=== PATIENT | male | born 1960 | race Caucasian/White ===

== ENCOUNTER 2021-02-12 22:03 | Inpatient (IN) | payer MEDICAID, SELFPAY ==
[2021-02-12 22:09] VITALS: BP 143/114; PULSE 75; RESP 24; TEMP 36.7; O2SAT 99; BMI 45.8
[2021-02-12 22:14] VITALS: BP 139/93; PULSE 76; RESP 24; O2SAT 99
--- NOTE | 2021-02-12 22:19 | XR_ITS ---
WS: [id number] Portable AP upright chest, 02/12/2021 Clinical Data: sob Comparison: None. Findings: No nodules, masses or effusions are seen. The heart is large. The pulmonary vascularity is not increased. No pneumonia or pneumothorax is seen. Midline sternotomy sutures are present. There is a multilead pacemaker in good position with the generator overlying the left lateral chest. The aort ic arch and descending aorta show calcification and tortuosity. XR/XR chest 1V portable [id number] Impression: 1. Cardiomegaly and atherosclerosis. 2. Permanent pacemaker.
--- NOTE | 2021-02-12 22:20 | ECG_ITS ---
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 Measurements Intervals [place] Rate: 77 P: 76 AR: 138 QRS: -83 QRSD: 173 T: 100 QT: 479 QTc: 543 Interpretive Statements ELECTRONIC VENTRICULAR PACEMAKER ABNORMAL RHYTHM ECG No previous ECG available for comparison Electronically Signed On 02-13-2021 19:46:42 CDT by Feliberto Senior M.D. [id number] f
[2021-02-12 22:29] VITALS: BP 139/93; PULSE 75; RESP 26; O2SAT 99
--- NOTE | 2021-02-12 22:30 | ED_ITS ---
HPI - SOB/Dyspnea General: Chief Complaint: Shortness of Breath/Dyspnea Stated Complaint: DIFF BREATHING, DIFF WALKING Time Seen by Provider: 02/12/21 22:09 Source: patient Mode of arrival: ambulatory Limitations: no limitations History of Present Illness: HPI Narrative: 60-year-old male has a history of COPD states he been outside working over the last 2 days has had increased shortness of breath. He states he had increased wheezing as well with no improvement from inhaler. He is in distress and able speak in 3-5 word sentences and has obvious wheezing. Patient denies any chest pain. Denies any vomiting or diarrhea. He denies any worsening improving factors currently. He has had a nonproductive cough. MD elicited complaint: shortness of breath Associated symptoms: Deny abdominal pain, chest pain, fever(s), nausea or vomiting Review of Systems Const: Denies: fever(s), chills, body aches or change in appetite Eyes: Denies: blurry vision or eye discomfort ENMT: Denies: throat pain or dental pain Card: Denies: chest pain Resp: Reports: dyspnea and wheezing GI: Denies: abdominal pain, nausea, vomiting or diarrhea : Denies: dysuria Musc: Denies: neck pain or back pain Skin/Breast: Denies: rash Neuro: Denies: headache(s) Psych: Denies: depression Alan/Lymph: Denies: easy bruising All/Imm: Denies: urticaria Physical Exam Const: COMMON NORMALS: patient oriented x3 GENERAL APPEARANCE: in distress NUTRITIONAL APPEARANCE: obese HENMT: COMMON NORMALS: normocephalic and atraumatic HEAD & SCALP: normocephalic and atraumatic Eye: COMMON NORMALS: Equal, round and reactive pupils present and EOMs intact bilaterally PUPIL: Yes Equal, round and reactive pupils present Neck/C-Spine: COMMON NORMALS: full ROM and supple Chest: COMMONS NORMALS: normal inspection of the chest and normal palpation of entire chest wall Resp: COMMON NORMALS: No retractions EFFORT & INSPECTION: Yes tachypneic and Yes respiratory distress AUSCULTATION: wheezes Cardio: COMMON NORMALS: regular rate, regular rhythm and No murmurs present (Cardio) RATE: regular rate RHYTHM: regular rhythm GI: COMMON NORMALS: Normal to inspection, nondistended, normoactive bowel sounds present, Soft to palpation, non-tender and no masses PALPATION: Yes Soft to palpation Extremity: COMMON NORMALS: normal to inspection and full ROM Neuro: COMMON NORMALS: patient oriented x3, moves all extremities and no focal motor deficits Psych: COMMON NORMALS: mental status grossly normal, Normal thought process present and cooperative THOUGHT PROCESS: Normal thought process present Skin: COMMON NORMALS: no rashes or lesions noted and no wounds GENERAL SKIN EXAM: no rashes or lesions noted Course Vital Signs: Vital signs: Vital Signs Temperature 98.1 F 02/12/21 22:09 Pulse Rate 78 02/12/21 23:14 Respiratory Rate 20 H 02/12/21 23:14 Blood Pressure 131/90 02/12/21 23:14 Pulse Oximetry 100 02/12/21 23:14 MDM - SOB/Dyspnea MDM Narrative: Medical decision making narrative: Haroon presents with shortness of breath does have a history of CHF and COPD. He does have quite a bit of wheezing and edema in his extremities. Patient given IV Lasix. Has had some slight improvement after breathing treatment but still has tachypnea and wheezing. X-ray shows no pneumonia. I spoke to the hospitalist and will admit at this time. Patient has been stable while here. Lab Data: Labs: Lab Results 02/12/21 02/12/21 02/12/21 Range/Units 22:23 22:23 22:23 WBC 12.5 H (4.0-10.0) 10^3/ uL RBC 4.37 (4.1-5.3) 10^6/u L Hgb 10.9 L (11.7-16.6) g/dL Hct 37.3 L (42.0-52.0) % MCV 85.4 (80-94) fL MCH 24.9 L (28.0-34.0) pg MCHC 29.2 L (30.0-36.0) g/dL RDW 15.8 H (12.1-15.1) % Plt Count 159 (130-400) 10^3/c mm MPV 12.7 H (7.4-10.4) fL Neut % (Auto) 78.4 % Lymph % (Auto) 10.0 % [place] % (Auto) 10.1 % Eos % (Auto) 0.4 % Baso % (Auto) 0.5 % Neut # (Auto) 9.82 H (1.8-7.7) 10^3/u L Lymph # (Auto) 1.3 (0.8-4.8) 10^3/u L [place] # (Auto) 1.3 H (0.2-0.9) 10^3/u L Eos # (Auto) 0.1 (0.0-0.8) 10^3/u L Baso # (Auto) 0.1 (0.0-0.1) 10^3/u L Nucleated RBC % (a uto) 0 % Nucleated RBCs # 0.0 /100WBC Sodium 138 (136-145) mmol/L Potassium 4.2 (3.5-5.1) mmol/L Chloride 104 (98-107) mmol/L Carbon Dioxide 23 (22-29) mmol/L Anion Gap 15.2 (5-19) BUN 32 H (8-23) mg/dL Creatinine 1.5 H (0.7-1.2) mg/dL GFR Calculation 47.4 L (90-130) mL/min Glucose 237 H (65-115) mg/dL Calculated Osmolal ity 301 H (285-295) mOsm/k g Calcium 8.3 L (8.5-10.5) mg/dL Total Bilirubin 1.2 (0.15-1.2) mg/dL AST 392 H (0-40) U/L ALT 570 H (0-41) U/L Alkaline Phosphata se 105 (40-130) IU/L Troponin T Baselin e 52 H (0-15) ng/L NT-Pro-B Natriuret Pep 90405 H (0-125) pg/mL Total Protein 6.7 (6.6-8.7) g/dL Albumin 3.5 (3.5-5.2) g/dL Globulin 3.2 (1.3-4.6) g/dL Imaging Data^: CXR: Attestation: I personally reviewed and interpreted this imaging study as follows: My impression: no acute abnormality EKG Data^: EKG 1: Attestation: I personally reviewed and interpreted this EKG as follows: EKG Interpretation Date: 02/12/21 EKG interpretation time: 22:23 Interpretation: paced hr [address] or t wave abnormalities qrs 173 qtc 510 Discharge Plan Discharge Patient Disposition: Admitted As Inpatient Clinical Impression: Acute exacerbation of chronic obstructive airways disease, Congestive heart failure, Weakness Condition: Stable Coding Level of Care Code ED Form Tamper Operator for Chg Fwd Exam Comprehensive
[2021-02-12] MEDS: ipratropium-albuterol 3 mL Neb INHALATION (22:32)
[2021-02-12 22:33] VITALS: PULSE 75; RESP 26; O2SAT 99
[2021-02-12 22:33] LABS: Basophils # 0.1 10^3/uL (0.0-0.1); Basophils % 0.5 %; Eosinophils # 0.1 10^3/uL (0.0-0.8); Eosinophils % 0.4 %; Hematocrit 37.3 % (42.0-52.0); Hemoglobin 10.9 g/dL (11.7-16.6); Lymphocytes # 1.3 10^3/uL (0.8-4.8); Mean Corpuscular HGB Conc 29.2 g/dL (30.0-36.0); Mean Corpuscular Hemoglobin 24.9 pg (28.0-34.0); Mean Corpuscular Volume 85.4 fL (80-94); Mean Platelet Volume 12.7 fL (7.4-10.4); Monocytes # 1.3 10^3/uL (0.2-0.9); Monocytes % 10.1 %; Neutrophils # 9.82 10^3/uL (1.8-7.7); Neutrophils % 78.4 %; Nucleated Red Blood Cells % 0 %; Platelet Count 159 10^3/cmm (130-400); Red Blood Count 4.37 10^6/uL (4.1-5.3); Red Cell Distribution Width 15.8 % (12.1-15.1); White Blood Count 12.5 10^3/uL (4.0-10.0)
[2021-02-12 22:36] VITALS: PULSE 76
[2021-02-12 22:48] LABS: Slide Review Slide Review Perform
[2021-02-12 22:51] LABS: Troponin(5th) Baseline 52 ng/L (0-15)
[2021-02-12 23:00] LABS: Alanine Aminotransferase 570 U/L (0-41); Albumin Level 3.5 g/dL (3.5-5.2); Alkaline Phosphatase 105 IU/L (40-130); Anion Gap 15.2 (5-19); Aspartate Amino Transferase 392 U/L (0-40); Blood Urea Nitrogen 32 mg/dL (8-23); Calcium 8.3 mg/dL (8.5-10.5); Carbon Dioxide 23 mmol/L (22-29); Chloride 104 mmol/L (98-107); Globulin 3.2 g/dL (1.3-4.6); Glomerular Filtration Rate 47.4 mL/min (90-130); Glucose 237 mg/dL (65-115); NT Pro B Type Natriuretic Pept 22316 pg/mL (0-125); Osmolality Calculated 301 mOsm/kg (285-295); Potassium 4.2 mmol/L (3.5-5.1); Sodium 138 mmol/L (136-145); Total Bilirubin 1.2 mg/dL (0.15-1.2); Total Protein 6.7 g/dL (6.6-8.7)
[2021-02-12 23:14] VITALS: BP 131/90; PULSE 78; RESP 20; O2SAT 100
[2021-02-12] MEDS: FUROsemide 10 mg/mL SDV 4mL 40 MG IVP (23:44)
--- NOTE | 2021-02-12 23:55 | CTR_ITS ---
PROCEDURE INFORMATION: Exam: CT Head Without Contrast Exam date and time: 02/12/2021 12:05 AM Age: 60 years old Clinical indication: Walking, difficulty; Patient HX: General weakness with sudden onset of walking difficulty. TECHNIQUE: Imaging protocol: Computed tomography of the head without contrast. Radiation optimization: All CT scans at this facility use at least one of these dose optimization techniques: automated exposure control; mA and/or kV adjustment per patient size (includes targeted exams where dose is matched to clinical indication); or iterative reconstruction. COMPARISON: No relevant prior studies available. RADIATION DOSE METRICS: Total DLP (mGy-cm): 965.1 FINDINGS: Brain: No acute intracranial hemorrhage or mass effect. There is mild decreased attenuation in the periventricular white matter, likely from microvascular disease. Small suspected old white matter infarct in the right supraventricular region. No definite acute infarct by CT. MRI could be more sensitive/specific for detection, and also for distinguishing between old and subacute infarcts, as clinically directed. Cerebral ventricles: Ventricle size is normal for age. Bones/joints: No definite acute skull fracture. Paranasal sinuses: Very mild mucosal thickening in the inferior right maxillary sinus. Included paranasal sinuses otherwise appear essentially clear. Mastoid air cells: No significant acute finding. Vasculature: Vascular calcifications in the internal carotid and vertebral basilar systems. CT/CT head wo con* [id number] IMPRESSION: 1. No acute intracranial hemorrhage or mass effect. 2. Changes of microvascular disease. 3. Small suspected old white matter infarct in the right supraventricular region. 4. No definite acute infarct by CT, see above discussion. 5. Other findings discussed above. Radiation Dose CTDIVOL = (mGy): DLP = 965.1 (mGy-cm)
[2021-02-13] VITALS (14 sets, daily range): BP systolic 138–163; BP diastolic 94–116; PULSE 62–85; RESP 10–22; TEMP 36.6–36.8; O2SAT 90–98
--- NOTE | 2021-02-13 00:20 | ECG_ITS ---
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 Measurements Intervals [place] Rate: 77 P: 58 NE: 138 QRS: -82 QRSD: 164 T: 88 QT: 465 QTc: 527 Interpretive Statements ELECTRONIC VENTRICULAR PACEMAKER ABNORMAL RHYTHM ECG Compared to ECG 02/12/2021 22:23:10 No significant changes Electronically Signed On 02-13-2021 19:52:27 CDT by Feliberto Senior M.D. [id number]
--- NOTE | 2021-02-13 00:21 | PM.HP ---
Providers/Chief Complaint Chief Complaint: DIFF BREATHING, DIFF WALKING History of Present Illness KESHIA HICKMAN is a 60 year old male who carries history of ischemic cardiomyopathy status post AICD/pacemaker placement, COPD nonoxygen dependent, presented today with chief complaint of worsening ataxia and shortness of breath. Patient is stating that he has balance issues for last 4 to 5 years, he never had any strokelike symptoms, he states that he was evaluated for ataxia however because was not determined. 4 days ago he started experiencing shortness of breath and productive cough he is bringing up brown-colored sputum, he did not notice any fever, he did not experience any chest pain, nausea, vomiting or diarrhea, his symptoms worsened in last 4 to 5 days and today he just felt too weak that he could not stand up on his feet, he is endorsing orthopnea and PND. He takes Lasix 20 mg a day, he tried to use his inhalers without significant improvement in his symptoms hence decided to come to the hospital. Diagnosis in the ER revealed acute CHF exacerbation acute hypoxic respiratory failure COPD exacerbation, left lower lobe pneumonia with mild vascular congestion on x-ray, MARIA A and leukocytosis He does meet sepsis criteria with tachypnea, leukocytosis In the ER he was given 40 mg of IV Lasix along DuoNeb treatment and methylprednisone 125 mg, no chest pain EKG shows paced rhythm, troponin baseline 52 Review of Systems Const: Reports: chills, body aches, change in appetite, change in weight, fatigue and malaise; Denies: fever(s) Eyes: Denies: change in vision ENMT: Denies: throat pain Card: Reports: edema, swelling of feet/ankles, dyspnea on exertion and orthopnea; Denies: chest pain Resp: Reports: dyspnea and productive cough GI: Reports: early satiety and bloating; Denies: abdominal pain : Denies: flank pain Musc: Reports: extremity swelling; Denies: neck pain Skin/Breast: Reports: lesions and changes in skin color Neuro: Reports: difficulty walking and frequent falls; Denies: headache(s) or weakness in extremities Psych: Denies: anxiety Endo: Denies: polyuria Alan/Lymph: Denies: easy bruising All/Imm: Denies: urticaria Medications/Allergies Allergies Allergy/AdvReac Type Severity Reaction Status Date / Time Penicillins Allergy ALGY-Hives Verified 02/12/21 22:15 PFSH Acute PFSH: Medical History (Updated 02/13/21 @ 01:08 by Clair Crawford MD) BPH (benign prostatic hyperplasia) COPD (chronic obstructive pulmonary disease) Diabetes HTN (hypertension) Pacemaker Surgical History (Updated 02/13/21 @ 00:58 by Clair Crawford MD) AICD (automatic cardioverter/defibrillator) present S/P CABG (coronary artery bypass graft) Family History (Updated 02/13/21 @ 00:58 by Clair Crawford MD) Father Diabetes Mother Diabetes Social History (Updated 02/13/21 @ 01:08 by Clair Crawford MD) Smoking and tobacco status: former smoker Alcohol intake: current Alcohol intake frequency: holidays/special occasions only Alcohol type: beer Substance/Drug Use: never Household members: family Housing: House 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 Vitals/I&O/Wt Last Vital Signs Temp 98.1 F 02/12/21 22:09 Pulse 78 02/12/21 23:14 Resp 20 H 02/12/21 23:14 BP 131/90 02/12/21 23:14 Pulse Ox 100 02/12/21 23:14 Weight last 48 hrs Weight 140.614 kg Physical Exam Narrative: EXAM NARRATIVE: This is a pleasant elderly male who appears more than stated age Morbid obesity 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, 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 Saturating well on 2 L nasal cannula Has mild tachypnea as well without use of accessory muscles Variable S1-S2, active signs of heart failure Abdomen distended bowel sounds present nontender abdomen, central obesity Lower extremity edema 1+ bilaterally He was able to walk using support of the wheelchair, proprioception intact Strength 3/5 of lower extremities no strokelike symptoms Awake alert oriented x3 GCS 15 Appropriate mood and affect Bilateral breath sounds with crackles bibasilar Data : 02/12/21 22:23 02/12/21 22:23 A&P Assessment and plan (1) Acute exacerbation of chronic obstructive airways disease: Status: Acute (2) Congestive heart failure: Status: Acute (3) Weakness: Status: Acute (4) Ataxia: Status: Acute (5) Morbid obesity: Status: Acute (6) MARIA A (acute kidney injury): Status: Acute (7) CAP (community acquired pneumonia): Status: Acute (8) Restless leg syndrome: Status: Acute Additional A&P Information Acute CHF exacerbation Patient has history of ischemic cardiomyopathy however EF is unknown He goes to [facility], will request records, I will hold off on requesting echo until we receive medical records from [facility] I will increase his diuretics to Bumex 1 mg IV daily No active chest pain troponin 52 EKG shows paced rhythm Etiology most likely is gradual worsening of underlying ischemic cardiomyopathy, dietary indiscretion, poor lifestyle, and active pneumonia Acute COPD exacerbation with acute hypoxia due to community-acquired pneumonia He is not a chronic retainer bicarb is normal currently requiring 2 L nasal cannula, will request ABG Etiology is left lower lobe pneumonia I will start him on ceftriaxone and azithromycin Request urine antigen Sputum culture Sepsis criteria met with tachypnea and leukocytosis will request blood cultures as well, judicious use of fluids Ataxia Romberg sign positive, proprioception intact We will check B12 level and TSH No signs of stroke Has history of diabetes, peripheral neuropathy has not been ruled out We will get physical therapy evaluation Morbid obesity Not a chronic CO2 retainer Former smoker MARIA A secondary to cardiorenal Do not have previous creatinine level to compare most likely prerenal in nature anticipating improvement with diuresis Full code Cardiac diet/consistent carb DVT prophylaxis Heparin Restless leg syndrome no acute exacerbation Family is requesting placement to assisted living, currently his whole family is building a house and living conditions are poor and considering his ataxia they will not be able to take care of him Attestations Medical Necessity Statement*: Anticipating stay in the hospital cross more than 2 midnight, will need management for CHF exacerbation community-acquired pneumonia and sepsis Time Spent in Patient Care: 40mins Coding Level of Care Code Acute Educational Speech Language Clinician for g Fwd Diagnoses Acute exacerbation of chronic obstructive airways disease J44.1 Congestive heart failure I50.9 Weakness R53.1 Ataxia R27.0 Morbid obesity E66.01 MARIA A (acute kidney injury) N17.9 CAP (community acquired pneumonia) J18.9 Restless leg syndrome G25.81
[2021-02-13 01:08] LABS: Troponin 5 2HR 52.02 ng/L (0-15); Troponin 5 2HR Delta 0.02 ABS# (0-10)
[2021-02-13 02:03] LABS: ABG PCO2 32.5 mmHg (35-45); ABG PH Result 7.44 (7.35-7.45); Arterial Blood Gas Hematocrit 35.3 % (42-52); Base Excess ABG -1.5 mmol/L (-2.0-2.0); Blood Gas Sample Site Brachial, right; Oxygen Device NC
[2021-02-13 02:16] LABS: Estmated Average Glucose 266; Hemoglobin A1C 10.9 % (4.0-6.0)
[2021-02-13] MEDS: heparin 5,000 unit/mL INJ 1 mL 5000 UNIT SUBCUT ×3 (02:26→17:45)
[2021-02-13 02:53] LABS: Thyroid Stimulating Hormone 3.96 uIU/mL (0.27-4.20); Vitamin B12 1417 pg/mL (232-1245)
[2021-02-13] MEDS: hyDRALAzine 20 mg/mL INJ 1 mL 10 MG IVP (04:07)
--- NOTE | 2021-02-13 04:20 | ECG_ITS ---
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 Measurements Intervals [place] Rate: 73 P: 50 [place]: 142 QRS: -85 QRSD: 164 T: 90 QT: 501 QTc: 553 Interpretive Statements ELECTRONIC VENTRICULAR PACEMAKER ABNORMAL RHYTHM ECG Compared to ECG 02/13/2021 01:03:36 No significant changes Electronically Signed On 02-13-2021 19:52:43 CDT by Feliberto Senior M.D. [email or web address]/[id number]
[2021-02-13 05:50] LABS: Basophils % 0.2 %; Hematocrit 35.7 % (42.0-52.0); Hemoglobin 10.8 g/dL (11.7-16.6); Lymphocytes # 0.5 10^3/uL (0.8-4.8); Lymphocytes % 5.1 %; Mean Corpuscular HGB Conc 30.3 g/dL (30.0-36.0); Mean Corpuscular Hemoglobin 25.4 pg (28.0-34.0); Mean Corpuscular Volume 83.8 fL (80-94); Mean Platelet Volume 12.6 fL (7.4-10.4); Monocytes # 0.3 10^3/uL (0.2-0.9); Monocytes % 2.7 %; Neutrophils # 9.55 10^3/uL (1.8-7.7); Neutrophils % 91.1 %; Nucleated Red Blood Cells % 0 %; Platelet Count 150 10^3/cmm (130-400); Red Blood Count 4.26 10^6/uL (4.1-5.3); Red Cell Distribution Width 15.9 % (12.1-15.1); White Blood Count 10.5 10^3/uL (4.0-10.0)
[2021-02-13 06:07] LABS: Blood Urea Nitrogen 33 mg/dL (8-23); Calcium 8.5 mg/dL (8.5-10.5); Carbon Dioxide 23 mmol/L (22-29); Chloride 104 mmol/L (98-107); Glomerular Filtration Rate 47.4 mL/min (90-130); Glucose 280 mg/dL (65-115); Osmolality Calculated 309 mOsm/kg (285-295); Sodium 141 mmol/L (136-145)
[2021-02-13 06:13] LABS: Troponin 5 6HR 44.49 ng/L (0-15)
[2021-02-13 06:14] LABS: Troponin 5 6HR Delta -7.51 ng/L (0-12)
[2021-02-13 06:53] LABS: Glucose Point of Care 282 mg/dL (70-110)
--- NOTE | 2021-02-13 07:26 | PC.NURSE ---
Received beside report from LALA Cárdenas. Patient is resting in bed, even and unlabored breathing, no complaints at this time. Patient had hypertension last night and was given IV hydralazine. Blood pressure has improved this morning to 146/99 from 160's/120's. Will continue to monitor.
[2021-02-13 08:03] LABS: Blood Gas Operator Identificat Anonymous; Blood Gas Sample Type CalVer
[2021-02-13] MEDS: hyDRALAzine 25 mg Tablet PO ×3 (08:49→21:30)
[2021-02-13] MEDS: aspirin 81 mg EC Tablet PO (08:49)
[2021-02-13] MEDS: atorvastatin 40 mg Tablet PO (08:49)
[2021-02-13] MEDS: cefTRIAXone 1,000 MG in sodium chloride 0.9% (plus) 50 ML 100 MG IV (08:50)
[2021-02-13] MEDS: azithromycin 250 mg Tablet 500 MG PO (08:50)
[2021-02-13] MEDS: lisinopril 10 mg Tablet PO (08:50)
[2021-02-13] MEDS: bumetanide 0.25 mg/mL SDV 4 mL 1 MG IV (08:50)
--- NOTE | 2021-02-13 09:34 | P.PN_ITS ---
Subjective Subjective: Interval history: Patient was seen and examined this morning, he was saying that his chest congestion has improved, his shortness of breath is improving, coughing is also improving. Continues to remain afebrile, 2.1 L urine output. Medications: Reviewed: Yes Vitals/I&O/Wt Last Vital Signs Temp 97.8 F 02/13/21 07:10 Pulse 80 02/13/21 09:20 Resp 16 02/13/21 09:20 BP 146/99 02/13/21 07:10 Pulse Ox 95 02/13/21 09:20 02/12/21 02/13/21 02/13/21 22:59 06:59 14:59 Output Total 1700 / 1700 Balance -1700 / -1700 Weight last 48 hrs Weight 140.614 kg Physical Exam Const: COMMON NORMALS: patient oriented x3 HENMT: COMMON NORMALS: normocephalic and atraumatic HEAD & SCALP: normocephalic and atraumatic Chest: CHEST: Yes Symmetrical chest wall rise Resp: COMMON NORMALS: clear to auscultation bilaterally EFFORT & INSPECTION: Yes symmetric chest movement AUSCULTATION: clear to auscultation bilaterally Cardio: COMMON NORMALS: regular rate, regular rhythm, S1 normal heart sound present, S2 normal heart sound present, No gallops present (Cardio), No murmurs present (Cardio), No rub (Cardio) and Peripheral pulses 2+ throughout RATE: regular rate RHYTHM: regular rhythm HEART SOUNDS: S1 normal heart sound present and S2 normal heart sound present PERIPHERAL PULSES: Peripheral pulses 2+ throughout GI: COMMON NORMALS: Normal to inspection, nondistended, normoactive bowel sounds present, Soft to palpation, non-tender, No hepatosplenomegaly present and no masses AUSCULTATION: Yes normoactive bowel sounds PALPATION: Yes Soft to palpation and Yes No hepatosplenomegaly present RECTAL EXAM: Yes deferred Extremity: NARRATIVE EXTREMITY EXAM: 1+ bilateral pitting edema present Neuro: COMMON NORMALS: patient oriented x3 Data : 02/13/21 04:38 02/13/21 04:38 Micro: Microbiology 02/13/21 04:38 Blood Culture - Preliminary Blood SPECIMEN COLLECTED 02/13/21 00:01 Legionella Urinary Antigen - Final Urine,Voided 02/13/21 00:01 Blood Culture - Preliminary Blood SPECIMEN COLLECTED A&P Assessment and plan (1) Congestive heart failure: HFrEF Exacerbation: Presented with worsening shortness of breath, orthopne a, PND, worsening bilateral lower extremity swelling. Elevated pro BNP:[id number] X-ray chest: 2D echo: Intake output chart Daily weight Low-salt diet k>4 , Mg > 2 Bumex 1 mg IV daily Lisinopril 10 mg p.o. daily Atorvastatin 40 mg daily Status: Acute (2) Acute exacerbation of chronic obstructive airways disease: Acute exacerbation of COPD: Complaining of productive yellow sputum, shortness of breath. ABG: pH 7.44, PCO2: 32, PO2:571, FiO2: Duo nebs Ceftriaxone 1 g IV every 24 daily Azithromycin 500 mg p.o. daily Status: Acute (3) CAP (community acquired pneumonia): X-ray chest: Ceftriaxone 1 g every 24 hours Azithromycin 500 mg p.o. daily Status: Acute (4) MARIA A (acute kidney injury): Likely secondary to cardiorenal syndrome: Baseline serum creatinine : Currently unknown: Admission serum creatinine:1.5 Monitor BMP Status: Acute (5) Morbid obesity: Status: Acute (6) HTN (hypertension): Hydralazine 25 mg p.o. 3 times daily Status: Acute (7) Diabetes: Low-dose sliding scale insulin Fingerstick glucose Status: Acute (8) AICD (automatic cardioverter/defibrillator) present: Status: Acute Additional A&P Information CODE STATUS: Full code DVT prophylaxis: Heparin 5000 subcu every 8 hours Attestations Medical Necessity Statement*: Patient needs to be in hospital for management of heart failure, COPD exacerbation, pneumonia Coding Level of Care Code Acute Geospatial Scientist for [facility] Fwd Diagnoses Congestive heart failure I50.9 Acute exacerbation of chronic obstructive airways disease J44.1 CAP (community acquired pneumonia) J18.9 MARIA A (acute kidney injury) N17.9 Morbid obesity E66.01 HTN (hypertension) I10 Diabetes E11.9 AICD (automatic cardioverter/defibrillator) present Z95.810
--- NOTE | 2021-02-13 09:46 | PC.PHAR ---
pt states he takes care of his own medications-pt states he takes metformin-pt states he takes 1/2 tab bid-pt states he only takes to help him poop-ext med history shows last filled for 1000 mg po bid on 08/16/2020 30d/s
--- NOTE | 2021-02-13 10:24 | USCV_ITS ---
KESHIA HICKMAN Age: 60 Gender: M : 1960 Exam Date: 02/13/2021 14:58 Ordering Phys: Carson Lopez MD Technologist: Bindu Schilling Exam Location: [facility] – [place] Indication: SOB BP: 146 / 105 HR: 82 Rhythm: Sinus Technical Quality: Technically difficult study MEASUREMENTS (Male / Female) Normal Values 2D ECHO LV Diastolic Diameter PLAX 5.7 cm 4.2 - 5.9 / 3.9 - 5.3 cm LV Systolic Diameter PLAX 5.4 cm LV Chamber Size 3.7 cm IVS Diastolic Thickness 1.4 cm 0.6 - 1.0 / 0.6 - 0.9 cm IVS Systolic Thickness 2.0 cm LVPW Diastolic Thickness 1.7 cm 0.6 - 1.0 / 0.6 - 0.9 cm LVPW Systolic Thickness 2.3 cm RV Chamber Size 3.5 cm LVOT Diameter 2.3 cm LV Ejection Fraction 2D Teich 9.1 % LV Ejection Fraction MOD 2C 58.0 % LV Ejection Fraction 2C AL 60.5 % LA Diameter 4.7 cm LA Width 4.7 cm LA Height 5.0 cm RA Width 4.0 cm RA Height 5.0 cm Aorta at Sinotubular Diameter 3.5 cm M-MODE LV Diastolic Diameter MM 6.9 cm 4.2 - 5.9 / 3.9 - 5.3 cm LV Systolic Diameter MM 5.5 cm LV Ejection Fraction MM Teich 42.0 % IVS Diastolic Thickness MM 1.3 cm 0.6 - 1.0 / 0.6 - 0.9 cm IVS Systolic Thickness MM 1.9 cm LVPW Diastolic Thickness MM 1.9 cm 0.6 - 1.0 / 0.6 - 0.9 cm LVPW Systolic Thickness MM 1.7 cm RV Diastolic Diameter MM 2.8 cm Aortic Annulus Diameter 4.2 cm LA Ao Ratio MM 1.3 MV E Point Septal Separation 2.1 cm DOPPLER AV Peak Velocity 134.0 cm/s LVOT Peak Velocity 60.0 cm/s AV Area Cont Eq vti 2.4 cm squared AV Area Cont Eq pk 1.9 cm squared MV Area PHT 3.6 cm squared Mitral E to A Ratio 1.8 MV E' Velocity 55.0 cm/s Mitral E to MV E' Ratio 18.2 Mitral E to LV E' Lateral Ratio 18.5 Mitral E to LV E' Septal Ratio 18.2 TR Peak Velocity 276.0 cm/s TR Peak Gradient 30.5 mmHg TR Mean Velocity 199.7 cm/s TR Mean Gradient 17.8 mmHg TR Velocity Time Integral 83.2 cm Right Atrial Pressure 15.0 mmHg Pulmonary Artery Systolic Pressu 45.5 mmHg PV Peak Velocity 70.0 cm/s RV Acceleration Time 0.1 s RV Ejection Time 0.3 s RV AcT/ET 0.5 FINDINGS Left Ventricle Normal left ventricular cavity size. Mildly decreased left ventricular systolic function. Left ventricular ejection fraction is estimated at 45-50 %. Mild global left ventricular hypokinesis. Grade II diastolic dysfunction, moderately elevated filling pressures. Right Ventricle Normal right ventricular size and systolic function. Right ventricular systolic pressure 41 mmHg. Pacemaker wire visualized in the right ventricle. Right Atrium Normal right atrial size. Left Atrium Mildly increased left atrial size. Mitral Valve Moderately thickened mitral valve. Trace mitral valve regurgitation. Aortic Valve Aortic valve not well visualized. No aortic valve stenosis. No aortic valve regurgitation. Tricuspid Valve Tricuspid valve not well visualized. Mild tricuspid valve regurgitation. Pulmonic Valve Structurally normal pulmonic valve. No pulmonary valve stenosis. Trace pulmonary valve regurgitation. Pericardium No pericardial effusion. Aorta Normal sized aortic root. CONCLUSIONS 1. This is a technically difficult study. 2. Normal left ventricular cavity size. Mildly decreased left ventricular systolic function. Left ventricular ejection fraction is estimated at 45-50 %. Mild global left ventricular hypokinesis. Grade II diastolic dysfunction, moderately elevated filling pressures. 3. Pulmonary artery pressure esimated at 41 mm Hg. 4. No prior similar studies to compare. Emily Mayen MD (Electronically Signed) Final Date: 14 February 2021 06:29 S
[2021-02-13 11:23] LABS: Glucose Point of Care 392 mg/dL (70-110)
--- NOTE | 2021-02-13 15:39 | PC.NURSE ---
pt wants shower befor bed
[2021-02-13 16:57] LABS: Glucose Point of Care 370 mg/dL (70-110)
--- NOTE | 2021-02-13 17:45 | PC.RESP ---
Pulmonary Rehab information sent to patient.
[2021-02-13] MEDS: ipratropium-albuterol 3 mL Neb INHALATION (19:30)
[2021-02-13 21:22] LABS: Glucose Point of Care 335 mg/dL (70-110)
[2021-02-14] VITALS (12 sets, daily range): BP systolic 120–139; BP diastolic 75–116; PULSE 64–79; RESP 14–20; TEMP 36.6–36.8; O2SAT 94–98
[2021-02-14] MEDS: heparin 5,000 unit/mL INJ 1 mL 5000 UNIT SUBCUT ×3 (02:09→17:51)
[2021-02-14 04:58] LABS: Basophils % 0.1 %; Hematocrit 33.3 % (42.0-52.0); Lymphocytes # 1.3 10^3/uL (0.8-4.8); Lymphocytes % 9.3 %; Mean Corpuscular Hemoglobin 25.1 pg (28.0-34.0); Mean Corpuscular Volume 83.5 fL (80-94); Mean Platelet Volume 12.8 fL (7.4-10.4); Monocytes # 1.6 10^3/uL (0.2-0.9); Monocytes % 11.5 %; Neutrophils # 10.69 10^3/uL (1.8-7.7); Neutrophils % 78.6 %; Nucleated Red Blood Cells % 0 %; Platelet Count 160 10^3/cmm (130-400); Red Blood Count 3.99 10^6/uL (4.1-5.3); Red Cell Distribution Width 15.8 % (12.1-15.1); White Blood Count 13.6 10^3/uL (4.0-10.0)
[2021-02-14 05:18] LABS: Anion Gap 11.5 (5-19); Blood Urea Nitrogen 39 mg/dL (8-23); Calcium 8.3 mg/dL (8.5-10.5); Carbon Dioxide 28 mmol/L (22-29); Chloride 102 mmol/L (98-107); Glomerular Filtration Rate 47.4 mL/min (90-130); Glucose 143 mg/dL (65-115); Magnesium 2.1 mg/dL (1.7-2.3); Osmolality Calculated 298 mOsm/kg (285-295); Potassium 3.5 mmol/L (3.5-5.1); Sodium 138 mmol/L (136-145)
[2021-02-14 06:51] LABS: Glucose Point of Care 150 mg/dL (70-110)
[2021-02-14] MEDS: ipratropium-albuterol 3 mL Neb INHALATION (07:31)
--- NOTE | 2021-02-14 08:00 | PC.NURSE ---
Pt lying in bed resting in bed with eyes open talking to staff. Resp even and non-labored no distress noted. Pt had no c/o pain or discomfort at the present time. Call light in reach.
[2021-02-14] MEDS: lisinopril 10 mg Tablet PO (08:32)
[2021-02-14] MEDS: azithromycin 250 mg Tablet 500 MG PO (08:32)
[2021-02-14] MEDS: hyDRALAzine 25 mg Tablet PO ×3 (08:32→21:19)
[2021-02-14] MEDS: aspirin 81 mg EC Tablet PO (08:32)
[2021-02-14] MEDS: atorvastatin 40 mg Tablet PO (08:32)
[2021-02-14] MEDS: cefTRIAXone 1,000 MG in sodium chloride 0.9% (plus) 50 ML 100 MG IV (08:33)
[2021-02-14] MEDS: bumetanide 0.25 mg/mL SDV 4 mL 1 MG IV (08:34)
--- NOTE | 2021-02-14 08:51 | PC.NURSE ---
pt wants bath tonight
--- NOTE | 2021-02-14 08:57 | P.PN_ITS ---
Subjective Subjective: Interval history: Patient was seen and examined this morning, shortness of breath has improved. Patient participating with physical therapy. Coughing has improved. Good urine output with Bumex. Medications: Reviewed: Yes Vitals/I&O/Wt Last Vital Signs Temp 98.0 F 02/14/21 07:11 Pulse 70 02/14/21 07:36 Resp 18 02/14/21 07:31 BP 131/92 02/14/21 07:11 Pulse Ox 95 02/14/21 07:31 02/13/21 02/14/21 02/14/21 22:59 06:59 14:59 Intake Total 280 / 810 300 / 1110 480 / 480 Output Total 1050 / 1850 450 / 2300 Balance -770 / -1040 -150 / -1190 480 / 480 Weight last 48 hrs Weight 140.614 kg Physical Exam Const: COMMON NORMALS: patient oriented x3 HENMT: COMMON NORMALS: normocephalic and atraumatic HEAD & SCALP: normocephalic and atraumatic Chest: CHEST: Yes Symmetrical chest wall rise Resp: COMMON NORMALS: clear to auscultation bilaterally EFFORT & INSPECTION: Yes symmetric chest movement AUSCULTATION: clear to auscultation bilaterally Cardio: COMMON NORMALS: regular rate, regular rhythm, S1 normal heart sound present, S2 normal heart sound present, No gallops present (Cardio), No murmurs present (Cardio), No rub (Cardio) and Peripheral pulses 2+ throughout RATE: regular rate RHYTHM: regular rhythm HEART SOUNDS: S1 normal heart sound present and S2 normal heart sound present PERIPHERAL PULSES: Peripheral pulses 2+ throughout GI: COMMON NORMALS: Normal to inspection, nondistended, normoactive bowel sounds present, Soft to palpation, non-tender, No hepatosplenomegaly present and no masses AUSCULTATION: Yes normoactive bowel sounds PALPATION: Yes Soft to palpation and Yes No hepatosplenomegaly present RECTAL EXAM: Yes deferred Extremity: NARRATIVE EXTREMITY EXAM: 1+ bilateral pitting edema present Neuro: COMMON NORMALS: patient oriented x3 Data : 02/14/21 04:11 02/14/21 04:11 Micro: Microbiology 02/13/21 04:38 Blood Culture - Preliminary Blood NEGATIVE TO DATE 02/13/21 00:01 Blood Culture - Preliminary Blood NEGATIVE TO DATE 02/13/21 00:01 Legionella Urinary Antigen - Final Urine,Voided Bacterial Antigens - Final A&P Assessment and plan (1) Congestive heart failure: HFrEF Exacerbation: Presented with worsening shortness of breath, orthopnea, PND, worsening bilateral lower extremity swelling. Elevated pro BNP:[id number] X-ray chest: 2D echo: Normal LV cavity size, LVEF: 45-50 %, mild global left ventricular hypokinesis, grade 2 diastolic?dysfunction. PASP:41 Intake output chart Daily weight Low-salt diet k>4 , Mg > 2 Bumex 1 mg IV daily Lisinopril 10 mg p.o. daily Atorvastatin 40 mg daily Status: Acute (2) Acute exacerbation of chronic obstructive airways disease: Acute exacerbation of COPD: Complaining of productive yellow sputum, shortness of breath. ABG: pH 7.44, PCO2: 32, PO2:571, FiO2: Duo nebs Ceftriaxone 1 g IV every 24 daily Azithromycin 500 mg p.o. daily Status: Acute (3) CAP (community acquired pneumonia): X-ray chest: Ceftriaxone 1 g every 24 hours Azithromycin 500 mg p.o. daily Status: Acute (4) MARIA A (acute kidney injury): MARIA A versus MARIA A on CKD Likely secondary to cardiorenal syndrome: Baseline serum creatinine : Currently unknown: Admission serum creatinine:1.5 Monitor BMP Status: Acute (5) Morbid obesity: Status: Acute (6) HTN (hypertension): Hydralazine 25 mg p.o. 3 times daily Status: Acute (7) Diabetes: Low-dose sliding scale insulin Fingerstick glucose Status: Acute (8) AICD (automatic cardioverter/defibrillator) present: Status: Acute Additional A&P Information CODE STATUS: Full code DVT prophylaxis: Heparin 5000 subcu every 8 hours Attestations Medical Necessity Statement*: Patient needs to be in hospital for management of decompensated heart failure. Coding Level of Care Code Acute Financial Aid Coordinator for g Fwd Diagnoses Congestive heart failure I50.9 Acute exacerbation of chronic obstructive airways disease J44.1 CAP (community acquired pneumonia) J18.9 MARIA A (acute kidney injury) N17.9 Morbid obesity E66.01 HTN (hypertension) I10 Diabetes E11.9 AICD (automatic cardioverter/defibrillator) present Z95.810
[2021-02-14 11:23] LABS: Glucose Point of Care 296 mg/dL (70-110)
[2021-02-14 16:12] LABS: Glucose Point of Care 133 mg/dL (70-110)
--- NOTE | 2021-02-14 19:49 | PC.NURSE ---
Bedside report received from Ke Farmer RN. Pt sitting in up in chair, A & O x4, denies pain or any needs at this time.
[2021-02-14 20:37] LABS: Glucose Point of Care 218 mg/dL (70-110)
[2021-02-15] VITALS (110 sets, daily range): BP systolic 101–138; BP diastolic 66–98; PULSE 66–84; RESP 13–47; TEMP 36.4–36.8; O2SAT 73–99
--- NOTE | 2021-02-15 00:08 | PC.NURSE ---
Patient resting in bed with eyes open, states he just can't fall asleep. Denies pain or any other needs at this time.
[2021-02-15] MEDS: heparin 5,000 unit/mL INJ 1 mL 5000 UNIT SUBCUT ×3 (01:04→17:35)
[2021-02-15 05:02] LABS: Basophils # 0.1 10^3/uL (0.0-0.1); Basophils % 0.5 %; Eosinophils # 0.1 10^3/uL (0.0-0.8); Eosinophils % 0.7 %; Hematocrit 37.2 % (42.0-52.0); Lymphocytes # 2.3 10^3/uL (0.8-4.8); Lymphocytes % 23.4 %; Mean Corpuscular HGB Conc 29.6 g/dL (30.0-36.0); Mean Corpuscular Hemoglobin 24.8 pg (28.0-34.0); Mean Platelet Volume 11.3 fL (7.4-10.4); Neutrophils # 6.31 10^3/uL (1.8-7.7); Neutrophils % 64.9 %; Nucleated Red Blood Cells % 0 %; Platelet Count 185 10^3/cmm (130-400); Red Blood Count 4.43 10^6/uL (4.1-5.3); Red Cell Distribution Width 15.9 % (12.1-15.1); White Blood Count 9.7 10^3/uL (4.0-10.0)
[2021-02-15 05:23] LABS: Anion Gap 13.7 (5-19); Blood Urea Nitrogen 38 mg/dL (8-23); Calcium 8.3 mg/dL (8.5-10.5); Carbon Dioxide 27 mmol/L (22-29); Chloride 102 mmol/L (98-107); Glucose 136 mg/dL (65-115); Osmolality Calculated 299 mOsm/kg (285-295); Potassium 3.7 mmol/L (3.5-5.1); Sodium 139 mmol/L (136-145)
--- NOTE | 2021-02-15 06:43 | PC.NURSE ---
End of shift assessment Patient had no changes during the night. Did not sleep well, but patient states this is normal for him. Patient has no complaints at this time.
[2021-02-15 07:19] LABS: Glucose Point of Care 144 mg/dL (70-110)
--- NOTE | 2021-02-15 07:19 | PC.NURSE ---
Pt presents sitting in wheel chair in room watching tv. Pt A&O x4 talking to staff. Pts resp even and non-labored no distress noted. Pt had no c/o pain or discomfort at the present time. No needs voiced. Call light in reach. Will cont to monitor.
[2021-02-15] MEDS: ipratropium-albuterol 3 mL Neb INHALATION (07:28)
[2021-02-15] MEDS: lisinopril 10 mg Tablet PO (09:13)
[2021-02-15] MEDS: azithromycin 250 mg Tablet 500 MG PO (09:13)
[2021-02-15] MEDS: atorvastatin 40 mg Tablet PO (09:13)
[2021-02-15] MEDS: cefTRIAXone 1,000 MG in sodium chloride 0.9% (plus) 50 ML 100 MG IV (09:13)
[2021-02-15] MEDS: aspirin 81 mg EC Tablet PO (09:13)
[2021-02-15] MEDS: bumetanide 1 mg Tablet PO (09:13)
[2021-02-15] MEDS: hyDRALAzine 25 mg Tablet PO ×3 (09:13→21:25)
--- NOTE | 2021-02-15 09:55 | PM.PN ---
Subjective Subjective: Interval history: Patient was seen and examined this morning,Currently comfortably laying flat in bed. B/L L/E swelling has improved.Continue to have good urine output ;LOS : - 3.8 Ls. Medications: Reviewed: Yes Vitals/I&O/Wt Last Vital Signs Temp 98.2 F 02/15/21 08:00 Pulse 73 02/15/21 08:00 Resp 14 02/15/21 08:00 BP 138/83 02/15/21 08:00 Pulse Ox 96 02/15/21 08:00 02/14/21 02/15/21 02/15/21 22:59 06:59 14:59 Intake Total 240 / 240 Output Total 600 / 1400 50 / 50 Balance -600 / -870 190 / 190 Physical Exam Const: COMMON NORMALS: patient oriented x3 HENMT: COMMON NORMALS: normocephalic and atraumatic HEAD & SCALP: normocephalic and atraumatic Chest: CHEST: Yes Symmetrical chest wall rise Resp: COMMON NORMALS: clear to auscultation bilaterally EFFORT & INSPECTION: Yes symmetric chest movement AUSCULTATION: clear to auscultation bilaterally Cardio: COMMON NORMALS: regular rate, regular rhythm, S1 normal heart sound present, S2 normal heart sound present, No gallops present (Cardio), No murmurs present (Cardio), No rub (Cardio) and Peripheral pulses 2+ throughout RATE: regular rate RHYTHM: regular rhythm HEART SOUNDS: S1 normal heart sound present and S2 normal heart sound present PERIPHERAL PULSES: Peripheral pulses 2+ throughout GI: COMMON NORMALS: Normal to inspection, nondistended, normoactive bowel sounds present, Soft to palpation, non-tender, No hepatosplenomegaly present and no masses AUSCULTATION: Yes normoactive bowel sounds PALPATION: Yes Soft to palpation and Yes No hepatosplenomegaly present RECTAL EXAM: Yes deferred Extremity: NARRATIVE EXTREMITY EXAM: 1+ bilateral pitting edema present Neuro: COMMON NORMALS: patient oriented x3 Data : 02/15/21 04:38 02/15/21 04:38 Micro: Microbiology 02/13/21 04:38 Blood Culture - Preliminary Blood NEGATIVE TO DATE A&P Assessment and plan (1) Congestive heart failure: HFrEF Exacerbation: Presented with worsening shortness of breath, orthopnea, PND, worsening bilateral lower extremity swelling. Elevated pro BNP:[id number] X-ray chest: 2D echo: Normal LV cavity size, LVEF: 45-50 %, mild global left ventricular hypokinesis, grade 2 diastolic?dysfunction. PASP:41 Intake output chart Daily weight Low-salt diet k>4 , Mg > 2 Initially on Bumex 1 mg IV daily.Switched to Bumex 1 mg po daily Lisinopril 10 mg p.o. daily Atorvastatin 40 mg daily Status: Acute (2) Acute exacerbation of chronic obstructive airways disease: Acute exacerbation of COPD: Complaining of productive yellow sputum, shortness of breath. ABG: pH 7.44, PCO2: 32, PO2:571, FiO2: Duo nebs Ceftriaxone 1 g IV every 24 daily Azithromycin 500 mg p.o. daily Status: Acute (3) CAP (community acquired pneumonia): X-ray chest: Ceftriaxone 1 g every 24 hours Azithromycin 500 mg p.o. daily Status: Acute (4) MARIA A (acute kidney injury): MARIA A versus MARIA A on CKD Likely secondary to cardiorenal syndrome: Baseline serum creatinine : Currently unknown: Admission serum creatinine:1.5. Current SCR : 1.9 Monitor BMP Status: Acute (5) Morbid obesity: Status: Acute (6) HTN (hypertension): Hydralazine 25 mg p.o. 3 times daily Status: Acute (7) Diabetes: Low-dose sliding scale insulin Fingerstick glucose Status: Acute (8) AICD (automatic cardioverter/defibrillator) present: Status: Acute Additional A&P Information CODE STATUS: Full code DVT prophylaxis: Heparin 5000 subcu every 8 hours Attestations Medical Necessity Statement*: Patient needs to be in hospital for the management of h/f, PNA .Currently he is also awaiting placement to half-way. Coding Level of Care Code Acute Surveying Technician for Chg Fwd Diagnoses Congestive heart failure I50.9 Acute exacerbation of chronic obstructive airways disease J44.1 CAP (community acquired pneumonia) J18.9 MARIA A (acute kidney injury) N17.9 Morbid obesity E66.01 HTN (hypertension) I10 Diabetes E11.9 AICD (automatic cardioverter/defibrillator) present Z95.810
[2021-02-15 11:40] LABS: Glucose Point of Care 209 mg/dL (70-110)
--- NOTE | 2021-02-15 13:22 | PC.NURSE ---
Pt sitting on the side of the bed watching tv and talking to staff. Pts resp even and non-labored no distress noted. Pt had no c/o pain or discomfort at the present time. No needs voiced. Call light in reach. Will cont to monitor.
[2021-02-15 13:48] LABS: SARS Covid-2 Antigen Negative (Negative)
[2021-02-15 16:03] LABS: Glucose Point of Care 142 mg/dL (70-110)
--- NOTE | 2021-02-15 20:03 | PC.NURSE ---
Shift assessment Patient sitting on the side of the bed. Urinal dumped. Patient voices no complaints or needs at this time. Nurse will continue to monitor.
[2021-02-15 20:35] LABS: Glucose Point of Care 197 mg/dL (70-110)
--- NOTE | 2021-02-15 21:56 | PC.NURSE ---
Patient does not have IV access at this time. Patient refusing to have new IV started due to pending discharge tomorrow (02/16/21). Informed Dr Crawford and received order to not replace at this time.
[2021-02-16] VITALS (8 sets, daily range): BP systolic 118–138; BP diastolic 75–92; PULSE 70–80; RESP 15–22; TEMP 36.4–36.5; O2SAT 96–97
[2021-02-16] MEDS: heparin 5,000 unit/mL INJ 1 mL 5000 UNIT SUBCUT ×2 (02:20→08:59)
[2021-02-16 05:18] LABS: Basophils # 0.1 10^3/uL (0.0-0.1); Basophils % 0.6 %; Eosinophils # 0.2 10^3/uL (0.0-0.8); Eosinophils % 2.7 %; Hematocrit 35.8 % (42.0-52.0); Hemoglobin 10.5 g/dL (11.7-16.6); Mean Corpuscular HGB Conc 29.3 g/dL (30.0-36.0); Mean Corpuscular Hemoglobin 24.6 pg (28.0-34.0); Mean Platelet Volume 12.3 fL (7.4-10.4); Monocytes # 1.1 10^3/uL (0.2-0.9); Monocytes % 13.2 %; Neutrophils # 4.74 10^3/uL (1.8-7.7); Neutrophils % 58.1 %; Nucleated Red Blood Cells % 0 %; Platelet Count 178 10^3/cmm (130-400); Red Blood Count 4.26 10^6/uL (4.1-5.3); Red Cell Distribution Width 15.8 % (12.1-15.1); White Blood Count 8.2 10^3/uL (4.0-10.0)
[2021-02-16 05:44] LABS: Anion Gap 12.6 (5-19); Blood Urea Nitrogen 29 mg/dL (8-23); Calcium 8.4 mg/dL (8.5-10.5); Carbon Dioxide 27 mmol/L (22-29); Chloride 104 mmol/L (98-107); Glomerular Filtration Rate 47.4 mL/min (90-130); Glucose 119 mg/dL (65-115); Osmolality Calculated 297 mOsm/kg (285-295); Potassium 3.6 mmol/L (3.5-5.1); Sodium 140 mmol/L (136-145)
[2021-02-16 06:48] LABS: Glucose Point of Care 128 mg/dL (70-110)
--- NOTE | 2021-02-16 08:22 | PM.DCS ---
Discharge Providers Date of Admission: 02/12/21 23:56 Date of Discharge: February 16, 2021 Attending Provider at Admission: Clair Crawford MD Attending Provider at Discharge: Carson Lopez MD Diagnoses at Discharge Discharge Diagnosis (1) Congestive heart failure: Status: Resolved (2) Acute exacerbation of chronic obstructive airways disease: Status: Chronic (3) CAP (community acquired pneumonia): Status: Resolved (4) MARIA A (acute kidney injury): Status: Resolved (5) Morbid obesity: Status: Acute (6) HTN (hypertension): Status: Chronic (7) Diabetes: Status: Chronic (8) AICD (automatic cardioverter/defibrillator) present: Status: Acute Reason for Visit Reason for Visit: DIFF BREATHING, DIFF WALKING Hospital Course Hospital Course 60-year-old male with past medical history of hypertension diabetes heart failure with reduced infection, s/p AICD, coronary artery disease status post CABG, COPD, not on home oxygen, was admitted with chief complaint of worsening shortness of breath and productive cough with yellow sputum, during this hospital stay he was managed for CHF exacerbation as well as COPD exacerbation secondary to community-acquired pneumonia, he was kept on ceftriaxone 1 g IV every 24 hours daily, as well as azithromycin, he was kept on Bumex 1 mg IV daily, which was later switched to Bumex 1 mg p.o. daily, with good diuresis during the hospital. 2D echo done during the hospital stay:Normal LV cavity size, LVEF: 45-50 %, mild global left ventricular hypokinesis, grade 2 diastolic?dysfunction. PASP:41. At the time of discharge his cough has resolved, shortness of breath has improved, patient was participating with physical therapy well, and was recommended to go to( SNF )[facility]. Patient was discharged on oral levofloxacin, to complete antibiotic course.Patient responded well to the above medical management and was discharged in stable condition. Physical Exam Const: COMMON NORMALS: patient oriented x3 HENMT: COMMON NORMALS: normocephalic and atraumatic HEAD & SCALP: normocephalic and atraumatic Chest: CHEST: Yes Symmetrical chest wall rise Resp: COMMON NORMALS: clear to auscultation bilaterally EFFORT & INSPECTION: Yes symmetric chest movement AUSCULTATION: clear to auscultation bilaterally Cardio: COMMON NORMALS: regular rate, regular rhythm, S1 normal heart sound present, S2 normal heart sound present, No gallops present (Cardio), No murmurs present (Cardio), No rub (Cardio) and Peripheral pulses 2+ throughout RATE: regular rate RHYTHM: regular rhythm HEART SOUNDS: S1 normal heart sound present and S2 normal heart sound present PERIPHERAL PULSES: Peripheral pulses 2+ throughout GI: COMMON NORMALS: Normal to inspection, nondistended, normoactive bowel sounds present, Soft to palpation, non-tender, No hepatosplenomegaly present and no masses AUSCULTATION: Yes normoactive bowel sounds PALPATION: Yes Soft to palpation and Yes No hepatosplenomegaly present RECTAL EXAM: Yes deferred Neuro: COMMON NORMALS: patient oriented x3 Discharge Data Data Completed and Pending: Completed Studies During Hospitalization Category Date Time Status CT head wo con* 7 0450 Urgent Cat Scan 02/12/21 23:55 Completed XR chest 1V obey ble [id number] Urgent Exams 02/12/21 22:19 Completed US echo complete [CV echo complete* [id number]] Routine Ultrasound 02/13/21 10:24 Completed Pending at discharge Category Date Time Status Blood Culture Sta t Lab 02/13/21 04:38 Results Sputum Culture an d Gram Stain Stat Lab 02/13/21 01:46 Uncollected Labs from last 24 hours 02/16/21 02/16/21 02/16/21 06:40 04:07 04:07 WBC 8.2 RBC 4.26 Hgb 10.5 L Hct 35.8 L MCV 84.0 MCH 24.6 L MCHC 29.3 L RDW 15.8 H Plt Count 178 MPV 12.3 H Neut % (Auto) 58.1 Lymph % (Auto) 25.0 [place] % (Auto) 13.2 Eos % (Auto) 2.7 Baso % (Auto) 0.6 Neut # (Auto) 4.74 Lymph # (Auto) 2.0 [place] # (Auto) 1.1 H Eos # (Auto) 0.2 Baso # (Auto) 0.1 Nucleated RBC % (a uto) 0 Nucleated RBCs # 0.0 Sodium 140 Potassium 3.6 Chloride 104 Carbon Dioxide 27 Anion Gap 12.6 BUN 29 H Creatinine 1.5 H GFR Calculation 47.4 L Glucose 119 H POC Glucose 128 H Calculated Osmolal ity 297 H Calcium 8.4 L SARS-CoV-2 Ag (Rap id) 02/15/21 02/15/21 02/15/21 20:25 15:55 13:00 WBC RBC Hgb Hct MCV MCH MCHC RDW Plt Count MPV Neut % (Auto) Lymph % (Auto) [place] % (Auto) Eos % (Auto) Baso % (Auto) Neut # (Auto) Lymph # (Auto) [place] # (Auto) Eos # (Auto) Baso # (Auto) Nucleated RBC % (a uto) Nucleated RBCs # Sodium Potassium Chloride Carbon Dioxide Anion Gap BUN Creatinine GFR Calculation Glucose POC Glucose 197 H 142 H Calculated Osmolal ity Calcium SARS-CoV-2 Ag (Rap id) Negative 02/15/21 11:35 WBC RBC Hgb Hct MCV MCH MCHC RDW Plt Count MPV Neut % (Auto) Lymph % (Auto) [place] % (Auto) Eos % (Auto) Baso % (Auto) Neut # (Auto) Lymph # (Auto) [place] # (Auto) Eos # (Auto) Baso # (Auto) Nucleated RBC % (a uto) Nucleated RBCs # Sodium Potassium Chloride Carbon Dioxide Anion Gap BUN Creatinine GFR Calculation Glucose POC Glucose 209 H Calculated Osmolal ity Calcium SARS-CoV-2 Ag (Rap id) Vitals: Last Vital Signs Temp 97.7 F 02/16/21 07:19 Pulse 72 02/16/21 07:19 Resp 17 02/16/21 07:19 BP 138/92 02/16/21 07:19 Pulse Ox 96 02/16/21 07:19 Discharge Plan Discharge Patient Disposition: Home Condition: Stable Prescriptions: New bumetanide 1 mg tablet 1 mg PO DAILY Qty: 30 RF: 0 levofloxacin 500 mg tablet 500 mg PO Q48H 3 Days Qty: 2 RF: 0 metformin 500 mg tablet 500 mg PO BID Qty: 60 RF: 0 Continued atorvastatin 40 mg tablet 40 mg PO QPM RF: 0 carvedilol 12.5 mg tablet 12.5 mg PO BID RF: 0 lisinopril 20 mg tablet 20 mg PO DAILY RF: 0 aspirin 81 mg Tablet,Delayed Release (Dr/Ec) 81 mg PO QAM RF: 0 ibuprofen 200 mg Tablet 200 mg PO PRN RF: 0 Nitrostat 0.4 mg Tablet, Sublingual 0.4 mg SUBLINGUAL Q5M PRN (Reason: Chest Pain) RF: 0 [id number] Tablet 1 tab PO DAILY RF: 0 Changed hydralazine 50 mg tablet 25 mg PO TID Qty: 0 RF: 0 Discontinued torsemide 20 mg tablet 20 mg PO DAILY RF: 0 metformin 1,000 mg tablet See Rx Instructions .ROUTE .COMPLEX RF: 0 Discharge Orders: Discharge Order (Routine); Ordered 02/16/21 Ordered By: Carson Lopez Referrals: Emily Mayen MD [Physician] - 1 week Discharge Diet: Diabetic Discharge Activity: Resume usual activity Discharge Attestations Time Spent in Discharge Care*: less than 30 min Specific Discharge Activities: educating patient, educating and/or supporting family/caregiver, discussing with rn field case manager/social workers/dc planners, documenting/other paperwork and evaluating patient/reviewing data Status at Discharge: Cognitive status at discharge: cognitively intact, Behavioral status at discharge: cooperative, Functional status at discharge: independent ambulation Overall status at discharge: patient is back to baseline Quality Metrics Clinical Quality Measures During this hospital stay, did patient experience: None Coding Level of Care Code Acute Chg FW DC note Exam Detailed Diagnoses Congestive heart failure I50.9 Acute exacerbation of chronic obstructive airways disease J44.1 CAP (community acquired pneumonia) J18.9 MARIA A (acute kidney injury) N17.9 Morbid obesity E66.01 HTN (hypertension) I10 Diabetes E11.9 AICD (automatic cardioverter/defibrillator) present Z95.810
[2021-02-16] MEDS: atorvastatin 40 mg Tablet PO (08:58)
[2021-02-16] MEDS: azithromycin 250 mg Tablet 500 MG PO (08:58)
[2021-02-16] MEDS: hyDRALAzine 25 mg Tablet PO (08:59)
[2021-02-16] MEDS: aspirin 81 mg EC Tablet PO (08:59)
[2021-02-16] MEDS: lisinopril 10 mg Tablet PO (08:59)
[2021-02-16] MEDS: ipratropium-albuterol 3 mL Neb INHALATION (09:12)
--- NOTE | 2021-02-16 10:00 | PC.NURSE ---
patient discharge home self care. Discharge instructions provided and educated on new meds. patient verbalized understanding of all instructions given patient ambulated to private vehicle with all belongings and discharge instructions in hand
== END 2021-02-16 11:00 | disposition skilled nursing facility (03) | DRG 871 ==
LOC: ER 23:57 → CSU 02-13 01:16
PROVIDERS: Admitting Provider Internal Medicine; Emergency Provider Emergency Medicine; Visit Provider Internal Medicine
DX: A41.9 Sepsis, unspecified organism (principal); I50.23 Acute on chronic systolic (congestive) heart failure; J18.9 Pneumonia, unspecified organism; J44.0 Chronic obstructive pulmonary disease with (acute) lower respiratory infection; N17.9 Acute kidney failure, unspecified; Z68.42 Body mass index [BMI] 45.0-49.9, adult; J44.1 Chronic obstructive pulmonary disease with (acute) exacerbation; I11.0 Hypertensive heart disease with heart failure; R53.1 Weakness; R27.0 Ataxia, unspecified; I25.5 Ischemic cardiomyopathy; I25.10 Atherosclerotic heart disease of native coronary artery without angina pectoris; E11.9 Type 2 diabetes mellitus without complications; G25.81 Restless legs syndrome; E66.01 Morbid (severe) obesity due to excess calories; Z79.82 Long term (current) use of aspirin; Z79.1 Long term (current) use of non-steroidal anti-inflammatories (NSAID); Z87.891 Personal history of nicotine dependence; Z95.810 Presence of automatic (implantable) cardiac defibrillator; Z95.1 Presence of aortocoronary bypass graft
CPT/HCPCS: 36415; 36416; 70450; 71045; 80048; 80053; 82607; 82803; 82962; 83036; 83735; 83880; 84443; 84484; 85025; 86403; 87040; 87426; 87449; 93005; 93306; 94640; 96372; 96374; 96375; 97110; 97116; 97162; 99285; J0360; J0696; J1644; J1815; J1940; J2930; J3490; J7611; Q0144

== ENCOUNTER 2022-01-02 10:52 | Emergency (ER) | payer MEDICAID, SELFPAY ==
--- NOTE | 2022-01-02 11:01 | ED_ITS ---
HPI - Chest Pain General: Chief Complaint: Chest Pain Stated Complaint: CHEST PAIN, SOB Time Seen by Provider: 01/02/22 10:54 Source: patient Mode of arrival: EMS History of Present Illness: 61-year-old male presents emergency room via EMS with complaint of shortness of breath hypoxia and some chest discomfort. He lives in a longterm he states this happened while he was sitting at rest had a brief episode of chest pain that is already resolved. The EMS was told by the staff his sats gotten down into the 70s when they were there he was on 2 L in the 90s they have had them in the mid to low 90s on room air. He is not having any chest pain now he denies any recent fever sweats chills or productive cough. MD complaint: chest pain Pertinent past history: coronary artery disease Onset (ago): minute(s) Timing of current episode: episodic Onset: during rest Pain location: left chest Pain radiation: none Severity: mild Relieving factors: nothing Exacerbating factors: nothing Associated symptoms: Deny abdominal pain, diaphoresis, dyspnea, fever(s), leg edema, nausea, palpitations, sense of impending doom, syncope or vomiting Treatment prior to arrival: none Risk Factors: Coronary artery disease risk factors: diabetes Review of Systems Const: Denies: fever(s) or diaphoresis ENMT: Denies: throat pain, ear or mastoid pain, nasal discharge or nasal congestion Card: Denies: palpitations or syncope Resp: Denies: dyspnea GI: Denies: abdominal pain, nausea or vomiting : Denies: flank pain, dysuria, urinary frequency or urinary urgency Skin/Breast: Denies: rash or pruritus PFS ED PFSH: Medical History Acute exacerbation of chronic obstructive airways disease MARIA A (acute kidney injury) Ataxia BPH (benign prostatic hyperplasia) CAP (community acquired pneumonia) Congestive heart failure COPD (chronic obstructive pulmonary disease) Diabetes HTN (hypertension) Morbid obesity Pacemaker Restless leg syndrome Weakness Surgical History AICD (automatic cardioverter/defibrillator) present S/P CABG (coronary artery bypass graft) Family History Father Diabetes Mother Diabetes Social History Smoking and tobacco status: former smoker Alcohol intake: former Household members: family Housing: House Current occupation: living in tent 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 Physical Exam Const: GENERAL APPEARANCE: cooperative and comfortable ORIENTATI ON/CONSCIOUSNESS: Yes awake, Yes oriented to person, Yes oriented to place and Yes oriented to time HENMT: COMMON NORMALS: normocephalic, atraumatic and hearing grossly normal bilaterally HEAD & SCALP: normocephalic and atraumatic Neck/C-Spine: COMMON NORMALS: no JVD Resp: COMMON NORMALS: normal respiratory effort, No retractions, No use of accessory muscles and clear to auscultation bilaterally AUSCULTATION: clear to auscultation bilaterally Cardio: COMMON NORMALS: no JVD, regular rate, regular rhythm and No murmurs present (Cardio) RATE: regular rate RHYTHM: regular rhythm GI: COMMON NORMALS: Soft to palpation and No hepatosplenomegaly present AUSCULTATION: Yes normoactive bowel sounds PALPATION: Yes Soft to palpation, No Tenderness to palpation present (GI), No Guarding due to palpation present (GI) and Yes No hepatosplenomegaly present Extremity: COMMON NORMALS: normal to inspection, capillary refill normal, no clubbing, cyanosis or edema, no calf tenderness and no pedal edema Neuro: SENSORIUM/ORIENTATION: Yes oriented to person, Yes oriented to place and Yes oriented to time Skin: COMMON NORMALS: no rashes or lesions noted GENERAL SKIN EXAM: no rashes or lesions noted Course Vital Signs: Vital signs: Vital Signs Pulse Rate 93 01/02/22 18:37 Respiratory Rate 18 01/02/22 18:37 Blood Pressure 146/95 01/02/22 18:37 Pulse Oximetry 96 01/02/22 18:37 MDM - Chest Pain Medical Decision Making EKG labs imaging reviewed. No acute ST changes noted on the chest EKG cardiac enzymes are without significant change at 2 hours. Will discharge patient home return if he has further problems have him follow-up with his primary care doctor. Continue current medications without change. Medical Records I reviewed the patient's medical records. Lab Data I reviewed the patient's lab results. : 01/02/22 11:15 01/02/22 11:15 Radiology Impressions Chest X-Ray 01/02/22 11:08 IMPRESSION: 1. Marked cardiomegaly is unchanged. 2. Cardiac pacer with sternotomy. 3. Probable small LEFT pleural effusion or atelectasis obscures the LEFT hemidiaphragm. RIGHT lung is well aerated. Laboratory Results WBC 14.6 10^3/uL (4.0-10.0) H 01/02/22 11:15 RBC 5.09 10^6/uL (4.1-5.3) 01/02/22 11:15 Hgb 12.8 g/dL (11.7-16.6) 01/02/22 11:15 Hct 42.3 % (42.0-52.0) 01/02/22 11:15 MCV 83.1 fl (80-94) 01/02/22 11:15 MCH 25.1 pg (28.0-34.0) L 01/02/22 11:15 MCHC 30.3 g/dL (30.0-36.0) 01/02/22 11:15 RDW 14.1 % (12.1-15.1) 01/02/22 11:15 Plt Count 206 10^3/cmm (130-400) 01/02/22 11:15 MPV 11.4 fL (7.4-10.4) H 01/02/22 11:15 Neut % (Auto) 83.4 % 01/02/22 11:15 Lymph % (Auto) 6.9 % 01/02/22 11:15 [place] % (Auto) 8.4 % 01/02/22 11:15 Eos % (Auto) 0.5 % 01/02/22 11:15 Baso % (Auto) 0.3 % 01/02/22 11:15 Neut # (Auto) 12.13 10^3/uL (1.8-7.7) H 01/02/22 11:15 Lymph # (Auto) 1.0 10^3/uL (0.8-4.8) 01/02/22 11:15 [place] # (Auto) 1.2 10^3/uL (0.2-0.9) H 01/02/22 11:15 Eos # (Auto) 0.1 10^3/uL (0.0-0.8) 01/02/22 11:15 Baso # (Auto) 0.0 10^3/uL (0.0-0.1) 01/02/22 11:15 Nucleated RBC % (auto) 0 % 01/02/22 11:15 Nucleated RBCs # 0.0 /100WBC 01/02/22 11:15 Sodium 137 mmol/L (136-145) 01/02/22 11:15 Potassium 4.3 mmol/L (3.5-5.1) 01/02/22 11:15 Chloride 99 mmol/L (98-107) 01/02/22 11:15 Carbon Dioxide 26 mmol/L (22-29) 01/02/22 11:15 Anion Gap 16.3 (5-19) 01/02/22 11:15 BUN 23 mg/dL (8-23) 01/02/22 11:15 Creatinine 1.2 mg/dL (0.7-1.2) 01/02/22 11:15 GFR Calculation 61.1 mL/min (90-130) L 01/02/22 11:15 Glucose 178 mg/dL (65-115) H 01/02/22 11:15 Calculated Osmolality 292 mOsm/kg (285-295) 01/02/22 11:15 Calcium 9.9 mg/dL (8.5-10.5) 01/02/22 11:15 Total Bilirubin 0.9 mg/dL (0.15-1.2) 01/02/22 11:15 AST 9 U/L (0-40) 01/02/22 11:15 ALT 11 U/L (0-41) 01/02/22 11:15 Alkaline Phosphatase 70 IU/L (40-130) 01/02/22 11:15 Troponin T Baseline 27 ng/L (0-15) H 01/02/22 11:15 Troponin T 120 Minute 25.92 ng/L (0-15) H 01/02/22 13:19 Delta Troponin T -1.08 ABS# (0-10) L 01/02/22 13:19 Total Protein 7.9 g/dL (6.6-8.7) 01/02/22 11:15 Albumin 4.3 g/dL (3.5-5.2) 01/02/22 11:15 Globulin 3.6 g/dL (1.3-4.6) 01/02/22 11:15 Discharge Plan Discharge Patient Disposition: Home Clinical Impression: Atypical chest pain, HTN (hypertension), Congestive heart failure, Diabetes, Pacemaker Condition: Stable Prescriptions: No Action senna 8.6 mg capsule 8.6 mg PO BID PRN (Reason: Constipation) 0RF magnesium hydroxide [Milk of Magnesia] 400 mg/5 mL suspension 15 ml PO DAILY PRN (Reason: Constipation) 0RF diphenhydramine HCl [Benadryl] 25 mg capsule 25 mg PO DAILY PRN (Reason: Allergy Symptoms) 0RF Lantus U-100 Insulin 100 unit/mL solution 31 unit SUBCUT BEDTIME 0RF atorvastatin 40 mg tablet 40 mg PO QPM 0RF carvedilol 12.5 mg tablet 12.5 mg PO BID 0RF lisinopril 20 mg tablet 20 mg PO DAILY 0RF aspirin 81 mg Tablet,Delayed Release (Dr/Ec) 81 mg PO QAM 0RF nitroglycerin [Nitrostat] 0.4 mg Tablet, Sublingual 0.4 mg SUBLINGUAL Q5M PRN (Reason: Chest Pain) 0RF mnmdkvcaityp-ntnvjtgq-gehujl Tablet 1 tab PO DAILY 0RF bumetanide 1 mg tablet 1 mg PO DAILY Qty: 30 0RF hydralazine 50 mg tablet 25 mg PO TID Qty: 0 0RF metformin 500 mg tablet 500 mg PO BID Qty: 60 0RF acetaminophen 325 mg Tablet 650 mg PO Q6H PRN (Reason: Pain) 0RF acetaminophen 325 mg Tablet 650 mg PO Q4H PRN (Reason: Pain) 0RF loperamide 2 mg Capsule 2 mg PO Q30MIN PRN (Reason: Diarrhea) 0RF Rx Instructions: administer after each loose stool until symptoms controlled; do not exceed 8 caps per 24 hrs loperamide 2 mg Capsule 2 mg PO Q24H PRN (Reason: Diarrhea) 0RF Rx Instructions: Give 2 capsules after first loose stool then see 2nd order Milk of Magnesia 400 mg/5 mL Suspension 30 ml PO DAILY PRN (Reason: Constipation) 0RF bisacodyl 10 mg Suppository 10 mg [place] DAILY PRN (Reason: Constipation) 0RF Enema 19-7 gram/118 mL Enema 118 ml [place] DAILY PRN (Reason: Constipation) 0RF ibuprofen 200 mg Tablet 200 mg PO Q6H PRN (Reason: Pain) 0RF glipizide 5 mg Tablet 2.5 mg PO BID 0RF Discharge Orders: Discharge ED (Routine); Ordered 01/02/22 Ordered By: Keenan Reid Discharge Diet: Usual diet Discharge Activity: Increase activity as tolerated Patient Instructions: Opioid Safety Activity Restrictions/Additional Instructions: Follow-up with your primary care doctor as needed Coding Level of Care Code ED Agricultural Sales Representative for Day Fwd Exam Comprehensive
[2022-01-02 11:03] VITALS: PULSE 103; RESP 20; O2SAT 95; BMI 53.1
--- NOTE | 2022-01-02 11:08 | XR_ITS ---
WS: [id number] CHEST XRAY TECHNIQUE: Portable chest. CLINICAL INFORMATION: dyspnea COMPARISON: February 12, 2021 FINDINGS: Heart: Cardiomegaly. Cardiac pacer. Sternotomy. Enlarged LEFT ventricle is unchanged. Lungs: RIGHT lung is well aerated. Probable small LEFT pleural effusion or atelectasis obscures the LEFT hemidiaphragm. Bones: Normal visualized bony structures. XR/XR chest 1V portable [id number] IMPRESSION: 1. Marked cardiomegaly is unchanged. 2. Cardiac pacer with sternotomy. 3. Probable small LEFT pleural effusion or atelectasis obscures the LEFT hemid iaphragm. RIGHT lung is well aerated.
--- NOTE | 2022-01-02 11:08 | ECG_ITS ---
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 Measurements Intervals [place] Rate: 100 P: 84 OR: 110 QRS: -89 QRSD: 162 T: 103 QT: 378 QTc: 488 Interpretive Statements ELECTRONIC VENTRICULAR PACEMAKER INTERPRETATION BASED ON A DEFAULT AGE OF 40 YEARS Compared to ECG 02/13/2021 06:03:08 No significant changes Electronically Signed On 01-02-2022 20:48:30 CHIEF QUALITY OFFICER by Adria Junior M.D. [id number]
--- NOTE | 2022-01-02 11:25 | PC.NURSE ---
pt placed on continuous spo2, nibp, and cm.
[2022-01-02 11:26] LABS: Basophils % 0.3 %; Eosinophils # 0.1 10^3/uL (0.0-0.8); Eosinophils % 0.5 %; Hematocrit 42.3 % (42.0-52.0); Hemoglobin 12.8 g/dL (11.7-16.6); Lymphocytes % 6.9 %; Mean Corpuscular HGB Conc 30.3 g/dL (30.0-36.0); Mean Corpuscular Hemoglobin 25.1 pg (28.0-34.0); Mean Corpuscular Volume 83.1 fl (80-94); Mean Platelet Volume 11.4 fL (7.4-10.4); Monocytes # 1.2 10^3/uL (0.2-0.9); Monocytes % 8.4 %; Neutrophils # 12.13 10^3/uL (1.8-7.7); Neutrophils % 83.4 %; Nucleated Red Blood Cells % 0 %; Platelet Count 206 10^3/cmm (130-400); Red Blood Count 5.09 10^6/uL (4.1-5.3); Red Cell Distribution Width 14.1 % (12.1-15.1); White Blood Count 14.6 10^3/uL (4.0-10.0)
[2022-01-02 11:49] LABS: Troponin(5th) Baseline 27 ng/L (0-15)
[2022-01-02 11:51] LABS: Alanine Aminotransferase 11 U/L (0-41); Albumin Level 4.3 g/dL (3.5-5.2); Alkaline Phosphatase 70 IU/L (40-130); Anion Gap 16.3 (5-19); Aspartate Amino Transferase 9 U/L (0-40); Blood Urea Nitrogen 23 mg/dL (8-23); Calcium 9.9 mg/dL (8.5-10.5); Carbon Dioxide 26 mmol/L (22-29); Chloride 99 mmol/L (98-107); Globulin 3.6 g/dL (1.3-4.6); Glomerular Filtration Rate 61.1 mL/min (90-130); Glucose 178 mg/dL (65-115); Osmolality Calculated 292 mOsm/kg (285-295); Potassium 4.3 mmol/L (3.5-5.1); Sodium 137 mmol/L (136-145); Total Bilirubin 0.9 mg/dL (0.15-1.2); Total Protein 7.9 g/dL (6.6-8.7)
[2022-01-02 12:00] VITALS: PULSE 105; RESP 22; O2SAT 96
--- NOTE | 2022-01-02 12:46 | PC.NURSE ---
assisted pt from bedside commode back to bed. pt denies any further needs at this time.
--- NOTE | 2022-01-02 13:08 | ECG_ITS ---
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 Measurements Intervals [place] Rate: 107 P: 96 [place]: 115 QRS: 265 QRSD: 163 T: 100 QT: 384 QTc: 513 Interpretive Statements ELECTRONIC VENTRICULAR PACEMAKER ABNORMAL RHYTHM ECG Compared to ECG 01/02/2022 11:01:07 No significant changes Electronically Signed On 01-02-2022 20:53:04 SECTION 8 PROPERTY MANAGER by Adria Junior M.D. [id number] f
[2022-01-02 13:54] VITALS: BP 158/105; PULSE 107; RESP 25; O2SAT 96
[2022-01-02 13:54] LABS: Troponin 5 2HR 25.92 ng/L (0-15)
[2022-01-02 13:55] LABS: Troponin 5 2HR Delta -1.08 ABS# (0-10)
--- NOTE | 2022-01-02 14:02 | PC.NURSE ---
PROVIDED PT WITH 2 GARY AND PEPE PER PT REQUEST.
--- NOTE | 2022-01-02 14:57 | PC.NURSE ---
report called to Inge valladares at [facility]. She reported that for transport pt needs ems to take them back to senior living.
--- NOTE | 2022-01-02 15:27 | PC.NURSE ---
christen to [facility] trip schedule id # [place] [id number]
--- NOTE | 2022-01-02 16:10 | PC.NURSE ---
WHILE AT BEDSIDE PT UPDATED ON TRANSPORTATION COULD ARRIVE WITHIN THE NEXT 3 HOURS HE STATED, THAT'S BULLSHIT I CAN WALK THERE FASTER THAN THAT . VERBALLY DEESCALATED.
[2022-01-02 18:37] VITALS: BP 146/95; PULSE 93; RESP 18; O2SAT 96
== END 2022-01-02 18:41 | disposition home or self-care (01) ==
PROVIDERS: Emergency Provider Family Medicine
DX: R07.89 Other chest pain (principal); I11.0 Hypertensive heart disease with heart failure; I50.9 Heart failure, unspecified; E11.9 Type 2 diabetes mellitus without complications; Z95.0 Presence of cardiac pacemaker; Z79.4 Long term (current) use of insulin; Z79.82 Long term (current) use of aspirin; J44.9 Chronic obstructive pulmonary disease, unspecified; Z95.1 Presence of aortocoronary bypass graft; Z87.891 Personal history of nicotine dependence
CPT/HCPCS: 71045; 80053; 84484; 85025; 93005; 99284

== ENCOUNTER → 2022-03-07 10:15 | Outpatient (BNVA) | payer MEDICAID, SELFPAY | PROVIDERS: Visit Provider Internal Medicine | DX: I11.0 Hypertensive heart disease with heart failure (principal); I50.9 Heart failure, unspecified; Z95.0 Presence of cardiac pacemaker; E11.9 Type 2 diabetes mellitus without complications; Z79.84 Long term (current) use of oral hypoglycemic drugs | CPT/HCPCS: 99214 ==

== ENCOUNTER → 2022-10-01 12:22 | Outpatient (BNVA) | payer MEDICAID, SELFPAY | PROVIDERS: PCP Internal Medicine; Visit Provider Nurse Practitioner Family | DX: I11.0 Hypertensive heart disease with heart failure (principal); I50.22 Chronic systolic (congestive) heart failure; I25.10 Atherosclerotic heart disease of native coronary artery without angina pectoris; Z95.1 Presence of aortocoronary bypass graft; Z95.0 Presence of cardiac pacemaker; Z87.891 Personal history of nicotine dependence | CPT/HCPCS: 99214 ==

== ENCOUNTER → 2023-03-16 15:10 | Outpatient (BNVA) | payer MEDICAID, SELFPAY | PROVIDERS: PCP Internal Medicine; Visit Provider Internal Medicine | DX: Z95.0 Presence of cardiac pacemaker (principal); E11.9 Type 2 diabetes mellitus without complications; I11.0 Hypertensive heart disease with heart failure; I50.9 Heart failure, unspecified; Z87.891 Personal history of nicotine dependence; Z79.84 Long term (current) use of oral hypoglycemic drugs | CPT/HCPCS: 99214 ==

== ENCOUNTER 2023-05-17 22:23 | Inpatient (IN) | payer MEDICAID, SELFPAY ==
--- NOTE | 2023-05-17 22:24 | ED_ITS ---
HPI - General Adult General: Chief complaint: Fall Stated complaint: fall/SOB Time Seen by Provider: 05/17/23 22:24 Limitations: altered mental status History of Present Illness: Mr. Parish is a 62-year-old gentleman with history of COPD, heart failure, hype rtension, morbid obesity presenting to emergency department for somewhat unclear story. Apparently he resides at a intermediate and they heard a crash finding the patient having likely falling forward landing on his face. He also endorses some shortness of breath and exhibited some increased respiratory effort with coarse breath sounds. Mildly improved with EMS administered RT treatment. History is otherwise somewhat limited by patient's mental state. Review of Systems General: Reports: ROS unobtainable due to mental status PFSH ED PFSH: Medical History (Updated 05/18/23 @ 04:14 by Santino Springer DO) Acute exacerbation of chronic obstructive airways disease MARIA A (acute kidney injury) Ataxia Atherosclerosis of coronary artery BPH (benign prostatic hyperplasia) CAP (community acquired pneumonia) Cardiac resynchronization therapy defibrillator (NURSE RN BSN-D) in place Congestive heart failure 02/13/21: LVEF 45-50% COPD (chronic obstructive pulmonary disease) Diabetes HTN (hypertension) Morbid obesity Pacemaker Restless leg syndrome Weakness Surgical History S/P CABG (coronary artery bypass graft) Family History Father Diabetes Mother Diabetes Social History Smoking and tobacco status: former smoker Alcohol intake: former Substance/Drug Use: former Household members: family Housing: House Current occupation: living in [facility] 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 Physical Exam Const: COMMON NORMALS: alert GENERAL APPEARANCE: cooperative and well developed HENMT: COMMON NORMALS: normocephalic and atraumatic HEAD & SCALP: normocephalic and atraumatic Eye: COMMON NORMALS: conjunctivae normal CONJUNCTIVA: Yes conjunctivae norm al SCLERA: sclerae normal Neck/C-Spine: COMMON NORMALS: supple GENERAL: Yes trachea midline Resp: EFFORT & INSPECTION: Yes able to speak in complete sentences AUSCULTATION: rhonchi Cardio: COMMON NORMALS: regular rhythm RATE: tachycardic RHYTHM: regular rhythm GI: COMMON NORMALS: Soft to palpation PALPATION: Yes Soft to palpation and No Tenderness to palpation present (GI) Extremity: NARRATIVE EXTREMITY EXAM: Right ankle tenderness palpation. GENERAL: Yes normal exam except as noted and Yes edema Neuro: COMMON NORMALS: moves all extremities SENSORIUM/ORIENTATION: Yes alert and No Orientation impaired Psych: COMMON NORMALS: mental status grossly normal and Normal thought process present THOUGHT PROCESS: Normal thought process present Course Vital Signs: Vital signs: Vital Signs Temperature 100.1 F H 05/18/23 04:27 Pulse Rate 92 05/18/23 05:53 Respiratory Rate 39 H 05/18/23 04:27 Blood Pressure 98/68 05/18/23 04:27 Pulse Oximetry 97 05/18/23 04:27 Oxygen Delivery Me thod Nasal Cannula 05/18/23 04:27 Oxygen Flow Rate 2 05/18/23 04:27 [facility] - General Adult Medical Decision Making 62-year-old gentleman presenting from intermediate with altered mental status, shortness of breath, fall. Initial exam patient appears quite somnolent and provides limited history. No focal neurologic deficits appreciated. He is not toxic and I do not appreciate evidence of impending airway failure. ABG compensated with hypoxemia however no hypercapnia somewhat surprisingly. Labs notable for leukocytosis worse than baseline, normal hemoglobin and platele t count. Metabolic panel with mildly elevated creatinine though does have similar to prior. Additionally mildly elevated bilirubin though no tenderness to palpation in the right upper quadrant. 2-hour delta troponin is +4.88 which places him at intermediate range. BNP is improved from prior. Viral panel pending. Chest x-ray with pulmonary vascular congestion and concern for possible pneumoni a. Patient treated with antibiotics for community-acquired pneumonia. Blood pressure on the softer side with mean arterial pressures measured in the 60-65 range. Small fluid boluses given. On reassessment mental status appears to have improved however still somewhat waxing and waning. The results of ED evaluation were discussed with the patient including plan for admission due to requirement for level of care not available if discharged to prevent significant worsening/deterioration. Patient agreeable with plan. Discussed with hospitalist service who was agreeable to admit patient. Medical Records I reviewed the patient's medical records. Lab Data I reviewed the patient's lab results. 05/17/23 22:45 05/17/23 23:37 Radiology Impressions Chest X-Ray 05/17/23 22:37 IMPRESSION: 1. Interval development of mild interstitial pulmonary edema with superimposed atelectasis versus pneumonia in the left lower lobe. Recommend clinical correlation. Recommend followup chest imaging to insure resolution of these findings. 2. Incidental/nonacute findings are listed in the report. Cervical Spine CT 05/17/23 22:52 IMPRESSION: No evidence of acute fracture or traumatic malalignment in the cervical spine. Head CT 05/17/23 22:52 IMPRESSION: 1. No evidence of acute intracranial hemorrhage, mass effect, or midline shift. 2. Generalized cerebral volume loss and nonspecific white matter changes, likely vascular related. 3. Ventricular prominence is disproportionate to sulcal dilation which is a nonspecific finding however can be seen in the setting of normal pressure hydrocephalus. Clinical correlation is recommended. Ankle X-Ray 05/18/23 00:12 IMPRESSION: No evidence of acute fracture or traumatic malalignment in the right ankle joint. Tibia/Fibula X-Ray 05/18/23 00:12 IMPRESSION: No acute fracture is identified. Laboratory Results WBC 21.6 10^3/uL (4.0-10.0) H 05/17/23 22:45 RBC 5.25 10^6/uL (4.1-5.3) 05/17/23 22:45 Hgb 13.1 g/dL (11.7-16.6) 05/17/23 22:45 Hct 43.3 % (42.0-52.0) 05/17/23 22:45 MCV 82.5 fl (80-94) 05/17/23 22:45 MCH 25.0 pg (28.0-34.0) L 05/17/23 22:45 MCHC 30.3 g/dL (30.0-36.0) 05/17/23 22:45 RDW 17.6 % (12.1-15.1) H 05/17/23 22:45 Plt Count 161 10^3/cmm (130-400) 05/17/23 22:45 MPV 12.3 fL (7.4-10.4) H 05/17/23 22:45 Neut % (Auto) 91.4 % 05/17/23 22:45 Lymph % (Auto) 2.9 % 05/17/23 22:45 [place] % (Auto) 4.3 % 05/17/23 22:45 Eos % (Auto) 0.3 % 05/17/23 22:45 Baso % (Auto) 0.3 % 05/17/23 22:45 Neut # (Auto) 19.78 10^3/uL (1.8-7.7) H 05/17/23 22:45 Lymph # (Auto) 0.6 10^3/uL (0.8-4.8) L 05/17/23 22:45 [place] # (Auto) 0.9 10^3/uL (0.2-0.9) 05/17/23 22:45 Eos # (Auto) 0.1 10^3/uL (0.0-0.8) 05/17/23 22:45 Baso # (Auto) 0.1 10^3/uL (0.0-0.1) 05/17/23 22:45 Nucleated RBC % (auto) 0 % 05/17/23 22:45 Nucleated RBCs # 0.0 /100WBC 05/17/23 22:45 Specimen Type Arterial 05/17/23 23:09 Sample Site Brachial, right 05/17/23 23:09 ABG pH 7.46 (7.35-7.45) H 05/17/23 23:09 ABG pCO2 36.3 mmHg (35-45) 05/17/23 23:09 ABG pO2 52.6 mmHg (80.0-100.0) L 05/17/23 23:09 ABG HCO3 25.6 mmol/L (22-26) 05/17/23 23:09 ABG Base Excess 1.8 mmol/L (-2.0-2.0) 05/17/23 23:09 Inderjit Test Pos 05/17/23 23:09 Hematocrit 39.2 % (42-52) L 05/17/23 23:09 O2 Delivery Device Nc 05/17/23 23:09 O2 Liters/Min 2.0 % 05/17/23 23:09 Ship Worker ID [email or web address] 05/17/23 23:09 Sodium 135 mmol/L (136-145) L 05/17/23 23:37 Potassium 4.6 mmol/L (3.5-5.1) 05/17/23 23:37 Chloride 99 mmol/L (98-107) 05/17/23 23:37 Carbon Dioxide 25 mmol/L (22-29) 05/17/23 23:37 Anion Gap 15.6 (5-19) 05/17/23 23:37 BUN 27 mg/dL (8-23) H 05/17/23 23:37 Creatinine 1.6 mg/dL (0.7-1.2) H 05/17/23 23:37 GFR Calculation 43.7 mL/min (90-130) L 05/17/23 23:37 Glucose 271 mg/dL (65-115) H 05/17/23 23:37 POC Glucose 235 mg/dL (70-110) H 05/18/23 01:34 Calculated Osmolality 295 mOsm/kg (285-295) 05/17/23 23:37 Lactic Acid 1.9 mmol/L (0.5-2.2) 05/17/23 23:37 Calcium 8.8 mg/dL (8.5-10.5) 05/17/23 23:37 Total Bilirubin 1.3 mg/dL (0.15-1.2) H 05/17/23 23:37 AST 13 U/L (0-40) 05/17/23 23:37 ALT 13 U/L (0-41) 05/17/23 23:37 Alkaline Phosphatase 69 U/L (40-130) 05/17/23 23:37 Troponin T Baseline 39 ng/L (0-15) H 05/17/23 22:45 Troponin T 120 Minute 43.88 ng/L (0-15) H 05/18/23 01:00 Delta Troponin T 4.88 ABS# (0-10) 05/18/23 01:00 NT-Pro-B Natriuret Pep 3441 pg/mL (0-125) H 05/17/23 23:37 Total Protein 7.5 g/dL (6.6-8.7) 05/17/23 23:37 Albumin 3.7 g/dL (3.5-5.2) 05/17/23 23:37 Globulin 3.8 g/dL (1.3-4.6) 05/17/23 23:37 Nasal Influ A H1 2008 PCR Not detected (NOT DETECT) 05/18/23 00:30 Adenovirus (PCR) Not detected (NOT DETECT) 05/18/23 00:30 C. pneumoniae DNA (PCR) Not detected (NOT DETECT) 05/18/23 00:30 Coronavirus 229E (PCR) Not detected (NOT DETECT) 05/18/23 00:30 Human Metapneumovir PCR Not detected (NOT DETECT) 05/18/23 00:30 Influenza A (H1) PCR Not detected (NOT DETECT) 05/18/23 00:30 Influenza A (H3) PCR Not detected (NOT DETECT) 05/18/23 00:30 Influenza Type A (PCR) Not detected (NOT DETECT) 05/18/23 00:30 Influenza Type B (PCR) Not detected (NOT DETECT) 05/18/23 00:30 M. pneumoniae (PCR) Not detected (NOT DETECT) 05/18/23 00:30 Parainfluenza 1 (PCR) Not detected (NOT DETECT) 05/18/23 00:30 Parainfluenza 2 (PCR) Not detected (NOT DETECT) 05/18/23 00:30 Parainfluenza 3 (PCR) Not detected (NOT DETECT) 05/18/23 00:30 Parainfluenza 4 (PCR) Not detected (NOT DETECT) 05/18/23 00:30 RSV Type A (PCR) Not detected (NOT DETECT) 05/18/23 00:30 RSV Type B (PCR) Not detected (NOT DETECT) 05/18/23 00:30 Entero/Rhino (PCR) Not detected (NOT DETECT) 05/18/23 00:30 SARS-CoV-2 (PCR) Not detected (NOT DETECT) 05/18/23 00:30 Discharge Plan Discharge Patient Disposition: Placed in Observation Admit Provider: Santino Springer Clinical Impression: Pneumonia Coding Level of Care Code ED Java Systems Analyst for Day Villar
[2023-05-17 22:26] VITALS: BP 162/106; PULSE 102; RESP 18; TEMP 36.8; O2SAT 92; BMI 59.1
--- NOTE | 2023-05-17 22:37 | XRR_ITS ---
PROCEDURE INFORMATION: Exam: XR Chest Exam date and time: 05/17/2023 10:51 PM Age: 62 years old Clinical indication: Shortness of breath; Additional info: SOB TECHNIQUE: Imaging protocol: Radiologic exam of the chest. Views: 1 view. COMPARISON: CR XR chest 1V portable [id number] 01/02/2022 11:17 AM FINDINGS: Tubes, catheters and devices: There is a three-lead cardiac AICD via left subclavian approach. Findings are stable. Lungs: Interval development of mild interstitial pulmonary edema with superimposed atelectasis versus pneumonia in the left lower lobe. Pleural spaces: No pleural effusion. No pneumothorax. Heart/Mediastinum: Stable marked enlargement of the cardiac silhouette. Mediastinal contours are unremarkable. Vasculature: Stable vascular calcifications in the aorta. Bones/joints: Stable poststernotomy changes in the chest. XR/XR chest 1V portable [id number] IMPRESSION: 1. Interval development of mild interstitial pulmonary edema with superimposed atelectasis versus pneumonia in the left lower lobe. Recommend clinical correlation. Recommend followup chest imaging to insure resolution of these findings. 2. Incidental/nonacute findings are listed in the report.
--- NOTE | 2023-05-17 22:52 | CTR_ITS ---
PROCEDURE INFORMATION: Exam: CT Cervical Spine Without Contrast Exam date and time: 05/17/2023 11:22 PM Age: 62 years old Clinical indication: Injury or trauma; Fall; Blunt trauma; Prior surgery; Surgery date: 6+ months; Surgery type: Pacer. Cabg; Patient HX: Patient found on floor at residential. Patient very lethargic. ; Additional info: AMS, fall TECHNIQUE: Imaging protocol: Computed tomography of the cervical spine without contrast. Radiation optimization: All CT scans at this facility use at least one of these dose optimization techniques: automated exposure control; mA and/or kV adjustment per patient size (includes targeted exams where dose is matched to clinical indication); or iterative reconstruction. REPORTING DATA: Count of CT and Cardiac NM exams in prior 12 months: This patient has received 0 known CTs and 0 known cardiac nuclear medicine studies in the 12 months prior to the current study. COMPARISON: CT head wo con* [id number] 05/17/2023 11:19 PM RADIATION DOSE METRICS: Total DLP (mGy-cm): 677.37 FINDINGS: Bones/joints: Reversal of the cervical lordosis. Trace retrolisthesis of C5 on C6 and possibly C6 on C7. The alignment is otherwise maintained. The vertebral body heights are maintained. No evidence of acute fractures. There are degenerative changes of the facet joints. There are degenerative changes of the uncovertebral joints , up to severe, with same degree of neural foramina stenosis at multiple levels. Dental: There are scattered dental caries and periapical lucencies. Lungs: Biapical scarring is partially imaged apices are normal. Soft tissues: Unremarkable. CT/CT cervical spin wo con* [id number] IMPRESSION: No evidence of acute fracture or traumatic malalignment in the cervical spine.
--- NOTE | 2023-05-17 22:52 | CTR_ITS ---
PROCEDURE INFORMATION: Exam: CT Head Without Contrast Exam date and time: 05/17/2023 11:19 PM Age: 62 years old Clinical indication: Injury or trauma; Fall; Blunt trauma (contusions or hematomas); Patient HX: Patient found on floor at retirement. Patient very lethargic. ; Additional info: Fall, AMS TECHNIQUE: Imaging protocol: Computed tomography of the head without contrast. Radiation optimization: All CT scans at this facility use at least one of these dose optimization techniques: automated exposure control; mA and/or kV adjustment per patient size (includes targeted exams where dose is matched to clinical indication); or iterative reconstruction. REPORTING DATA: Count of CT and Cardiac NM exams in prior 12 months: This patient has received 0 known CTs and 0 known cardiac nuclear medicine studies in the 12 months prior to the current study. COMPARISON: CT head wo con* [id number] 02/13/2021 12:32 AM RADIATION DOSE METRICS: Total DLP (mGy-cm): 1190.48 FINDINGS: Brain: No acute intra- or extra axial fluid collections are identified. The basal cisterns are patent. No mass effect or midline shift is seen. The hunt-white matter differentiation is normal. Periventricular hypoattenuation are nonspecific but likely the sequela of chronic small vessel ischemic disease. There is atrophy of the brainstem. Cerebral ventricles: Moderate cerebral volume loss and ex vacuo dilation of the ventricles. Ventricular prominence is disproportionate to sulcal dilation which is a nonspecific finding however can be seen in the setting of normal pressure hydrocephalus. Clinical correlation is recommended.. Paranasal sinuses: The paranasal sinuses appear grossly clear. Mastoid air cells: The mastoid air cells appear grossly clear. Orbital cavities: Status post cataract extraction.. Bones/joints: No acute calvarial fracture is identified. Soft tissues: No soft tissue abnormalities identified. Vasculature: There are atherosclerotic calcifications of the carotid siphons and the V4 segments of the vertebral arteries. Mild Dolichoectasia and tortuosity of the vertebrobasilar system. CT/CT head wo con* [id number] IMPRESSION: 1. No evidence of acute intracranial hemorrhage, mass effect, or midline shift. 2. Generalized cerebral volume loss and nonspecific white matter changes, likely vascular related. 3. Ventricular prominence is disproportionate to sulcal dilation which is a nonspecific finding however can be seen in the setting of normal pressure hydrocephalus. Clinical correlation is recommended.
[2023-05-17 23:18] LABS: ABG PCO2 36.3 mmHg (35-45); ABG PH Result 7.46 (7.35-7.45); Arterial Blood Gas Hematocrit 39.2 % (42-52); Base Excess ABG 1.8 mmol/L (-2.0-2.0); Blood Gas Allen Test Pos; Blood Gas Sample Site Brachial, right; Blood Gas Sample Type Arterial; HCO3 ABG 25.6 mmol/L (22-26); Oxygen Device NC; PO2 ABG 52.6 mmHg (80.0-100.0)
[2023-05-17 23:24] LABS: Basophils # 0.1 10^3/uL (0.0-0.1); Basophils % 0.3 %; Eosinophils # 0.1 10^3/uL (0.0-0.8); Eosinophils % 0.3 %; Hematocrit 43.3 % (42.0-52.0); Hemoglobin 13.1 g/dL (11.7-16.6); Lymphocytes # 0.6 10^3/uL (0.8-4.8); Lymphocytes % 2.9 %; Mean Corpuscular HGB Conc 30.3 g/dL (30.0-36.0); Mean Corpuscular Volume 82.5 fl (80-94); Mean Platelet Volume 12.3 fL (7.4-10.4); Monocytes # 0.9 10^3/uL (0.2-0.9); Monocytes % 4.3 %; Neutrophils # 19.78 10^3/uL (1.8-7.7); Neutrophils % 91.4 %; Nucleated Red Blood Cells % 0 %; Platelet Count 161 10^3/cmm (130-400); Red Blood Count 5.25 10^6/uL (4.1-5.3); Red Cell Distribution Width 17.6 % (12.1-15.1); White Blood Count 21.6 10^3/uL (4.0-10.0)
[2023-05-17 23:39] LABS: Troponin(5th) Baseline 39 ng/L (0-15)
[2023-05-18] VITALS (19 sets, daily range): BP systolic 73–137; BP diastolic 43–101; PULSE 81–100; RESP 16–39; TEMP 36.6–38.8; O2SAT 92–97
[2023-05-18 00:04] LABS: Lactic Sepsis W/Reflex 1.9 mmol/L (0.5-2.2)
[2023-05-18 00:10] LABS: Alanine Aminotransferase 13 U/L (0-41); Albumin Level 3.7 g/dL (3.5-5.2); Alkaline Phosphatase 69 U/L (40-130); Anion Gap 15.6 (5-19); Aspartate Amino Transferase 13 U/L (0-40); Blood Urea Nitrogen 27 mg/dL (8-23); Calcium 8.8 mg/dL (8.5-10.5); Carbon Dioxide 25 mmol/L (22-29); Chloride 99 mmol/L (98-107); Globulin 3.8 g/dL (1.3-4.6); Glomerular Filtration Rate 43.7 mL/min (90-130); Glucose 271 mg/dL (65-115); NT Pro B Type Natriuretic Pept 3441 pg/mL (0-125); Osmolality Calculated 295 mOsm/kg (285-295); Potassium 4.6 mmol/L (3.5-5.1); Sodium 135 mmol/L (136-145); Total Bilirubin 1.3 mg/dL (0.15-1.2); Total Protein 7.5 g/dL (6.6-8.7)
[2023-05-18 00:12] LABS: Creatinine Clr Calc Pharmacy 75.8646
[2023-05-18] MEDS: sodium chloride 0.9% 500 ML 999 ML IV (00:12)
[2023-05-18] MEDS: cefTRIAXone 1,000 MG in sodium chloride 0.9% (plus) 50 ML 100 MG IV (00:12)
--- NOTE | 2023-05-18 00:12 | XRR_ITS ---
PROCEDURE INFORMATION: Exam: XR Right Tibia and Fibula Exam date and time: 05/18/2023 12:18 AM Age: 62 years old Clinical indication: Injury or trauma; Fall; Blunt trauma; Lower leg; Right; Patient HX: PT found on floor at senior care. C/O RT lower ext pain. ; Additional info: Fall, AMS TECHNIQUE: Imaging protocol: Radiologic exam of the right tibia and fibula. Views: 2 views. COMPARISON: CR (LOW EXM, ) 05/18/2023 12:15 AM FINDINGS: Bones/joints: No evidence of acute fracture or traumatic malalignment.. Slight depression along the medial tibial plateau , chronic appearing. Soft tissues: Soft tissue swelling is present.. XR/XR tibia fibula RT 2V [id number] IMPRESSION: No acute fracture is identified.
--- NOTE | 2023-05-18 00:12 | XRR_ITS ---
PROCEDURE INFORMATION: Exam: XR Right Ankle Exam date and time: 05/18/2023 12:15 AM Age: 62 years old Clinical indication: Injury or trauma; Fall; Blunt trauma; Lower leg; Right; Patient HX: PT found on floor at long-term. C/O RT lower ext pain. ; Additional info: Fall, AMS TECHNIQUE: Imaging protocol: Radiologic exam of the right ankle. Views: 3 or more views. COMPARISON: No relevant prior studies available. FINDINGS: Bones/joints: The right ankle mortise is maintained. Suspected mild degenerative changes of the right ankle joint. The osseous structures are maintained. No evidence of acute fractures. Dorsal and plantar calcaneal spurs are noted. Vascular atherosclerosis is present. Soft tissue swelling, around the right ankle joint is present. Soft tissues: Vascular atherosclerosis is present. XR/XR ankle RT min 3V* [id number] IMPRESSION: No evidence of acute fracture or traumatic malalignment in the right ankle joint.
--- NOTE | 2023-05-18 00:37 | ECG_ITS ---
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 Measurements Intervals [place] Rate: 92 P: 86 OR: 130 QRS: 269 QRSD: 164 T: 111 QT: 422 QTc: 523 Interpretive Statements ELECTRONIC VENTRICULAR PACEMAKER ABNORMAL RHYTHM ECG Compared to ECG 01/02/2022 13:52:34 No significant changes Electronically Signed On 05-18-2023 18:50:57 CDT by Feliberto Senior M.D. [email or web address] [id number]
[2023-05-18] MEDS: doxycycline 100 MG in sodium chloride 0.9% (plus) 100 ML IV ×2 (01:09→14:09)
[2023-05-18] MEDS: sodium chloride 0.9% 1,000 ML 999 ML IV (01:15)
[2023-05-18 01:23] LABS: Troponin 5 2HR 43.88 ng/L (0-15)
[2023-05-18 01:25] LABS: Troponin 5 2HR Delta 4.88 ABS# (0-10)
[2023-05-18 01:40] LABS: Glucose Point of Care 235 mg/dL (70-110)
[2023-05-18 02:54] LABS: Adenovirus Not Detected (NOT DETECT); Chlamydia Pneumoniae Not Detected (NOT DETECT); Coronavirus 229E,HKU1,NL63,OC4 Not Detected (NOT DETECT); Human Metapneumovirus Not Detected (NOT DETECT); Human Rhinovirus/Enterovirus Not Detected (NOT DETECT); Influenza A Not Detected (NOT DETECT); Influenza A H1 Not Detected (NOT DETECT); Influenza A H1-2009 Not Detected (NOT DETECT); Influenza A H3 Not Detected (NOT DETECT); Influenza B Not Detected (NOT DETECT); Mycoplasma Pneumoniae Not Detected (NOT DETECT); Parainfluenza Virus Type 1 Not Detected (NOT DETECT); Parainfluenza Virus Type 2 Not Detected (NOT DETECT); Parainfluenza Virus Type 3 Not Detected (NOT DETECT); Parainfluenza Virus Type 4 Not Detected (NOT DETECT); Respiratory Syncytial Virus A Not Detected (NOT DETECT); Respiratory Syncytial Virus B Not Detected (NOT DETECT); SARS-COV-2 Not Detected (NOT DETECT)
--- NOTE | 2023-05-18 04:03 | P.HP_ITS ---
Providers/Chief Complaint Admitting Physician: Santino Springer DO Primary Care Provider: Dusty Ly MD Chief Complaint: fall/SOB History of Present Illness Haroon Parish is a 62 year old male resident of a prison who reportedly fell forward and became unresponsive. He has a history of HF R EF, COPD, obesity, CAD, diabetes, pacemaker/defibrillator. At this time patient has unclear history and he is unable to provide. In the ED 1 physician was working with him and hopeful to discharge however patient was requiring oxygen. The chest x-ray showed pulmonary vascular congestion and possible pneumonia. Thus it was recommended the patient be admitted for somnolence pulmonary vascular congestion and possible pneumonia Review of Systems General: Reports: ROS unobtainable due to mental status Medications/Allergies Home Medications Medication Instructions Recorded Confirmed Last Taken Type aspirin 81 mg tablet,delayed 81 mg PO QAM 02/13/21 03/16/23 01/02/22 History release atorvastatin 40 mg tablet 40 mg PO QPM 02/13/21 03/16/23 01/01/22 History carvedilol 12.5 mg tablet 12.5 mg PO BID 02/13/21 03/16/23 01/02/22 History lisinopril 20 mg tablet 20 mg PO DAILY 02/13/21 03/16/23 01/02/22 History nitroglycerin 0.4 mg sublingual 0.4 mg sublingual Q5M PRN Chest 02/13/21 03/16/23 Unknown History tablet (Nitrostat) Pain bumetanide 1 mg tablet 1 mg PO DAILY #30 tabs 02/16/21 03/16/23 01/02/22 Rx hydralazine 50 mg tablet 25 mg PO TID #0 tabs 02/16/21 03/16/23 01/02/22 Rx metformin 500 mg tablet 500 mg PO BID #60 tabs 02/16/21 03/16/23 01/02/22 Rx diphenhydramine HCl 25 mg capsule 25 mg PO DAILY PRN Allergy Symptoms 09/05/21 03/16/23 01/02/22 History (Benadryl) insulin glargine 100 unit/mL 31 unit SUBCUT BEDTIME 09/05/21 03/16/23 01/01/22 History subcutaneous solution (Lantus U-100 Insulin) acetaminophen 325 mg tablet 650 mg PO Q6H PRN Pain 01/02/22 03/16/23 12/31/21 History bisacodyl 10 mg rectal suppository 10 mg KS DAILY PRN Constipation 01/02/22 03/16/23 Unknown History glipizide 5 mg tablet 2.5 mg PO BID 01/02/22 03/16/23 01/02/22 History magnesium hydroxide 400 mg/5 mL 30 ml PO DAILY PRN Constipation 01/02/22 03/16/23 12/29/21 History oral suspension (Milk of Magnesia) albuterol sulfate 2.5 mg/3 mL 2.5 mg inhalation Q6H 10/01/22 03/16/23 Unknown History (0.083 %) solution for nebulization gabapentin 300 mg capsule 300 mg PO TID 10/01/22 03/16/23 Unknown History insulin regular human 100 unit/mL 15 unit SUBCUT TID 10/01/22 03/16/23 Unknown History (3 mL) subcutaneous pen (Novolin R FlexPen) alprazolam 0.5 mg tablet (Xanax) 0.5 mg PO Q8H PRN 03/16/23 03/16/23 Unknown History dextromethorphan-guaifenesin 20 ml PO 03/16/23 03/16/23 Unknown History mg-200 mg/10 mL prefilled spoon dulaglutide 4.5 mg/0.5 mL mg SUBCUT 03/16/23 03/16/23 Unknown History subcutaneous pen injector (Trulicity) ibuprofen 800 mg tablet 800 mg PO Q8H PRN 03/16/23 03/16/23 Unknown History loperamide 2 mg tablet 2 mg PO Q1H PRN 03/16/23 03/16/23 Unknown History Allergies Allergy/AdvReac Type Severity Reaction Status Date / Time Penicillins Allergy ALGY-Hives Verified 03/16/23 15:17 PFSH Acute PFSH: Medical History (Updated 05/18/23 @ 04:14 by Santino Springer DO) Acute exacerbation of chronic obstructive airways disease MARIA A (acute kidney injury) Ataxia Atherosclerosis of coronary artery BPH (benign prostatic hyperplasia) CAP (community acquired pneumonia) Cardiac resynchronization therapy defibrillator (SOFTWARE INSTALLER-D) in place Congestive heart failure 02/13/21: LVEF 45-50% COPD (chronic obstructive pulmonary disease) Diabetes HTN (hypertension) Morbid obesity Pacemaker Restless leg syndrome Weakness Surgical History S/P CABG (coronary artery bypass graft) Family History Father Diabetes Mother Diabetes Social History Smoking and tobacco status: former smoker Alcohol intake: former Substance/Drug Use: former Household members: family Housing: House Current occupation: living in [facility] 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 Lethargic awakens with touch nonfocal on exam HEENT: NC/AT, PERR LA, EOMI, mucous membranes moist and pink neck supple no JVD carotid bruits or lymphadenopathy Heart: Normal S1-S2 without murmurs clicks gallops or rubs Lungs upper airway rhonchi heard and extend to the anterior chest. Otherwise clear Abdomen obese soft nontender nondistended positive bowel sounds no hepatosplenom egaly is able to be palpated extremities: nonpitting edema with overall erythema of the anterior aspects of his legs Skin: Except for above-mentioned extremity evaluation no lesions or rashes. Lymph: No lymphedema noted in neck axilla or inguinal area Data 05/17/23 22:45 05/17/23 23:37 Micro: Microbiology 05/17/23 23:14 Blood Culture - Preliminary Blood SPECIMEN COLLECTED 05/17/23 23:05 Blood Culture - Preliminary Blood SPECIMEN COLLECTED CXR: My impression: Unable to view at this computer station Radiologist's impression: IMPRESSION: 1. ? Interval development of mild interstitial pulmonary edema with superimposed atelectasis versus pneumonia in the left lower lobe. Recommend clinical correlation. Recommend followup chest imaging to insure resolution of these findings. 2. ? Incidental/nonacute findings are listed in the report. ? A&P Assessment and plan (1) Pneumonia: Patient was placed on Rocephin and Doxy. He will placed on gentle hydration. Nebs will be started (2) Atherosclerosis of coronary artery: Qualifiers: Coronary Disease-Associated Artery/Lesion type: [place] artery [place] vs. transplanted heart: [place] heart Associated angina: without angina Qualified Code(s): I25.10 - Atherosclerotic heart disease of [place] coronary artery without angina pectoris (3) Pacemaker: Patient is currently being paced (4) HTN (hypertension): Will need to hold lisinopril and Lasix due to worsening kidney injury (5) Diabetes: Resume home dose of Lantus and regular insulin (6) Congestive heart failure: Last echo January 2021 showed an EF of 45 to 50% Attestations Medical Necessity Statement*: Patient with altered mental status will chronic diseases with acute shortness of breath, pneumonia, hypoxia. Will require over 2 midnight stay Coding Level of Care Code Acute Code for [facility] F[facility] Diagnoses Pneumonia J18.9 Atherosclerosis of coronary artery I25.10 Coronary Disease-Associated Artery/Lesion type: [place] artery [place] vs. transplanted heart: [place] heart Associated angina: without angina Pacemaker Z95.0 HTN (hypertension) I10 Diabetes E11.9 Congestive heart failure I50.9
--- NOTE | 2023-05-18 04:37 | ECG_ITS ---
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 Measurements Intervals [place] Rate: 93 P: 85 MS: 124 QRS: 270 QRSD: 166 T: 110 QT: 428 QTc: 533 Interpretive Statements ELECTRONIC VENTRICULAR PACEMAKER ABNORMAL RHYTHM ECG Compared to ECG 05/18/2023 02:59:04 No significant changes Electronically Signed On 05-18-2023 18:51:05 CDT by Feliberto Senior M.D. [id number]
[2023-05-18] MEDS: sodium chloride 0.9% 1,000 ML 75 ML IV (04:59)
[2023-05-18] MEDS: aspirin 81 mg EC Tablet PO (05:00)
[2023-05-18] MEDS: heparin 5,000 unit/mL INJ 1 mL 5000 UNIT SUBCUT ×3 (05:00→20:52)
[2023-05-18 05:45] LABS: Troponin 5 6HR 41.01 ng/L (0-15)
[2023-05-18 05:46] LABS: Troponin 5 6HR Delta 2.01 ng/L (0-12)
[2023-05-18 06:31] LABS: Glucose Point of Care 239 mg/dL (70-110)
[2023-05-18] MEDS: albuterol 2.5 mg/3 mL Neb INHALATION ×3 (07:31→21:01)
[2023-05-18] MEDS: acetaminophen 325 mg Tablet 650 MG PO (08:43)
[2023-05-18 11:13] LABS: Glucose Point of Care 338 mg/dL (70-110)
[2023-05-18] MEDS: insulin lispro 100 unit/1 mL 15 UNIT SUBCUT (11:52)
[2023-05-18] MEDS: cefepime 1,000 MG in sodium chloride 0.9% (plus) 50 ML 100 MG IV (13:25)
[2023-05-18] MEDS: vancomycin 2,000 MG/400 ML PIGGYBACK 200 MG IV (14:22)
[2023-05-18 16:59] LABS: Glucose Point of Care 184 mg/dL (70-110)
--- NOTE | 2023-05-18 17:21 | PM.MISC ---
Miscellaneous Note Note: Patient was seen and examined this morning, denied any significant shortness of breath chest pain abdominal pain nausea vomiting, cough. Unfortunately patient has continued to spike temperature, hence his antibiotic coverage has been broadened to vancomycin and cefepime. Blood pressure was on slightly softer side hence his a.m. dose of carvedilol and hydralazine was held. His other labs and vitals have been reviewed.
[2023-05-18 20:23] LABS: Glucose Point of Care 294 mg/dL (70-110)
[2023-05-18] MEDS: insulin glargine 100 units/1 mL 31 UNIT SUBCUT (20:52)
[2023-05-18 21:33] LABS: Add Urine Microscopic? YES; Bilirubin Urine Neg (Negative); Blood Urine 3+ (Negative); Glucose Urine UA 2+ (Normal); Ketones Urine Negative (Negative); Leukocyte Esterase Urine Negative (Negative); Nitrate Urine Negative (Negative); Protein Urine 1+ (Negative); Specific Gravity, Urine 1.015 (1.005-1.030); Urine Appearance Clear (CLEAR); Urine Color Yellow (Yellow); Urobilinogen Urine Neg (Negative); pH Urine 5 (5-7)
[2023-05-18 21:34] LABS: Add Urine Culture? No; Mucus Urine 2+ /hpf; RBC Urine 0-4 /hpf (0-2); Squamous Epithelial Cell Urine 0-4 /hpf (0-5); WBC Urine 0-4 /hpf (0-5)
[2023-05-19] VITALS (14 sets, daily range): BP systolic 133–151; BP diastolic 89–102; PULSE 88–108; RESP 18–28; TEMP 36.7–37.9; O2SAT 91–97; BMI 53.6
[2023-05-19] MEDS: albuterol 2.5 mg/3 mL Neb INHALATION ×4 (02:34→20:33)
[2023-05-19] MEDS: sodium chloride 0.9% 1,000 ML 75 ML IV (03:05)
[2023-05-19] MEDS: aspirin 81 mg EC Tablet PO (05:09)
[2023-05-19] MEDS: heparin 5,000 unit/mL INJ 1 mL 5000 UNIT SUBCUT ×3 (05:09→20:24)
[2023-05-19 05:21] LABS: Basophils # 0.1 10^3/uL (0.0-0.1); Basophils % 0.3 %; Eosinophils % 0.1 %; Hematocrit 38.5 % (42.0-52.0); Hemoglobin 11.5 g/dL (11.7-16.6); Lymphocytes # 1.1 10^3/uL (0.8-4.8); Lymphocytes % 6.6 %; Mean Corpuscular HGB Conc 29.9 g/dL (30.0-36.0); Mean Corpuscular Hemoglobin 24.8 pg (28.0-34.0); Mean Platelet Volume 11.6 fL (7.4-10.4); Monocytes # 1.6 10^3/uL (0.2-0.9); Monocytes % 9.5 %; Neutrophils # 13.97 10^3/uL (1.8-7.7); Neutrophils % 82.9 %; Nucleated Red Blood Cells % 0 %; Platelet Count 142 10^3/cmm (130-400); Red Blood Count 4.64 10^6/uL (4.1-5.3); Red Cell Distribution Width 17.6 % (12.1-15.1); White Blood Count 16.8 10^3/uL (4.0-10.0)
[2023-05-19 05:39] LABS: Anion Gap 13.1 (5-19); Blood Urea Nitrogen 26 mg/dL (8-23); Calcium 8.2 mg/dL (8.5-10.5); Carbon Dioxide 23 mmol/L (22-29); Chloride 105 mmol/L (98-107); Glomerular Filtration Rate 47.1 mL/min (90-130); Glucose 225 mg/dL (65-115); Osmolality Calculated 294 mOsm/kg (285-295); Potassium 5.1 mmol/L (3.5-5.1); Sodium 136 mmol/L (136-145)
[2023-05-19 05:44] LABS: Procalcitonin 6.54 ng/mL (0-0.5)
[2023-05-19 06:22] LABS: Glucose Point of Care 222 mg/dL (70-110)
[2023-05-19] MEDS: insulin lispro 100 unit/1 mL 15 UNIT SUBCUT ×3 (08:17→17:57)
[2023-05-19] MEDS: carvedilol 12.5 mg Tablet PO ×2 (08:21→17:57)
[2023-05-19] MEDS: vancomycin 2,000 MG/400 ML PIGGYBACK 200 MG IV (09:30)
[2023-05-19 11:40] LABS: Glucose Point of Care 295 mg/dL (70-110)
[2023-05-19] MEDS: cefepime 1,000 MG in sodium chloride 0.9% (plus) 50 ML 100 MG IV (12:34)
[2023-05-19] MEDS: doxycycline 100 MG in sodium chloride 0.9% (plus) 100 ML IV (13:36)
--- NOTE | 2023-05-19 14:11 | P.PN_ITS ---
Subjective Subjective: Patient was seen and examined this morning, last noted Tmax of:100.3 , fever curve is coming down. White blood cell count is coming down, procalcitonin is elevated, Medications: Medication Review Details: Generic Name Dose Route Start Last Admin Trade Name Negrito PRN Reason Stop Dose Admin Acetaminophen 650 mg 05/18/23 03:56 05/18/23 08:43 Acetaminophen 32 5 Mg Tablet PO 650 mg Q6H PRN Administration Mild/Mod Pain Or Temp >/= 101 Albuterol Sulfate 2.5 mg 05/18/23 04:00 05/19/23 08:42 Albuterol 2.5 Mg /3 Ml Neb INHALATION 2.5 mg Q6H.RESP TESFAYE Administration Aspirin 81 mg 05/18/23 06:00 05/19/23 05:09 Aspirin 81 Mg Ec Tablet PO 81 mg QAM TESFAYE Administration Carvedilol 12.5 mg 05/19/23 09:00 05/19/23 08:21 Carvedilol 12.5 Mg Tablet PO 12.5 mg BID TESFAYE Administration Heparin Sodium (Po rcine) 5,000 unit 05/18/23 04:00 05/19/23 12:35 Heparin 5,000 Un it/Ml Inj 1 Ml SUBCUT 5,000 unit Q8H TESFAYE Administration Hydralazine HCl 25 mg 05/18/23 09:00 05/18/23 14:43 Hydralazine 50 M g Tablet PO Not Given TID TESFAYE Doxycycline Hyclat e 100 mg/ 100 mls @ 100 mls /hr 05/18/23 13:00 05/19/23 13:36 Sodium Chloride IV 100 mls/hr Q12H TESFAYE Administration Protocol Cefepime HCl 1,000 mg/ Sodium 50 mls @ 100 mls/ hr 05/18/23 13:00 05/19/23 13:26 Chloride IV Infused Q12H TESFAYE Infusion Protocol Vancomycin/PEG/NAD A/Lysine/Water 2,000 mg in 400 m ls @ 200 mls/hr 05/18/23 14:00 05/19/23 12:33 Vancocin IV Infused Q18H TESFAYE Infusion Insulin Glargine 31 unit 05/18/23 21:00 05/18/23 20:52 Insulin Glargine 100 Units/1 Ml SUBCUT 31 unit BEDTIME TESFAYE Administration Insulin Human Lisp ro 15 unit 05/18/23 09:00 05/19/23 12:34 Insulin Lispro 1 00 Unit/1 Ml SUBCUT 15 unit TIDAC TESFAYE Administration Non-Formulary Medi cation 2.5 mg 05/18/23 09:00 05/19/23 08:26 Glipizide PO Not Given BID TESFAYE Vitals/I&O/Wt Last Vital Signs Temp 98.0 F 05/19/23 11:54 Pulse 92 05/19/23 11:54 Resp 28 H 05/19/23 11:54 BP 151/102 05/19/23 11:54 Pulse Ox 94 05/19/23 11:54 O2 Del Method Nasal Cannula 05/19/23 11:54 O2 Flow Rate 1 05/19/23 08:42 05/18/23 05/19/23 05/19/23 22:59 06:59 14:59 Intake Total 1740 / 3870 1130.000 / 1130.000 Output Total 300 / 300 Balance 1740 / 3870 -300 / 3570 1130.000 / 1130.000 Weight last 48 hrs Weight 164.739 kg Weight 170.551 kg Weight 170.551 kg Weight 181.437 kg Physical Exam HENMT: COMMON NORMALS: normocephalic and atraumatic HEAD & SCALP: normocephalic and atraumatic Resp: COMMON NORMALS: clear to auscultation bilaterally AUSCULTATION: clear to auscultation bilaterally Cardio: COMMON NORMALS: regular rate, regular rhythm, S1 normal heart sound present, S2 normal heart sound present, No gallops present (Cardio), No murmurs present (Cardio), No rub (Cardio) and Peripheral pulses 2+ throughout RATE: regular rate RHYTHM: regular rhythm HEART SOUNDS: S1 normal heart sound present and S2 normal heart sound present PERIPHERAL PULSES: Peripheral pulses 2+ throughout GI: COMMON NORMALS: Normal to inspection, nondistended, normoactive bowel sounds present, Soft to palpation, non-tender, No hepatosplenomegaly present and no masses AUSCULTATION: Yes normoactive bowel sounds PALPATION: Yes Soft to palpation and Yes No hepatosplenomegaly present RECTAL EXAM: Yes deferred Extremity: COMMON NORMALS: no clubbing, cyanosis or edema and no pedal edema Data 05/19/23 04:55 05/19/23 04:55 Micro: Microbiology 05/18/23 21:52 MRSA Culture - Final Nose 05/18/23 21:19 Legionella Urinary Antigen - Final Urine,Voided Bacterial Antigens - Final 05/17/23 23:14 Blood Culture - Preliminary Blood NEGATIVE TO DATE 05/17/23 23:05 Blood Culture - Preliminary Blood NEGATIVE TO DATE A&P Assessment and plan (1) Congestive heart failure: (2) Sepsis: (3) Pneumonia: (4) Atherosclerosis of coronary artery: Qualifiers: Coronary Disease-Associated Artery/Lesion type: [place] artery [place] vs. transplanted heart: [place] heart Associated angina: without angina Qualified Code(s): I25.10 - Atherosclerotic heart disease of [place] coronary artery without angina pectoris (5) Pacemaker: (6) HTN (hypertension): (7) Diabetes: (8) COPD (chronic obstructive pulmonary disease): (9) CKD (chronic kidney disease): Plan 62-year-old male with past medical history of hypertension diabetes, coronary artery disease,HFrEF, s/p pacemaker, defibrillator, COPD, [facility] resident, was brought in from custodial after experiencing fall, and then he fell forward and became unresponsive. Currently he is being managed for. Assessment: Sepsis likely secondary pneumonia: Patient currently meets sepsis criteria, he is febrile, was hypotensive on arrival, has elevated white cell count, elevated procalcitonin, x-ray chest is suggestive of left lower lobe pneumonia. Follow blood culture Urine culture MRSA PCR: Negative Procalcitonin:6.54 Respiratory viral panel negative COVID PCR negative Urine Legionella antigen is negative Bacterial antigen panel negative Sputum Gram stain and culture Currently he is on broad-spectrum antibiotics vancomycin, doxycycline and cefepime Continue DuoNebs Supplemental oxygen as needed S/p fall: Followed by loss of consciousness: CT head without contrast no acute intracranial pathology CT C-spine: No acute fracture XR tibia fibula RT?: No acute fracture XR ankle RT:No evidence of acute fracture? Monitor orthostatic vital sign AICD interrogation History of HFrEF: Patient is on Bumex at custodial, initially it was kept on hold, because the patient was on slightly rotary drier feeder side. Continue to monitor for now will resume Bumex. Monitor intake output charting Telemetry monitoring Daily weight Monitor electrolytes, keep potassium greater than 4 magnesium greater than 2 CKD stage III: Admission serum creatinine 1.6.Appears to be around baseline serum creatinine Initially patient was on gentle IV hydration has been discontinued for now, given his history of heart failure Monitor intake output charting Monitor daily weight Avoid nephrotoxic's Monitor BMP History of hypertension: Initially patient blood pressure was on the softer side, initially carvedilol and hydralazine was kept on hold briefly, both has b een resumed History of diabetes: Continue Lantus, insulin lispro, Monitor fingerstick glucose History of COPD: Continue DuoNebs Supplemental oxygen as needed CODE STATUS full code DVT prophylaxis on subcutaneous Attestations Medical Necessity Statement*: In Hospital for the management of sepsis Coding Level of Care Code Acute Code for [facility] Fwd Diagnoses Congestive heart failure I50.9 Sepsis A41.9 Pneumonia J18.9 Atherosclerosis of coronary artery I25.10 Coronary Disease-Associated Artery/Lesion type: [place] artery [place] vs. transplanted heart: [place] heart Associated angina: without angina Pacemaker Z95.0 HTN (hypertension) I10 Diabetes E11.9 COPD (chronic obstructive pulmonary disease) J44.9 CKD (chronic kidney disease) N18.9
[2023-05-19] MEDS: hyDRALAzine 25 mg Tablet PO ×2 (15:30→20:24)
[2023-05-19 16:35] LABS: Glucose Point of Care 251 mg/dL (70-110)
[2023-05-19] MEDS: atorvastatin 40 mg Tablet 20 MG PO (20:23)
[2023-05-19 20:52] LABS: Glucose Point of Care 209 mg/dL (70-110)
[2023-05-19] MEDS: insulin glargine 100 units/1 mL 31 UNIT SUBCUT (21:02)
[2023-05-20] VITALS (13 sets, daily range): BP systolic 113–155; BP diastolic 52–106; PULSE 48–109; RESP 18–30; TEMP 36.6–36.9; O2SAT 82–97
[2023-05-20] MEDS: cefepime 1,000 MG in sodium chloride 0.9% (plus) 50 ML 100 MG IV ×2 (00:05→12:36)
[2023-05-20] MEDS: doxycycline 100 MG in sodium chloride 0.9% (plus) 100 ML IV ×2 (00:06→12:37)
[2023-05-20] MEDS: vancomycin 2,000 MG/400 ML PIGGYBACK 200 MG IV (01:56)
[2023-05-20] MEDS: albuterol 2.5 mg/3 mL Neb INHALATION ×2 (01:59→07:41)
[2023-05-20] MEDS: heparin 5,000 unit/mL INJ 1 mL 5000 UNIT SUBCUT ×3 (03:56→20:40)
[2023-05-20 04:21] LABS: Basophils % 0.2 %; Eosinophils % 0.1 %; Hemoglobin 11.2 g/dL (11.7-16.6); Lymphocytes # 0.9 10^3/uL (0.8-4.8); Lymphocytes % 5.9 %; Mean Corpuscular HGB Conc 29.5 g/dL (30.0-36.0); Mean Corpuscular Hemoglobin 24.6 pg (28.0-34.0); Mean Corpuscular Volume 83.3 fl (80-94); Mean Platelet Volume 11.8 fL (7.4-10.4); Monocytes # 1.2 10^3/uL (0.2-0.9); Monocytes % 8.2 %; Neutrophils # 12.76 10^3/uL (1.8-7.7); Neutrophils % 84.9 %; Nucleated Red Blood Cells % 0 %; Platelet Count 141 10^3/cmm (130-400); Red Blood Count 4.56 10^6/uL (4.1-5.3); Red Cell Distribution Width 17.4 % (12.1-15.1)
[2023-05-20 04:41] LABS: Magnesium 1.9 mg/dL (1.7-2.3)
[2023-05-20 04:42] LABS: Alanine Aminotransferase 39 U/L (0-41); Albumin Level 3.1 g/dL (3.5-5.2); Alkaline Phosphatase 79 U/L (40-130); Anion Gap 16.8 (5-19); Aspartate Amino Transferase 86 U/L (0-40); Blood Urea Nitrogen 21 mg/dL (8-23); Calcium 8.1 mg/dL (8.5-10.5); Carbon Dioxide 20 mmol/L (22-29); Chloride 102 mmol/L (98-107); Globulin 4.1 g/dL (1.3-4.6); Glomerular Filtration Rate 55.6 mL/min (90-130); Glucose 223 mg/dL (65-115); Osmolality Calculated 288 mOsm/kg (285-295); Potassium 4.8 mmol/L (3.5-5.1); Sodium 134 mmol/L (136-145); Total Bilirubin 0.9 mg/dL (0.15-1.2); Total Protein 7.2 g/dL (6.6-8.7)
[2023-05-20] MEDS: aspirin 81 mg EC Tablet PO (05:29)
--- NOTE | 2023-05-20 05:58 | ECG_ITS ---
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 Measurements Intervals [place] Rate: 94 P: 0 VA: 0 QRS: -89 QRSD: 173 T: 106 QT: 422 QTc: 529 Interpretive Statements ELECTRONIC VENTRICULAR PACEMAKER ABNORMAL RHYTHM ECG Compared to ECG 05/18/2023 02:59:43 No significant changes Electronically Signed On 05-20-2023 9:52:06 CDT by Emily Mayen M.D. [id number]
[2023-05-20 06:18] LABS: Glucose Point of Care 265 mg/dL (70-110)
--- NOTE | 2023-05-20 06:19 | XRR_ITS ---
PROCEDURE INFORMATION: Exam: XR Chest Exam date and time: 05/20/2023 5:51 AM Age: 62 years old Clinical indication: Shortness of breath; Prior surgery; Surgery date: 6+ months; Surgery type: Open heart, pacer; Additional info: SOB TECHNIQUE: Imaging protocol: Radiologic exam of the chest. Views: 1 view. Total images: 490 COMPARISON: CR (CHEST, ) 05/17/2023 10:51 PM FINDINGS: Tubes, catheters and devices: AICD projects in satisfactory location. Lungs: Pulmonary vascular congestion. Nonspecific bilateral opacities, atelectasis, edema and/or pneumonia. Pleural spaces: Unremarkable. No pleural effusion. No pneumothorax. Heart/Mediastinum: Cardiomegaly. Bones/joints: Osseous structures are unchanged from the prior exam. Other findings: Stable postsurgical changes. XR/XR chest 1V portable [id number] IMPRESSION: 1. Cardiomegaly with pulmonary vascular congestion. 2. Nonspecific bilateral opacities, atelectasis, edema and/or pneumonia.
[2023-05-20] MEDS: FUROsemide 10 mg/mL SDV 4mL 40 MG IVP (06:27)
[2023-05-20 06:39] LABS: ABG PCO2 50.2 mmHg (35-45); ABG PH Result 7.24 (7.35-7.45); Alveolar-Arterial Oxygen Gradi 0.7 mmHg (5-10); Arterial Blood Gas Hematocrit 37.8 % (42-52); Base Excess ABG -5.9 mmol/L (-2.0-2.0); Blood Gas Allen Test Pos; Blood Gas Operator Identificat AMH; Blood Gas Sample Site Radial, right; Blood Gas Sample Type Arterial; Carboxyhemoglobin 1.4 %THgb (0.4-20.1); HCO3 ABG 21.6 mmol/L (22-26); HGB O2 Sat 93.8 % (95-100); Ionized Calcium Level - ABG 1.2 mmol/L (1.1-1.4); Methemoglobin 0.4 % (0.4-1.5); Oxygen Device OXY MASK; Oxygen Saturation ABG 95.5; PO2 ABG 82.2 mmHg (80.0-100.0); Potassium Level - ABG 5.1 mmol/L (3.5-5.0); Total Hemoglobin 12.3 g/dL (14-18)
[2023-05-20] MEDS: insulin lispro 100 unit/1 mL 15 UNIT SUBCUT ×3 (08:07→17:14)
[2023-05-20] MEDS: carvedilol 12.5 mg Tablet PO ×2 (08:08→17:14)
[2023-05-20] MEDS: hyDRALAzine 25 mg Tablet PO ×3 (08:08→20:39)
[2023-05-20] MEDS: bumetanide 0.25 mg/mL SDV 4 mL 2 MG IVP (09:03)
[2023-05-20 11:53] LABS: Glucose Point of Care 302 mg/dL (70-110)
[2023-05-20] MEDS: ipratropium-albuterol 3 mL Neb INHALATION ×2 (12:08→16:06)
--- NOTE | 2023-05-20 15:25 | P.PN_ITS ---
Subjective Subjective: Patient was seen and examined this morning, has been afebrile overnight, he was significantly short of breath this morning, x-ray chest done showed: Pulmonary vascular congestion, received Lasix 40 IV, ABG was also done he was placed on BiPAP, currently he has been started on Bumex 2 mg IV daily, will give additional dose of Bumex as needed. Medications: Medication Review Details: Generic Name Dose Route Start Last Admin Trade Name Freq PRN Reason Stop Dose Admin Acetaminophen 650 mg 05/18/23 03:56 05/18/23 08:43 Acetaminophen 32 5 Mg Tablet PO 650 mg Q6H PRN Administration Mild/Mod Pain Or Temp >/= 101 Albuterol/Ipratrop ium 3 ml 05/20/23 12:00 05/20/23 12:08 Ipratropium-Albu terol 3 Ml Neb INHALATION 3 ml QID.RESPIRATORY S CH Administration Aspirin 81 mg 05/18/23 06:00 05/20/23 05:29 Aspirin 81 Mg Ec Tablet PO 81 mg QAM TESFAYE Administration Atorvastatin Calci um 20 mg 05/19/23 21:00 05/19/23 20:23 Atorvastatin 40 Mg Tablet PO 20 mg BEDTIME TESFAYE Administration Bumetanide 2 mg 05/20/23 09:00 05/20/23 09:03 Bumetanide 0.25 Mg/Ml Sdv 4 Ml IVP 2 mg DAILY TESFAYE Administration Carvedilol 12.5 mg 05/19/23 09:00 05/20/23 08:08 Carvedilol 12.5 Mg Tablet PO 12.5 mg BID TESFAYE Administration Heparin Sodium (Po rcine) 5,000 unit 05/18/23 04:00 05/20/23 11:38 Heparin 5,000 Un it/Ml Inj 1 Ml SUBCUT 5,000 unit Q8H TESFAYE Administration Hydralazine HCl 25 mg 05/18/23 09:00 05/18/23 14:43 Hydralazine 50 M g Tablet PO Not Given TID TESFAYE Hydralazine HCl 25 mg 05/19/23 15:00 05/20/23 15:08 Hydralazine 25 M g Tablet PO 25 mg TID TESFAYE Administration Doxycycline Hyclat e 100 mg/ 100 mls @ 100 mls /hr 05/18/23 13:00 05/20/23 12:37 Sodium Chloride IV 100 mls/hr Q12H TESFAYE Administration Protocol Cefepime HCl 1,000 mg/ Sodium 50 mls @ 100 mls/ hr 05/18/23 13:00 05/20/23 12:36 Chloride IV 100 mls/hr Q12H TESFAYE Administration Protocol Vancomycin/PEG/NAD A/Lysine/Water 2,000 mg in 400 m ls @ 200 mls/hr 05/18/23 14:00 05/20/23 04:57 Vancocin IV Infused Q18H TESFAYE Infusion Insulin Glargine 31 unit 05/18/23 21:00 05/19/23 21:02 Insulin Glargine 100 Units/1 Ml SUBCUT 31 unit BEDTIME TESFAYE Administration Insulin Human Lisp ro 15 unit 05/18/23 09:00 05/20/23 11:38 Insulin Lispro 1 00 Unit/1 Ml SUBCUT 15 unit TIDAC TESFAYE Administration Non-Formulary Medi cation 2.5 mg 05/18/23 09:00 05/20/23 07:31 Glipizide PO Not Given BID [facility] Vitals/I&O/Wt Last Vital Signs Temp 97.9 F 05/20/23 11:18 Pulse 83 05/20/23 12:00 Resp 22 H 05/20/23 12:00 BP 135/97 05/20/23 11:18 Pulse Ox 92 05/20/23 12:00 O2 Del Method Room Air 05/20/23 12:00 O2 Flow Rate 3 05/20/23 07:44 FiO2 50 05/20/23 07:06 05/20/23 05/20/23 05/20/23 06:59 14:59 22:59 Intake Total 550 / 2348.750 600 / 600 Balance 550 / 2348.750 600 / 600 Weight last 48 hrs Weight 158.757 kg Weight 164.739 kg Physical Exam HENMT: COMMON NORMALS: normocephalic and atraumatic HEAD & SCALP: normocephalic and atraumatic Resp: OTHER: Coarse and diminished air entry bilaterally Cardio: COMMON NORMALS: regular rate, regular rhythm, S1 normal heart sound present, S2 normal heart sound present, No gallops present (Cardio), No murmurs present (Cardio), No rub (Cardio) and Peripheral pulses 2+ throughout RATE: regular rate RHYTHM: regular rhythm HEART SOUNDS: S1 normal heart sound present and S2 normal heart sound present PERIPHERAL PULSES: Peripheral pulses 2+ throughout GI: COMMON NORMALS: Normal to inspection, nondistended, normoactive bowel sounds present, Soft to palpation, non-tender, No hepatosplenomegaly present and no masses AUSCULTATION: Yes normoactive bowel sounds PALPATION: Yes Soft to palpation and Yes No hepatosplenomegaly present RECTAL EXAM: Yes deferred Extremity: NARRATIVE EXTREMITY EXAM: 2+ bilateral lower extremity pitting edema Data 05/20/23 03:37 05/20/23 03:37 Micro: Microbiology 05/18/23 21:52 MRSA Culture - Final Nose A&P Assessment and plan (1) Congestive heart failure: (2) Sepsis: (3) Pneumonia: (4) Atherosclerosis of coronary artery: Qualifiers: Coronary Disease-Associated Artery/Lesion type: [place] artery [place] vs. transplanted heart: [place] heart Associated angina: without angina Qualified Code(s): I25.10 - Atherosclerotic heart disease of [place] coronary artery without angina pectoris (5) Pacemaker: (6) HTN (hypertension): (7) Diabetes: (8) COPD (chronic obstructive pulmonary disease): (9) CKD (chronic kidney disease): Plan 62-year-old male with past medical history of hypertension diabetes, coronary artery disease,HFrEF, s/p pacemaker, defibrillator, COPD, [facility] resident, was brought in from care home after experiencing fall, and then he fell forward and became unresponsive. Currently he is being managed for. Assessment: Sepsis likely secondary pneumonia: Patient currently meets sepsis criteria, he is febrile, was hypotensive on arrival, has elevated white cell count, elevated procalcitonin, x-ray chest is suggestive of left lower lobe pneumonia. Blood culture:NTD Urine culture: MRSA PCR: Negative Procalcitonin:6.54 Respiratory viral panel negative COVID PCR negative Urine Legionella antigen is negative Bacterial antigen panel negative Sputum Gram stain and culture: On broad-spectrum antibiotics doxycycline and cefepime. Vancomycin was discontinued Continue DuoNebs Supplemental oxygen as needed S/p fall: Followed by loss of consciousness: CT head without contrast no acute intracranial pathology CT C-spine: No acute fracture XR tibia fibula RT?: No acute fracture XR ankle RT:No evidence of acute fracture? Monitor orthostatic vital sign: AICD interrogation: Physical therapy on board HFrEF: Currently on Bumex 2 mg IV daily Monitor intake output charting Telemetry monitoring Daily weight Monitor electrolytes, keep potassium greater than 4 magnesium greater than 2 CKD stage III: Admission serum creatinine 1.6.Appears to be around baseline serum creatinine Initially patient was on gentle IV hydration has been discontinued for now, given his history of heart failure Monitor intake output charting Monitor daily weight Avoid nephrotoxic's Monitor BMP History of hypertension: Initially patient blood pressure was on the softer side, initially carvedilol and hydralazine was kept on hold briefly, both has been resumed History of diabetes: Continue Lantus, insulin lispro, Monitor fingerstick glucose History of COPD: Continue DuoNebs Supplemental oxygen as needed BiPAP CODE STATUS full code DVT prophylaxis on subcutaneous heparin. Disposition: Patient was adamant to go to care home today, he was explained that currently he is not ready to be discharged given his ongoing medical condition, patient has agreed to stay today. Attestations Medical Necessity Statement*: Needs to be in hospital for IV antibiotics and IV diuresis. Coding Level of Care Code Acute Code for [facility] Diagnoses Congestive heart failure I50.9 Sepsis A41.9 Pneumonia J18.9 Atherosclerosis of coronary artery I25.10 Coronary Disease-Associated Artery/Lesion type: [place] artery [place] vs. transplanted heart: [place] heart Associated angina: without angina Pacemaker Z95.0 HTN (hypertension) I10 Diabetes E11.9 COPD (chronic obstructive pulmonary disease) J44.9 CKD (chronic kidney disease) N18.9
[2023-05-20 16:53] LABS: Glucose Point of Care 148 mg/dL (70-110)
[2023-05-20] MEDS: bumetanide 0.25 mg/mL SDV 4 mL 1 MG IVP (17:13)
--- NOTE | 2023-05-20 18:34 | PC.NURSE ---
Attempted during shift to place [facility] cath on patient r/t Dr. Lopez wanting accurate urine output, unsuccessful. Educated patient multiple times to use call light so staff can assist patient, patient refuses to use call light, or notify staff once he has voided, patient states my pee isnt hurting the floor or the bed education on skin breakdown as well with patient. provider made aware.
[2023-05-20] MEDS: atorvastatin 40 mg Tablet 20 MG PO (20:39)
[2023-05-20] MEDS: insulin glargine 100 units/1 mL 31 UNIT SUBCUT (20:40)
[2023-05-21] MEDS: cefepime 1,000 MG in sodium chloride 0.9% (plus) 50 ML 100 MG IV (01:26)
[2023-05-21] MEDS: doxycycline 100 MG in sodium chloride 0.9% (plus) 100 ML IV (01:26)
[2023-05-21 04:17] LABS: Basophils # 0.1 10^3/uL (0.0-0.1); Basophils % 0.5 %; Eosinophils # 0.1 10^3/uL (0.0-0.8); Eosinophils % 0.8 %; Hematocrit 38.7 % (42.0-52.0); Hemoglobin 11.7 g/dL (11.7-16.6); Lymphocytes # 1.1 10^3/uL (0.8-4.8); Lymphocytes % 8.2 %; Mean Corpuscular HGB Conc 30.2 g/dL (30.0-36.0); Mean Corpuscular Hemoglobin 24.7 pg (28.0-34.0); Mean Corpuscular Volume 81.8 fl (80-94); Mean Platelet Volume 11.5 fL (7.4-10.4); Monocytes # 1.3 10^3/uL (0.2-0.9); Monocytes % 10.2 %; Neutrophils # 10.33 10^3/uL (1.8-7.7); Neutrophils % 79.2 %; Nucleated Red Blood Cells % 0 %; Platelet Count 157 10^3/cmm (130-400); Red Blood Count 4.73 10^6/uL (4.1-5.3); Red Cell Distribution Width 17.6 % (12.1-15.1); White Blood Count 13.1 10^3/uL (4.0-10.0)
[2023-05-21 04:41] LABS: Alanine Aminotransferase 58 U/L (0-41); Albumin Level 3.3 g/dL (3.5-5.2); Alkaline Phosphatase 110 U/L (40-130); Anion Gap 17.2 (5-19); Aspartate Amino Transferase 83 U/L (0-40); Blood Urea Nitrogen 33 mg/dL (8-23); Calcium 8.3 mg/dL (8.5-10.5); Carbon Dioxide 24 mmol/L (22-29); Chloride 101 mmol/L (98-107); Globulin 3.4 g/dL (1.3-4.6); Glomerular Filtration Rate 47.1 mL/min (90-130); Glucose 199 mg/dL (65-115); Osmolality Calculated 299 mOsm/kg (285-295); Potassium 4.2 mmol/L (3.5-5.1); Sodium 138 mmol/L (136-145); Total Bilirubin 1.1 mg/dL (0.15-1.2); Total Protein 6.7 g/dL (6.6-8.7)
[2023-05-21] MEDS: heparin 5,000 unit/mL INJ 1 mL 5000 UNIT SUBCUT (05:05)
[2023-05-21] MEDS: aspirin 81 mg EC Tablet PO (05:05)
[2023-05-21 06:07] VITALS: BP 113/75
[2023-05-21] MEDS: ipratropium-albuterol 3 mL Neb INHALATION ×2 (07:52→11:17)
[2023-05-21 07:55] VITALS: PULSE 79; RESP 16; O2SAT 96
[2023-05-21] MEDS: insulin lispro 100 unit/1 mL 15 UNIT SUBCUT (08:48)
[2023-05-21] MEDS: carvedilol 12.5 mg Tablet PO (08:49)
[2023-05-21] MEDS: hyDRALAzine 25 mg Tablet PO (08:49)
[2023-05-21 09:30] VITALS: BP 161/114; PULSE 76; RESP 19; TEMP 37; O2SAT 90
--- NOTE | 2023-05-21 10:12 | P.DS_ITS ---
Discharge Providers Date of Admission: 05/18/23 03:56 Date of Discharge: May 21, 2023 Attending Provider at Admission: Santino Springer DO Attending Provider at Discharge: Carson Lopez MD Primary Care Provider: Dusty Ly MD Diagnoses at Discharge Discharge Diagnosis (1) Congestive heart failure: Status: Acute Permanent problem details: 02/13/21: LVEF 45-50% (2) Sepsis: Status: Acute (3) Pneumonia: Status: Acute (4) Atherosclerosis of coronary artery: Status: Acute Qualifiers: Associated angina: without angina Coronary Disease-Associated Artery/Lesion type: [place] artery [place] vs. transplanted heart: [place] heart Qualified Code(s): I25.10 - Atherosclerotic heart disease of [place] coronary artery without angina pectoris (5) Pacemaker: Status: Acute (6) HTN (hypertension): Status: Acute (7) Diabetes: Status: Acute (8) COPD (chronic obstructive pulmonary disease): Status: Acute (9) CKD (chronic kidney disease): Status: Acute Reason for Visit Reason for Visit: fall/SOB Hospital Course Hospital Course 62-year-old male with past medical history of hypertension diabetes, coronary artery disease,HFrEF, s/p pacemaker, defibrillator, COPD, [facility] resident, was brought in from senior care after experiencing fall, and then he fell forward and became unresponsive, during the hospital stay patient was managed for Sepsis secondary pneumonia: Patient currently meets sepsis criteria, he is febrile, was hypotensive on arrival, has elevated white cell count, elevated procalcitonin, x-ray chest is suggestive of left lower lobe pneumonia. Blood culture:NTD,Urine culture: Unfortunately was not done, MRSA PCR: Negative,Procalcitonin:6.54, repeat procalcitonin was trending down,Respiratory viral panel negative,COVID PCR negative,Urine Legionella antigen is negative, Bacterial antigen panel negative Sputum Gram stain and culture: Unfortunately was not done, he was On broad- spectrum antibiotics, DuoNebs supplemental oxygen as needed, pulmonary toilet, he was also managed for heart failure with reduced ejection fraction, initially Bumex was briefly kept on hold, as the patient blood pressure was on slightly softer side, and he also appeared slightly dry, initially he was kept on, gentle IV hydration, later because of increasing shortness of breath Bumex IV was resumed, with good response, patient was continued on Bumex p.o. on discharge, he was also managed for s/p fall, currently unclear cause,CT head without contrast no acute intracranial pathology,CT C-spine: No acute fracture,XR tibia fibula RT?:?No acute fracture,XR ankle RT:No evidence of acute fracture, physical therapy was on hold, patient was also managed for his other comorbid condition, overall patient was responding well to medical management, and he was asked to stay at least 1 more day, to achieve, optimal medical condition for discharge, but p alexysient was extremely insistent on being discharged, He was discharged on p.o. levofloxacin, for additional 5 days to complete the course for pneumonia.Overall he was discharged in stable condition to senior care. Physical Exam HENMT: COMMON NORMALS: normocephalic and atraumatic HEAD & SCALP: normocephalic and atraumatic Resp: COMMON NORMALS: clear to auscultation bilaterally AUSCULTATION: clear to auscultation bilaterally OTHER: Diminished air entry bilaterally Cardio: COMMON NORMALS: regular rate, regular rhythm, S1 normal heart sound present, S2 normal heart sound present, No gallops present (Cardio), No murmurs present (Cardio), No rub (Cardio) and Peripheral pulses 2+ throughout RATE: regular rate RHYTHM: regular rhythm HEART SOUNDS: S1 normal heart sound present and S2 normal heart sound present PERIPHERAL PULSES: Peripheral pulses 2+ throughout GI: COMMON NORMALS: Normal to inspection, nondistended, normoactive bowel sounds present, Soft to palpation, non-tender, No hepatosplenomegaly present and no masses AUSCULTATION: Yes normoactive bowel sounds PALPATION: Yes Soft to palpation and Yes No hepatosplenomegaly present RECTAL EXAM: Yes deferred Extremity: COMMON NORMALS: no clubbing, cyanosis or edema and no pedal edema NARRATIVE EXTREMITY EXAM: 2+ bilateral lower extremity pitting edema Discharge Data Studies Completed and Pending Completed Studies During Hospitalization Category Date Time Status CT cervical spin wo con* [id number] Stat Cat Scan 05/17/23 22:[address] head wo con* [id number] Stat Cat Scan 05/17/23 22:52 Completed XR ankle RT min 3V* [id number] Stat Exams 05/18/23 00:12 Completed XR chest 1V portable [id number] Stat Exams 05/17/23 22:37 Completed XR chest 1V portable [id number] Stat Exams 05/20/23 06:19 Completed XR tibia fibula RT 2V [id number] Stat Exams 05/18/23 00:12 Completed Pending at discharge Category Date Time Status Blood Culture Stat Lab 05/17/23 23:14 Results CBC Auto Diff [Complete Blood Count w/Auto] AM LABS Lab 05/22/23 04:00 Ordered CMP [Comprehensive Metabolic Panel] AM LABS Lab 05/22/23 04:00 Ordered Sputum Culture and Gram Stain Routine Lab 05/18/23 12:15 Uncollected Radiology Impressions Cervical Spine CT 05/17/23 22:52 IMPRESSION: No evidence of acute fracture or traumatic malalignment in the cervical spine. Head CT 05/17/23 22:52 IMPRESSION: 1. No evidence of acute intracranial hemorrhage, mass effect, or midline shift. 2. Generalized cerebral volume loss and nonspecific white matter changes, likely vascular related. 3. Ventricular prominence is disproportionate to sulcal dilation which is a nonspecific finding however can be seen in the setting of normal pressure hydrocephalus. Clinical correlation is recommended. Ankle X-Ray 05/18/23 00:12 IMPRESSION: No evidence of acute fracture or traumatic malalignment in the right ankle joint. Tibia/Fibula X-Ray 05/18/23 00:12 IMPRESSION: No acute fracture is identified. Chest X-Ray 05/20/23 06:19 IMPRESSION: 1. Cardiomegaly with pulmonary vascular congestion. 2. Nonspecific bilateral opacities, atelectasis, edema and/or pneumonia. Laboratory Results WBC 13.1 10^3/uL (4.0-10.0) H 05/21/23 03:19 RBC 4.73 10^6/uL (4.1-5.3) 05/21/23 03:19 Hgb 11.7 g/dL (11.7-16.6) 05/21/23 03:19 Hct 38.7 % (42.0-52.0) L 05/21/23 03:19 MCV 81.8 fl (80-94) 05/21/23 03:19 MCH 24.7 pg (28.0-34.0) L 05/21/23 03:19 MCHC 30.2 g/dL (30.0-36.0) 05/21/23 03:19 RDW 17.6 % (12.1-15.1) H 05/21/23 03:19 Plt Count 157 10^3/cmm (130-400) 05/21/23 03:19 MPV 11.5 fL (7.4-10.4) H 05/21/23 03:19 Neut % (Auto) 79.2 % 05/21/23 03:19 Lymph % (Auto) 8.2 % 05/21/23 03:19 [place] % (Auto) 10.2 % 05/21/23 03:19 Eos % (Auto) 0.8 % 05/21/23 03:19 Baso % (Auto) 0.5 % 05/21/23 03:19 Neut # (Auto) 10.33 10^3/uL (1.8-7.7) H 05/21/23 03:19 Lymph # (Auto) 1.1 10^3/uL (0.8-4.8) 05/21/23 03:19 [place] # (Auto) 1.3 10^3/uL (0.2-0.9) H 05/21/23 03:19 Eos # (Auto) 0.1 10^3/uL (0.0-0.8) 05/21/23 03:19 Baso # (Auto) 0.1 10^3/uL (0.0-0.1) 05/21/23 03:19 Nucleated RBC % (auto) 0 % 05/21/23 03:19 Nucleated RBCs # 0.0 /100WBC 05/21/23 03:19 Specimen Type Arterial 05/20/23 06:27 Sample Site Radial, right 05/20/23 06:27 ABG pH 7.24 (7.35-7.45) L 05/20/23 06:27 ABG pCO2 50.2 mmHg (35-45) H 05/20/23 06:27 ABG pO2 82.2 mmHg (80.0-100.0) 05/20/23 06:27 ABG HCO3 21.6 mmol/L (22-26) L 05/20/23 06:27 ABG O2 Saturation 95.5 05/20/23 06:27 ABG Base Excess -5.9 mmol/L (-2.0-2.0) L 05/20/23 06:27 Inderjit Test Pos 05/20/23 06:27 A-a O2 Gradient 0.7 mmHg (5-10) L 05/20/23 06:27 Hematocrit 37.8 % (42-52) L 05/20/23 06:27 Hgb O2 Saturation 93.8 % (95-100) L 05/20/23 06:27 Carboxyhemoglobin 1.4 %THgb (0.4-20.1) 05/20/23 06:27 Methemoglobin 0.4 % (0.4-1.5) 05/20/23 06:27 Total Hemoglobin 12.3 g/dL (14-18) L 05/20/23 06:27 Sodium 135.0 mmol/L (131-143) 05/20/23 06:27 Potassium 5.1 mmol/L (3.5-5.0) H 05/20/23 06:27 Glucose 262.0 mg/dL (70-115) H 05/20/23 06:27 Ionized Calcium 1.2 mmol/L (1.1-1.4) 05/20/23 06:27 O2 Delivery Device Oxy mask 05/20/23 06:27 O2 Liters/Min 10.0 % 05/20/23 06:27 Construction Engineering Manager ID Amh 05/20/23 06:27 Sodium 138 mmol/L (136-145) 05/21/23 03:19 Potassium 4.2 mmol/L (3.5-5.1) 05/21/23 03:19 Chloride 101 mmol/L (98-107) 05/21/23 03:19 Carbon Dioxide 24 mmol/L (22-29) 05/21/23 03:19 Anion Gap 17.2 (5-19) 05/21/23 03:19 BUN 33 mg/dL (8-23) H 05/21/23 03:19 Creatinine 1.5 mg/dL (0.7-1.2) H 05/21/23 03:19 GFR Calculation 47.1 mL/min (90-130) L 05/21/23 03:19 Glucose 199 mg/dL (65-115) H 05/21/23 03:19 POC Glucose 148 mg/dL (70-110) H 05/20/23 16:46 Calculated Osmolality 299 mOsm/kg (285-295) H 05/21/23 03:19 Lactic Acid 1.9 mmol/L (0.5-2.2) 05/17/23 23:37 Calcium 8.3 mg/dL (8.5-10.5) L 05/21/23 03:19 Magnesium 1.9 mg/dL (1.7-2.3) 05/20/23 03:37 Total Bilirubin 1.1 mg/dL (0.15-1.2) 05/21/23 03:19 AST 83 U/L (0-40) H 05/21/23 03:19 ALT 58 U/L (0-41) H 05/21/23 03:19 Alkaline Phosphatase 110 U/L (40-130) 05/21/23 03:19 Troponin T Baseline 39 ng/L (0-15) H 05/17/23 22:45 Troponin T 120 Minute 43.88 ng/L (0-15) H 05/18/23 01:00 Delta Troponin T 4.88 ABS# (0-10) 05/18/23 01:00 Troponin T Hi Sens 6Hr 41.01 ng/L (0-15) H 05/18/23 04:58 Troponin T Hi Sens 6Hr Delta 2.01 ng/L (0-12) 05/18/23 04:58 NT-Pro-B Natriuret Pep 3441 pg/mL (0-125) H 05/17/23 23:37 Total Protein 6.7 g/dL (6.6-8.7) 05/21/23 03:19 Albumin 3.3 g/dL (3.5-5.2) L 05/21/23 03:19 Globulin 3.4 g/dL (1.3-4.6) 05/21/23 03:19 Procalcitonin 3.00 ng/mL (0-0.5) H 05/21/23 03:19 Urine Color Yellow (Yellow) 05/18/23 21:19 Urine Appearance Clear (CLEAR) 05/18/23 21:19 Urine pH 5 (5-7) 05/18/23 21:19 Ur Specific [place] 1.015 (1.005-1.030) 05/18/23 21:19 Urine Protein 1+ (Negative) H 05/18/23 21:19 Urine Glucose (UA) 2+ (Normal) H 05/18/23 21:19 Urine Ketones Negative (Negative) 05/18/23 21:19 Urine Blood 3+ (Negative) H 05/18/23 21:19 Urine Nitrate Negative (Negative) 05/18/23 21:19 Urine Bilirubin Neg (Negative) 05/18/23 21:19 Urine Urobilinogen Neg mg/dL (Negative) 05/18/23 21:19 Ur Leukocyte Esterase Negative (Negative) 05/18/23 21:19 Urine RBC 0-4 /hpf (0-2) H 05/18/23 21:19 Urine WBC 0-4 /hpf (0-5) H 05/18/23 21:19 Ur Squamous Epith Cells 0-4 /hpf (0-5) H 05/18/23 21:19 Amorphous Sediment Not Reportable 05/18/23 21:19 Urine Bacteria None /hpf (NONE) 05/18/23 21:19 Urine Mucus 2+ /hpf 05/18/23 21:19 Nasal Influ A H1 2008 PCR Not detected (NOT DETECT) 05/18/23 00:30 Adenovirus (PCR) Not detected (NOT DETECT) 05/18/23 00:30 C. pneumoniae DNA (PCR) Not detected (NOT DETECT) 05/18/23 00:30 Coronavirus 229E (PCR) Not detected (NOT DETECT) 05/18/23 00:30 Human Metapneumovir PCR Not detected (NOT DETECT) 05/18/23 00:30 Influenza A (H1) PCR Not detected (NOT DETECT) 05/18/23 00:30 Influenza A (H3) PCR Not detected (NOT DETECT) 05/18/23 00:30 Influenza Type A (PCR) Not detected (NOT DETECT) 05/18/23 00:30 Influenza Type B (PCR) Not detected (NOT DETECT) 05/18/23 00:30 M. pneumoniae (PCR) Not detected (NOT DETECT) 05/18/23 00:30 Parainfluenza 1 (PCR) Not detected (NOT DETECT) 05/18/23 00:30 Parainfluenza 2 (PCR) Not detected (NOT DETECT) 05/18/23 00:30 Parainfluenza 3 (PCR) Not detected (NOT DETECT) 05/18/23 00:30 Parainfluenza 4 (PCR) Not detected (NOT DETECT) 05/18/23 00:30 RSV Type A (PCR) Not detected (NOT DETECT) 05/18/23 00:30 RSV Type B (PCR) Not detected (NOT DETECT) 05/18/23 00:30 Entero/Rhino (PCR) Not detected (NOT DETECT) 05/18/23 00:30 SARS-CoV-2 (PCR) Not detected (NOT DETECT) 05/18/23 00:30 Vitals Last Vital Signs Temp 98.6 F 05/21/23 09:30 Pulse 76 05/21/23 09:30 Resp 19 H 05/21/23 09:30 BP 161/114 05/21/23 09:30 Pulse Ox 90 05/21/23 09:30 O2 Del Method Room Air 05/21/23 07:55 O2 Flow Rate 1 05/20/23 20:00 FiO2 50 05/20/23 07:06 Discharge Plan Discharge Patient Disposition: Xfer [facility] Condition: Stable Prescriptions: New levofloxacin 500 mg tablet 500 mg PO DAILY 5 Days Qty: 5 0RF Continued Lantus U-100 Insulin 100 unit/mL solution 65 unit SUBCUT BEDTIME albuterol sulfate 2.5 mg /3 mL (0.083 %) solution for nebulization 2.5 mg inhalation Q6H Novolin R FlexPen 100 unit/mL (3 mL) insulin pen 15 unit SUBCUT TID Rx Instructions: per sliding scale alprazolam [Xanax] 0.5 mg tablet 0.5 mg PO Q8H PRN (Reason: Anxiety) carvedilol 12.5 mg tablet 12.5 mg PO BID lisinopril 20 mg tablet 20 mg PO DAILY aspirin 81 mg Tablet,Delayed Release (Dr/Ec) 81 mg PO QAM nitroglycerin [Nitrostat] 0.4 mg Tablet, Sublingual 0.4 mg SUBLINGUAL Q5M PRN (Reason: Chest Pain) bumetanide 1 mg tablet 1 mg PO DAILY Qty: 30 0RF metformin 1,000 mg Tablet Extended Release 24 Hr 1,000 mg PO DAILY nicotine [Nicoderm CQ] 14 mg/24 hr Patch 24 Hour 1 patch TRANSDERMAL DAILY gabapentin 800 mg Tablet 800 mg PO TID acetaminophen 325 mg Tablet 325 mg PO QID PRN (Reason: Pain) loperamide 2 mg Capsule 2 mg PO QID PRN (Reason: Diarrhea) atorvastatin 10 mg Tablet 10 mg PO BEDTIME IBU 800 mg Tablet 800 mg PO Q8H PRN (Reason: Pain) glipizide 10 mg Tablet Extended Release 24hr 15 mg PO DAILY hydralazine 25 mg Tablet 25 mg PO TID Milk of Magnesia 400 mg/5 mL Suspension 30 ml PO DAILY PRN (Reason: Constipation) bisacodyl 10 mg Suppository 10 mg NM DAILY PRN (Reason: Constipation) Banophen 25 mg Capsule 25 mg PO DAILY PRN (Reason: Allergy Symptoms) Enema 19-7 gram/118 mL Enema 118 ml NM DAILY PRN (Reason: Constipation) Discharge Orders: Discharge Order (Routine); Ordered 05/21/23 Ordered By: Carson Lopez Referrals: [facility] [Outside] Dusty Ly MD [Primary Care Provider] - Patient Instructions: Levofloxacin (By mouth) (Levaquin, Levaquin Leva-libby), Sepsis (DC), Pneumonia (DC), Shortness of Breath (DC), CHF Stoplight, Opioid Safety Discharge Attestations Time Spent in Discharge Care*: less than 30 min Status at Discharge: Cognitive status at discharge: cognitively intact , Behavioral status at discharge: cooperative , Quality Metrics Clinical Quality Measures [ No reported AMI, CVA or VTE this stay] Coding Level of Care Code Acute Code for g Fwd Diagnoses Congestive heart failure I50.9 Sepsis A41.9 Pneumonia J18.9 Atherosclerosis of coronary artery I25.10 Associated angina: without angina Coronary Disease-Associated Artery/Lesion type: [place] artery [place] vs. transplanted heart: [place] heart Pacemaker Z95.0 HTN (hypertension) I10 Diabetes E11.9 COPD (chronic obstructive pulmonary disease) J44.9 CKD (chronic kidney disease) N18.9
[2023-05-21] MEDS: bumetanide 1 mg Tablet 2 MG PO (10:23)
[2023-05-21 10:31] VITALS: BP 161/114; PULSE 76; RESP 19; TEMP 37; O2SAT 90
--- NOTE | 2023-05-21 10:33 | PC.NURSE ---
Patient was rolling himself down the hallway when nurse caught him and asked him to please go back to his room. He told the nurse no head was leaving and he was wheeling himself out and that his sister would come pick him up. I told him if he wanted to leave that bad he would have to come back to his room and sign AMA papers. He refused to go back to his room so I called security, with only 2 nurses on the floor I could not stand there and physically stop him. Dr. Lopez arrived and coaxed patient back to room.
[2023-05-21 11:12] LABS: Glucose Point of Care 232 mg/dL (70-110)
[2023-05-21 11:21] VITALS: PULSE 82; RESP 16; O2SAT 95
[2023-05-21 11:41] LABS: SARS Covid-2 Antigen negative (Negative)
--- NOTE | 2023-05-21 12:32 | PC.NURSE ---
Nurse has tried to call report twice to [facility]. Last attempt was made at 1227pm. I have left two voicemails. I told them in the voicemail that ready transport would be here to pick Mr. Parish up at 1300 and if they could please call me back.
== END 2023-05-21 12:44 | disposition skilled nursing facility (03) | DRG 871 ==
LOC: ER 05-18 01:07 → CSU 05-18 01:36
PROVIDERS: Internal Medicine; Admitting Provider Internal Medicine; Emergency Provider Emergency Medicine; PCP Internal Medicine; Visit Provider Internal Medicine
DX: A41.9 Sepsis, unspecified organism (principal); J18.9 Pneumonia, unspecified organism; J44.0 Chronic obstructive pulmonary disease with (acute) lower respiratory infection; I13.0 Hypertensive heart and chronic kidney disease with heart failure and stage 1 through stage 4 chronic kidney disease, or unspecified chronic kidney disease; I50.22 Chronic systolic (congestive) heart failure; Z68.43 Body mass index [BMI] 50.0-59.9, adult; Z87.01 Personal history of pneumonia (recurrent); W19.XXXA Unspecified fall, initial encounter; N18.30 Chronic kidney disease, stage 3 unspecified; E11.22 Type 2 diabetes mellitus with diabetic chronic kidney disease; I25.10 Atherosclerotic heart disease of native coronary artery without angina pectoris; Z95.1 Presence of aortocoronary bypass graft; Z95.810 Presence of automatic (implantable) cardiac defibrillator; Z87.891 Personal history of nicotine dependence; I95.9 Hypotension, unspecified; Z79.4 Long term (current) use of insulin; Z79.82 Long term (current) use of aspirin; Z79.84 Long term (current) use of oral hypoglycemic drugs; E66.01 Morbid (severe) obesity due to excess calories; N40.0 Benign prostatic hyperplasia without lower urinary tract symptoms; G25.81 Restless legs syndrome
CPT/HCPCS: 36415; 36416; 36600; 70450; 71045; 72125; 73590; 73610; 80048; 80051; 80053; 81001; 82330; 82803; 82805; 82962; 83605; 83735; 83880; 84145; 84484; 85025; 86403; 87040; 87426; 87449; 87486; 87581; 87633; 87641; 93005; 94640; 94660; 96365; 96367; 96372; 96376; 97116; 97161; 97530; 99285; G0378; J0692; J0696; J1644; J1815; J1940; J3372; J3490; J7030; J7040; J7613

== ENCOUNTER → 2023-12-17 13:57 | Outpatient (BNVA) | payer MEDICARE, MEDICAID, SELFPAY | PROVIDERS: PCP Internal Medicine; Visit Provider Internal Medicine | DX: Z95.0 Presence of cardiac pacemaker (principal); I13.0 Hypertensive heart and chronic kidney disease with heart failure and stage 1 through stage 4 chronic kidney disease, or unspecified chronic kidney disease; E11.22 Type 2 diabetes mellitus with diabetic chronic kidney disease; N18.9 Chronic kidney disease, unspecified; Z79.4 Long term (current) use of insulin; I50.9 Heart failure, unspecified; Z87.891 Personal history of nicotine dependence | CPT/HCPCS: 99214 ==

== ENCOUNTER 2024-12-07 11:50 | Outpatient (CLI) | payer MEDICARE, MEDICAID, SELFPAY ==
--- NOTE | 2024-12-07 11:57 | CT_ITS ---
WS: [id number] LDCT LUNG CANCER SCREENING HISTORY: NICOTINE DEPENDENCE, CIGARETTES TECHNIQUE: Axial imaging performed from the apices to 1 cm below the costophrenic angles. Coronal and sagittal reformats are submitted with axial MIP series. All CT scans at [facility] use at least one of these dose optimization techniques: automated exposure control; mA and/or kV adjustment per patient size (includes targeted exams where dose is matched to clinical indication); or iterativ e reconstruction. DLP: 317.49 mGy.cm DIvol: Mean CTDIvol: 8.40 (mGy) COMPARISON: None available. Diagnostic quality: Suboptimal due to body habitus and breathing motion artifact. Lungs: No pulmonary nodule or mass is identified. With this amount of motion small nodules may be obs cured. Increased pleural fat at the lung bases. No endobronchial lesions. Heart: Prior CABG. Dual-lead cardiac defibrillator/pacer. Heart is enlarged.. Other findings: Mild atherosclerosis aorta. No adenopathy identified. No adrenal mass. CT/CT lung screening [id number] IMPRESSION: LUNG-RADS: 2-Benign Appearance or Behavior FOLLOW UP: 12 Month: Continue annual screening with LDCT OTHER FINDINGS (S MODIFIER): None.
== END 2024-12-07 11:51 | disposition home or self-care (01) ==
PROVIDERS: PCP Internal Medicine; Visit Provider Nurse Practitioner Family
DX: Z12.2 Encounter for screening for malignant neoplasm of respiratory organs (principal); F17.210 Nicotine dependence, cigarettes, uncomplicated; R91.8 Other nonspecific abnormal finding of lung field; Z98.890 Other specified postprocedural states; Z95.810 Presence of automatic (implantable) cardiac defibrillator; I51.7 Cardiomegaly; I70.0 Atherosclerosis of aorta
CPT/HCPCS: 71271

== ENCOUNTER 2024-12-12 19:06 | Inpatient (IN) | payer MEDICARE, MEDICAID, SELFPAY ==
[2024-12-12] VITALS (19 sets, daily range): BP systolic 72–160; BP diastolic 52–102; PULSE 60–77; RESP 13–23; TEMP 36.8; O2SAT 85–100; BMI 47.2
--- NOTE | 2024-12-12 19:18 | XRR_ITS ---
PROCEDURE INFORMATION: Exam: XR Chest Exam date and time: 12/12/2024 7:36 PM Age: 64 years old Clinical indication: Dyspnea and shortness of breath; Prior surgery; Surgery date: 6+ months; Surgery type: Heart pacer TECHNIQUE: Imaging protocol: Radiologic exam of the chest. Views: 1 view. COMPARISON: CT lung screening [id number] 12/07/2024 12:01 PM FINDINGS: Tubes, catheters and devices: Trilead AICD with left chest generator. Lungs: Pulmonary vascular congestion. Mild bibasilar linear atelectasis versus scarring. No consolidation. Pleural spaces: No substantial pleural effusion or pneumothorax. Heart/Mediastinum: Cardiomegaly. Vasculature: Aortic arch atherosclerotic calcification. Bones/joints: Degenerative changes along the spine. Prior median sternotomy. XR/XR chest 1V portable [id number] IMPRESSION: Pulmonary vascular congestion and cardiomegaly.
--- NOTE | 2024-12-12 19:23 | ED_ITS ---
HPI - SOB/Dyspnea 2 General: Chief Complaint: Shortness of Breath/Dyspnea Stated Complaint: SOB, resp distress Time Seen by Provider: 12/12/24 19:09 History of Present Illness: HPI Narrative: Patient arrived via EMS from [facility] with complaints of weakness and low O2 sats. He was found on room air with O2 sat of 61% after 3 L and a nebulizer treatment he was 81%. Patient become more weak over the last few days. Patient does have a history of COPD and is morbidly obese. Patient is not normally on any home oxygen. Related Data Home Medications Medication Instructions Recorded Confirmed aspirin 81 mg tablet,delayed 81 mg PO QAM 02/13/21 12/17/23 release carvedilol 12.5 mg tablet 12.5 mg PO BID 02/13/21 12/17/23 lisinopril 20 mg tablet 20 mg PO DAILY 02/13/21 12/17/23 nitroglycerin 0.4 mg sublingual 0.4 mg sublingual Q5M PRN Chest 02/13/21 12/17/23 tablet (Nitrostat) Pain insulin glargine 100 unit/mL 65 unit SUBCUT BEDTIME 09/05/21 12/17/23 subcutaneous solution (Lantus U-100 Insulin) albuterol sulfate 2.5 mg/3 mL 2.5 mg inhalation Q6H 10/01/22 12/17/23 (0.083 %) solution for nebulization insulin regular human 100 unit/mL 15 unit SUBCUT TID 10/01/22 12/17/23 (3 mL) subcutaneous pen (Novolin R FlexPen) alprazolam 0.5 mg tablet (Xanax) 0.5 mg PO Q8H PRN Anxiety 03/16/23 05/18/23 acetaminophen 325 mg tablet 325 mg PO QID PRN Pain 05/18/23 12/17/23 atorvastatin 10 mg tablet 10 mg PO BEDTIME 05/18/23 12/17/23 bisacodyl 10 mg rectal suppository 10 mg OR DAILY PRN Constipation 05/18/23 12/17/23 diphenhydramine HCl 25 mg capsule 25 mg PO DAILY PRN Allergy Symptoms 05/18/23 12/17/23 (Banophen) gabapentin 800 mg tablet 800 mg PO TID 07/03/23 02/01/24 glipizide 10 mg tablet, extended 15 mg PO DAILY 05/18/23 12/17/23 release 24 hr hydralazine 25 mg tablet 25 mg PO TID 05/18/23 12/17/23 ibuprofen 800 mg tablet (IBU) 800 mg PO Q8H PRN Pain 05/18/23 12/17/23 loperamide 2 mg capsule 2 mg PO QID PRN Diarrhea 05/18/23 12/17/23 magnesium hydroxide 400 mg/5 mL 30 ml PO DAILY PRN Constipation 05/18/23 05/18/23 oral suspension (Milk of Magnesia) metformin 1,000 mg tablet,extended 1,000 mg PO DAILY 05/18/23 12/17/23 release 24hr (osmotic) nicotine 14 mg/24 hr daily 1 patch transdermal DAILY 05/18/23 05/18/23 transdermal patch (Nicoderm CQ) sodium phosphates 19 gram-7 118 ml OR DAILY PRN Constipation 05/18/23 12/17/23 gram/118 mL enema (Enema) Previous Rx's Medication Instructions Recorded bumetanide 1 mg tablet 1 mg PO DAILY #30 tabs 02/16/21 Allergies Allergy/AdvReac Type Severity Reaction Status Date / Time Penicillins Allergy ALGY-Hives Verified 12/12/24 19:17 Review of Systems 2 General: Reports: 10 or more systems reviewed and unremarkable except in HPI and below PFSH ED 2 PFSH: Medical History CKD (chronic kidney disease) Sepsis Pneumonia Atherosclerosis of coronary artery Cardiac resynchronization therapy defibrillator (OUTBOUND TELEMARKETING REPRESENTATIVE-D) in place Restless leg syndrome CAP (community acquired pneumonia) MARIA A (acute kidney injury) Morbid obesity Ataxia Pacemaker Diabetes COPD (chronic obstructive pulmonary disease) BPH (benign prostatic hyperplasia) HTN (hypertension) Weakness Congestive heart failure 02/13/21: LVEF 45-50% Acute exacerbation of chronic obstructive airways disease Surgical History S/P CABG (coronary artery bypass graft) Family History Father Diabetes Mother Diabetes Social History Smoking and tobacco/nicotine status: former use of tobacco/nicotine Alcohol intake: former Substance/Drug Use: former Household members: family Housing: House Current occupation: living in tent 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 Physical Exam 2 Const: COMMON NORMALS: no acute distress, patient oriented x3, no limitations, healthy appearing, alert and well nourished HENMT: COMMON NORMALS: normocephalic, atraumatic, hearing grossly normal bilaterally, external ears normal, Normal external nose present and moist oral mucous membranes HEAD & SCALP: normocephalic and atraumatic NOSE: Normal external nose present EXTERNAL EAR: Yes external ears normal Neck/C-Spine: COMMON NORMALS: no JVD Chest: COMMONS NORMALS: normal inspection of the chest and normal palpation of entire chest wall Resp: COMMON NORMALS: normal respiratory effort, No retractions and No use of accessory muscles; negative for clear to auscultation bilaterally (Positive rhonchi bilaterally) AUSCULTATION: not clear to auscultation bilaterally (Positive rhonchi bilaterally) Cardio: COMMON NORMALS: no JVD, regular rate, regular rhythm, S1 normal heart sound present, S2 normal heart sound present, No gallops present (Cardio), No clicks present (Cardio) and No murmurs present (Cardio) RATE: regular rate RHYTHM: regular rhythm HEART SOUNDS: S1 normal heart sound present and S2 normal heart sound present GI: COMMON NORMALS: Normal to inspection, nondistended, normoactive bowel sounds present, Soft to palpation, non-tender, No hepatosplenomegaly present and no masses PALPATION: Yes Soft to palpation and Yes No hepatosplenomegaly present Extremity: NARRATIVE EXTREMITY EXAM: 2+ pitting bilateral pretibial edema Neuro: COMMON NORMALS: patient oriented x3 SENSORIUM/ORIENTATION: Yes alert Course 2 Vital Signs: Vital signs: Vital Signs Temperature 98.3 F 12/12/24 19:09 Pulse Rate 64 12/12/24 19:55 Respiratory Rate 21 H 12/12/24 19:18 Blood Pressure 107/70 12/12/24 19:34 Pulse Oximetry 97 12/12/24 19:55 Oxygen Delivery Me thod Nasal Cannula 12/12/24 19:34 Oxygen Flow Rate 6 12/12/24 19:18 Fraction of Inspir ed Oxygen 28 12/12/24 19:55 MDM - SOB/Dyspnea Medical Decision Making Patient arrived hypoxic on 5 L nasal cannula. ABG was obtained which showed he was still hypoxic and hypercapnic. Patient was placed on BiPAP while laboratory work was waiting. Dr. Crawford was in the ER rounding on a different patient this happened around on him as well. Patient will be admitted to the ICU for acute respiratory failure with hypoxia and hypercapnia. Medical Records I reviewed the patient's medical records. Lab Data I reviewed the patient's lab results. 12/12/24 19:17 12/12/24 19:17 Labs/Radiology: Radiology Impressions Chest X-Ray 12/12/24 19:18 IMPRESSION: Pulmonary vascular congestion and cardiomegaly. ADDENDUM: 12/12/242040 Patchy ptqq-nkykmdt-iujl-right lower lung zone opacities may represent edema, atelectasis/scarring, or infiltrate. Laboratory Results WBC 10.99 10^3/uL (3.29-11.43) 12/12/24 19:17 RBC 5.13 10^6/uL (3.85-5.65) 12/12/24 19:17 Hgb 12.70 g/dL (11.27-16.99) 12/12/24 19:17 Hct 45.1 % (37-53) 12/12/24 19:17 MCV 87.9 fl (82-101) 12/12/24 19:17 MCH 24.8 pg (27-33) L 12/12/24 19:17 MCHC 28.2 g/dL (30-55) L 12/12/24 19:17 RDW 17.8 % (12.1-15.1) H 12/12/24 19:17 Plt Count 157 10^3/cmm (157-399) 12/12/24 19:17 MPV 11.1 fL (7.4-10.4) H 12/12/24 19:17 Neut % (Auto) 73.7 % 12/12/24 19:17 Lymph % (Auto) 13.3 % 12/12/24 19:17 Throckmorton % (Auto) 11.1 % 12/12/24 19:17 Eos % (Auto) 1.1 % 12/12/24 19:17 Baso % (Auto) 0.4 % 12/12/24 19:17 Neut # (Auto) 8.11 10^3/uL (1.8-7.7) H 12/12/24 19:17 Lymph # (Auto) 1.5 10^3/uL (0.8-4.8) 12/12/24 19:17 Throckmorton # (Auto) 1.2 10^3/uL (0.2-0.9) H 12/12/24 19:17 Eos # (Auto) 0.1 10^3/uL (0.0-0.8) 12/12/24 19:17 Baso # (Auto) 0.0 10^3/uL (0.0-0.1) 12/12/24 19:17 Nucleated RBC % (auto) 0 % 12/12/24 19:17 Nucleated RBCs # 0.0 /100WBC 12/12/24 19:17 Specimen Type Arterial 12/12/24 19:30 Sample Site Brachial, right 12/12/24 19:30 ABG pH 7.30 (7.35-7.45) L 12/12/24 19:30 ABG pCO2 76.2 mmHg (35-45) H* 12/12/24 19:30 ABG pO2 52.1 mmHg (80.0-100.0) L 12/12/24 19:30 ABG PO2/FiO2 Ratio 118 12/12/24 19:30 ABG HCO3 37.5 mmol/L (22-26) H 12/12/24 19:30 ABG O2 Saturation 84.4 12/12/24 19:30 ABG Base Excess 8.1 mmol/L (-2.0-2.0) H 12/12/24 19:30 Inderjit Test N/a 12/12/24 19:30 A-a O2 Gradient 22.4 mmHg (5-10) H 12/12/24 19:30 Hematocrit 41.2 % (42-52) L 12/12/24 19:30 Hgb O2 Saturation 81.7 % (95-100) L 12/12/24 19:30 Carboxyhemoglobin 2.2 %THgb (0.4-20.1) 12/12/24 19:30 Methemoglobin 0.9 % (0.4-1.5) 12/12/24 19:30 Total Hemoglobin 13.4 g/dL (14-18) L 12/12/24 19:30 Sodium 142.0 mmol/L (131-143) 12/12/24 19:30 Potassium 4.7 mmol/L (3.5-5.0) 12/12/24 19:30 Glucose 156.0 mg/dL (70-115) H 12/12/24 19:30 Ionized Calcium 1.2 mmol/L (1.1-1.4) 12/12/24 19:30 O2 Delivery Device Nc 12/12/24 19:30 O2 Liters/Min 6.0 % 12/12/24 19:30 FiO2 44.0 % 12/12/24 19:30 Chemical Inspector ID Ed 12/12/24 19:30 Sodium 139 mmol/L (136-145) 12/12/24 19:17 Potassium 4.8 mmol/L (3.5-5.1) 12/12/24 19:17 Chloride 98 mmol/L (98-107) 12/12/24 19:17 Carbon Dioxide 34 mmol/L (22-29) H 12/12/24 19:17 Anion Gap 11.8 (5-19) 12/12/24 19:17 BUN 34 mg/dL (8-23) H 12/12/24 19:17 Creatinine 1.6 mg/dL (0.7-1.2) H 12/12/24 19:17 GFR Calculation 43.5 mL/min (90-130) L 12/12/24 19:17 Glucose 149 mg/dL (65-115) H 12/12/24 19:17 Calculated Osmolality 298 mOsm/kg (285-295) H 12/12/24 19:17 Lactic Acid 1.0 mmol/L (0.5-2.2) 12/12/24 19:17 Calcium 8.7 mg/dL (8.5-10.5) 12/12/24 19:17 Magnesium 2.1 mg/dL (1.7-2.3) 12/12/24 19:17 Total Bilirubin 0.8 mg/dL (0.15-1.2) 12/12/24 19:17 AST 9 U/L (0-40) 12/12/24 19:17 ALT 10 U/L (0-41) 12/12/24 19:17 Alkaline Phosphatase 69 U/L (40-130) 12/12/24 19:17 Troponin T Baseline 48 ng/L (0-15) H 12/12/24 19:17 NT-Pro-B Natriuret Pep 3909 pg/mL (0-125) H 12/12/24 19:17 Total Protein 7.3 g/dL (6.6-8.7) 12/12/24 19:17 Albumin 3.3 g/dL (3.5-5.2) L 12/12/24 19:17 Globulin 4.0 g/dL (1.3-4.6) 12/12/24 19:17 Procalcitonin 0.05 ng/mL (0-0.5) 12/12/24 19:17 Coronavirus (PCR) Negative (Negative) 12/12/24 19:33 Influenza A (PCR) Negative (Negative) 12/12/24 19:33 Influenza Type B (PCR) Negative (Negative) 12/12/24 19:33 RSV (PCR) Negative (Negative) 12/12/24 19:33 All radiology interpretation(s) finalized by discharge Discharge Plan Discharge Patient Disposition: Admitted As Inpatient Clinical Impression: Acute respiratory failure with hypoxia and hypercapnia Condition: Stable Coding Level of Care Code ED Shipping Clerk/Admin for Day Villar
[2024-12-12 19:28] LABS: Basophils % 0.4 %; Eosinophils # 0.1 10^3/uL (0.0-0.8); Eosinophils % 1.1 %; Hematocrit 45.1 % (37-53); Lymphocytes # 1.5 10^3/uL (0.8-4.8); Lymphocytes % 13.3 %; Mean Corpuscular HGB Conc 28.2 g/dL (30-55); Mean Corpuscular Hemoglobin 24.8 pg (27-33); Mean Corpuscular Volume 87.9 fl (82-101); Mean Platelet Volume 11.1 fL (7.4-10.4); Monocytes # 1.2 10^3/uL (0.2-0.9); Monocytes % 11.1 %; Neutrophils # 8.11 10^3/uL (1.8-7.7); Neutrophils % 73.7 %; Nucleated Red Blood Cells % 0 %; Platelet Count 157 10^3/cmm (157-399); Red Blood Count 5.13 10^6/uL (3.85-5.65); Red Cell Distribution Width 17.8 % (12.1-15.1); White Blood Count 10.99 10^3/uL (3.29-11.43)
[2024-12-12 19:40] LABS: Arterial Blood Gas Hematocrit 41.2 % (42-52); Base Excess ABG 8.1 mmol/L (-2.0-2.0); Blood Gas Sample Type Arterial; Carboxyhemoglobin 2.2 %THgb (0.4-20.1); HCO3 ABG 37.5 mmol/L (22-26); HGB O2 Sat 81.7 % (95-100); Ionized Calcium Level - ABG 1.2 mmol/L (1.1-1.4); Methemoglobin 0.9 % (0.4-1.5); Oxygen Saturation ABG 84.4; PO2 ABG 52.1 mmHg (80.0-100.0); Potassium Level - ABG 4.7 mmol/L (3.5-5.0); Total Hemoglobin 13.4 g/dL (14-18)
[2024-12-12 19:41] LABS: ABG PCO2 76.2 mmHg (35-45); Alveolar-Arterial Oxygen Gradi 22.4 mmHg (5-10); Blood Gas Operator Identificat ED; Blood Gas Sample Site Brachial, right; Oxygen Device NC; PO2 FiO2 Ratio Arterial Blood 118
[2024-12-12 19:52] LABS: NT Pro B Type Natriuretic Pept 3909 pg/mL (0-125); Procalcitonin 0.05 ng/mL (0-0.5)
[2024-12-12 20:03] LABS: Alanine Aminotransferase 10 U/L (0-41); Albumin Level 3.3 g/dL (3.5-5.2); Alkaline Phosphatase 69 U/L (40-130); Anion Gap 11.8 (5-19); Aspartate Amino Transferase 9 U/L (0-40); Blood Urea Nitrogen 34 mg/dL (8-23); Calcium 8.7 mg/dL (8.5-10.5); Carbon Dioxide 34 mmol/L (22-29); Chloride 98 mmol/L (98-107); Creatinine Clr Calc Pharmacy 64.5444; Glomerular Filtration Rate 43.5 mL/min (90-130); Glucose 149 mg/dL (65-115); Magnesium 2.1 mg/dL (1.7-2.3); Osmolality Calculated 298 mOsm/kg (285-295); Potassium 4.8 mmol/L (3.5-5.1); Sodium 139 mmol/L (136-145); Total Bilirubin 0.8 mg/dL (0.15-1.2); Total Protein 7.3 g/dL (6.6-8.7)
--- NOTE | 2024-12-12 20:06 | ECG_ITS ---
[facility] Test Date: 2024-12-12 Pat Name: Haroon Parish Department: Room: Gender: Male Erp Developer: : 1960 Requested By: Mathieu Joseph Order Number: [id number] Edwards MD: Adria Junior M.D. Measurements Intervals [place] Rate: 64 P: 71 DE: 146 QRS: -81 QRSD: 160 T: 113 QT: 461 QTc: 477 Interpretive Statements ELECTRONIC ATRIAL PACEMAKER ELECTRONIC VENTRICULAR PACEMAKER Compared to ECG 05/20/2023 06:03:32 No significant changes Electronically Signed On 12-15-2024 12:40:07 MAIL SERVICE COORDINATOR by Adria Junior M.D. [id number]
[2024-12-12 20:16] LABS: Covid PCR NEGATIVE (Negative); Influenza A NEGATIVE (Negative); Influenza B NEGATIVE (Negative); Respiratory Syncytial Virus Ce NEGATIVE (Negative)
[2024-12-12 20:17] LABS: Troponin(5th) Baseline 48 ng/L (0-15)
--- NOTE | 2024-12-12 20:26 | P.HP_ITS ---
Providers/Chief Complaint 2 Primary Care Provider: Manav Vergara DO Chief Complaint: SOB, resp distress History of Present Illness Haroon Parish is a 64 year old male with history of insulin-dependent diabetes, morbid obesity, sleep apnea, does not use oxygen at baseline, resident of shelter, EF 45 to 50% grade 2 diastolic dysfunction presenting with chief complaint of a fall at the shelter. Patient is on AVAPS at the time of evaluation, stating that he was experiencing pain in his right arm, does not endorse any active chest pain. Patient is stating that he is not able to recall events from today. As per the nursing staff patient was found on the floor, he had syncopal event. Patient was desaturating in low 80s on room air, he was put on oxygen by the EMS, in the ER he was put on AVAPS secondary to hypoxic hypercarbic respite distress. Patient has anasarca with high BNP. Respiratory panel is negative I will give him Bumex 1 mg IV, Place Russo catheter. I requested ER to repeat ABG after an hour. Patient likely will stay in the ER, ICU beds are at capacity for now Patient is full code, records from shelter reviewed Review of Systems 2 Const: Denies: fever(s) Eyes: Denies: change in vision ENMT: Denies: throat pain Card: Reports: swelling of feet/ankles; Denies: chest pain Resp: Reports: dyspnea Medications/Allergies Home Medications Medication Instructions Recorded Confirmed Last Taken Type aspirin 81 mg tablet,delayed 81 mg PO QAM 02/13/21 12/17/23 01/02/22 History release carvedilol 12.5 mg tablet 12.5 mg PO BID 02/13/21 12/17/23 01/02/22 History lisinopril 20 mg tablet 20 mg PO DAILY 02/13/21 12/17/23 01/02/22 History nitroglycerin 0.4 mg sublingual 0.4 mg sublingual Q5M PRN Chest 02/13/21 12/17/23 Unknown History tablet (Nitrostat) Pain bumetanide 1 mg tablet 1 mg PO DAILY #30 tabs 02/16/21 12/17/23 01/02/22 Rx insulin glargine 100 unit/mL 65 unit SUBCUT BEDTIME 09/05/21 12/17/23 01/01/22 History subcutaneous solution (Lantus U-100 Insulin) albuterol sulfate 2.5 mg/3 mL 2.5 mg inhalation Q6H 10/01/22 12/17/23 Unknown History (0.083 %) solution for nebulization insulin regular human 100 unit/mL 15 unit SUBCUT TID 10/01/22 12/17/23 Unknown History (3 mL) subcutaneous pen (Novolin R FlexPen) alprazolam 0.5 mg tablet (Xanax) 0.5 mg PO Q8H PRN Anxiety 03/16/23 05/18/23 Unknown History acetaminophen 325 mg tablet 325 mg PO QID PRN Pain 05/18/23 12/17/23 Unknown History atorvastatin 10 mg tablet 10 mg PO BEDTIME 05/18/23 12/17/23 Unknown History bisacodyl 10 mg rectal suppository 10 mg AR DAILY PRN Constipation 05/18/23 12/17/23 Unknown History diphenhydramine HCl 25 mg capsule 25 mg PO DAILY PRN Allergy Symptoms 05/18/23 12/17/23 Unknown History (Banophen) gabapentin 800 mg tablet 800 mg PO TID 05/18/23 12/17/23 Unknown History glipizide 10 mg tablet, extended 15 mg PO DAILY 05/18/23 12/17/23 Unknown History release 24 hr hydralazine 25 mg tablet 25 mg PO TID 05/18/23 12/17/23 Unknown History ibuprofen 800 mg tablet (IBU) 800 mg PO Q8H PRN Pain 05/18/23 12/17/23 Unknown History loperamide 2 mg capsule 2 mg PO QID PRN Diarrhea 05/18/23 12/17/23 Unknown History magnesium hydroxide 400 mg/5 mL 30 ml PO DAILY PRN Constipation 05/18/23 05/18/23 Unknown History oral suspension (Milk of Magnesia) metformin 1,000 mg tablet,extended 1,000 mg PO DAILY 05/18/23 12/17/23 Unknown History release 24hr (osmotic) nicotine 14 mg/24 hr daily 1 patch transdermal DAILY 05/18/23 05/18/23 Unknown History transdermal patch (Nicoderm CQ) sodium phosphates 19 gram-7 118 ml AR DAILY PRN Constipation 05/18/23 12/17/23 Unknown History gram/118 mL enema (Enema) Allergies Allergy/AdvReac Type Severity Reaction Status Date / Time Penicillins Allergy ALGY-Hives Verified 12/12/24 19:17 PFSH Acute 2 PFSH: Medical History CKD (chronic kidney disease) Sepsis Pneumonia Atherosclerosis of coronary artery Cardiac resynchronization therapy defibrillator (STUDENT-D) in place Restless leg syndrome CAP (community acquired pneumonia) MARIA A (acute kidney injury) Morbid obesity Ataxia Pacemaker Diabetes COPD (chronic obstructive pulmonary disease) BPH (benign prostatic hyperplasia) HTN (hypertension) Weakness Congestive heart failure 02/13/21: LVEF 45-50% Acute exacerbation of chronic obstructive airways disease Surgical History S/P CABG (coronary artery bypass graft) Family History Father Diabetes Mother Diabetes Social History Smoking and tobacco/nicotine status: former use of tobacco/nicotine Alcohol intake: former Substance/Drug Use: former Household members: family Housing: House Current occupation: living in [facility] 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 Vitals/I&O/Wt Last Vital Signs Temp 98.3 F 12/12/24 19:09 Pulse 64 12/12/24 19:55 Resp 21 H 12/12/24 19:18 BP 107/70 12/12/24 19:34 Pulse Ox 97 12/12/24 19:55 O2 Del Method Nasal Cannula 12/12/24 19:34 O2 Flow Rate 6 12/12/24 19:18 FiO2 28 12/12/24 19:55 12/12/24 12/12/24 12/12/24 06:59 14:59 22:59 Intake Total 0 / 0 Balance 0 / 0 Weight last 48 hrs Weight 145.15 kg Physical Exam 2 Narrative: Morbidly obese Currently on AVAPS Able to follow commands, when I asked him to shake my hand he was able to self with both hands Patient is stating that he is not able to recall events from today Stating that he is does not use oxygen He is aware that he is in the hospital Anasarca Morbidly obese S1, S2 variable Paced rhythm Blood pressure 107/70 mmHg Lower extremity venous's dermatitis 3+ edema of legs Distended abdomen nontender Bilateral breath somewhat rhonchi Data 12/12/24 19:17 12/12/24 19:17 A&P Assessment and plan (1) Morbid obesity: (2) Acute respiratory failure with hypoxia and hypercapnia: (3) Acute exacerbation of CHF (congestive heart failure): Plan Acute hypoxic hypercarbic respiratory failure Currently on AVAPS Repeat ABG within an hour Patient is full code Etiology seems to be CHF exacerbation No fever, no leukocytosis requested procalcitonin hold off on antibiotics Acute CHF exacerbation Previous echo showed EF 45 to 50% Secondary to low blood pressure I will keep him on Bumex 1 mg twice daily Requested 1 mg of Bumex in the ER, requested Russo catheter Serial troponin EKG Repeat echo Abnormal D-dimer: Will request venous Doppler: Will give him therapeutic dose of Lovenox for now until he gets venous Doppler and CTA chest completed Patient is diabetic will reduce the dose of insulin considering chronic kidney disease Keep him on sliding scale once he is able to eat Advance diet once he is more awake and alert Admit to ICU More than 2 midnights anticipated Full code Patient has morbid obesity and underlying sleep apnea, he would definitely benefit from BiPAP approval at shelter, he will need pulse ox study and approval for BiPAP before discharge Attestations 2 Medical Necessity Statement*: More than 2 midnights anticipated Diagnoses Morbid obesity E66.01 Acute respiratory failure with hypoxia and hypercapnia J96.01; J96.02 Acute exacerbation of CHF (congestive heart failure) I50.9
[2024-12-12 20:51] LABS: D Dimer 1.37 ug/mLFEU (0-0.59)
[2024-12-12 20:56] LABS: Procalcitonin 0.05 ng/mL (0-0.5)
--- NOTE | 2024-12-12 20:57 | USR_ITS ---
PROCEDURE INFORMATION: Exam: US Duplex Lower Extremity Veins, Bilateral Exam date and time: 12/12/2024 10:26 PM Age: 64 years old Clinical indication: Edema, localized; Lower extremity, bilateral; Additional info: Swelling TECHNIQUE: Imaging protocol: Real-time duplex ultrasound of the bilateral extremities with 2-D hunt scale, color Doppler flow and spectral waveform analysis including responses to compression and other maneuvers (when performed) with image documentation. Complete exam focused on the lower extremity veins. COMPARISON: CR XR tibia fibula RT 2V [id number] 05/18/2023 12:18 AM FINDINGS: Right deep veins: Unremarkable. The common femoral, femoral, proximal profunda femoral and popliteal veins are patent without thrombus. Normal Doppler waveforms. Normal compressibility and/or augmentation response. Interrogated posterior tibial vein is patent. Left deep veins: Unremarkable. The common femoral, femoral, proximal profunda femoral and popliteal veins are patent without thrombus. Normal Doppler waveforms. Normal compressibility and/or augmentation response. Interrogated posterior tibial vein is patent. Superficial veins: Greater saphenous veins at the saphenofemoral junctions are patent bilaterally without thrombus. Soft tissues: Unremarkable. US/[place] [id number] IMPRESSION: No evidence of deep vein thrombosis.
[2024-12-12] MEDS: ipratropium-albuterol 3 mL Neb INHALATION (21:08)
[2024-12-12] MEDS: bumetanide 0.25 mg/mL SDV 4 mL 1 MG IVP (21:14)
[2024-12-12] MEDS: enoxaparin 150 mg/mL Syringe SUBCUT (21:15)
[2024-12-12] MEDS: insulin glargine 100 units/1 mL 40 UNIT SUBCUT (21:15)
[2024-12-12 21:19] LABS: Alveolar-Arterial Oxygen Gradi 33.4 mmHg (5-10); Arterial Blood Gas Hematocrit 41.8 % (42-52); Base Excess ABG 8.6 mmol/L (-2.0-2.0); Blood Gas Operator Identificat ED; Blood Gas Sample Site Brachial, right; Blood Gas Sample Type Arterial; Carboxyhemoglobin 2.2 %THgb (0.4-20.1); HCO3 ABG 38.2 mmol/L (22-26); HGB O2 Sat 92.3 % (95-100); Ionized Calcium Level - ABG 1.2 mmol/L (1.1-1.4); Methemoglobin 0.9 % (0.4-1.5); Oxygen Device BIPAP; Oxygen Saturation ABG 95.2; PO2 ABG 79.5 mmHg (80.0-100.0); PO2 FiO2 Ratio Arterial Blood 132; Potassium Level - ABG 4.6 mmol/L (3.5-5.0); Total Hemoglobin 13.6 g/dL (14-18)
[2024-12-12 21:20] LABS: ABG PCO2 78.3 mmHg (35-45)
[2024-12-12 21:35] LABS: Glucose Point of Care 222 mg/dL (70-110)
--- NOTE | 2024-12-12 21:46 | ECG_ITS ---
[facility]12 Pat Name: Haroon Parish Department: Room: ICU11 Gender: Male Bench Mechanic: : 1960 Requested By: Mathieu Joseph Order Number: [id number] Edwards MD: Adria Junior M.D. Measurements Intervals [place] Rate: 65 P: 72 MT: 161 QRS: -85 QRSD: 155 T: 109 QT: 464 QTc: 483 Interpretive Statements ELECTRONIC VENTRICULAR PACEMAKER Compared to ECG 12/12/2024 20:06:20 Atrial-paced complex(es) or rhythm no longer present Electronically Signed On 12-17-2024 13:53:24 BILINGUAL OPERATOR by Adria Junior M.D. [id number]
[2024-12-12 21:49] LABS: Thyroid Stimulating Hormone 1.83 uIU/mL (0.27-4.20)
[2024-12-12 22:02] LABS: Troponin 5 2HR 44.88 ng/L (0-15)
[2024-12-12 22:04] LABS: Troponin 5 2HR Delta -3.12 ABS# (0-10)
[2024-12-12 23:07] LABS: ABG PH Result 7.33 (7.35-7.45); Arterial Blood Gas Hematocrit 41.8 % (42-52); Base Excess ABG 9.3 mmol/L (-2.0-2.0); Blood Gas Operator Identificat ED; Blood Gas Sample Site Brachial, right; Blood Gas Sample Type Arterial; HCO3 ABG 38.3 mmol/L (22-26); Oxygen Device BIPAP; PO2 FiO2 Ratio Arterial Blood 185
[2024-12-12 23:08] LABS: ABG PCO2 73.4 mmHg (35-45)
[2024-12-13] VITALS (60 sets, daily range): BP systolic 72–172; BP diastolic 61–116; PULSE 60–82; RESP 9–28; TEMP 36.4–36.8; O2SAT 85–100; BMI 54.7
--- NOTE | 2024-12-13 00:01 | PC.NURSE ---
this nurse went into patient room with BP read 75 systolic, pt is alert and uncooperative with blood pressure cuff at this time. pt holding arms bent at side not allowing this nurse to get a blood pressure and stated you are not getting a blood pressure until respiratory to take this off referring to bipap.
[2024-12-13 01:38] LABS: Troponin 5 6HR 44.18 ng/L (0-15)
[2024-12-13 01:39] LABS: Troponin 5 6HR Delta -3.82 ng/L (0-12)
--- NOTE | 2024-12-13 01:46 | ECG_ITS ---
[facility]: 2024-12-13 Pat Name: Haroon Parish Department: Room: ICU11 Gender: Male Appellate Law Clerk: : 1960 Requested By: Mathieu Joseph Order Number: [id number] Edwards MD: Adria Junior M.D. Measurements Intervals [place] Rate: 64 P: 70 [place]: 151 QRS: -86 QRSD: 159 T: 105 QT: 460 QTc: 478 Interpretive Statements ELECTRONIC ATRIAL PACEMAKER ELECTRONIC VENTRICULAR PACEMAKER ABNORMAL RHYTHM ECG Compared to ECG 12/12/2024 21:30:41 No significant changes Electronically Signed On 12-17-2024 13:52:57 COMPUTER SCIENCE INTERN by Adria Junior M.D. [id number]
[2024-12-13 04:18] LABS: Basophils # 0.1 10^3/uL (0.0-0.1); Basophils % 0.5 %; Eosinophils # 0.2 10^3/uL (0.0-0.8); Eosinophils % 1.6 %; Hematocrit 47.6 % (37-53); Lymphocytes # 1.8 10^3/uL (0.8-4.8); Lymphocytes % 14.3 %; Mean Corpuscular HGB Conc 28.4 g/dL (30-55); Mean Corpuscular Hemoglobin 25.1 pg (27-33); Mean Corpuscular Volume 88.6 fl (82-101); Mean Platelet Volume 10.9 fL (7.4-10.4); Monocytes # 1.7 10^3/uL (0.2-0.9); Monocytes % 13.8 %; Neutrophils # 8.51 10^3/uL (1.8-7.7); Neutrophils % 69.4 %; Nucleated Red Blood Cells % 0 %; Platelet Count 165 10^3/cmm (157-399); Red Blood Count 5.37 10^6/uL (3.85-5.65); Red Cell Distribution Width 17.9 % (12.1-15.1); White Blood Count 12.28 10^3/uL (3.29-11.43)
[2024-12-13 04:37] LABS: Blood Urea Nitrogen 38 mg/dL (8-23); C Reactive Protein 21.3 mg/L (0.0-4.9); Calcium 8.9 mg/dL (8.5-10.5); Carbon Dioxide 34 mmol/L (22-29); Chloride 100 mmol/L (98-107); Creatinine Clr Calc Pharmacy 72.5868; Glomerular Filtration Rate 43.5 mL/min (90-130); Glucose 87 mg/dL (65-115); Magnesium 2.3 mg/dL (1.7-2.3); Osmolality Calculated 302 mOsm/kg (285-295); Phosphorus 3.6 mg/dL (2.5-4.5); Sodium 142 mmol/L (136-145)
[2024-12-13 05:18] LABS: ABG PH Result 7.31 (7.35-7.45); Base Excess ABG 7.8 mmol/L (-2.0-2.0); Blood Gas Operator Identificat JDB; Blood Gas Sample Site Brachial, right; Blood Gas Sample Type Arterial; HCO3 ABG 37.2 mmol/L (22-26); Oxygen Device BIPAP; PO2 ABG 90.1 mmHg (80.0-100.0); PO2 FiO2 Ratio Arterial Blood 225
[2024-12-13 05:30] LABS: ABG PCO2 74.5 mmHg (35-45)
--- NOTE | 2024-12-13 07:33 | USCV_ITS ---
Haroon Parish Age: 64 Gender: M : 1960 Exam Date: 12/13/2024 14:36 Ordering Phys: Lloyd Mario MD Technologist: Exam Location: [facility] [place] Indication: cp BP: 157 / 89 HR: 74 Rhythm: Sinus Technical Quality: suboptimal MEASUREMENTS (Male / Female) Normal Values 2D ECHO LV Diastolic Diameter PLAX 7.5 cm 4.2 - 5.9 / 3.9 - 5.3 cm IVS Diastolic Thickness 1.6 cm 0.6 - 1.0 / 0.6 - 0.9 cm IVS Systolic Thickness 1.4 cm LVPW Diastolic Thickness 1.3 cm 0.6 - 1.0 / 0.6 - 0.9 cm LVPW Systolic Thickness 1.7 cm LVOT Diameter 2.9 cm LV Ejection Fraction 2D Teich 12.2 % LV Ejection Fraction MOD 4C 25.8 % LV Ejection Fraction MOD 2C 30.4 % LV Ejection Fraction 2C AL 26.7 % LA Diameter 4.8 cm RA Systolic Volume 4C AL 99.9 ml RA Systolic Volume 4C MOD 90.0 ml Aorta at Sinotubular Diameter 3.3 cm M-MODE LA Ao Ratio MM 1.0 AV Cusp Separation MM 2.6 cm DOPPLER AV Peak Velocity 107.0 cm/s LVOT Peak Velocity 90.0 cm/s AV Area Cont Eq vti 5.7 cm squared AV Area Cont Eq pk 5.4 cm squared MV Area PHT 2.8 cm squared Mitral E to A Ratio 1.3 TV Peak Velocity 245.5 cm/s TR Peak Velocity 326.0 cm/s TR Peak Gradient 42.5 mmHg TV Peak E Velocity 69.0 cm/s PV Peak Velocity 91.0 cm/s FINDINGS Left Ventricle Moderately increased left ventricular cavity size. Severely decreased left ventricular systolic function. Left ventricular ejection fraction is estimated at 15 %. Right Ventricle The right ventricle is normal in size and function. Right Atrium The right atrium is normal in size. Left Atrium The left atrium is normal in size. Mitral Valve Moderate mitral annular calcification. No mitral valve stenosis. Trace mitral valve regurgitation. Aortic Valve Mild aortic valve calcification. No aortic valve stenosis. Tricuspid Valve Structurally normal tricuspid valve without significant stenosis or regurgitation. Pulmonary artery systolic pressure is normal. Pulmonic Valve Structurally normal pulmonic valve without significant stenosis. There is no pulmonic regurgitation. Pericardium Normal pericardium without effusion. Aorta Normal ascending aorta dimension. IVC The inferior vena cava appears normal. CONCLUSIONS Moderately increased left ventricular cavity size. Severely decreased left ventricular systolic function. Left ventricular ejection fraction is estimated at 15 %. No significant valve abnormalities. There is no pericardial effusion. Clair Jarrett MD (Electronically Signed) Final Date: 14 December 2024 19:15 S
[2024-12-13] MEDS: ipratropium-albuterol 3 mL Neb INHALATION (08:07)
[2024-12-13 08:58] LABS: Glucose Point of Care 69 mg/dL (70-110)
[2024-12-13 08:58] LABS: Glucose Point of Care 66 mg/dL (70-110)
[2024-12-13] MEDS: dextrose 10% 125 ML 750 ML IV (09:00)
[2024-12-13] MEDS: bumetanide 0.25 mg/mL SDV 4 mL 1 MG IVP (09:08)
[2024-12-13] MEDS: pantoprazole 40 mg SDV IVP ×2 (09:08→17:35)
[2024-12-13] MEDS: enoxaparin 150 mg/mL Syringe SUBCUT ×2 (09:09→20:16)
[2024-12-13 09:36] LABS: Glucose Point of Care 87 mg/dL (70-110)
[2024-12-13] MEDS: hyDRALAzine 25 mg Tablet PO ×3 (10:48→20:16)
[2024-12-13 11:00] LABS: Glucose Point of Care 69 mg/dL (70-110)
[2024-12-13 11:25] LABS: Glucose Point of Care 69 mg/dL (70-110)
[2024-12-13 12:17] LABS: Glucose Point of Care 97 mg/dL (70-110)
--- NOTE | 2024-12-13 12:55 | PC.NURSE ---
0908 -- Blood glucose 66 and 69 on recheck. Patient very drowsy and difficult to awaken. Will say 1 or 2 words but falls quickly back to sleep. 125mL D10W bolus started per hypoglycemia protocol. Notified Dr. Mario, also notified that will not be able to give patients PO meds this morning. Order given to hold PO meds for now and order put in for hydralazine IVP prn if needed. 0934 -- recheck blood glucose 89. 1040 -- Blood glucose 69, Patient more awake and answering questions. Juice given per hypoglycemia protocol. 1110 -- Blood glucose remains 69, patient remains awake, juice given per hypoglycemia protocol. Notified Dr. Mario of continue low blood glucose. Reports to continue to give juice and recheck as needed. 1155 -- blood glucose 97. 1255 -- Patient very drowsy, unable to feed patient lunch. Blood glucose 175. Will continue to monitor.
[2024-12-13 12:57] LABS: Glucose Point of Care 176 mg/dL (70-110)
--- NOTE | 2024-12-13 13:44 | P.PN_ITS ---
Subjective 2 Subjective: Patient lethargic on exam this morning. He is BiPAP/AVAPS dependent. Unsafe for oral intake initially. Also found to have relative hypoglycemia. Medications: Reviewed: Yes Vitals/I&O/Wt Last Vital Signs Temp 98.3 F 12/12/24 19:09 Pulse 60 12/13/24 11:31 Resp 24 H 12/13/24 08:07 BP 130/104 12/13/24 00:51 Pulse Ox 95 12/13/24 11:31 O2 Del Method BiPAP 12/13/24 08:07 O2 Flow Rate 6 12/12/24 19:47 FiO2 40 12/13/24 11:31 12/12/24 12/13/24 12/13/24 22:59 06:59 14:59 Intake Total 0 / 0 120 / 120 125 / 125 Output Total 750 / 750 Balance 0 / 0 -630 / -630 125 / 125 Weight last 48 hrs Weight 172.819 kg Weight 173 kg Weight 145.15 kg Physical Exam 2 Narrative: General: Patient is very lethargic. On BiPAP. Head: Normocephalic. Atraumatic. EOM intact. Neck: JVD somewhat difficult to assess due to neck, appears elevated. Cardiovascular: RRR. No gallops. No murmurs. 2+ pitting edema in bilateral lower extremities. Lungs: Breath sounds are markedly diminished bilateral bases. Crackles throughout bilateral lung gorman. Tachypneic. On BiPAP. Skin: No jaundice. No rashes. Abdomen: Hypoactive bowel sounds, abdomen soft. Genito Urinary: Genital exam not performed since complaints not related. Rectal: Rectal exam not performed since no symptoms indicated blood loss. Extremities: No cyanosis or clubbing. Musculoskeletal: No swollen or erythematous joints. Neurological: No myoclonus. Stuporous state. Urinary Catheter Management: Russo: Cath Placed During This Visit: yes Reason for Continuing Indwelling Catheter: Accurate Measurement of Urinary Output in Critically Ill Patients Urinary Catheter Date of Insertion: 12/12/24 Data 12/13/24 03:56 12/13/24 03:56 Micro: Microbiology 12/12/24 21:33 Bacterial Antigens - Final Urine Kidney A&P Assessment and plan (1) Acute exacerbation of CHF (congestive heart failure): Acute on chronic heart failure exacerbation, unspecified type Complete echocardiogram requested Continuous telemetry monitoring Strict I's and O's Daily weights Increase Bumex to 2 mg IV twice daily (2) Acute respiratory failure with hypoxia and hypercapnia: Acute hypoxic hypercapnic respiratory failure requiring BiPAP with AVAPS Continue bilevel support Venous Doppler lower extremities negative for VTE Optimize fluid status Continuous telemetry monitoring (3) Metabolic encephalopathy: Acute metabolic encephalopathy Optimize lites for lites Optimize respiratory status Avoid sedating meds Supportive care (4) Diabetes: Patient noted to have relative hypoglycemia Not currently safe oral intake Reduce Lantus dosing Sliding-scale insulin correction (5) HTN (hypertension): Continue hydralazine (6) Morbid obesity: Would benefit from weight loss Plan DVT prophylaxis: Lovenox Attestations 2 Medical Necessity Statement*: Patient requires ongoing hospitalization for respiratory support due to dependence on noninvasive mechanical ventilation currently, IV diuresis, further cardiac workup, echo, and supportive care. Coding Level of Care Code Acute Code for Chg Fwd Diagnoses Acute exacerbation of CHF (congestive heart failure) I50.9 Acute respiratory failure with hypoxia and hypercapnia J96.01; J96.02 Metabolic encephalopathy G93.41 Diabetes E11.9 HTN (hypertension) I10 Morbid obesity E66.01
[2024-12-13 15:09] LABS: Glucose Point of Care 85 mg/dL (70-110)
[2024-12-13 17:32] LABS: Glucose Point of Care 87 mg/dL (70-110)
[2024-12-13] MEDS: bumetanide 0.25 mg/mL SDV 4 mL 2 MG IVP (17:35)
[2024-12-13 20:17] LABS: Glucose Point of Care 124 mg/dL (70-110)
[2024-12-13] MEDS: insulin glargine 100 units/1 mL 28 UNIT SUBCUT (20:17)
[2024-12-14] VITALS (51 sets, daily range): BP systolic 110–206; BP diastolic 72–125; PULSE 60–86; RESP 13–25; TEMP 36.5–37; O2SAT 89–98
[2024-12-14 05:54] LABS: Basophils # 0.1 10^3/uL (0.0-0.1); Basophils % 0.6 %; Eosinophils # 0.2 10^3/uL (0.0-0.8); Eosinophils % 2.7 %; Lymphocytes # 1.4 10^3/uL (0.8-4.8); Lymphocytes % 16.3 %; Mean Corpuscular HGB Conc 28.7 g/dL (30-55); Mean Corpuscular Hemoglobin 24.5 pg (27-33); Mean Corpuscular Volume 85.5 fl (82-101); Mean Platelet Volume 10.7 fL (7.4-10.4); Monocytes # 1.1 10^3/uL (0.2-0.9); Monocytes % 12.9 %; Neutrophils # 5.91 10^3/uL (1.8-7.7); Neutrophils % 67.2 %; Nucleated Red Blood Cells % 0 %; Platelet Count 152 10^3/cmm (157-399); Red Blood Count 5.38 10^6/uL (3.85-5.65); Red Cell Distribution Width 17.7 % (12.1-15.1); White Blood Count 8.81 10^3/uL (3.29-11.43)
[2024-12-14] MEDS: aspirin 81 mg EC Tablet PO (06:00)
[2024-12-14 06:23] LABS: Alanine Aminotransferase 8 U/L (0-41); Albumin Level 3.3 g/dL (3.5-5.2); Alkaline Phosphatase 68 U/L (40-130); Anion Gap 12.3 (5-19); Aspartate Amino Transferase 10 U/L (0-40); Blood Urea Nitrogen 34 mg/dL (8-23); Calcium 8.7 mg/dL (8.5-10.5); Carbon Dioxide 34 mmol/L (22-29); Chloride 99 mmol/L (98-107); Creatinine Clr Calc Pharmacy 77.0148; Globulin 3.8 g/dL (1.3-4.6); Glomerular Filtration Rate 46.8 mL/min (90-130); Glucose 105 mg/dL (65-115); Magnesium 2.1 mg/dL (1.7-2.3); Osmolality Calculated 300 mOsm/kg (285-295); Phosphorus 2.6 mg/dL (2.5-4.5); Potassium 4.3 mmol/L (3.5-5.1); Sodium 141 mmol/L (136-145); Total Bilirubin 1.9 mg/dL (0.15-1.2); Total Protein 7.1 g/dL (6.6-8.7)
[2024-12-14 07:59] LABS: Glucose Point of Care 99 mg/dL (70-110)
[2024-12-14] MEDS: bumetanide 0.25 mg/mL SDV 4 mL 2 MG IVP ×2 (10:01→17:25)
[2024-12-14] MEDS: pantoprazole 40 mg SDV IVP (10:03)
[2024-12-14] MEDS: sennosides-docusate Tablet 1 TAB PO (10:04)
[2024-12-14] MEDS: hyDRALAzine 25 mg Tablet PO ×3 (10:05→20:40)
[2024-12-14] MEDS: enoxaparin 150 mg/mL Syringe SUBCUT (10:05)
--- NOTE | 2024-12-14 11:00 | P.PN_ITS ---
Subjective 2 Subjective: Patient is awake and alert this morning. Marked improvement from yesterday's mentation. Reports last night when okay. States he got some rest. Continues to endorse shortness of breath with mild cough. Discussed his clinical course and plan of care. He is in agreement. Denies other new complaints. Medications: Reviewed: Yes Vitals/I&O/Wt Last Vital Signs Temp 97.7 F 12/14/24 02:00 Pulse 76 12/14/24 08:32 Resp 16 12/14/24 08:32 BP 144/98 12/14/24 06:00 Pulse Ox 93 12/14/24 08:32 O2 Del Method Nasal Cannula 12/14/24 08:32 O2 Flow Rate 4 12/14/24 08:32 FiO2 30 12/14/24 04:38 12/13/24 12/14/24 12/14/24 22:59 06:59 14:59 Intake Total 150 / 275 480 / 755 Output Total 1200 / 1200 1300 / 2500 Balance -1050 / -925 -820 / -1745 Weight last 48 hrs Weight 171.5 kg Weight 172.819 kg Weight 173 kg Weight 145.15 kg Physical Exam 2 Narrative: General: Patient is awake. Appears fatigued but pleasant. Head: Normocephalic. Atraumatic. EOM intact. Neck: JVD still seems elevated. Cardiovascular: RRR. No gallops. No murmurs. 2+ pitting edema in bilateral lower extremities. Lungs: Breath sounds are slightly improved in bases, but still diminished. Persistent crackles throughout bilateral lung gorman. On nasal cannula support. Skin: No jaundice. No rashes. Abdomen: Hypoactive bowel sounds, abdomen soft. Extremities: No cyanosis or clubbing. Musculoskeletal: No swollen or erythematous joints. Neurological: No myoclonus. Moves all extremities. Urinary Catheter Management: Russo: Cath Placed During This Visit: yes Reason for Continuing Indwelling Catheter: Accurate Measurement of Urinary Output in Critically Ill Patients Urinary Catheter Date of Insertion: 12/12/24 Data 12/14/24 05:29 12/14/24 05:29 Micro: Microbiology 12/12/24 21:33 Bacterial Antigens - Final Urine Kidney A&P Assessment and plan (1) Acute exacerbation of CHF (congestive heart failure): Acute on chronic heart failure exacerbation, unspecified type TTE pending Continuous telemetry monitoring Strict I's and O's Daily weights Continue Bumex 2 mg IV twice daily Cardiology consulted, appreciate recommendations (2) Acute respiratory failure with hypoxia and hypercapnia: Acute hypoxic hypercapnic respiratory failure requiring noninvasive mechanical ventilation Continue BiPAP as needed Optimize fluid status Continuous telemetry monitoring (3) Metabolic encephalopathy: Encephalopathy seems resolved, continue to monitor closely Optimize respiratory status Avoid sedating meds (4) Diabetes: Continue current Lantus dosing Sliding-scale insulin correction Avoid hypoglycemia (5) HTN (hypertension): Continue hydralazine (6) Morbid obesity: Would benefit from weight loss Plan DVT prophylaxis: Lovenox, reduced to prophylactic dosing Attestations 2 Medical Necessity Statement*: Patient requires ongoing hospitalization with BiPAP, IV diuresis, cardiology evaluation, electrolyte management, and supportive care. Coding Level of Care Code Acute Code for g Fwd Diagnoses Acute exacerbation of CHF (congestive heart failure) I50.9 Acute respiratory failure with hypoxia and hypercapnia J96.01; J96.02 Metabolic encephalopathy G93.41 Diabetes E11.9 HTN (hypertension) I10 Morbid obesity E66.01
[2024-12-14 12:29] LABS: Glucose Point of Care 143 mg/dL (70-110)
--- NOTE | 2024-12-14 12:48 | P.CONIM_ITS ---
<Statement entered by Adria Junior M.D - 12/14/24 21:02> Patient was evaluated and cared for in conjunction with an advanced practice practitioner. I personally examined the patient and reviewed the chart and all pertinent data including imaging, telemetry, and laboratory results. I discussed the patient in detail with the advanced practice practitioner. Please see their note for complete consult note, results and agreed upon plan of care for the patient. Patient's breathing has improved. Continue diuresis. Close I and Os. Monitor renal function. Patient's device interrogation not showing shocks. GENERAL: Patient is alert and oriented HEART: Regular S1 and S2 LUNGS: Diminished air entry EXTREMITIES: Lower extremities with 1-2 + edema Providers/Reason For Consult 2 Consulting Physician/Specialty*: Dr Junior, cardiology Reason for Consult*: Troponin elevation, possible syncope, CHF exacerbation Requesting Physician: Dr. Mario Attending Physician: Lloyd Mario MD Primary Care Provider: Manav Vergara DO History of Present Illness History of Present Illness Haroon Parish is a 64 year old male with past medical history of hypertension, diabetes, systolic heart failure (LVEF in 2020 was 45 to 50%, grade 2 diastolic function), [place] [employer], CAD status post CABG, COPD, CKD, morbid obesity. He presented to the emergency room on 12/12/2024 from [facility] with hypoxia, oxygen saturation 61% initially, not on home oxygen. He was placed on BiPAP, diuresed with IV Bumex. Per hospitalist documentation patient was found on the floor with a possible syncopal event. EKG showed AV pacing, 64 bpm. Troponin series: 48->44->44. This morning he is sitting up in the chair, awake and alert. Currently on 4 L nasal cannula, saturating well. Blood pressure is elevated-will restart carvedilol 12.5 mg twice a day. Still volume overloaded, he is over 1 L negative this morning. Echocardiogram completed yesterday, pending read. Will review pacemaker interrogation data to ensure he did not have any arrhythmia requiring defibrillation by the device. He did not feel any shocks prior to arrival in the emergency room. He does not seem to be very active at the [facility] but does ambulate in the [place] at times, did not have any chest pain in the last several weeks, was having some worsening shortness of breath. Review of Systems 2 Const: Denies: fever(s), chills, change in weight, fatigue or diaphoresis Eyes: Denies: change in vision ENMT: Denies: epistaxis Card: Denies: chest pain, palpitations, irregular heart rhythm, edema, syncope, pre-syncope, dyspnea on exertion, orthopnea or leg pain with exertion Resp: Denies: dyspnea, productive cough or wheezing GI: Denies: nausea, vomiting, hematemesis, hematochezia or melena : Denies: hematuria Musc: Denies: extremity swelling Alan/Lymph: Denies: easy bruising or easy bleeding Medications/Allergies Home Medications Medication Instructions Recorded Confirmed Last Taken Type carvedilol 12.5 mg tablet 12.5 mg PO BID 02/13/21 12/13/24 01/02/22 History lisinopril 20 mg tablet 20 mg PO DAILY 02/13/21 12/13/24 01/02/22 History nitroglycerin 0.4 mg sublingual 0.4 mg sublingual Q5M PRN Chest 02/13/21 12/13/24 Unknown History tablet (Nitrostat) Pain bumetanide 1 mg tablet 1 mg PO DAILY #30 tabs 02/16/21 12/13/24 01/02/22 Rx insulin glargine 100 unit/mL 52 unit SUBCUT BID 09/05/21 12/13/24 01/01/22 History subcutaneous solution (Lantus U-100 Insulin) albuterol sulfate 2.5 mg/3 mL 2.5 mg inhalation Q4H 10/01/22 12/13/24 Unknown History (0.083 %) solution for nebulization acetaminophen 325 mg tablet 325 mg PO QID PRN Pain 05/18/23 12/13/24 Unknown History atorvastatin 10 mg tablet 10 mg PO BEDTIME 05/18/23 12/13/24 Unknown History bisacodyl 10 mg rectal suppository 10 mg MS DAILY PRN Constipation 05/18/23 12/13/24 Unknown History hydralazine 25 mg tablet 25 mg PO TID 05/18/23 12/13/24 Unknown History loperamide 2 mg capsule See Rx Instructions .Route 05/18/23 12/13/24 Unknown History .COMPLEX PRN Diarrhea magnesium hydroxide 400 mg/5 mL 30 ml PO DAILY PRN Constipation 05/18/23 12/13/24 Unknown History oral suspension (Milk of Magnesia) metformin 1,000 mg tablet,extended 1,000 mg PO DAILY 05/18/23 12/13/24 Unknown History release 24hr (osmotic) cetirizine 10 mg tablet 10 mg PO DAILY 12/13/24 12/13/24 Unknown History gabapentin 800 mg tablet 800 mg PO TID 12/13/24 12/13/24 Unknown History guaifenesin 100 mg/5 mL oral liquid 200 mg PO Q4H PRN Cold Symptoms 12/13/24 12/13/24 Unknown History guaifenesin 600 mg tablet, 600 mg PO Q12H PRN Cold Symptoms 12/13/24 12/13/24 Unknown History extended release 12 hr ibuprofen 800 mg tablet 800 mg PO Q8H PRN Pain 12/13/24 12/13/24 Unknown History insulin aspart 15 unit SUBCUT TID 12/13/24 12/13/24 Unknown History (niacinamide)(U-100) 100 unit/mL(3 mL) subcutaneous pen (Fiasp FlexTouch U-100 Insulin) insulin lispro 100 unit/mL 18 unit SUBCUT TID 12/13/24 12/13/24 Unknown History subcutaneous pen (Humalog KwikPen (U-100) Insulin) tirzepatide 2.5 mg/0.5 mL 2.5 mg SUBCUT Q7D 12/13/24 12/13/24 Unknown History subcutaneous pen injector (Mounjaro) Allergies Allergy/AdvReac Type Severity Reaction Status Date / Time Penicillins Allergy ALGY-Hives Verified 12/12/24 19:17 Current Medications Generic Name Dose Route Start Last Admin Trade Name Freq PRN Reason Stop Dose Admin Albuterol/Ipratropium 3 ml 12/12/24 20:49 12/13/24 08:07 Ipratropium-Albuterol 3 Ml Neb INHALATION 3 ml Q6H PRN Administration SHORTNESS OF BREATH Aspirin 81 mg 12/13/24 06:00 12/14/24 06:00 Aspirin 81 Mg Ec Tablet PO 81 mg QAM TESFAYE Administration Bumetanide 2 mg 12/13/24 18:00 12/14/24 10:01 Bumetanide 0.25 Mg/Ml Sdv 4 Ml IVP 2 mg BID TESFAYE Administration Hydralazine HCl 25 mg 12/12/24 21:00 12/14/24 10:05 Hydralazine 25 Mg Tablet PO 25 mg TID TESFAYE Administration Dextrose 125 mls @ 750 mls/hr 12/12/24 20:49 12/13/24 09:11 D10w IV Infused PRN PRN Infusion Adult Acute Hypoglycemia Nursing Protocol Protocol Insulin Glargine 28 unit 12/13/24 21:00 12/13/24 20:17 Insulin Glargine 100 Units/1 Ml SUBCUT 28 unit BEDTIME TESFAYE Administration Insulin Human Lispro 0 unit 12/13/24 08:00 12/14/24 09:46 Insulin Lispro 100 Unit/1 Ml SUBCUT Not Given TIDWM TESFAYE Protocol Senna/Docusate Sodium 1 tab 12/13/24 09:00 12/14/24 10:04 Sennosides-Docusate Tablet PO 1 tab DAILY TESFAYE Administration PFSH Acute 2 PFSH: Medical History (Updated 12/14/24 @ 13:04 by TAMIKA Whitehead) CKD (chronic kidney disease) Diabetes HTN (hypertension) Sepsis Pneumonia Atherosclerosis of coronary artery Cardiac resynchronization therapy defibrillator ([employer] PERFORMER-D) in place Restless leg syndrome CAP (community acquired pneumonia) MARIA A (acute kidney injury) Morbid obesity Ataxia Pacemaker COPD (chronic obstructive pulmonary disease) BPH (benign prostatic hyperplasia) Weakness Congestive heart failure 02/13/21: LVEF 45-50% Acute exacerbation of chronic obstructive airways disease Surgical History (Updated 12/14/24 @ 13:05 by TAMIKA Whitehead) S/P CABG (coronary artery bypass graft) Family History Father Diabetes Mother Diabetes Social History Smoking and tobacco/nicotine status: former use of tobacco/nicotine Alcohol intake: former Substance/Drug Use: former Household members: family Housing: House Current occupation: living in [facility] 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 Vitals/I&O/Wt Last Vital Signs Temp 98.6 F 12/14/24 08:30 Pulse 68 12/14/24 11:30 Resp 16 12/14/24 08:32 BP 155/101 12/14/24 11:30 Pulse Ox 94 12/14/24 11:30 O2 Del Method Nasal Cannula 12/14/24 08:32 O2 Flow Rate 4 12/14/24 08:32 FiO2 30 12/14/24 04:38 12/13/24 12/14/24 12/14/24 22:59 06:59 14:59 Intake Total 150 / 755 480 / 755 Output Total 1200 / 2500 1300 / 2500 Balance -1050 / -1745 -820 / -1745 Weight last 48 hrs Weight 378 lb 1.484 oz Weight 381 lb Weight 381 lb 6.395 oz Weight 320 lb Physical Exam 2 Const: COMMON NORMALS: no acute distress and patient oriented x3 GENERAL APPEARANCE: cooperative and comfortable ORIENTATION/CONSCIOUSNESS: Yes awake, Yes oriented to person, Yes oriented to place and Yes oriented to time Chest: COMMONS NORMALS: normal inspection of the chest and normal palpation of entire chest wall CHEST: Yes Symmetrical chest wall rise Resp: COMMON NORMALS: normal respiratory effort, No retractions, No use of accessory muscles and clear to auscultation bilaterally EFFORT & INSPECTION: Yes symmetric chest movement AUSCULTATION: clear to auscultation bilaterally Cardio: COMMON NORMALS: regular rate, regular rhythm, S1 normal heart sound present, S2 normal heart sound present, No gallops present (Cardio), No clicks present (Cardio), No murmurs present (Cardio) and No rub (Cardio) RATE: r egular rate RHYTHM: regular rhythm HEART SOUNDS: S1 normal heart sound present and S2 normal heart sound present PERIPHERAL PULSES: radial pulses present Extremity: GENERAL: Yes edema (1-2+ pitting edema bilateral lower extremities) Neuro: COMMON NORMALS: patient oriented x3 and moves all extremities S ENSORIUM/ORIENTATION: Yes oriented to person, Yes oriented to place and Yes oriented to time Urinary Catheter Management: Russo: Cath Placed During This Visit: yes Reason for Continuing Indwelling Catheter: Accurate Measurement of Urinary Output in Critically Ill Patients Urinary Catheter Date of Insertion: 12/12/24 Data 12/14/24 05:29 12/14/24 05:29 Micro: Microbiology 12/12/24 21:33 Bacterial Antigens - Final Urine Kidney A&P Assessment and plan (1) Acute exacerbation of CHF (congestive heart failure): (2) HTN (hypertension): (3) Cardiac resynchronization therapy defibrillator (STUNT PERFORMER-D) in place: (4) CKD (chronic kidney disease): (5) S/P CABG (coronary artery bypass graft): Plan CHF decompensation, will reevaluate LVEF with echocardiogram already completed. Will also assess [employer]ER-D interrogation to ensure appropriate function of the device, assess for arrhythmias. Continue IV diuresis. Can restart carvedilol 12.5 mg twice daily, blood pressure uncontrolled. Coding Level of Care Code Acute Code for Chg Fwd Diagnoses Acute exacerbation of CHF (congestive heart failure) I50.9 HTN (hypertension) I10 Cardiac resynchronization therapy defibrillator (STUNT PERFORMER-D) in place Z95.810 CKD (chronic kidney disease) N18.9 S/P CABG (coronary artery bypass graft) Z95.1
[2024-12-14] MEDS: insulin lispro 100 unit/1 mL SUBCUT ×2 (13:05→18:17)
--- NOTE | 2024-12-14 13:40 | PC.SOCIAL ---
IMM Updated Updated pt on IMM. No questions voiced. Provided pt a copy. Initialed, dated, & timed a copy & placed in chart.
[2024-12-14 17:41] LABS: Glucose Point of Care 168 mg/dL (70-110)
--- NOTE | 2024-12-14 19:16 | PC.NURSE ---
SHift summary: uneventful shift. in bed for most of the day, was up to a chair for about 2 hours total. 3525 mL of urine output. Echocardiogram results still pending.
[2024-12-14 20:40] LABS: Glucose Point of Care 209 mg/dL (70-110)
[2024-12-14] MEDS: insulin glargine 100 units/1 mL 28 UNIT SUBCUT (20:40)
[2024-12-14] MEDS: enoxaparin 40 mg/0.4 mL Syringe SUBCUT (20:40)
[2024-12-15] VITALS (49 sets, daily range): BP systolic 111–175; BP diastolic 70–118; PULSE 69–85; RESP 11–24; TEMP 36.6–36.9; O2SAT 88–95
[2024-12-15 04:40] LABS: Basophils % 0.4 %; Eosinophils # 0.2 10^3/uL (0.0-0.8); Eosinophils % 2.3 %; Hematocrit 46.4 % (37-53); Lymphocytes # 1.4 10^3/uL (0.8-4.8); Lymphocytes % 15.8 %; Mean Corpuscular HGB Conc 28.9 g/dL (30-55); Mean Corpuscular Hemoglobin 24.1 pg (27-33); Mean Corpuscular Volume 83.5 fl (82-101); Mean Platelet Volume 11.1 fL (7.4-10.4); Monocytes # 1.2 10^3/uL (0.2-0.9); Monocytes % 12.8 %; Neutrophils % 68.3 %; Nucleated Red Blood Cells % 0 %; Platelet Count 160 10^3/cmm (157-399); Red Blood Count 5.56 10^6/uL (3.85-5.65); Red Cell Distribution Width 17.2 % (12.1-15.1); White Blood Count 9.09 10^3/uL (3.29-11.43)
[2024-12-15 05:08] LABS: Alanine Aminotransferase 7 U/L (0-41); Albumin Level 3.2 g/dL (3.5-5.2); Alkaline Phosphatase 66 U/L (40-130); Anion Gap 12.7 (5-19); Aspartate Amino Transferase 9 U/L (0-40); Blood Urea Nitrogen 31 mg/dL (8-23); Calcium 8.7 mg/dL (8.5-10.5); Carbon Dioxide 33 mmol/L (22-29); Chloride 98 mmol/L (98-107); Creatinine Clr Calc Pharmacy 88.8632; Glomerular Filtration Rate 55.2 mL/min (90-130); Glucose 135 mg/dL (65-115); Magnesium 1.9 mg/dL (1.7-2.3); Osmolality Calculated 299 mOsm/kg (285-295); Phosphorus 2.9 mg/dL (2.5-4.5); Potassium 3.7 mmol/L (3.5-5.1); Sodium 140 mmol/L (136-145); Total Bilirubin 1.7 mg/dL (0.15-1.2); Total Protein 7.2 g/dL (6.6-8.7)
[2024-12-15] MEDS: aspirin 81 mg EC Tablet PO (05:51)
[2024-12-15 07:36] LABS: Glucose Point of Care 107 mg/dL (70-110)
[2024-12-15] MEDS: bumetanide 0.25 mg/mL SDV 4 mL 2 MG IVP ×2 (09:35→17:24)
[2024-12-15] MEDS: metoprolol succinate ER (24 HR) 25 mg Tablet 12.5 MG PO (09:35)
[2024-12-15] MEDS: sennosides-docusate Tablet 1 TAB PO (09:36)
[2024-12-15] MEDS: pantoprazole DR 40 mg Tablet PO (09:36)
[2024-12-15] MEDS: potassium chloride ER 20 mEq Tablet 40 MEQ PO (09:36)
[2024-12-15] MEDS: hyDRALAzine 25 mg Tablet PO ×3 (09:36→20:16)
[2024-12-15] MEDS: enoxaparin 40 mg/0.4 mL Syringe SUBCUT ×2 (09:37→20:16)
--- NOTE | 2024-12-15 11:36 | P.PN_ITS ---
Subjective 2 Subjective: Patient states he had an okay night. He reports persistent shortness of breath but states is improving. Discussed his echo showing newly diagnosed low ejection fraction. He reports his lower extremity edema seems to be improving. He is eager to get out of the hospital. We discussed his care plan and he is in agreement. Denies other new complaints. Medications: Reviewed: Yes Vitals/I&O/Wt Last Vital Signs Temp 98.4 F 12/15/24 08:30 Pulse 80 12/15/24 10:00 Resp 16 12/15/24 09:40 BP 153/80 12/15/24 10:00 Pulse Ox 92 12/15/24 10:00 O2 Del Method Nasal Cannula 12/15/24 09:40 O2 Flow Rate 3 12/15/24 09:40 FiO2 30 12/14/24 04:38 12/14/24 12/15/24 12/15/24 22:59 06:59 14:59 Intake Total 240 / 240 60 / 300 Output Total 5175 / 5175 1450 / 6625 Balance -4935 / -4935 -1390 / -6325 Weight last 48 hrs Weight 169 kg Weight 171.5 kg Physical Exam 2 Narrative: General: Patient is awake. Alert. Conversational. Pleasant. Head: Normocephalic. Atraumatic. EOM intact. Neck: JVD still seems elevated. Cardiovascular: RRR. No gallops. No murmurs. 1+ pitting edema in bilateral lower extremities, improving from prior exams. Lungs: Breath sounds are slightly diminished in the bases. Improved crackles. On nasal cannula support. Dyspnea improved. On supplemental oxygen support. Skin: No jaundice. No rashes. Abdomen: Hypoactive bowel sounds, abdomen soft. Extremities: No cyanosis or clubbing. Musculoskeletal: No swollen or erythematous joints. Neurological: No myoclonus. Moves all extremities. Urinary Catheter Management: Russo: Cath Placed During This Visit: yes Reason for Continuing Indwelling Catheter: Accurate Measurement of Urinary Output in Critically Ill Patients Urinary Catheter Date of Insertion: 12/12/24 Data 12/15/24 04:34 12/15/24 04:34 A&P Assessment and plan (1) Acute exacerbation of CHF (congestive heart failure): Acute on chronic heart failure with reduced ejection fraction and exacerbation TTE reviewed, new low LVEF Anticipate ischemic evaluation, defer to cardiology Continuous telemetry monitoring Strict I's and O's Daily weights Continue Bumex 2 mg IV twice daily Cardiology consulted, appreciate recommendations (2) Acute respiratory failure with hypoxia and hypercapnia: Acute hypoxic hypercapnic respiratory failure requiring noninvasive mechanical ventilation Continue BiPAP as needed Optimize fluid status Continuous telemetry monitoring (3) Metabolic encephalopathy: Encephalopathy seems resolved, continue to monitor closely Optimize respiratory status Avoid sedating meds (4) Diabetes: Continue Lantus dosing, we will reduce dose slightly today Sliding-scale insulin correction Avoid hypoglycemia (5) HTN (hypertension): Continue hydralazine (6) Morbid obesity: Would benefit from weight loss Plan DVT prophylaxis: Lovenox Attestations 2 Medical Necessity Statement*: Patient requires ongoing hospitalization for IV diuresis, respiratory support, further cardiology workup, and supportive care. Coding Level of Care Code Acute Code for [facility] Fwd Diagnoses Acute exacerbation of CHF (congestive heart failure) I50.9 Acute respiratory failure with hypoxia and hypercapnia J96.01; J96.02 Metabolic encephalopathy G93.41 Diabetes E11.9 HTN (hypertension) I10 Morbid obesity E66.01
[2024-12-15 12:28] LABS: Glucose Point of Care 169 mg/dL (70-110)
[2024-12-15] MEDS: insulin lispro 100 unit/1 mL SUBCUT ×2 (12:29→17:26)
--- NOTE | 2024-12-15 13:44 | P.PN_ITS ---
<Statement entered by Adria Junior M.D - 12/15/24 20:41> Patient was evaluated and cared for in conjunction with an advanced practice practitioner. I personally reviewed the chart and all pertinent data including imaging, telemetry, and laboratory results. I discussed the patient in detail with the advanced practice practitioner. Please see their note for complete progress note, results and agreed upon plan of care for the patient. Subjective 2 Subjective: Patient seen this morning. He was sitting up in the bed, breathing comfortably, no chest pain overnight. Diuresis in progress, still volume overloaded, continue Bumex 2 mg twice daily. BUN 31, creatinine 1.3. LVEF 15% on echocardiogram. He has an ICD in place, history of cardiomyopathy. We do not have any records of ischemic workup, either stress test or coronary angiogram. Due to body habitus, stress test is less likely to be accurate. If patient desires ischemic workup we can consider coronary angiogram, either inpatient or outpatient. He does not have any chest pain, and did not have any prior to admission. Vitals/I&O/Wt Last Vital Signs Temp 98.5 F 12/15/24 12:30 Pulse 72 12/15/24 12:30 Resp 17 12/15/24 12:30 BP 147/107 12/15/24 12:30 Pulse Ox 89 L 12/15/24 12:30 O2 Del Method Nasal Cannula 12/15/24 12:30 O2 Flow Rate 1 12/15/24 12:30 FiO2 30 12/14/24 04:38 12/14/24 12/15/24 12/15/24 22:59 06:59 14:59 Intake Total 240 / 300 60 / 300 Output Total 5175 / 6625 1450 / 6625 Balance -4935 / -6325 -1390 / -6325 Weight last 48 hrs Weight 372 lb 9.299 oz Weight 378 lb 1.484 oz Physical Exam 2 Const: COMMON NORMALS: no acute distress and patient oriented x3 Chest: COMMONS NORMALS: normal inspection of the chest and normal palpation of entire chest wall CHEST: Yes Symmetrical chest wall rise Resp: COMMON NORMALS: normal respiratory effort, No retractions, No use of accessory muscles and clear to auscultation bilaterally EFFORT & INSPECTION: Yes symmetric chest movement AUSCULTATION: clear to auscultation bilaterally Cardio: COMMON NORMALS: S1 normal heart sound present, S2 normal heart sound present, No gallops present (Cardio), No clicks present (Cardio), No murmurs present (Cardio) and No rub (Cardio) RHYTHM: abnormal rhythm irregularly irregular HEART SOUNDS: S1 normal heart sound present and S2 normal heart sound present PERIPHERAL PULSES: radial pulses present, posterior tibial pulses present and dorsalis pedis present Extremity: GENERAL: Yes edema (1+ pitting edema in bilateral lower extremities below the knee) Neuro: COMMON NORMALS: patient oriented x3 and moves all extremities Psych: COMMON NORMALS: mental status grossly normal and cooperative Urinary Catheter Management: Russo: Cath Placed During This Visit: yes Reason for Continuing Indwelling Catheter: Accurate Measurement of Urinary Output in Critically Ill Patients Urinary Catheter Date of Insertion: 12/12/24 Data 12/15/24 04:34 12/15/24 04:34 A&P Assessment and plan (1) Cardiac resynchronization therapy defibrillator (SQL SERVER ARCHITECT-D) in place: (2) Acute exacerbation of CHF (congestive heart failure): (3) S/P CABG (coronary artery bypass graft): (4) HTN (hypertension): Plan Significant decrease in LVEF from 45 to 50% down to 15%. Will discuss plan going forward to see if he wants to pursue ischemic workup before discharge. Continue diuresis with IV Bumex. Blood pressure still elevated, possibly from volume overload. Continue aspirin, metoprolol succinate. Attestations 2 Medical Necessity Statement*: IV diuresis, systolic CHF Coding Level of Care Code Acute Code for [facility] Fwd Diagnoses Cardiac resynchronization therapy defibrillator (SQL SERVER ARCHITECT-D) in place Z95.810 Acute exacerbation of CHF (congestive heart failure) I50.9 S/P CABG (coronary artery bypass graft) Z95.1 HTN (hypertension) I10
[2024-12-15 16:59] LABS: Glucose Point of Care 158 mg/dL (70-110)
[2024-12-15 18:24] LABS: Albumin Level 3.5 g/dL (3.5-5.2); Blood Urea Nitrogen 28 mg/dL (8-23); Calcium 9.4 mg/dL (8.5-10.5); Carbon Dioxide 30 mmol/L (22-29); Chloride 98 mmol/L (98-107); Glomerular Filtration Rate 60.6 mL/min (90-130); Glucose 172 mg/dL (65-115); Phosphorus 2.6 mg/dL (2.5-4.5); Sodium 140 mmol/L (136-145)
[2024-12-15 18:31] LABS: Anion Gap 16.2 (5-19); Potassium 4.2 mmol/L (3.5-5.1)
--- NOTE | 2024-12-15 18:44 | PC.NURSE ---
SHift SUmmary: Uneventful shift. Patient rested in bed for most of the day. Up to a chair for 2 brief periods but it hurts his legs to do so. Total urine output was 2625mL. Though still edematous, legs appears noticeable less swollen compared to yesterday.
[2024-12-15 20:15] LABS: Glucose Point of Care 217 mg/dL (70-110)
[2024-12-15] MEDS: insulin glargine 100 units/1 mL 25 UNIT SUBCUT (20:17)
[2024-12-16] VITALS (40 sets, daily range): BP systolic 108–169; BP diastolic 75–127; PULSE 65–100; RESP 13–28; TEMP 36.4–36.7; O2SAT 90–96
[2024-12-16] MEDS: aspirin 81 mg EC Tablet PO (05:22)
[2024-12-16 05:52] LABS: Albumin Level 3.3 g/dL (3.5-5.2); Anion Gap 16.9 (5-19); Blood Urea Nitrogen 28 mg/dL (8-23); Calcium 9.1 mg/dL (8.5-10.5); Carbon Dioxide 29 mmol/L (22-29); Chloride 97 mmol/L (98-107); Creatinine Clr Calc Pharmacy 87.2934; Glomerular Filtration Rate 55.2 mL/min (90-130); Glucose 153 mg/dL (65-115); Phosphorus 2.7 mg/dL (2.5-4.5); Potassium 3.9 mmol/L (3.5-5.1); Sodium 139 mmol/L (136-145)
[2024-12-16 06:00] LABS: Magnesium 1.9 mg/dL (1.7-2.3)
[2024-12-16 07:56] LABS: Glucose Point of Care 148 mg/dL (70-110)
[2024-12-16] MEDS: hyDRALAzine 25 mg Tablet PO ×3 (08:07→21:57)
[2024-12-16] MEDS: sennosides-docusate Tablet 1 TAB PO (08:07)
[2024-12-16] MEDS: enoxaparin 40 mg/0.4 mL Syringe SUBCUT ×2 (08:08→21:59)
[2024-12-16] MEDS: bumetanide 0.25 mg/mL SDV 4 mL 2 MG IVP ×2 (08:08→18:28)
[2024-12-16] MEDS: potassium chloride ER 20 mEq Tablet PO (08:08)
[2024-12-16] MEDS: insulin lispro 100 unit/1 mL SUBCUT ×3 (08:08→18:27)
[2024-12-16] MEDS: metoprolol succinate ER (24 HR) 25 mg Tablet 12.5 MG PO (08:08)
[2024-12-16] MEDS: pantoprazole DR 40 mg Tablet PO (08:08)
--- NOTE | 2024-12-16 09:00 | P.PN_ITS ---
Subjective 2 Subjective: Patient reports breathing continues to improve. Still requiring supplemental oxygen. Reports improvement lower extremity edema. Reports he slept okay. Reports appetite is okay. Denies other new complaints. Discussed plan of care and patient is in agreement. Medications: Reviewed: Yes Vitals/I&O/Wt Last Vital Signs Temp 97.5 F L 12/16/24 08:30 Pulse 86 12/16/24 08:30 Resp 18 12/16/24 08:30 BP 146/103 12/16/24 08:30 Pulse Ox 93 12/16/24 08:30 O2 Del Method Nasal Cannula 12/16/24 08:30 O2 Flow Rate 2 12/16/24 08:30 FiO2 30 12/14/24 04:38 12/15/24 12/16/24 12/16/24 22:59 06:59 14:59 Intake Total 400 / 400 240 / 640 Output Total 2625 / 2625 1650 / 4275 Balance -2225 / -2225 -1410 / -3635 Weight last 48 hrs Weight 166.536 kg Weight 169 kg Physical Exam 2 Narrative: General: Patient is awake. Awake and alert. Appears fatigued but pleasant. Head: Normocephalic. Atraumatic. EOM intact. Neck: JVD still seems elevated. Cardiovascular: RRR. No gallops. No murmurs. 1+ pitting edema in bilateral lower extremities. Lungs: Breath sounds are slightly diminished in the bases. Faint crackles. On nasal cannula support. Skin: No jaundice. No rashes. Abdomen: Normoactive bowel sounds, abdomen soft. Extremities: No cyanosis or clubbing. Musculoskeletal: No swollen or erythematous joints. Neurological: No myoclonus. Moves all extremities. Urinary Catheter Management: Russo: Cath Placed During This Visit: yes Reason for Continuing Indwelling Catheter: Accurate Measurement of Urinary Output in Critically Ill Patients Urinary Catheter Date of Insertion: 12/12/24 Data 12/15/24 04:34 12/16/24 05:09 A&P Assessment and plan (1) Acute exacerbation of CHF (congestive heart failure): Acute on chronic heart failure with reduced ejection fraction and exacerbation Defer ischemic evaluation to cardiology Continuous telemetry monitoring Strict I's and O's Daily weights Continue Bumex 2 mg IV twice daily Volume status improving (2) Acute respiratory failure with hypoxia and hypercapnia: Acute hypoxic hypercapnic respiratory failure requiring noninvasive mechanical ventilation Continue BiPAP as needed Optimize fluid status Continuous telemetry monitoring (3) Metabolic encephalopathy: Resolved (4) Diabetes: Continue Lantus dosing Sliding-scale insulin correction Avoid hypoglycemia (5) HTN (hypertension): Continue hydralazine, monitoring BP (6) Morbid obesity: Would benefit from weight loss Plan DVT prophylaxis: Lovenox Attestations 2 Medical Necessity Statement*: Patient requires ongoing hospitalization for IV diuresis, respiratory support, further cardiology workup including possible ischemic evaluation, and supportive care. Coding Level of Care Code Acute Code for [facility] Fwd Diagnoses Acute exacerbation of CHF (congestive heart failure) I50.9 Acute respiratory failure with hypoxia and hypercapnia J96.01; J96.02 Metabolic encephalopathy G93.41 Diabetes E11.9 HTN (hypertension) I10 Morbid obesity E66.01
--- NOTE | 2024-12-16 11:15 | P.PN_ITS ---
<Statement entered by Adria Junior M.D - 12/16/24 21:57> Patient was evaluated and cared for in conjunction with an advanced practice practitioner. I personally reviewed the chart and all pertinent data including imaging, telemetry, and laboratory results. I discussed the patient in detail with the advanced practice practitioner. Please see their note for complete progress note, results and agreed upon plan of care for the patient. Patient is diuresing well. Continue IV diuresis. Monitor renal function and close I and Os. Thank you for involving us in care of this patient. We will continue to follow. Please call with questions. Subjective 2 Subjective: Breathing is much improved this morning. As of now fluid balance is 12 L negative. Creatinine this morning 1.3. Will add on BNP to this morning's labs to guide further diuretic decisions. Will plan for coronary angiogram as an outpatient. No chest pain. Continue aspirin, metoprolol succinate, hydralazine. Vitals/I&O/Wt Last Vital Signs Temp 97.5 F L 12/16/24 08:30 Pulse 86 12/16/24 08:30 Resp 18 12/16/24 08:30 BP 146/103 12/16/24 08:30 Pulse Ox 93 12/16/24 08:30 O2 Del Method Nasal Cannula 12/16/24 08:30 O2 Flow Rate 2 12/16/24 08:30 FiO2 30 12/14/24 04:38 12/15/24 12/16/24 12/16/24 22:59 06:59 14:59 Intake Total 400 / 640 240 / 640 Output Total 2625 / 4275 1650 / 4275 Balance -2225 / -3635 -1410 / -3635 Weight last 48 hrs Weight 367 lb 2.382 oz Weight 372 lb 9.299 oz Physical Exam 2 Const: COMMON NORMALS: no acute distress and patient oriented x3 GENERAL APPEARANCE: cooperative and comfortable ORIENTATION/CONSCIOUSNESS: Yes awake, Yes oriented to person, Yes oriented to place and Yes oriented to time Chest: COMMONS NORMALS: normal inspection of the chest and normal palpation of entire chest wall CHEST: Yes Symmetrical chest wall rise Resp: COMMON NORMALS: normal respiratory effort, No retractions and No use of accessory muscles EFFORT & INSPECTION: Yes symmetric chest movement A USCULTATION: crackles (bases) Laterality: bilateral and posterior Cardio: COMMON NORMALS: regular rate, regular rhythm, S1 normal heart sound present, S2 normal heart sound present, No gallops present (Cardio), No clicks present (Cardio), No murmurs present (Cardio) and No rub (Cardio) RATE: r egular rate RHYTHM: regular rhythm HEART SOUNDS: S1 normal heart sound present and S2 normal heart sound present PERIPHERAL PULSES: radial pulses present Extremity: GENERAL: Yes edema (1+ pitting edema bilat LE) Neuro: COMMON NORMALS: patient oriented x3 and moves all extremities S ENSORIUM/ORIENTATION: Yes oriented to person, Yes oriented to place and Yes oriented to time Urinary Catheter Management: Russo: Cath Placed During This Visit: yes Reason for Continuing Indwelling Catheter: Accurate Measurement of Urinary Output in Critically Ill Patients Urinary Catheter Date of Insertion: 12/12/24 Data 12/15/24 04:34 12/16/24 05:09 A&P Assessment and plan (1) Acute exacerbation of CHF (congestive heart failure): (2) Cardiac resynchronization therapy defibrillator (SOCIAL WORKER DELINQUENCY PREVENTION-D) in place: (3) S/P CABG (coronary artery bypass graft): (4) HTN (hypertension): Plan Continue IV diuresis, will check BNP this morning. Still somewhat volume overloaded but closer to euvolemia. Blood pressure uncontrolled at times-recommend up titration of metoprolol succinate to 25 mg daily. Attestations 2 Medical Necessity Statement*: CHF decompensation, IV diuresis Coding Level of Care Code Acute Code for [facility] Fwd Diagnoses Acute exacerbation of CHF (congestive heart failure) I50.9 Cardiac resynchronization therapy defibrillator (SOCIAL WORKER DELINQUENCY PREVENTION-D) in place Z95.810 S/P CABG (coronary artery bypass graft) Z95.1 HTN (hypertension) I10
[2024-12-16 11:43] LABS: Glucose Point of Care 213 mg/dL (70-110)
[2024-12-16 11:54] LABS: NT Pro B Type Natriuretic Pept 4034 pg/mL (0-125)
--- NOTE | 2024-12-16 15:57 | PC.SOCIAL ---
IMM updated IMM dated and initialed and placed in chart and copy given to patient
[2024-12-16 17:57] LABS: Glucose Point of Care 187 mg/dL (70-110)
[2024-12-16 21:50] LABS: Glucose Point of Care 236 mg/dL (70-110)
[2024-12-16] MEDS: insulin glargine 100 units/1 mL 25 UNIT SUBCUT (21:58)
[2024-12-17] VITALS (8 sets, daily range): BP systolic 138–168; BP diastolic 91–124; PULSE 80–90; RESP 13–25; TEMP 36.6–37.3; O2SAT 90–93
[2024-12-17] MEDS: zolpidem 5 mg Tablet PO (03:00)
[2024-12-17] MEDS: aspirin 81 mg EC Tablet PO (03:00)
[2024-12-17 04:25] LABS: Albumin Level 3.5 g/dL (3.5-5.2); Anion Gap 18.1 (5-19); Blood Urea Nitrogen 32 mg/dL (8-23); Calcium 9.2 mg/dL (8.5-10.5); Carbon Dioxide 27 mmol/L (22-29); Chloride 93 mmol/L (98-107); Creatinine Clr Calc Pharmacy 75.6543; Glomerular Filtration Rate 46.8 mL/min (90-130); Glucose 163 mg/dL (65-115); Phosphorus 3.2 mg/dL (2.5-4.5); Potassium 4.1 mmol/L (3.5-5.1); Sodium 134 mmol/L (136-145)
[2024-12-17 06:32] LABS: Glucose Point of Care 175 mg/dL (70-110)
--- NOTE | 2024-12-17 07:59 | P.PN_ITS ---
Subjective 2 Subjective: Patient is feeling better. Continues to diurese well. Creatinine went up Vitals/I&O/Wt Last Vital Signs Temp 99.1 F 12/17/24 03:01 Pulse 90 12/17/24 05:16 Resp 25 H 12/17/24 03:01 BP 151/99 12/17/24 03:01 Pulse Ox 92 12/17/24 03:01 O2 Del Method Nasal Cannula 12/17/24 03:01 O2 Flow Rate 2 12/17/24 03:01 FiO2 30 12/14/24 04:38 12/16/24 12/17/24 12/17/24 22:59 06:59 14:59 Output Total 1500 / 1500 750 / 2250 Balance -1500 / -1500 -750 / -2250 Weight last 48 hrs Weight 353 lb 9.6 oz Weight 367 lb 2.382 oz Physical Exam 2 Narrative: GENERAL: Patient is alert, awake and oriented x3. [] NECK: No jugular vein distension. [] HEENT: No cyanosis. No icterus. No pallor. [] HEART: Regular S1 and S2. No murmur, rub or gallop. [] LUNGS: Diminished air entry bilaterally CENTRAL NERVOUS SYSTEM: Grossly nonfocal. [] EXTREMITIES: Lower extremities with 1+ edema bilaterally. Urinary Catheter Management: Russo: Cath Placed During This Visit: yes Reason for Continuing Indwelling Catheter: Other Urinary Catheter Date of Insertion: 12/12/24 Data 12/15/24 04:34 12/17/24 02:51 A&P Assessment and plan (1) Acute exacerbation of CHF (congestive heart failure): (2) Cardiac resynchronization therapy defibrillator (EMBEDDED SOFTWARE DEVELOPER-D) in place: (3) S/P CABG (coronary artery bypass graft): (4) HTN (hypertension): Plan Patient has diuresed well. Creatinine going up. Can reduce diuretics today. Uptitrating antihypertensive regimen. Increased hydralazine to 50 mg 3 times daily. Increased Toprol to 25 mg daily. Ischemic work up as outpatient. Thank you for involving us with care of this patient. Please call with questions. Attestations 2 Medical Necessity Statement*: Care expected to cross 2 midnights. Coding Level of Care Code Acute Code for [facility] Diagnoses Acute exacerbation of CHF (congestive heart failure) I50.9 Cardiac resynchronization therapy defibrillator (EMBEDDED SOFTWARE DEVELOPER-D) in place Z95.810 S/P CABG (coronary artery bypass graft) Z95.1 HTN (hypertension) I10
[2024-12-17] MEDS: enoxaparin 40 mg/0.4 mL Syringe SUBCUT ×2 (08:49→20:26)
[2024-12-17] MEDS: pantoprazole DR 40 mg Tablet PO (08:50)
[2024-12-17] MEDS: bumetanide 0.25 mg/mL SDV 4 mL 2 MG IVP (08:50)
[2024-12-17] MEDS: insulin lispro 100 unit/1 mL SUBCUT ×3 (08:50→18:21)
[2024-12-17] MEDS: hyDRALAzine 50 mg Tablet PO ×2 (08:51→20:25)
--- NOTE | 2024-12-17 09:06 | PM.DCS ---
Discharge Providers Date of Admission: 12/12/24 20:29 Date of Discharge: December 17, 2024 Attending Provider at Admission: Clair Crawford MD Attending Provider at Discharge: Lloyd Mario MD Consults: Cardiology Primary Care Provider: Manav Vergara DO Diagnoses at Discharge Discharge Diagnosis (1) Acute exacerbation of CHF (congestive heart failure): Status: Acute (2) Cardiac resynchronization therapy defibrillator (ESTHETICIAN/SPA COORDINATOR-D) in place: Status: Acute (3) S/P CABG (coronary artery bypass graft): Status: Acute (4) HTN (hypertension): Status: Acute Reason for Visit Reason for Visit: SOB, resp distress Hospital Course Hospital Course Haroon Parish is a 64-year-old male with a past medical history significant for insulin-dependent type 2 diabetes mellitus, morbid obesity, sleep apnea, congestive heart failure, and multiple other comorbidities who presented with mechanical fall and weakness, found to have acute exacerbation of congestive heart failure. Echo revealed ejection fraction of 15% consistent with acute on chronic heart failure with reduced ejection fraction. He was treated with IV diuresis. He required noninvasive mechanical ventilation with AVAPS support. His respiratory status significantly improved. His volume status significantly improved. His home diuretic dose was adjusted at discharge. He was also found to have acute metabolic encephalopathy which resolved with treatment. His blood pressure medications were titrated. His heart failure medications were titrated towards goal-directed medical therapy. Cardiology consulted and followed. Ischemic workup was offered but patient declined. He plans on performing ischemic evaluation as outpatient. He already has ICD in place. His symptomatology significantly improved. Patient requesting to be discharged back to facility by day of discharge. Patient discharging to nursing facility in stable condition. He will continue follow-up with his outpatient providers for ongoing care. Physical Exam Narrative: General: Patient is awake and alert. Pleasant. Head: Normocephalic. Atraumatic. EOM intact. Neck: No JVD. Cardiovascular: RRR. No gallops. No murmurs. 1+ lower extremity edema, improved from prior exam. Lungs: Breath sounds are slightly diminished, no use of accessory muscles, no crackles or wheezes. On nasal cannula. Skin: No jaundice. No rashes. Abdomen: Normal bowel sounds, abdomen soft and nontender. Genito Urinary: Genital exam not performed since complaints not related. Rectal: Rectal exam not performed since no symptoms indicated blood loss. Extremities: No cyanosis or clubbing. Musculoskeletal: No swollen or erythematous joints. Neurological: Moves all 4 extremities. No myoclonus. Urinary Catheter Management: Russo: Cath Placed During This Visit: yes Reason for Continuing Indwelling Catheter: Other Urinary Catheter Date of Insertion: 12/12/24 Discharge Data Studies Completed and Pending Completed Studies During Hospitalization Category Date Time Status XR chest 1V portable [id number] Stat Exams 12/12/24 19:18 [place] [id number] Routine Ultrasound 12/12/24 20:57 Completed US echo complete [CV. echo complete* 11425] Routine Ultrasound 12/13/24 07:33 Completed Radiology Impressions Chest X-Ray 12/12/24 19:18 IMPRESSION: Pulmonary vascular congestion and cardiomegaly. ADDENDUM: 12/12/242040 Patchy yzey-cguwgav-[id number]-right lower lung zone opacities may represent edema, atelectasis/scarring, or infiltrate. Venous Duplex 12/12/24 20:57 IMPRESSION: No evidence of deep vein thrombosis. Laboratory Results WBC 9.09 10^3/uL (3.29-11.43) 12/15/24 04:34 RBC 5.56 10^6/uL (3.85-5.65) 12/15/24 04:34 Hgb 13.40 g/dL (11.27-16.99) 12/15/24 04:34 Hct 46.4 % (37-53) 12/15/24 04:34 MCV 83.5 fl (82-101) 12/15/24 04:34 MCH 24.1 pg (27-33) L 12/15/24 04:34 MCHC 28.9 g/dL (30-55) L 12/15/24 04:34 RDW 17.2 % (12.1-15.1) H 12/15/24 04:34 Plt Count 160 10^3/cmm (157-399) 12/15/24 04:34 MPV 11.1 fL (7.4-10.4) H 12/15/24 04:34 Neut % (Auto) 68.3 % 12/15/24 04:34 Lymph % (Auto) 15.8 % 12/15/24 04:34 Cross % (Auto) 12.8 % 12/15/24 04:34 Eos % (Auto) 2.3 % 12/15/24 04:34 Baso % (Auto) 0.4 % 12/15/24 04:34 Neut # (Auto) 6.20 10^3/uL (1.8-7.7) 12/15/24 04:34 Lymph # (Auto) 1.4 10^3/uL (0.8-4.8) 12/15/24 04:34 Cross # (Auto) 1.2 10^3/uL (0.2-0.9) H 12/15/24 04:34 Eos # (Auto) 0.2 10^3/uL (0.0-0.8) 12/15/24 04:34 Baso # (Auto) 0.0 10^3/uL (0.0-0.1) 12/15/24 04:34 Nucleated RBC % (auto) 0 % 12/15/24 04:34 Nucleated RBCs # 0.0 /100WBC 12/15/24 04:34 D-Dimer 1.37 ug/mLFEU (0-0.59) H 12/12/24 19:17 Specimen Type Arterial 12/13/24 04:50 Sample Site Brachial, right 12/13/24 04:50 ABG pH 7.31 (7.35-7.45) L 12/13/24 04:50 ABG pCO2 74.5 mmHg (35-45) H* 12/13/24 04:50 ABG pO2 90.1 mmHg (80.0-100.0) 12/13/24 04:50 ABG PO2/FiO2 Ratio 225 12/13/24 04:50 ABG HCO3 37.2 mmol/L (22-26) H 12/13/24 04:50 ABG O2 Saturation 95.2 12/12/24 21:08 ABG Base Excess 7.8 mmol/L (-2.0-2.0) H 12/13/24 04:50 Inderjit Test N/a 12/13/24 04:50 A-a O2 Gradient 33.4 mmHg (5-10) H 12/12/24 21:08 Hematocrit 44.0 % (42-52) 12/13/24 04:50 Hgb O2 Saturation 92.3 % (95-100) L 12/12/24 21:08 Carboxyhemoglobin 2.2 %THgb (0.4-20.1) 12/12/24 21:08 Methemoglobin 0.9 % (0.4-1.5) 12/12/24 21:08 Total Hemoglobin 13.6 g/dL (14-18) L 12/12/24 21:08 Sodium 143.0 mmol/L (131-143) 12/12/24 21:08 Potassium 4.6 mmol/L (3.5-5.0) 12/12/24 21:08 Glucose 128.0 mg/dL (70-115) H 12/12/24 21:08 Ionized Calcium 1.2 mmol/L (1.1-1.4) 12/12/24 21:08 O2 Delivery Device Bipap 12/13/24 04:50 O2 Liters/Min 6.0 % 12/12/24 19:30 FiO2 40.0 % 12/13/24 04:50 Tidal Volume 0.60 12/13/24 04:50 PEEP 10.0 cmH20 12/13/24 04:50 Restrooms Or Lounges Maid ID Jdb 12/13/24 04:50 Sodium 134 mmol/L (136-145) L 12/17/24 02:51 Potassium 4.1 mmol/L (3.5-5.1) 12/17/24 02:51 Chloride 93 mmol/L (98-107) L 12/17/24 02:51 Carbon Dioxide 27 mmol/L (22-29) 12/17/24 02:51 Anion Gap 18.1 (5-19) 12/17/24 02:51 BUN 32 mg/dL (8-23) H 12/17/24 02:51 Creatinine 1.5 mg/dL (0.7-1.2) H 12/17/24 02:51 GFR Calculation 46.8 mL/min (90-130) L 12/17/24 02:51 Glucose 163 mg/dL (65-115) H 12/17/24 02:51 POC Glucose 175 mg/dL (70-110) H 12/17/24 06:17 Calculated Osmolality 299 mOsm/kg (285-295) H 12/15/24 04:34 Lactic Acid 1.0 mmol/L (0.5-2.2) 12/12/24 19:17 Calcium 9.2 mg/dL (8.5-10.5) 12/17/24 02:51 Phosphorus 3.2 mg/dL (2.5-4.5) 12/17/24 02:51 Magnesium 2.0 mg/dL (1.7-2.3) 12/17/24 02:51 Total Bilirubin 1.7 mg/dL (0.15-1.2) H 12/15/24 04:34 AST 9 U/L (0-40) 12/15/24 04:34 ALT 7 U/L (0-41) 12/15/24 04:34 Alkaline Phosphatase 66 U/L (40-130) 12/15/24 04:34 Troponin T Baseline 48 ng/L (0-15) H 12/12/24 19:17 Troponin T 120 Minute 44.88 ng/L (0-15) H 12/12/24 21:23 Delta Troponin T -3.12 ABS# (0-10) L 12/12/24 21:23 Troponin T Hi Sens 6Hr 44.18 ng/L (0-15) H 12/13/24 01:04 Troponin T Hi Sens 6Hr Delta -3.82 ng/L (0-12) L 12/13/24 01:04 C-Reactive Protein 21.3 mg/L (0.0-4.9) H 12/13/24 03:56 NT-Pro-B Natriuret Pep 4034 pg/mL (0-125) H 12/16/24 05:09 Total Protein 7.2 g/dL (6.6-8.7) 12/15/24 04:34 Albumin 3.5 g/dL (3.5-5.2) 12/17/24 02:51 Globulin 4.0 g/dL (1.3-4.6) 12/15/24 04:34 Procalcitonin 0.05 ng/mL (0-0.5) 12/12/24 19:17 Procalcitonin 0.05 ng/mL (0-0.5) 12/12/24 19:17 TSH 1.83 uIU/mL (0.27-4.20) 12/12/24 19:17 Coronavirus (PCR) Negative (Negative) 12/12/24 19:33 Influenza A (PCR) Negative (Negative) 12/12/24 19:33 Influenza Type B (PCR) Negative (Negative) 12/12/24 19:33 RSV (PCR) Negative (Negative) 12/12/24 19:33 Vitals Last Vital Signs Temp 98.4 F 12/17/24 08:00 Pulse 86 12/17/24 08:00 Resp 21 H 12/17/24 08:00 BP 138/91 12/17/24 08:00 Pulse Ox 90 12/17/24 08:00 O2 Del Method Nasal Cannula 12/17/24 08:00 O2 Flow Rate 2 12/17/24 03:01 FiO2 30 12/14/24 04:38 Discharge Plan Discharge Patient Disposition: Xfer SNF Condition: Stable Prescriptions: New hydralazine 50 mg Tablet 50 mg PO TID 30 Days Qty: 90 0RF metoprolol succinate 25 mg Tablet Extended Release 24 Hr 25 mg PO BID 30 Days Qty: 60 0RF bumetanide 2 mg tablet 2 mg PO BIDAC Qty: 60 0RF sacubitril-valsartan [Entresto] 24-26 mg tablet 1 tab PO BID Qty: 60 0RF Continued Lantus U-100 Insulin 100 unit/mL solution 52 unit SUBCUT BID albuterol sulfate 2.5 mg /3 mL (0.083 %) solution for nebulization 2.5 mg inhalation Q4H nitroglycerin [Nitrostat] 0.4 mg Tablet, Sublingual 0.4 mg SUBLINGUAL Q5M PRN (Reason: Chest Pain) cetirizine 10 mg Tablet 10 mg PO DAILY gabapentin 800 mg tablet 800 mg PO TID insulin lispro [Humalog KwikPen Insulin] 100 unit/mL Insulin Pen 18 unit SUBCUT TID Rx Instructions: before meals guaifenesin 600 mg Tablet Extended Release 12hr 600 mg PO Q12H PRN (Reason: Cold Symptoms) Fiasp FlexTouch U-100 Insulin 100 unit/mL (3 mL) insulin pen 15 unit SUBCUT TID Mounjaro 2.5 mg/0.5 mL pen injector 2.5 mg SUBCUT Q7D guaifenesin [Robitussin] 100 mg/5 mL Liquid 200 mg PO Q4H PRN (Reason: Cold Symptoms) metformin 1,000 mg Tablet Extended Release 24 Hr 1,000 mg PO DAILY acetaminophen 325 mg Tablet 325 mg PO QID PRN (Reason: Pain) loperamide 2 mg Capsule See Rx Instructions .ROUTE .COMPLEX PRN (Reason: Diarrhea) Rx Instructions: take 1 capsule by mouth every 1-2 hours as needed for diarrhea after each loose stool, not to exceed 8mg in 24 hours atorvastatin 10 mg Tablet 10 mg PO BEDTIME magnesium hydroxide [Milk of Magnesia] 400 mg/5 mL Suspension 30 ml PO DAILY PRN (Reason: Constipation) bisacodyl 10 mg Suppository 10 mg ID DAILY PRN (Reason: Constipation) Discontinued carvedilol 12.5 mg tablet 12.5 mg PO BID lisinopril 20 mg tablet 20 mg PO DAILY bumetanide 1 mg tablet 1 mg PO DAILY Qty: 30 0RF ibuprofen 800 mg Tablet 800 mg PO Q8H PRN (Reason: Pain) hydralazine 25 mg Tablet 25 mg PO TID Discharge Orders: Discharge Order (Routine); Ordered 12/17/24 Ordered By: Lloyd Mario Referrals: Simran Casiano FNP [Nurse Practitioner] - 2 weeks Manav Vergara DO [Primary Care Provider] - Discharge Diet: Advance as tolerated, Usual diet, Cardiac, Diabetic and Low Salt Discharge Activity: Resume usual activity and Increase activity as tolerated Patient Instructions: Opioid Safety Activity Restrictions/Additional Instructions: 1. Take medications as prescribed. 2. Recommend daily weights. 3. Recommend salt restriction to no more than 2 g/day. 4. Recommend fluid restriction to 2 L/day. 5. Follow-up with provider at facility within 7 days of arrival. 6. Cardiology clinic follow-up. Discharge Attestations Time Spent in Discharge Care*: greater than 30 min Status at Discharge: Cognitive status at discharge: cognitively intact, Behavioral status at discharge: cooperative, Quality Metrics Clinical Quality Measures [ No reported AMI, CVA or VTE this stay] Coding Level of Care Code Acute Code for Chg Fwd Diagnoses Acute exacerbation of CHF (congestive heart failure) I50.9 Cardiac resynchronization therapy defibrillator (ESTHETICIAN/SPA COORDINATOR-D) in place Z95.810 S/P CABG (coronary artery bypass graft) Z95.1 HTN (hypertension) I10
[2024-12-17 12:04] LABS: Glucose Point of Care 236 mg/dL (70-110)
[2024-12-17] MEDS: metoprolol succinate ER (24 HR) 25 mg Tablet PO (12:11)
--- NOTE | 2024-12-17 15:49 | PC.NURSE ---
[facility] called again by auto service writer for transportation services to [place]. Trip number is [phone]
[2024-12-17 17:21] LABS: Glucose Point of Care 173 mg/dL (70-110)
[2024-12-17] MEDS: insulin glargine 100 units/1 mL 25 UNIT SUBCUT (20:29)
[2024-12-17 23:50] LABS: Glucose Point of Care 373 mg/dL (70-110)
== END 2024-12-17 22:05 | disposition skilled nursing facility (03) | DRG 291 ==
LOC: ER 21:08 → ICU 21:16 → CSU 12-16 17:15
PROVIDERS: Nurse Practitioner Family; Admitting Provider Internal Medicine; Emergency Provider Emergency Medicine; PCP Internal Medicine; Visit Provider Internal Medicine
DX: I13.0 Hypertensive heart and chronic kidney disease with heart failure and stage 1 through stage 4 chronic kidney disease, or unspecified chronic kidney disease (principal); G93.41 Metabolic encephalopathy; I50.23 Acute on chronic systolic (congestive) heart failure; J96.02 Acute respiratory failure with hypercapnia; J96.01 Acute respiratory failure with hypoxia; Z68.43 Body mass index [BMI] 50.0-59.9, adult; E11.22 Type 2 diabetes mellitus with diabetic chronic kidney disease; N18.9 Chronic kidney disease, unspecified; E11.649 Type 2 diabetes mellitus with hypoglycemia without coma; E66.01 Morbid (severe) obesity due to excess calories; G47.30 Sleep apnea, unspecified; R79.1 Abnormal coagulation profile; J44.9 Chronic obstructive pulmonary disease, unspecified; G25.81 Restless legs syndrome; I25.10 Atherosclerotic heart disease of native coronary artery without angina pectoris; Z95.810 Presence of automatic (implantable) cardiac defibrillator; Z95.1 Presence of aortocoronary bypass graft; Z87.891 Personal history of nicotine dependence; Z79.84 Long term (current) use of oral hypoglycemic drugs; Z79.4 Long term (current) use of insulin; Z79.02 Long term (current) use of antithrombotics/antiplatelets; Z79.82 Long term (current) use of aspirin
CPT/HCPCS: 36415; 36416; 36600; 51702; 71045; 80048; 80051; 80053; 80069; 82330; 82803; 82805; 82962; 83605; 83735; 83880; 84100; 84145; 84443; 84484; 85025; 85378; 86140; 86403; 87637; 93005; 93306; 93970; 94640; 94660; 96372; 96374; 96376; 97110; 97163; 97530; 99291; J1650; J1815; J2470; J3490; J7799

== ENCOUNTER 2024-12-20 11:10 | Inpatient (IN) | payer MEDICARE, MEDICAID, SELFPAY ==
[2024-12-20] VITALS (66 sets, daily range): BP systolic 78–126; BP diastolic 55–91; PULSE 60–103; RESP 14–22; TEMP 36.2–36.7; O2SAT 83–98; BMI 64.5
--- NOTE | 2024-12-20 11:24 | CT_ITS ---
WS: [id number] CT HEAD NONCONTRAST HISTORY: possible stroke TECHNIQUE: Contiguous axial imaging performed through the brain. Bone and soft tissue windows. Sagittal and coronal reformats reviewed. All CT scans at [facility] use at least one of these dose optimization techniques: automated exposure control; mA and/or kV adjustment per patient size (includes targeted exams where dose is matched to clinical indication); or iterative reconstruction. DLP: 1226.70 mGy COMPARISON: 05/17/2023 No acute intracranial hemorrhage, midline shift or mass effect. Moderate volume loss and atrophy. Mild small vessel ischemic changes. No new infarct. Moderate cerebellar atrophy. Ventricles: Mild ventriculomegaly. Similar to the prior study. Extensive calcifications throughout the distal vertebral arteries and the intracranial carotid arteries. Paranasal sinuses: As visualized are clear. Mastoid air cells: Well pneumatized. Calvarium and scalp: Skull is intact with no soft tissue edema or swelling. CT/CT head thrombolytic [id number] IMPRESSION: 1. No acute intracranial hemorrhage or edema. 2. Moderate volume loss in the cerebrum and cerebellum with small vessel ische morteza disease. 3. Moderate small vessel disease very similar to the prior study. 4. Study is compromised by motion. Notified Radha Guerrero MD at 12/20/2024 11:38 AM.
[2024-12-20 11:25] LABS: Glucose Point of Care 198 mg/dL (70-110)
--- NOTE | 2024-12-20 11:25 | XRR_ITS ---
PROCEDURE INFORMATION: Exam: XR Chest Exam date and time: 12/20/2024 12:15 PM Age: 64 years old Clinical indication: Other: Weakness; Prior surgery; Surgery date: 6+ months; Surgery type: Open heart, pacer TECHNIQUE: Imaging protocol: Radiologic exam of the chest. Views: 1 view. COMPARISON: CR (CHEST, ) 12/12/2024 7:36 PM FINDINGS: Tubes, catheters and devices: Left sided cardiac pacemaker leads in satisfactory position. Lungs: No focal consolidation. Mild interstitial opacities suggestive of edema. Pleural spaces: No sizable pleural effusion or pneumothorax. Heart/Mediastinum: Stable cardiomegaly. Bones/joints: Status post median sternotomy. XR/XR chest 1V portable [id number] IMPRESSION: No interval change.
--- NOTE | 2024-12-20 11:26 | PC.NURSE ---
YECENIA MIDDLETON, LKW 0970. PATIENT HAS BEEN ON BLOOD THINNERS FROM PREVIOUS RECENT HOSPITAL ADMISSION.
--- NOTE | 2024-12-20 11:27 | ECG_ITS ---
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 Measurements Intervals [place] Rate: 93 P: 58 DC: 113 QRS: -86 QRSD: 184 T: 100 QT: 431 QTc: 538 Interpretive Statements ELECTRONIC VENTRICULAR PACEMAKER Compared to ECG 12/13/2024 02:05:28 Atrial-paced complex(es) or rhythm no longer present Electronically Signed On 12-22-2024 22:03:46 HARNESS MENDER by Adria Junior M.D. [email or web address]
[2024-12-20 11:31] LABS: Basophils # 0.1 10^3/uL (0.0-0.1); Basophils % 0.3 %; Eosinophils # 0.1 10^3/uL (0.0-0.8); Eosinophils % 0.9 %; Hematocrit 48.7 % (37-53); Lymphocytes # 1.2 10^3/uL (0.8-4.8); Lymphocytes % 7.7 %; Mean Corpuscular HGB Conc 29.4 g/dL (30-55); Mean Corpuscular Volume 85.1 fl (82-101); Monocytes # 1.8 10^3/uL (0.2-0.9); Monocytes % 11.3 %; Neutrophils # 12.48 10^3/uL (1.8-7.7); Neutrophils % 79.1 %; Nucleated Red Blood Cells % 0 %; Platelet Count 171 10^3/cmm (157-399); Red Blood Count 5.72 10^6/uL (3.85-5.65); Red Cell Distribution Width 18.1 % (12.1-15.1); White Blood Count 15.78 10^3/uL (3.29-11.43)
--- NOTE | 2024-12-20 11:38 | CT_ITS ---
WS: [id number] CT ANGIOGRAM CEREBRAL AND CAROTID ARTERIES HISTORY: STROKE? TECHNIQUE: CT angiogram is performed of the carotid and cerebral arteries. During arterial injection imaging is obtained from the skull vertex to the aortic arch in 1.25 mm imaging. Coronal and sagittal reformats are submitted. Additional multi planar reformats of the carotid and cerebral arteries are submitted, MIP imaging also reviewed. NASCET criteria utilized. All CT scans at [facility] use at least one of these dose optimization techniques: automated exposure control; mA and/or kV adjustment per patient size (includes targeted exams where dose is matched to clinical indication); or iterative reconstruction. CONTRAST: Omnipaque 350; 100 mL IV. DLP: 1226.70 mGy COMPARISON: Noncontrast CT 12/20/2024 This examination is compromised by arm position and motion artifact. Carotid Angiogram: Right carotid: Common carotid artery: Atherosclerotic plaque. Motion artifact. Carotid arteries patent. Internal carotid artery: Patent with plaque. Motion artifact. External carotid artery: Patent. Left carotid: Common carotid artery: Arises normally from the aorta. No significant plaque or stenosis. Internal carotid artery: Patent. No high-grade stenosis. Small amount of plaque. External carotid artery: Patent. Right vertebral artery: Motion artifact. No occlusion. Mild plaque. Left vertebral artery: Dominant with plaque. Patent. Subclavian arteries: No stenosis or significant abnormality. Upper thorax: Breathing motion artifact. Plaque within the aorta. Prior CABG. Thyroid gland: Normal. Osseous structures: Unremarkable. CEREBRAL ANGIOGRAM: Intracranial vertebral arteries: Dominant LEFT vertebral artery. Small amount of plaque in the distal vertebral arteries but no occlusion. Basilar artery: Ectatic and patent. Intracranial Internal carotid arteries: Small amount of plaque in the distal carotid arteries. No high-grade stenosis. Middle cerebral arteries: Normal. Anterior cerebral arteries and ACOM: Normal. Posterior cerebral arteries and PCOM's: Normal. Dural venous sinuses are normally enhancing. Mastoid air cells: Normal. Paranasal sinuses: Normal. Calvarium: Normal. CT/CT angio headneck* [id number] IMPRESSION: 1. Study is compromised by body habitus, arm position and motion. 2. No high-grade cervical carotid artery stenosis. There is mild plaque but no stenosis. 3. No thrombus or occlusion within the [place]. 4. Patent vertebral arteries.
--- NOTE | 2024-12-20 11:46 | W.ED.AMS ---
HPI - Altered Mental Status General: Chief Complaint: Altered Mental Status Stated Complaint: unrespon. Time Seen by Provider: 12/20/24 11:17 History of Present Illness: 64-year-old man with a history of coronary artery disease, congestive heart failure with a recent EF of around 15%, morbid obesity, diabetes,Defibrillator placement, hypertension, who presents the emergency room with decreased mentation. There is some question to last known well time but [facility] now is reporting that last known well time was 9:45 AM about 2 hours ago. He is minimally responsive and hypoxemic on 4 L nasal cannula. He does seem to move extremities to pain but EMS reports some right sided weakness. He has medial deviation of his right eye with question as to whether this is baseline. Related Data Home Medications ?Medication ?Instructions ?Recorded ?Confirmed nitroglycerin 0.4 mg sublingual 0.4 mg sublingual Q5M PRN Chest 02/13/21 12/20/24 tablet (Nitrostat) Pain insulin glargine 100 unit/mL 52 unit SUBCUT BID 09/05/21 12/20/24 subcutaneous solution (Lantus U-100 Insulin) albuterol sulfate 2.5 mg/3 mL 2.5 mg inhalation Q4H 10/01/22 12/20/24 (0.083 %) solution for nebulization acetaminophen 325 mg tablet 650 mg PO QID PRN Pain 05/18/23 12/20/24 atorvastatin 10 mg tablet 10 mg PO BEDTIME 05/18/23 12/20/24 bisacodyl 10 mg rectal suppository 10 mg ME DAILY PRN Constipation 05/18/23 12/20/24 loperamide 2 mg capsule See Rx Instructions .Route 05/18/23 12/20/24 .COMPLEX PRN Diarrhea magnesium hydroxide 400 mg/5 mL 30 ml PO DAILY PRN Constipation 05/18/23 12/20/24 oral suspension (Milk of Magnesia) metformin 1,000 mg tablet,extended 1,000 mg PO DAILY 05/18/23 12/20/24 release 24hr (osmotic) cetirizine 10 mg tablet 10 mg PO DAILY 12/13/24 12/20/24 gabapentin 800 mg tablet 800 mg PO TID 12/13/24 12/20/24 guaifenesin 100 mg/5 mL oral liquid 200 mg PO Q4H PRN Cold Symptoms 12/13/24 12/20/24 guaifenesin 600 mg tablet, 600 mg PO Q12H PRN Cold Symptoms 12/13/24 12/20/24 extended release 12 hr insulin aspart 15 unit SUBCUT TID 12/13/24 12/20/24 (niacinamide)(U-100) 100 unit/mL(3 mL) subcutaneous pen (Fiasp FlexTouch U-100 Insulin) insulin lispro 100 unit/mL 18 unit SUBCUT TID 12/13/24 12/20/24 subcutaneous pen (Humalog KwikPen (U-100) Insulin) tirzepatide 2.5 mg/0.5 mL 2.5 mg SUBCUT Q7D 12/13/24 12/20/24 subcutaneous pen injector (Jigneshunjaro) aspirin 81 mg tablet,delayed 81 mg PO DAILY 12/20/24 12/20/24 release metoprolol succinate 25 mg 25 mg PO DAILY 12/20/24 12/20/24 tablet,extended release 24 hr nystatin 100,000 unit/gram topical 1 applic topical BID 12/20/24 12/20/24 powder Previous Rx's ?Medication ?Instructions ?Recorded bumetanide 2 mg tablet 2 mg PO BIDAC #60 tabs 12/17/24 hydralazine 50 mg tablet 50 mg PO TID 30 days #90 tabs 12/17/24 sacubitril 24 mg-valsartan 26 mg 1 tab PO BID #60 tabs 12/17/24 tablet (Entresto) Allergies Allergy/AdvReac Type Severity Reaction Status Date / Time Penicillins Allergy ALGY-Hives Verified 12/12/24 19:17 Review of Systems General: Reports: ROS unobtainable due to medical condition and ROS unobtainable due to mental status [facility] PFSH: Medical History (Updated 12/20/24 @ 13:19 by Radha Guerrero MD) CKD (chronic kidney disease) Diabetes HTN (hypertension) Sepsis Pneumonia Atherosclerosis of coronary artery Cardiac resynchronization therapy defibrillator (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) in place Restless leg syndrome CAP (community acquired pneumonia) MARIA A (acute kidney injury) Morbid obesity Ataxia Pacemaker COPD (chronic obstructive pulmonary disease) BPH (benign prostatic hyperplasia) Weakness Congestive heart failure 02/13/21: LVEF 45-50% Acute exacerbation of chronic obstructive airways disease Surgical History (Updated 12/18/24 @ 00:00 by GASPER Man) S/P CABG (coronary artery bypass graft) Family History Father Diabetes Mother Diabetes Social History Smoking and tobacco/nicotine status: former use of tobacco/nicotine Alcohol intake: former Substance/Drug Use: former Household members: family Housing: House Current occupation: living in tent 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 Skin: Warm, dry Head: Normocephalic, atraumatic. Neck: Supple, trachea midline. Eye: Right eye is deviated medially and down. Ears, nose, mouth and throat: Dry oral mucosa. Cardiovascular: Regular rate and rhythm, Normal peripheral perfusion. Respiratory: Lungs are clear to auscultation, respirations are non-labored, breath sounds are equal, Symmetrical chest wall expansion. Gastrointestinal: Soft, Non distended, Normal bowel sounds. Musculoskeletal: no deformity. Neurological: Not Alert and oriented, No obvious focal neurological deficit observed. Psychiatric: unable to assess. Course Vital Signs: Vital signs: Vital Signs Temperature 98.1 F 12/20/24 11:10 Pulse Rate 82 12/20/24 13:45 Respiratory Rate 14 12/20/24 13:45 Blood Pressure 100/78 12/20/24 13:45 Pulse Oximetry 95 12/20/24 13:45 Oxygen Delivery Me thod Mechanical Ventil ation 12/20/24 13:45 Oxygen Flow Rate 15 12/20/24 12:18 Fraction of Inspir ed Oxygen 75 12/20/24 13:24 MDM - Altered Mental Status Medical Decision Making Medical decision making: Differential diagnosis for patient with focal neurologic deficit(s) includes but not limited to and based on the above HPI, review of systems and physical exam: ischemic stroke, hemorrhagic stroke and embolic stroke secondary to atrial fibrillation), TIA, Chavez's palsey, metabolic encephalopathy with previous stroke. Differential diagnosis for patient with shortness of breath includes but is not limited to and based on the above HPI, review of systems and physical exam: Pneumonia. Bronchitis. Asthma or COPD with acute exacerbation. Acute coronary syndrome / ND. Pulmonary embolism. Anxiety. Congestive heart failure. Viral infections including influenza and Covid-19. Atrial fibrillation. Anxiety. Pleural effusion. Pneumothorax. Orders placed to evaluate differential diagnosis based on the above differential, HPI and physical exam EKG: Time 11:16 AM. Rate 93. Normal sinus rhythm, No ST-T changes, no ectopy, paced rhythm, this was reviewed and interpreted by myself the emergency room physician at 11:[address] head: Volume loss greater than age. No acute intracranial process. no intracranial hemorrhage, no evidence of infarct. no evidence of acute fracture.This was reviewed and interpreted by myself the ER physician. CTA of the head and neck: Quality compromised by body habitus. No obvious stenosis or occlusions are identified. No mass. This was reviewed and interpreted by myself the emergency room physician. I also reviewed the radiology report. Consultation: I spoke with Dr. Ortega who has seen the patient in the emergency room. He does not feel like the patient is a candidate for TNKase. No overt neurologic symptoms to indicate an acute stroke. He does have the deviated eye. And maybe a slight difference right to left in his spontaneous movements versus movements secondary to painful stimuli. We both agree that this is likely a metabolic encephalopathy secondary to hypoxemia and what I think is a pneumonia. Lab Review: Laboratory results were reviewed and interpreted by myself the emergency room physician. Leukocytosis with a white count of 16,000. No anemia. BUN and creatinine are elevated above his baseline at 74 and 2.7. Creatinine normally hovers around 1.3-1.7. Initial troponin is 68. proBNP is 690. This is well below his baseline which may indicate that he is volume depleted. Endotracheal intubation Time: 12:30 PM Confirmed: Patient, procedure, and site correct. Consent: , Emergent. Indication: Respiratory failure. Procedural sedation: Succinylcholine and etomidate . Monitoring: Cardiac, blood pressure, continuous pulse oximetry. Preparation: Pre oxygenated, Inline stabilization of cervical spine maintained, Ensured proper cuff inflation. Technique: Oral intubation: A 8 ET tube was inserted, glydescope, visualized cords and ett passing through cords. . Confirmation of tube placement: Bilateral chest rise, Positive color change indicated on end title CO2. Post procedure exam: Equal breath sounds. Complications: None. Performed by: Self. Total time: 10 minutes. Suction of ET tube showed a large amount of what appears to be just dillon pus. I believe the patient has a pneumonia that is not yet showing up on the chest x-ray. He has very large heart and a defibrillator in place so would be difficult to see all of the lungs. I reviewed the patient's medical record. Reexamination: Patient is maintaining oxygen on a ventilator. Borderline hypotension. I gave a 500 bolus. I am going to give another as he is still a bit hypotensive and I think a bit dry. Also with him being on a ventilator fluids can be given a bit more liberally. Consultation: I spoke with Dr. Gleason who agrees to admission. Assessment and plan: Hypoxemic respiratory failure Metabolic encephalopathy Sepsis Acute on chronic renal failure Hypotension Dehydration Community-acquired bacterial pneumonia ?Emergently intubated. Patient is full code. Maintaining sats on the ventilator. -1.5 L normal saline bolus. Cautious fluids as the patient has an EF of 15. Starting with 1.5 L. More can be given if needed. He does have a white count of 15,000. No evidence of x-ray pneumonia but on exam when he was suctioned there was obvious pus from his lungs. Treating for healthcare associated bacterial pneumonia -Broad-spectrum antibiotics were administered. IV meropenem and Zyvox. -Sepsis quality measures. -Lactic acid with a reflex was ordered. -Blood cultures were ordered. ?IV Solu-Medrol and 2 updrafts -I discussed the patient with the hospitalist on-call who is admitting the patient. - Discussed findings and plan with patient. Answered any questions. - All laboratory values were reviewed and interpreted personally by myself, the ER physician - All imaging was reviewed and interpreted personally by myself, the ER physician. - Evaluation and treatment of this problem were appropriate in the emergency setting Critical care -I spent a total of >35 minutes of critical care time managing the patient, independent of any other practitioner. -The time involved in the performance of separately reportable procedures was not counted towards critical care time. Lab Data 12/20/24 10:50 12/20/24 10:[address] 12/20/24 11:24 IMPRESSION: 1. No acute intracranial hemorrhage or edema. 2. Moderate volume loss in the cerebrum and cerebellum with small vessel ischemic disease. 3. Moderate small vessel disease very similar to the prior study. 4. Study is compromised by motion. Notified Radha Guerrero MD at 12/20/2024 11:38 AM. Chest X-Ray 12/20/24 11:25 IMPRESSION: No interval change. Head/Neck CTA 12/20/24 11:38 IMPRESSION: 1. Study is compromised by body habitus, arm position and motion. 2. No high-grade cervical carotid artery stenosis. There is mild plaque but no stenosis. 3. No thrombus or occlusion within the [place] of [place]. 4. Patent vertebral arteries. Laboratory Results WBC 15.78 10^3/uL (3.29-11.43) H 12/20/24 10:50 RBC 5.72 10^6/uL (3.85-5.65) H 12/20/24 10:50 Hgb 14.30 g/dL (11.27-16.99) 12/20/24 10:50 Hct 48.7 % (37-53) 12/20/24 10:50 MCV 85.1 fl (82-101) 12/20/24 10:50 MCH 25.0 pg (27-33) L 12/20/24 10:50 MCHC 29.4 g/dL (30-55) L 12/20/24 10:50 RDW 18.1 % (12.1-15.1) H 12/20/24 10:50 Plt Count 171 10^3/cmm (157-399) 12/20/24 10:50 MPV 11.0 fL (7.4-10.4) H 12/20/24 10:50 Neut % (Auto) 79.1 % 12/20/24 10:50 Lymph % (Auto) 7.7 % 12/20/24 10:50 [place] % (Auto) 11.3 % 12/20/24 10:50 Eos % (Auto) 0.9 % 12/20/24 10:50 Baso % (Auto) 0.3 % 12/20/24 10:50 Neut # (Auto) 12.48 10^3/uL (1.8-7.7) H 12/20/24 10:50 Lymph # (Auto) 1.2 10^3/uL (0.8-4.8) 12/20/24 10:50 [place] # (Auto) 1.8 10^3/uL (0.2-0.9) H 12/20/24 10:50 Eos # (Auto) 0.1 10^3/uL (0.0-0.8) 12/20/24 10:50 Baso # (Auto) 0.1 10^3/uL (0.0-0.1) 12/20/24 10:50 Nucleated RBC % (auto) 0 % 12/20/24 10:50 Nucleated RBCs # 0.0 /100WBC 12/20/24 10:50 PT 13.60 SECONDS (12.1-14.9) 12/20/24 10:50 INR 0.97 (0.8-1.2) 12/20/24 10:50 APTT 28.1 SECONDS (23.9-36.7) 12/20/24 10:50 Specimen Type Arterial 12/20/24 12:52 Sample Site Radial, right 12/20/24 12:52 ABG pH 7.31 (7.35-7.45) L 12/20/24 12:52 ABG pCO2 59.7 mmHg (35-45) H 12/20/24 12:52 ABG pO2 224.0 mmHg (80.0-100.0) H 12/20/24 12:52 ABG PO2/FiO2 Ratio 224 12/20/24 12:52 ABG HCO3 29.9 mmol/L (22-26) H 12/20/24 12:52 ABG O2 Saturation > 99.1 12/20/24 12:52 ABG Base Excess 2.1 mmol/L (-2.0-2.0) H 12/20/24 12:52 Inderjit Test Pos 12/20/24 12:52 A-a O2 Gradient 54.6 mmHg (5-10) H 12/20/24 12:52 Hematocrit 44.0 % (42-52) 12/20/24 12:52 Hgb O2 Saturation > 100.0 % (95-100) H 12/20/24 12:52 Carboxyhemoglobin 1.6 %THgb (0.4-20.1) 12/20/24 12:52 Methemoglobin < 0.0 % (0.4-1.5) L 12/20/24 12:52 Total Hemoglobin 14.4 g/dL (14-18) 12/20/24 12:52 Sodium 134.0 mmol/L (131-143) 12/20/24 12:52 Potassium 5.2 mmol/L (3.5-5.0) H 12/20/24 12:52 Glucose 170.0 mg/dL (70-115) H 12/20/24 12:52 Ionized Calcium 1.1 mmol/L (1.1-1.4) 12/20/24 12:52 O2 Delivery Device Vent 12/20/24 12:52 FiO2 100.0 % 12/20/24 12:52 Tidal Volume 0.51 12/20/24 12:52 PEEP 8.0 cmH20 12/20/24 12:52 Physician/Ophthalmologist ID [place] 12/20/24 12:52 Sodium 135 mmol/L (136-145) L 12/20/24 10:50 Potassium 4.7 mmol/L (3.5-5.1) 12/20/24 10:50 Chloride 94 mmol/L (98-107) L 12/20/24 10:50 Carbon Dioxide 28 mmol/L (22-29) 12/20/24 10:50 Anion Gap 17.7 (5-19) 12/20/24 10:50 BUN 74 mg/dL (8-23) H 12/20/24 10:50 Creatinine 2.7 mg/dL (0.7-1.2) H 12/20/24 10:50 GFR Calculation 23.8 mL/min (90-130) L 12/20/24 10:50 Glucose 215 mg/dL (65-115) H 12/20/24 10:50 POC Glucose 198 mg/dL (70-110) H 12/20/24 11:22 Calculated Osmolality 308 mOsm/kg (285-295) H 12/20/24 10:50 Lactic Acid 1.1 mmol/L (0.5-2.2) 12/20/24 10:50 Calcium 8.6 mg/dL (8.5-10.5) 12/20/24 10:50 Total Bilirubin 1.3 mg/dL (0.15-1.2) H 12/20/24 10:50 AST 17 U/L (0-40) 12/20/24 10:50 ALT 15 U/L (0-41) 12/20/24 10:50 Alkaline Phosphatase 68 U/L (40-130) 12/20/24 10:50 Troponin T Baseline 56 ng/L (0-15) H 12/20/24 10:50 Troponin T 120 Minute 53.02 ng/L (0-15) H 12/20/24 12:56 Delta Troponin T -2.98 ABS# (0-10) L 12/20/24 12:56 NT-Pro-B Natriuret Pep 690 pg/mL (0-125) H 12/20/24 10:50 Total Protein 7.1 g/dL (6.6-8.7) 12/20/24 10:50 Albumin 3.7 g/dL (3.5-5.2) 12/20/24 10:50 Globulin 3.4 g/dL (1.3-4.6) 12/20/24 10:50 Urine Color Yellow (Yellow) 12/20/24 12:11 Urine Appearance Clear (CLEAR) 12/20/24 12:11 Urine pH 5.0 (5-7) 12/20/24 12:11 Ur Specific [place] 1.020 (1.005-1.030) 12/20/24 12:11 Urine Protein Trace (Negative) A 12/20/24 12:11 Urine Glucose (UA) Negative (Normal) 12/20/24 12:11 Urine Ketones Negative (Negative) 12/20/24 12:11 Urine Blood Negative (Negative) 12/20/24 12:11 Urine Nitrate Negative (Negative) 12/20/24 12:11 Urine Bilirubin Negative (Negative) 12/20/24 12:11 Urine Urobilinogen 1.0 mg/dL (Negative) 12/20/24 12:11 Ur Leukocyte Esterase 1+ (Negative) A 12/20/24 12:11 Urine RBC 0-2 /hpf (0-2) 12/20/24 12:11 Urine WBC 11-20 /hpf (0-5) H 12/20/24 12:11 Ur Squamous Epith Cells 0-5 /hpf (0-5) 12/20/24 12:11 Urine Bacteria None seen /hpf (NONE) 12/20/24 12:11 Hyaline Casts 43.44 /lpf 12/20/24 12:11 Coronavirus (PCR) Negative (Negative) 12/20/24 12:13 Influenza A (PCR) Negative (Negative) 12/20/24 12:13 Influenza Type B (PCR) Negative (Negative) 12/20/24 12:13 RSV (PCR) Negative (Negative) 12/20/24 12:13 All radiology interpretation(s) finalized by discharge Discharge Plan Discharge Patient Disposition: Admitted As Inpatient Admit Provider: Kendall Gleason Clinical Impression: Acute hypoxemic respiratory failure, Morbid obesity, Diabetes, Sepsis, Acute metabolic encephalopathy, Healthcare associated bacterial pneumonia, Hypotension, Acute on chronic renal failure, Congestive heart failure, Coronary artery disease Condition: Stable Coding Level of Care Code ED [facility]
[2024-12-20] MEDS: iohexol 350 mg/mL 500 mL Btl (per mL) IV (11:48)
[2024-12-20 11:52] LABS: INR 0.97 (0.8-1.2)
[2024-12-20 11:53] LABS: Partial Thromboplastin Time 28.1 SECONDS (23.9-36.7)
[2024-12-20 11:57] LABS: Lactic Sepsis W/Reflex 1.1 mmol/L (0.5-2.2)
[2024-12-20 11:59] LABS: Troponin(5th) Baseline 56 ng/L (0-15)
[2024-12-20 12:07] LABS: Alanine Aminotransferase 15 U/L (0-41); Albumin Level 3.7 g/dL (3.5-5.2); Alkaline Phosphatase 68 U/L (40-130); Anion Gap 17.7 (5-19); Aspartate Amino Transferase 17 U/L (0-40); Blood Urea Nitrogen 74 mg/dL (8-23); Calcium 8.6 mg/dL (8.5-10.5); Carbon Dioxide 28 mmol/L (22-29); Chloride 94 mmol/L (98-107); Creatinine Clr Calc Pharmacy 47.7524; Globulin 3.4 g/dL (1.3-4.6); Glomerular Filtration Rate 23.8 mL/min (90-130); Glucose 215 mg/dL (65-115); NT Pro B Type Natriuretic Pept 690 pg/mL (0-125); Osmolality Calculated 308 mOsm/kg (285-295); Potassium 4.7 mmol/L (3.5-5.1); Sodium 135 mmol/L (136-145); Total Bilirubin 1.3 mg/dL (0.15-1.2); Total Protein 7.1 g/dL (6.6-8.7)
[2024-12-20] MEDS: etomidate 2 mg/mL INJ SDV 10 mL 20 MG IVP (12:20)
[2024-12-20 12:32] LABS: Bilirubin Urine Negative (Negative); Blood Urine Negative (Negative); Glucose Urine UA Negative (Normal); Ketones Urine Negative (Negative); Leukocyte Esterase Urine 1+ (Negative); Nitrate Urine Negative (Negative); Protein Urine Trace (Negative); Urine Appearance Clear (CLEAR); Urine Color Yellow (Yellow)
[2024-12-20] MEDS: midazolam hcl 100 MG/100 ML BAG IV (12:32)
[2024-12-20 12:34] LABS: Bacteria Urine None Seen /hpf; Hyaline Casts Urine 43.44 /lpf; RBC Urine 0-2 /hpf (0-2); Squamous Epithelial Cell Urine 0-5 /hpf (0-5)
[2024-12-20 13:02] LABS: ABG PCO2 59.7 mmHg (35-45); ABG PH Result 7.31 (7.35-7.45); Base Excess ABG 2.1 mmol/L (-2.0-2.0); Blood Gas Allen Test Pos; Blood Gas Sample Type Arterial; Carboxyhemoglobin 1.6 %THgb (0.4-20.1); HCO3 ABG 29.9 mmol/L (22-26); HGB O2 Sat > 100.0 % (95-100); Ionized Calcium Level - ABG 1.1 mmol/L (1.1-1.4); Methemoglobin < 0.0 % (0.4-1.5); Oxygen Saturation ABG > 99.1; Potassium Level - ABG 5.2 mmol/L (3.5-5.0); Total Hemoglobin 14.4 g/dL (14-18)
[2024-12-20 13:03] LABS: Alveolar-Arterial Oxygen Gradi 54.6 mmHg (5-10); Blood Gas Operator Identificat WALCI; Blood Gas Sample Site Radial, right; Blood Gas Tidal Volume 0.51; Oxygen Device VENT; PO2 FiO2 Ratio Arterial Blood 224
[2024-12-20 13:04] LABS: UA Slide Review UA Slide Review Perf
[2024-12-20] MEDS: sodium chloride 0.9% 500 ML 999 ML IV ×2 (13:07→15:27)
[2024-12-20] MEDS: meropenem 500 mg SDV IVP ×2 (13:07→21:32)
[2024-12-20] MEDS: linezolid premix 600 MG/300 ML PREMIX 300 MG IV (13:07)
--- NOTE | 2024-12-20 13:07 | P.CONIM_ITS ---
Providers/Reason For Consult 2 Consulting Physician/Specialty*: Enzo Ortega MD neurology and epilepsy Reason for Consult*: Acute care/code stroke emergency department room #11 Primary Care Provider: Manav Vergara DO History of Present Illness History of Present Illness Haroon Parish is a 64 year old male with a history of congestive heart failure with decreased ejection fraction of 15%. Patient also has a history of pacemaker and defibrillator placement, chronic obstructive pulmonary disease severe obesity and type 2 diabetes mellitus. The patient was recently discharged from [facility] when patient elected to have his cardiac workup performed on outpatient basis. [facility] On 12/20/2024 around 9:45 AM the patient was reported to have decreased level consciousness when he was being evaluated on morning rounds but was reported to be conscious earlier during the morning. The patient was reported to have respiratory difficulty with O2 saturations in the 70s on oxygen. There was question of whether the patient had right-sided weakness and downward deviation of the right eye. Code stroke was initiated at 11:20 AM on 12/20/2024. Noncontrast head CT was obtained which was reported to revealed no acute findings. CT angiogram of the head and neck 12/20/2024 revealed no obvious large vessel occlusion. NIH score = 10 (partial gaze paralysis secondary to downward deviation of the right eye= 1, weakness in the right upper extremity =2 with only movement or withdrawal of the right upper extremity to painful stimuli, decreased level consciousness=3, does not follow commands=2). O2 saturation in the 70s on oxygen mask patient being prepped for intubation Point of contact glucose Accu-Chek 198 Due to the patient hypoxia and decreased ejection fraction of 15% and chronic obstructive pulmonary disease and chronic kidney disease, neurologically the patient was deemed not to be a candidate for intravenous thrombolytics and no intravenous thrombolytics were administered Past medical history: Coronary atherosclerotic heart disease status post coronary artery bypass graft Chronic kidney disease Defibrillator placement/pacemaker Congestive heart failure with decreased ejection fraction of 15% Severe obesity Hypertension Acute respiratory failure with hypoxia requiring intubation Drug allergies: Penicillin which resulted in hives Home medications: See MAR Habits: Unknown Social history: The patient was residing in a [facility] care facility Review of Systems 2 General: Reports: ROS unobtainable due to endotracheal tube and ROS unobtainable due to medical condition Medications/Allergies Home Medications ?Medication ?Instructions ?Recorded ?Confirmed ?Last Taken ?Type nitroglycerin 0.4 mg sublingual 0.4 mg sublingual Q5M PRN Chest 02/13/21 12/20/24 Unknown History tablet (Nitrostat) Pain insulin glargine 100 unit/mL 52 unit SUBCUT BID 12/20/24 12/20/24 History subcutaneous solution (Lantus U-100 Insulin) albuterol sulfate 2.5 mg/3 mL 2.5 mg inhalation Q4H 12/20/24 12/20/24 History (0.083 %) solution for nebulization acetaminophen 325 mg tablet 650 mg PO QID PRN Pain 02/0512/20/24 12/20/24 History atorvastatin 10 mg tablet 10 mg PO BEDTIME 05/18/2312/19/24 History bisacodyl 10 mg rectal suppository 10 mg [place] DAILY PRN Constipation 05/18/23 12/20/24 12/20/24 History loperamide 2 mg capsule See Rx Instructions .Route 0 05/18/23 12/20/24 Unknown History .COMPLEX PRN Diarrhea magnesium hydroxide 400 mg/5 mL 30 ml PO DAILY PRN Con stipation 05/18/23 12/20/24 12/20/24 History oral suspension (Milk of Magnesia) metformin 1,000 mg tablet,extended 1,000 mg PO DAILY 0 05/18/23 12/20/24 12/20/24 History release 24hr (osmotic) cetirizine 10 mg tablet 10 mg PO DAILY 12/13/24 0203/1012/20/24 History gabapentin 800 mg tablet 800 mg PO TID 12/13/2412/2012/20/24 History guaifenesin 100 mg/5 mL oral liquid 200 mg PO Q4H PRN Cold Symptoms 12/13/24 12/20/24 Unknown History guaifenesin 600 mg tablet, 600 mg PO Q12H PRN Cold Sym ptoms 12/13/24 12/20/24 12/20/24 History extended release 12 hr insulin aspart 15 unit SUBCUT TID 12/13/24 12/20/24 12/20/24 History (niacinamide)(U-100) 100 unit/mL(3 mL) subcutaneous pen (Fiasp FlexTouch U-100 Insulin) insulin lispro 100 unit/mL 18 unit SUBCUT TID 12/13/24 12/20/24 12/20/24 History subcutaneous pen (Humalog KwikPen (U-100) Insulin) tirzepatide 2.5 mg/0.5 mL 2.5 mg SUBCUT Q7D 12/13/24 0 12/20/24 Unknown History subcutaneous pen injector (Mounjaro) bumetanide 2 mg tablet 2 mg PO BIDAC #60 tabs 12/1712/20/24 12/20/24 Rx hydralazine 50 mg tablet 50 mg PO TID 30 days #90 tab s 12/17/24 12/20/24 Unknown Rx sacubitril 24 mg-valsartan 26 mg 1 tab PO BID #60 tabs 12/17/24 12/20/24 12/20/24 Rx tablet (Entresto) aspirin 81 mg tablet,delayed 81 mg PO DAILY 12/20/24 0 12/20/24 12/20/24 History release metoprolol succinate 25 mg 25 mg PO DAILY 12/20/2403/1012/20/24 History tablet,extended release 24 hr nystatin 100,000 unit/gram topical 1 applic topical BI D 12/20/24 12/20/24 Unknown History powder Allergies Allergy/AdvReac Type Severity Reaction Status Date / Time Penicillins Allergy ALGY-Hives Verified 12/12/24 19:17 Current Medications Generic Name Dose Route Start Last Admin Trade Name Freq PRN Reason Stop Dose Admin Midazolam HCl 100 mg in 100 mls @ 0 mls/hr 12/20/24 12:30 12/20/24 13:05 Versed IV 4 mg/hr .Q0M TESFAYE 4 mls/hr Titration Protocol Per Protocol PFSH Acute 2 PFSH: Medical History (Updated 12/20/24 @ 13:19 by Radha Guerrero MD) CKD (chronic kidney disease) Diabetes HTN (hypertension) Sepsis Pneumonia Atherosclerosis of coronary artery Cardiac resynchronization therapy defibrillator (COMM[employer] INTEGRATOR-D) in place Restless leg syndrome CAP (community acquired pneumonia) MARIA A (acute kidney injury) Morbid obesity Ataxia Pacemaker COPD (chronic obstructive pulmonary disease) BPH (benign prostatic hyperplasia) Weakness Congestive heart failure 02/13/21: LVEF 45-50% Acute exacerbation of chronic obstructive airways disease Surgical History (Updated 12/18/24 @ 00:00 by GASPER Man) S/P CABG (coronary artery bypass graft) Family History Father Diabetes Mother Diabetes Social History Smoking and tobacco/nicotine status: former use of tobacco/nicotine Alcohol intake: former Substance/Drug Use: former Household members: family Housing: House Current occupation: living in [facility] 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 Vitals/I&O/Wt Last Vital Signs Temp 98.1 F 12/20/24 11:10 Pulse 91 12/20/24 12:26 Resp 16 12/20/24 12:31 BP 107/84 12/20/24 12:26 Pulse Ox 98 12/20/24 12:26 O2 Del Method Mechanical Ventilation 12/20/24 12:26 O2 Flow Rate 15 12/20/24 12:18 FiO2 100 12/20/24 12:31 12/19/24 12/20/24 12/20/24 22:59 06:59 14:59 Intake Total 1.45 / 1.45 Balance 1.45 / 1.45 Weight last 48 hrs Weight 450 lb Physical Exam 2 Narrative: NIH score = 10 (partial gaze paralysis secondary to downward deviation of the right eye= 1, weakness in the right upper extremity =2 with only movement or withdrawal of the right upper extremity to painful stimuli, decreased level consciousness=3, does not follow commands=2). O2 saturation in the 70s on oxygen mask patient being prepped for intubation Due to the patient hypoxia and decreased ejection fraction of 15% and chronic obstructive pulmonary disease and chronic kidney disease, neurologically the patient was deemed not to be a candidate for intravenous thrombolytics and no intravenous thrombolytics were administered Head atraumatic. Neck supple. Patient currently with oxygen mask with O2 saturation in the mid 70s with plans to intubate patient by emergency room physician orders. Patient displays decorticate posture but not responding to command and is nonverbal with decreased level consciousness. Patient does move and withdraw all extremities to painful stimuli. Cranial nerves II through XII revealed downward deviation of the right eye. Pupils 4 mm reactive to light and accommodation. Doll's eyes were difficult to assess. There were positive corneal reflexes bilaterally. Motor testing revealed questionable right upper extremity weakness although patient withdraws the right upper extremity to painful stimuli and withdrew the other extremities to painful stimuli. Deep tendon reflex revealed plantar responses bilaterally. Sensory examination was intact to painful stimuli applied to his fingernails and toenails. Throat clear. Lungs revealed no wheezes. Extremities were negative for cyanosis. Patient did have bruising on his abdomen suggestive of remote subcutaneous hematoma Data 12/20/24 10:50 12/20/24 10:50 A&P Assessment and plan (1) Acute metabolic encephalopathy: Impression: 1. Acute metabolic encephalopathy 2. Respiratory failure requiring intubation in the emergency department room #11 3. Congestive heart failure with decreased ejection fraction of 15% 4. Coronary artery disease status post coronary artery bypass graft 5. Cardiac defibrillator/pacemaker placed 6. Morbid obesity 7. Type 2 diabetes mellitus Plan: 1. Agree with current treatment plan 2. Agree with intubation 3. Recommend cardiology evaluation 4. Neurochecks and vital signs per NIH stroke protocol although clinically patient suggesting anoxic versus metabolic encephalopathy PDMP PDMP Reviewed: Not Reviewed Consult Attestations 2 Medical Necessity Statement: The patient was evaluated by neurology for acute care/code stroke emergency department room #11 Coding Level of Care Code 86700 Diagnoses Acute metabolic encephalopathy G93.41
[2024-12-20 13:11] LABS: Add Urine Culture? Yes
--- NOTE | 2024-12-20 13:14 | ECG_ITS ---
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 Measurements Intervals Globe Rate: 82 P: 76 SC: 130 QRS: 269 QRSD: 162 T: 105 QT: 433 QTc: 506 Interpretive Statements ELECTRONIC VENTRICULAR PACEMAKER Compared to ECG 12/20/2024 11:16:09 No significant changes Electronically Signed On 12-22-2024 22:22:13 ROUTE AIDE by Adria Junior M.D. [email or web address]
[2024-12-20 13:18] LABS: Influenza A NEGATIVE (Negative); Influenza B NEGATIVE (Negative); Respiratory Syncytial Virus Ce NEGATIVE (Negative); SARS-CoV-2 PCR NEGATIVE (Negative)
--- NOTE | 2024-12-20 13:22 | XRR_ITS ---
PROCEDURE INFORMATION: Exam: XR Chest Exam date and time: 12/20/2024 1:04 PM Age: 64 years old Clinical indication: Device placement; Ett placement (vent status) TECHNIQUE: Imaging protocol: Radiologic exam of the chest. Views: 1 view. COMPARISON: CR XR chest 1V portable [id number] 12/20/2024 12:15 PM FINDINGS: Tubes, catheters and devices: Interval placement of an endotracheal tube with the tip approximately 4-5 cm above the soledad. Interval placement of nasogastric tube with the tip projecting over the proximal stomach. Pacemaker and sternotomy wires noted. Lungs: There are persistent increased interstitial markings throughout the lungs with cephalization of flow suggestive of pulmonary edema. No dense focal consolidation is seen. Pleural spaces: No significant pleural effusion. Heart/Mediastinum: Moderate stable cardiomegaly. Bones/joints: Intact. Other findings: None. XR/XR chest 1V portable [id number] IMPRESSION: 1. Interval placement of endotracheal and nasogastric tubes in good position. 2. Persistent cardiomegaly with interstitial pulmonary edema suggesting congestive heart failure, not significantly changed. 3. Pacemaker and evidence for prior thoracic surgery.
[2024-12-20] MEDS: albuterol 2.5 mg/3 mL Neb INHALATION (13:27)
[2024-12-20] MEDS: ipratropium-albuterol 3 mL Neb INHALATION ×2 (13:27→15:04)
[2024-12-20 13:29] LABS: Troponin 5 2HR 53.02 ng/L (0-15)
[2024-12-20 13:31] LABS: Troponin 5 2HR Delta -2.98 ABS# (0-10)
[2024-12-20] MEDS: sodium chloride 0.9% 1,000 ML 999 ML IV (13:45)
[2024-12-20] MEDS: methylPREDNISolone sod succ 125 mg/2 mL INJ IVP (13:45)
[2024-12-20] MEDS: succinylcholine 20 mg/mL SDV 10mL 100 MG IV (14:35)
[2024-12-20] MEDS: vecuronium 10 mg SDV IVP (14:36)
[2024-12-20 14:44] LABS: C Reactive Protein 18.8 mg/L (0.0-4.9)
--- NOTE | 2024-12-20 14:47 | CTR_ITS ---
PROCEDURE INFORMATION: Exam: CT Chest Without Contrast; Diagnostic Exam date and time: 12/20/2024 8:28 PM Age: 64 years old Clinical indication: Bloating; Shortness of breath; Additional info: SOB TECHNIQUE: Imaging protocol: Diagnostic computed tomography of the chest without contrast. Radiation optimization: All CT scans at this facility use at least one of these dose optimization techniques: automated exposure control; mA and/or kV adjustment per patient size (includes targeted exams where dose is matched to clinical indication); or iterative reconstruction. COMPARISON: CT lung screening [id number] 12/07/2024 12:01 PM RADIATION DOSE METRICS: Total DLP (mGy-cm): 1516.78 FINDINGS: Tubes, catheters and devices: There is an endotracheal tube in good position, new since the prior study. There is a nasogastric tube in good position, new since the prior study. Trachea: Unremarkable. Lungs: There has been interval development of bilateral lower lobe consolidation. Patchy increased density is again seen within the lingula. Pleural spaces: No significant pleural effusion. No pneumothorax. Heart: Moderately enlarged, stable. No significant pericardial effusion. Mediastinal space: No pathologically enlarged lymph nodes. Lymph nodes: Unremarkable. No enlarged lymph nodes. Vasculature: The thoracic aorta is normal in caliber with mild atherosclerotic calcification. There is moderate coronary arterial calcification. CABG has been performed. Bones/joints: Intact. No acute fracture. There are degenerative changes involving the thoracic spine. Sternotomy wires are noted. Soft tissues: Unremarkable. Other findings: Visualized upper abdominal structures are unremarkable. PROCEDURE INFORMATION: Exam: CT Abdomen And Pelvis Without Contrast Exam date and time: 12/20/2024 8:28 PM Age: 64 years old Clinical indication: Bloating; Shortness of breath; Additional info: SOB TECHNIQUE: Imaging protocol: Computed tomography of the abdomen and pelvis without contrast. Radiation optimization: All CT scans at this facility use at least one of these dose optimization techniques: automated exposure control; mA and/or kV adjustment per patient size (includes targeted exams where dose is matched to clinical indication); or iterative reconstruction. COMPARISON: CT lung screening [id number] 12/07/2024 12:01 PM RADIATION DOSE METRICS: Total DLP (mGy-cm): 1516.78 FINDINGS: Lungs: Visualized lung bases are clear. Liver: Unremarkable. Gallbladder and biliary ducts: No radiopaque stones. No significant ductal dilation. Pancreas: Unremarkable. Spleen: Unremarkable. Adrenal glands: Unremarkable. Kidneys and ureters: There is a 15 mm hypodense lesion in the mid right kidney with Hounsfield units measuring 33 on this postcontrast exam. No significant hydronephrosis. Stomach and bowel: The nasogastric tube tip is seen in the proximal to mid stomach.. Bowel loops are normal in caliber. No evidence for obstruction. There are a few scattered colonic diverticula, including hyperdense diverticula at the hepatic flexure. There is no significant surrounding inflammation to suggest acute diverticulitis. Appendix: Normal in caliber without evidence of appendicitis. Intraperitoneal space: Unremarkable. No free air. No significant fluid collection. Vasculature: The abdominal aorta is normal in caliber. There is [id number] atherosclerotic calcification of the abdominal aorta, celiac axis, superior mesenteric artery, proximal bilateral renal arteries, and bilateral iliac arteries. No abdominal aortic aneurysm. Lymph nodes: Unremarkable. No enlarged lymph nodes. Urinary bladder: Unremarkable as visualized. Reproductive: Unremarkable as visualized. Bones/joints: Intact. No acute fracture. There are degenerative changes involving the thoracic and lumbar spine. Soft tissues: There is a small fat containing umbilical hernia. There are few tiny bubbles of gas in the subcutaneous fat of the left ventral abdominal wall which may be related to subcutaneous injections. There is mild edema within the subcutaneous fat of the body wall. CT/[place] [id number] IMPRESSION: 1. Interval placement of endotracheal and nasogastric tubes in good position. 2. Bilateral lower lobe consolidation, new since December 07, 2024. 3. Stable patchy atelectasis or infiltrate in the lingula. 4. Moderate stable cardiomegaly with evidence for prior CABG. IMPRESSION: 1. Colonic diverticulosis without compelling CT evidence for acute diverticulitis. 2. Small 15 mm hypodense lesion in the mid right kidney with Hounsfield units greater than a simple cyst on this contrast-enhanced exam. There are no prior studies available for comparison. Ultrasound may be helpful for further evaluation. 3. [id number] vascular calcification. COMMENTS: Consistent with the [employer]'s Incidental Findings Committee white paper (J Am Arash Radiol 2018): Any incidental renal lesion less than 1 cm or classified as too small to characterize, or any incidental cystic renal lesion characterized as simple-appearing, is likely benign. No follow-up imaging is recommended for these lesions per consensus recommendations based on imaging criteria.
[2024-12-20 14:52] LABS: Procalcitonin 0.11 ng/mL (0-0.5)
[2024-12-20 14:58] LABS: Partial Thromboplastin Time 28.4 SECONDS (23.9-36.7)
[2024-12-20 15:14] LABS: Estmated Average Glucose 209; Hemoglobin A1C 8.9 % (4.0-6.0)
--- NOTE | 2024-12-20 15:20 | PM.HP ---
Providers/Chief Complaint Admitting Physician: Kendall Gleason MD Primary Care Provider: Manav Vergara DO Chief Complaint: unrespon. History of Present Illness Haroon Parish is a 64 year old male with a past medical history of type 2 diabetes mellitus, insulin-dependent, morbid obesity, sleep apnea, group home resident, systolic diastolic CHF, history of CKD, history of pacemaker placement, COPD who presents to [facility] due to to altered mental status, respiratory failure, stroke alert. Currently patient is intubated, sedated on mechanical ventilation. I spoke to patient's group home [facility] patient has been at [facility] for the last 3 days, was discharged from the hospital CHF exacerbation recently. He is a Angely lift, he has not been having any complaints no confusion, no falls, no fevers, no chills, no cough. This morning he was alert awake following all commands, when nursing staff had Angely lifted him up out of bed into a chair, when he got into the chair he became limp and unresponsive, he would awaken but would have slurring of his words they did not notice any facial droop, but was quite encephalopathic so they Angely lifted him back into bed, he remained at times unresponsive, both were awaken, slurring of his words, remained encephalopathic so EMS was called. His last known well normal was 9:45 AM according to EMS who had right-sided weakness, minimally responsive to ER provider hypoxic on 4 L, found to have medial diet aviation of right eye, neurology was consulted, NIH stroke scale on admission was 10, CT head no acute findings, CTA no large vessel occlusion, blood sugar 198, he was hypoxic O2 sats in the 70s, on oxygen, was deemed not to be candidate for intravenous thrombolytics and none were administered. On examination, patient continues to have downward and medial deviation of right eye, does have a pupillary defect of right eye, pupils are minimally reactive to light, dilated, is on Versed Review of Systems General: Reports: ROS unobtainable due to endotracheal tube and ROS unobtainable due to mental status Medications/Allergies Home Medications ?Medication ?Instructions ?Recorded ?Confirmed ?Last Taken ?Type nitroglycerin 0.4 mg sublingual 0.4 mg sublingual Q5M PRN Chest 02/13/21 12/20/24 Unknown History tablet (Nitrostat) Pain insulin glargine 100 unit/mL 52 unit SUBCUT BID 09/05/21 12/20/24 12/20/24 History subcutaneous solution (Lantus U-100 Insulin) albuterol sulfate 2.5 mg/3 mL 2.5 mg inhalation Q4H 10/01/22 12/20/24 12/20/24 History (0.083 %) solution for nebulization acetaminophen 325 mg tablet 650 mg PO QID PRN Pain 05/18/23 12/20/24 12/20/24 History atorvastatin 10 mg tablet 10 mg PO BEDTIME 05/18/23 12/20/24 12/19/24 History bisacodyl 10 mg rectal suppository 10 mg CO DAILY PRN Constipation 05/18/23 12/20/24 12/20/24 History loperamide 2 mg capsule See Rx Instructions .Route 05/18/23 12/20/24 Unknown History .COMPLEX PRN Diarrhea magnesium hydroxide 400 mg/5 mL 30 ml PO DAILY PRN Constipation 05/18/23 12/20/24 12/20/24 History oral suspension (Milk of Magnesia) metformin 1,000 mg tablet,extended 1,000 mg PO DAILY 05/18/23 12/20/24 12/20/24 History release 24hr (osmotic) cetirizine 10 mg tablet 10 mg PO DAILY 12/13/24 12/20/24 12/20/24 History gabapentin 800 mg tablet 800 mg PO TID 12/13/24 12/20/24 12/20/24 History guaifenesin 100 mg/5 mL oral liquid 200 mg PO Q4H PRN Cold Symptoms 12/13/24 12/20/24 Unknown History guaifenesin 600 mg tablet, 600 mg PO Q12H PRN Cold Symptoms 12/13/24 12/20/24 12/20/24 History extended release 12 hr insulin aspart 15 unit SUBCUT TID 12/13/24 12/20/24 12/20/24 History (niacinamide)(U-100) 100 unit/mL(3 mL) subcutaneous pen (Fiasp FlexTouch U-100 Insulin) insulin lispro 100 unit/mL 18 unit SUBCUT TID 12/13/24 12/20/24 12/20/24 History subcutaneous pen (Humalog KwikPen (U-100) Insulin) tirzepatide 2.5 mg/0.5 mL 2.5 mg SUBCUT Q7D 12/13/24 12/20/24 Unknown History subcutaneous pen injector (Mirna) bumetanide 2 mg tablet 2 mg PO BIDAC #60 tabs 12/17/24 12/20/24 12/20/24 Rx hydralazine 50 mg tablet 50 mg PO TID 30 days #90 tabs 12/17/24 12/20/24 Unknown Rx sacubitril 24 mg-valsartan 26 mg 1 tab PO BID #60 tabs 12/17/24 12/20/24 12/20/24 Rx tablet (Entresto) aspirin 81 mg tablet,delayed 81 mg PO DAILY 12/20/24 12/20/24 12/20/24 History release metoprolol succinate 25 mg 25 mg PO DAILY 12/20/24 12/20/24 12/20/24 History tablet,extended release 24 hr nystatin 100,000 unit/gram topical 1 applic topical BID 12/20/24 12/20/24 Unknown History powder Allergies Allergy/AdvReac Type Severity Reaction Status Date / Time Penicillins Allergy ALGY-Hives Verified 12/12/24 19:17 PFSH Acute PFSH: Medical History (Updated 12/20/24 @ 15:29 by Kendall Gleason MD) Pneumonia CKD (chronic kidney disease) Diabetes HTN (hypertension) Sepsis Atherosclerosis of coronary artery Cardiac 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 Restless leg syndrome CAP (community acquired pneumonia) MARIA A (acute kidney injury) Morbid obesity Ataxia Pacemaker COPD (chronic obstructive pulmonary disease) BPH (benign prostatic hyperplasia) Weakness Congestive heart failure 02/13/21: LVEF 45-50% Acute exacerbation of chronic obstructive airways disease Surgical History S/P CABG (coronary artery bypass graft) Family History Father Diabetes Mother Diabetes Social History Smoking and tobacco/nicotine status: former use of tobacco/nicotine Alcohol intake: former Substance/Drug Use: former Household members: family Housing: House Current occupation: living in [facility] 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 Vitals/I&O/Wt Last Vital Signs Temp 98.1 F 12/20/24 11:10 Pulse 73 12/20/24 15:05 Resp 18 12/20/24 15:05 BP 100/78 12/20/24 13:45 Pulse Ox 92 12/20/24 15:05 O2 Del Method Mechanical Ventilation 12/20/24 15:05 O2 Flow Rate 15 12/20/24 12:18 FiO2 60 12/20/24 15:05 12/20/24 12/20/24 12/20/24 06:59 14:59 22:59 Intake Total 1.45 / 1.45 1808.2 / 1809.65 Balance 1.45 / 1.45 1808.2 / 1809.65 Weight last 48 hrs Weight 204.117 kg Physical Exam Const: COMMON NORMALS: no acute distress EXAM LIMITATIONS: altered mental status ORIENTATION/CONSCIOUSNESS: not awake, not oriented to person, not oriented to place and not oriented to time OTHER: Intubated, sedated on mechanical ventilation Eye: OTHER: Right eye, downward and inward deviation, pupillary defect minimally reactive to light, pupils dilated Left eye, minimally reactive to light Neck/C-Spine: COMMON NORMALS: full ROM and no lymphadenopathy Lymph: LYMPHATIC: no lymphadenopathy noted Resp: COMMON NORMALS: normal respiratory effort, No retractions, No use of accessory muscles and clear to auscultation bilaterally AUSCULTATION: clear to auscultation bilaterally Cardio: COMMON NORMALS: regular rate, regular rhythm, S1 normal heart sound present and S2 normal heart sound present RATE: regular rate RHYTHM: regular rhythm HEART SOUNDS: S1 normal heart sound present and S2 normal heart sound present GI: COMMON NORMALS: Normal to inspection, nondistended, normoactive bowel sounds present, Soft to palpation and non-tender Extremity: COMMON NORMALS: no calf tenderness and no pedal edema Neuro: OTHER: Does not follow neurologic testing Urinary Catheter Management: Russo: Cath Placed During This Visit: yes Urinary Catheter Date of Insertion: 12/20/24 Urinary Catheter Time of Insertion: 12:00 Sepsis: Is patient septic: Yes Focused sepsis exam performed: Yes Focused sepsis exam: DP PT pulses diminished but palpable, cool extremities, but no mottling, cap refill greater than 2 seconds Date exam was performed: 12/20/24 Time exam was performed: 14:30 Data 12/20/24 10:50 12/20/24 10:50 Micro: Microbiology 12/20/24 12:45 Gram Stain - Final Sputum - Endotracheal Tube Aspirate 12/20/24 12:56 Blood Culture - Preliminary Blood SPECIMEN COLLECTED 12/20/24 12:51 Blood Culture - Preliminary Blood SPECIMEN COLLECTED A&P Assessment and plan (1) S/P CABG (coronary artery bypass graft): (2) Coronary artery disease: (3) Diabetes: (4) Morbid obesity: (5) MARIA A (acute kidney injury): (6) CKD (chronic kidney disease): (7) Sepsis: (8) Acute metabolic encephalopathy: (9) Acute respiratory failure with hypoxia and hypercapnia: (10) Septic shock: (11) Acute CVA (cerebrovascular accident): (12) Pneumonia: (13) NSTEMI (non-ST elevated myocardial infarction): Plan Acute encephalopathy -Could be a brainstem stroke -Could be from hypoxia -Could be from pneumonia possible aspiration event -Check ammonia levels -Respiratory viral panel within normal limits -You within normal limits -CT head no acute findings -CTA head and neck no acute findings Plan -Neurochecks -Aspiration precaution -NIH stroke scale -Aspirin -Statin -IV fluids -Will try to minimize sedation monitor mentation -Allow for permissive hypertension -Broad-spectrum antibiotic therapy -Ammonia levels -Currently intubated, sedated -Will consider EEG based on clinical progress -Neurology consulted Acute hypoxic respiratory failure -Persistent hypoxia, respiratory failure in the emergency room requiring intubation mechanical ventilation -Likely from pneumonia, concerns for aspiration pneumonia -With underlying COPD, CHF Plan -Currently intubated, sedated, mechanical ventilation -Propofol for sedation -Fentanyl for sedation -Stop Versed -Minimize tidal volume, minimize FiO2 -Broad-spectrum antibody therapy -Vancomycin -Meropenem -Blood cultures -Sputum cultures -DuoNeb -CT chest ordered Sepsis with septic shock -Sepsis features met given leukocytosis, respiratory failure, hypoxia, elevated troponins MARIA A -Patient will likely require pressors as maps are 60-65 despite fluid therapy -Levophed to maintain MAP greater than 65 MARIA A on CKD -Could be from sepsis -IV fluids -Monitor urine output monitor creatinine -Renal ultrasound Type 2 diabetes mellitus -Low-dose sliding scale NSTEMI -Serial EKGs, short troponins, telemetry monitoring -Continue aspirin, statin -Echocardiogram during last hospitalization CONCLUSIONS Moderately increased left ventricular cavity size. Severely decreased left ventricular systolic function. Left ventricular ejection fraction is estimated at 15 %. No significant valve abnormalities. There is no pericardial effusion. PDMP PDMP Reviewed: Not Reviewed Attestations Medical Necessity Statement*: Patient requires hospitalization, inpatient, greater than 2 midnights for acute hypoxic respiratory failure, acute encephalopathy, pneumonia, sepsis, septic shock, MARIA A possible CVA Coding Level of Care Code Critical Care >/= 30 minutes Critical care time (in minutes): 50 The high probability of a clinically significant, sudden or life threatening deterioration, as referenced in this documentation, required my full and direct attention, intervention and personal management. The critical care time shown is in addition to time spent performing any reported separately billable procedures and includes the following: [x] Data and vital sign review and interpretation [x] Patient assessment, examination and intervention [x] Medication orders and management [x] Patient/Family updates as able [x] Care Coordination and Documentation. Diagnoses S/P CABG (coronary artery bypass graft) Z95.1 Coronary artery disease I25.10 Diabetes E11.9 Morbid obesity E66.01 MARIA A (acute kidney injury) N17.9 CKD (chronic kidney disease) N18.9 Sepsis A41.9 Acute metabolic encephalopathy G93.41 Acute respiratory failure with hypoxia and hypercapnia J96.01; J96.02 Septic shock A41.9; R65.21 Acute CVA (cerebrovascular accident) I63.9 Pneumonia J18.9 NSTEMI (non-ST elevated myocardial infarction) I21.4
[2024-12-20] MEDS: gabapentin 400 mg Capsule 800 MG PO ×2 (15:24→21:32)
[2024-12-20] MEDS: propofol 1,000 MG/100 ML INJ 6.12 MG IV (15:24)
[2024-12-20] MEDS: pantoprazole 40 mg SDV IVP (15:24)
[2024-12-20] MEDS: fentaNYL 1,000 MCG/100 ML BAG 2.5 MCG IV (15:24)
[2024-12-20] MEDS: aspirin 325 mg EC Tablet PO (15:24)
[2024-12-20] MEDS: sodium chloride 0.9% 1,000 ML 75 ML IV (15:27)
[2024-12-20] MEDS: norepinephrine 4 MG/250 ML BAG 7.5 MG IV (15:29)
[2024-12-20 15:31] LABS: Chol HDL Ratio 4.85 mg/dL (1.0-5.00); Cholesterol 131 mg/dL (0-200); HDL Cholesterol 27 mg/dL (60-100); LDL Cholesterol Calculated 79 mg/dL (50-129); LDL HDL Ratio 2.93 RATIO (0.00-3.22); Thyroid Stimulating Hormone 0.96 uIU/mL (0.27-4.20); Triglycerides 125 mg/dL (0-150)
--- NOTE | 2024-12-20 15:45 | PHA.VACGOAL ---
Vancomycin Goal - Goal Vancomycin Goal:: 15-20 mg/L Vancomycin Indication:: Pneumonia - Therapy Current therapy:: Meropenem Day of therpy:: Day []of [] . Actual body weight (kg): 450 lb - Data Labs: WBC 15.78 10^3/uL (3.29-11.43) H 12/20/24 10:50 RBC 5.72 10^6/uL (3.85-5.65) H 12/20/24 10:50 Hgb 14.30 g/dL (11.27-16.99) 12/20/24 10:50 Hct 48.7 % (37-53) 12/20/24 10:50 MCV 85.1 fl (82-101) 12/20/24 10:50 MCH 25.0 pg (27-33) L 12/20/24 10:50 MCHC 29.4 g/dL (30-55) L 12/20/24 10:50 RDW 18.1 % (12.1-15.1) H 12/20/24 10:50 Sodium 135 mmol/L (136-145) L 12/20/24 10:50 Potassium 4.7 mmol/L (3.5-5.1) 12/20/24 10:50 Chloride 94 mmol/L (98-107) L 12/20/24 10:50 Carbon Dioxide 28 mmol/L (22-29) 12/20/24 10:50 Anion Gap 17.7 (5-19) 12/20/24 10:50 BUN 74 mg/dL (8-23) H 12/20/24 10:50 Creatinine 2.7 mg/dL (0.7-1.2) H 12/20/24 10:50 GFR Calculation 23.8 mL/min (90-130) L 12/20/24 10:50 Last dialysis session:: N/A Treatment plan:: new consult Regimen:: INITIAL LOADING DOSE OF 3000 MG PER DOSING PROTOCOL MAINTENANCE DOSE OF 1000 MG Q12H Follow up:: WILL CONTINUE TO MONITOR AND FOLLOW UP DAILY
--- NOTE | 2024-12-20 16:48 | XRR_ITS ---
PROCEDURE INFORMATION: Exam: XR Chest Exam date and time: 12/20/2024 5:22 PM Age: 64 years old Clinical indication: Device placement; Picc; Prior surgery; Surgery date: 6+ months; Surgery type: Open heart pacer; Additional info: Post picc insertion, yfn placing in icu 2. Should be ready at 1720 TECHNIQUE: Imaging protocol: Radiologic exam of the chest. Views: 1 view. COMPARISON: CR XR chest 1V portable [id number] 12/20/2024 1:04 PM FINDINGS: Tubes, catheters and devices: The endotracheal tube and nasogastric tube are again noted, unchanged in position. There has been interval placement of a right-sided PICC with the tip at the junction of the superior vena cava and right atrium. Pacemaker is noted. Lungs: There is persistent mild interstitial pulmonary edema. There is increased density at the lung bases bilaterally suspicious for interval development of bibasilar atelectasis or infiltrate. Pleural spaces: Increased density at the lung bases bilaterally may be partly related to pleural effusions. Heart/Mediastinum: There is moderate enlargement of the cardiomediastinal silhouette. Sternotomy wires are noted. Bones/joints: Unremarkable. Other findings: None. XR/XR chest 1V portable [id number] IMPRESSION: 1. Interval placement of right-sided PICC in good position. 2. Endotracheal tube and nasogastric tube unchanged. 3. Persistent cardiomegaly with mild interstitial pulmonary edema suspicious for congestive heart failure, not significantly changed. 4. Increased density at the lung bases bilaterally suspicious for bibasilar atelectasis versus infiltrate and/or pleural effusions. 5. Evidence for prior thoracic surgery.
--- NOTE | 2024-12-20 17:08 | PC.NURSE ---
Dr. Gleason called due to hypotension. Order received to give 500ml bolus and order for levophed if needed. Verbal order from Dr. Gleason to hold ct scan until after blood pressures stabilize.
[2024-12-20 17:16] LABS: Glucose Point of Care 217 mg/dL (70-110)
[2024-12-20 17:26] LABS: Troponin 5 6HR 53.89 ng/L (0-15)
[2024-12-20 17:27] LABS: Ammonia 66 umol/L (16-60)
--- NOTE | 2024-12-20 17:27 | ECG_ITS ---
[facility]: 2024-12-20 Pat Name: Haroon Parish Department: Room: ICU02 Gender: Male Modern Languages Professor: : 1960 Requested By: Radha Hathaway Order Number: [id number] Edwards MD: Adria Junior M.D. Measurements Intervals [place] Rate: 67 P: 60 KS: 159 QRS: -14 QRSD: 164 T: 47 QT: 456 QTc: 484 Interpretive Statements ELECTRONIC VENTRICULAR PACEMAKER* Compared to ECG 12/20/2024 13:14:05 ST (T wave) deviation now present Electronically Signed On 12-22-2024 22:21:37 PUBLIC HEALTH DIRECTOR by Adria Junior M.D. [email or web address]
[2024-12-20 17:30] LABS: Troponin 5 6HR Delta -2.11 ng/L (0-12)
[2024-12-20] MEDS: vancomycin 3,000 MG/600 ML PIGGYBACK 200 MG IV (18:20)
[2024-12-20] MEDS: insulin lispro 100 unit/1 mL SUBCUT ×2 (18:21→21:33)
[2024-12-20 18:26] LABS: ABG PCO2 41.3 mmHg (35-45); ABG PH Result 7.41 (7.35-7.45); Alveolar-Arterial Oxygen Gradi 41.4 mmHg (5-10); Arterial Blood Gas Hematocrit 42.9 % (42-52); Base Excess ABG 1.1 mmol/L (-2.0-2.0); Blood Gas Allen Test Pos; Blood Gas Operator Identificat CAK; Blood Gas Sample Site Brachial, left; Blood Gas Sample Type Arterial; Blood Gas Tidal Volume 0.51; Carboxyhemoglobin 1.5 %THgb (0.4-20.1); HCO3 ABG 25.9 mmol/L (22-26); HGB O2 Sat 90.4 % (95-100); Ionized Calcium Level - ABG 1.1 mmol/L (1.1-1.4); Oxygen Device VENT; Oxygen Saturation ABG 92.7; PO2 ABG 60.4 mmHg (80.0-100.0); PO2 FiO2 Ratio Arterial Blood 100; Potassium Level - ABG 4.4 mmol/L (3.5-5.0)
--- NOTE | 2024-12-20 18:32 | PICC.NOTE ---
Triple lumen PICC placed to right basilic vein. Referred to vascular access nurse for PICC placement due to poor access and possible need for vasopressors. Unable to reach next of kin. Urgent consent given per Dr. Gleason. Right arm assessed with right basilic vein measuring 5.0 mm, straight, and apparent best choice for placement. Using sterile technique and MST, right basilic vein accessed x 1 stick. Mid-arm circumference measured 10 cm from right AC 41 cm. Trimmed cath 50 cm with 0 cm external length noted. CXR shows tip in SVC, in good position for use per radiologist. Line secured with stat-lock. Insertion site covered with Secureport IV, Biopatch, and TSM. Report given to bedside nurse, LALA Cordova.
--- NOTE | 2024-12-20 18:48 | PC.NURSE ---
Versed wasted with Carli Joaquin RN
[2024-12-20] MEDS: propofol 1,000 MG/100 ML INJ 18.37 MG IV (21:04)
[2024-12-20 21:30] LABS: Glucose Point of Care 248 mg/dL (70-110)
[2024-12-20] MEDS: atorvastatin 40 mg Tablet PO (21:32)
[2024-12-20] MEDS: enoxaparin 40 mg/0.4 mL Syringe SUBCUT (21:32)
[2024-12-21] VITALS (103 sets, daily range): BP systolic 85–147; BP diastolic 56–113; PULSE 60–86; RESP 16; TEMP 36.2–36.8; O2SAT 90–100
[2024-12-21] MEDS: fentaNYL 1,000 MCG/100 ML BAG 10 MCG IV (01:11)
[2024-12-21] MEDS: propofol 1,000 MG/100 ML INJ 30.62 MG IV (01:13)
[2024-12-21] MEDS: meropenem 500 mg SDV IVP ×3 (03:39→20:41)
[2024-12-21 04:26] LABS: Basophils % 0.1 %; Hematocrit 44.5 % (37-53); Lymphocytes # 0.8 10^3/uL (0.8-4.8); Lymphocytes % 5.8 %; Mean Corpuscular HGB Conc 30.6 g/dL (30-55); Mean Corpuscular Hemoglobin 25.3 pg (27-33); Mean Corpuscular Volume 82.7 fl (82-101); Mean Platelet Volume 11.8 fL (7.4-10.4); Monocytes # 0.7 10^3/uL (0.2-0.9); Monocytes % 5.5 %; Neutrophils # 11.78 10^3/uL (1.8-7.7); Neutrophils % 88.1 %; Nucleated Red Blood Cells % 0 %; Platelet Count 143 10^3/cmm (157-399); Red Blood Count 5.38 10^6/uL (3.85-5.65); Red Cell Distribution Width 17.5 % (12.1-15.1); White Blood Count 13.39 10^3/uL (3.29-11.43)
[2024-12-21] MEDS: propofol 1,000 MG/100 ML INJ 24.49 MG IV ×2 (04:55→09:21)
[2024-12-21 04:57] LABS: Base Excess ABG -0.8 mmol/L (-2.0-2.0); Blood Gas Allen Test Pos; Blood Gas Sample Site Radial, right; Blood Gas Sample Type Arterial; Blood Gas Tidal Volume 0.51; HCO3 ABG 23.9 mmol/L (22-26); Oxygen Device VENT; PO2 ABG 64.1 mmHg (80.0-100.0); PO2 FiO2 Ratio Arterial Blood 106
[2024-12-21 05:07] LABS: INR 0.99 (0.8-1.2)
[2024-12-21 05:11] LABS: Lactate (Lactic Acid level) 1.6 mmol/L (0.5-2.2)
[2024-12-21 05:21] LABS: NT Pro B Type Natriuretic Pept 841 pg/mL (0-125)
[2024-12-21 05:33] LABS: Alanine Aminotransferase 11 U/L (0-41); Albumin Level 2.9 g/dL (3.5-5.2); Alkaline Phosphatase 57 U/L (40-130); Anion Gap 18.4 (5-19); Aspartate Amino Transferase 16 U/L (0-40); Blood Urea Nitrogen 67 mg/dL (8-23); C Reactive Protein 43.4 mg/L (0.0-4.9); Calcium 8.3 mg/dL (8.5-10.5); Carbon Dioxide 22 mmol/L (22-29); Chloride 97 mmol/L (98-107); Globulin 3.7 g/dL (1.3-4.6); Glomerular Filtration Rate 33.6 mL/min (90-130); Glucose 268 mg/dL (65-115); Magnesium 2.4 mg/dL (1.7-2.3); Osmolality Calculated 305 mOsm/kg (285-295); Phosphorus 2.8 mg/dL (2.5-4.5); Potassium 4.4 mmol/L (3.5-5.1); Sodium 133 mmol/L (136-145); Total Bilirubin 0.8 mg/dL (0.15-1.2); Total Protein 6.6 g/dL (6.6-8.7)
[2024-12-21] MEDS: VANCOMYCIN ADD-Vantage 1,000 MG in 0.9% NaCl ADD-Vantage 250 ML 250 MG IV ×2 (06:08→17:46)
--- NOTE | 2024-12-21 07:00 | XRR_ITS ---
PROCEDURE INFORMATION: Exam: XR Chest Exam date and time: 12/21/2024 4:31 AM Age: 64 years old Clinical indication: Shortness of breath; Additional info: SOB TECHNIQUE: Imaging protocol: Radiologic exam of the chest. Views: 1 view. COMPARISON: [place] [id number] 02/15/2025 20:28 FINDINGS: Tubes, catheters and devices: Endotracheal tube is in satisfactory position. Right sided PICC is in satisfactory position, with distal tip at the level of the SVC/RA junction. Feeding tube is in satisfactory position. A cardiac pacing device is again seen projecting over the left chest. Lungs: Low lung volumes. There are increased lung markings and haziness of the lungs in association with small bilateral pleural effusions, which in the setting of cardiomegaly is consistent with pulmonary edema. Pneumonia should be excluded clinically. No pneumothorax. Pleural spaces: See Lungs finding. Heart/Mediastinum: Stable cardiomediastinal silhouette. Bones/joints: Median sternotomy changes seen. Degenerative changes of the spine seen. XR/XR chest 1V portable [id number] IMPRESSION: Imaging findings of pulmonary edema with small bilateral pleural effusions. Pneumonia should be considered in the adequate clinical setting.
[2024-12-21] MEDS: sodium chloride 0.9% 1,000 ML 75 ML IV (07:15)
[2024-12-21] MEDS: ipratropium-albuterol 3 mL Neb INHALATION ×3 (08:14→20:01)
[2024-12-21 08:43] LABS: Glucose Point of Care 273 mg/dL (70-110)
[2024-12-21] MEDS: aspirin 325 mg EC Tablet PO (08:47)
[2024-12-21] MEDS: insulin lispro 100 unit/1 mL SUBCUT ×4 (08:47→20:40)
[2024-12-21] MEDS: gabapentin 400 mg Capsule 800 MG PO ×3 (08:47→20:40)
[2024-12-21 12:47] LABS: Glucose Point of Care 268 mg/dL (70-110)
[2024-12-21] MEDS: fentaNYL 1,000 MCG/100 ML BAG 7.5 MCG IV (12:57)
[2024-12-21] MEDS: pantoprazole 40 mg SDV IVP (15:17)
--- NOTE | 2024-12-21 16:18 | P.PN_ITS ---
Subjective 2 Subjective: Patient was seen this morning, is intubated, sedated on mechanical ventilation, no acute events overnight afebrile 60% FiO2, remains off pressors, Vitals/I&O/Wt Last Vital Signs Temp 98.2 F 12/21/24 12:00 Pulse 60 12/21/24 14:15 Resp 16 12/21/24 16:00 BP 95/60 12/21/24 14:15 Pulse Ox 98 12/21/24 16:00 O2 Del Method Mechanical Ventilation 12/21/24 13:34 O2 Flow Rate 15 12/20/24 12:18 FiO2 40 12/21/24 16:00 12/21/24 12/21/24 12/21/24 06:59 14:59 22:59 Intake Total 1267.342 / 4329.983 413.799 / 413.799 Output Total 1400 / 1400 Balance -132.658 / 2929.983 413.799 / 413.799 Weight last 48 hrs Weight 170.232 kg Weight 165 kg Weight 204.117 kg Physical Exam 2 Const: COMMON NORMALS: no acute distress ORIENTATION/CONSCIOUSNESS: not awake, not oriented to person, not oriented to place and not oriented to time OTHER: Intubated, sedated on mechanical ventilation Eye: OTHER: Pupils are reactive to light, right eye deviated medially and down Resp: COMMON NORMALS: normal respiratory effort, No retractions, No use of accessory muscles and clear to auscultation bilaterally AUSCULTATION: clear to auscultation bilaterally Cardio: COMMON NORMALS: regular rate, regular rhythm, S1 normal heart sound present and S2 normal heart sound present RATE: regular rate RHYTHM: r egular rhythm HEART SOUNDS: S1 normal heart sound present and S2 normal heart sound present GI: COMMON NORMALS: Normal to inspection, nondistended, normoactive bowel sounds present and non-tender Extremity: COMMON NORMALS: no pedal edema Neuro: SENSORIUM/ORIENTATION: No oriented to person, No oriented to place and No oriented to time Urinary Catheter Management: Russo: Cath Placed During This Visit: yes Reason for Continuing Indwelling Catheter: Accurate Measurement of Urinary Output in Critically Ill Patients Urinary Catheter Date of Insertion: 12/20/24 Urinary Catheter Time of Insertion: 12:00 Data 12/21/24 03:49 12/21/24 04:48 Micro: Microbiology 12/20/24 12:45 Gram Stain - Final Sputum - Endotracheal Tube Aspirate Sputum Culture - Final Moraxella catarrhalis 12/20/24 12:56 Blood Culture - Preliminary Blood NEGATIVE TO DATE 12/20/24 12:51 Blood Culture - Preliminary Blood NEGATIVE TO DATE 12/20/24 12:11 Urine Culture - Preliminary Urine,Clean Catch Gram Negative Rods A&P Assessment and plan (1) S/P CABG (coronary artery bypass graft): (2) Coronary artery disease: (3) Diabetes: (4) Morbid obesity: (5) MARIA A (acute kidney injury): (6) CKD (chronic kidney disease): (7) Sepsis: (8) Acute metabolic encephalopathy: (9) Acute respiratory failure with hypoxia and hypercapnia: (10) Septic shock: (11) Acute CVA (cerebrovascular accident): (12) Pneumonia: (13) NSTEMI (non-ST elevated myocardial infarction): Plan Acute encephalopathy -Could be a brainstem stroke -Could be from hypoxia -Could be from pneumonia possible aspiration event, pneumonia sputum cultures are growing Moraxella -Check ammonia levels elevated 66, monitor -Respiratory viral panel within normal limits -You within normal limits -CT head no acute findings -CTA head and neck no acute findings -CT chest shows bilateral lower lobe consolidation, stable patchy atelectasis or infiltrate in the lingula Plan -Neurochecks -Aspiration precaution -NIH stroke scale -Aspirin -Statin -IV fluids currently on hold due to fluid overload -Will try to minimize sedation monitor mentation -Allow for permissive hypertension -Broad-spectrum antibiotic therapy vancomycin, meropenem -Ammonia levels -Currently intubated, sedated -Will consider EEG based on clinical progress -Neurology consulted Acute hypoxic respiratory failure -Persistent hypoxia, respiratory failure in the emergency room requiring intubation mechanical ventilation -Likely from pneumonia, concerns for aspiration pneumonia -With underlying COPD, CHF Plan -Currently intubated, sedated, mechanical ventilation -Propofol for sedation -Fentanyl for sedation -Add Precedex -Minimize tidal volume, minimize FiO2 -Broad-spectrum antibody therapy -Vancomycin -Meropenem -Blood cultures -Sputum cultures -DuoNeb Urinary tract infection, urine showing gram-negative rods -Continue meropenem Sepsis with septic shock -Sepsis features met given leukocytosis, respiratory failure, hypoxia, elevated troponins MARIA A -Patient will likely require pressors as maps are 60-65 despite fluid therapy -Levophed to maintain MAP greater than 65 MARIA A on CKD -Could be from sepsis -IV fluids -Monitor urine output monitor creatinine -Renal ultrasound Type 2 diabetes mellitus -Low-dose sliding scale NSTEMI -Serial EKGs, short troponins, telemetry monitoring -Continue aspirin, statin -Echocardiogram during last hospitalization CONCLUSIONS Moderately increased left ventricular cavity size. Severely decreased left ventricular systolic function. Left ventricular ejection fraction is estimated at 15 %. No significant valve abnormalities. There is no pericardial effusion. Plan for today minimize sedation, neurochecks, check for reflexes, sedation vacation, continue IV antibiotics, monitor respiratory status closely, 1 dose IV Lasix PDMP PDMP Reviewed: Not Reviewed Attestations 2 Medical Necessity Statement*: Patient requires hospitalization for acute encephalopathy, UTI, pneumonia, acute respiratory failure, sepsis, MARIA A Coding Level of Care Code Critical Care >/= 30 minutes Critical care time (in minutes): 40 The high probability of a clinically significant, sudden or life threatening deterioration, as referenced in this documentation, required my full and direct attention, intervention and personal management. The critical care time shown is in addition to time spent performing any reported separately billable procedures and includes the following: [x] Data and vital sign review and interpretation [x ] Patient assessment, examination and intervention [x] Medication orders and management [x] Patient/Family updates as able [x] Care Coordination and Documentation. Diagnoses S/P CABG (coronary artery bypass graft) Z95.1 Coronary artery disease I25.10 Diabetes E11.9 Morbid obesity E66.01 MARIA A (acute kidney injury) N17.9 CKD (chronic kidney disease) N18.9 Sepsis A41.9 Acute metabolic encephalopathy G93.41 Acute respiratory failure with hypoxia and hypercapnia J96.01; J96.02 Septic shock A41.9; R65.21 Acute CVA (cerebrovascular accident) I63.9 Pneumonia J18.9 NSTEMI (non-ST elevated myocardial infarction) I21.4
[2024-12-21] MEDS: propofol 1,000 MG/100 ML INJ 18.37 MG IV (16:49)
[2024-12-21 17:46] LABS: Glucose Point of Care 190 mg/dL (70-110)
[2024-12-21 20:25] LABS: Glucose Point of Care 191 mg/dL (70-110)
[2024-12-21] MEDS: enoxaparin 40 mg/0.4 mL Syringe SUBCUT (20:40)
[2024-12-21] MEDS: atorvastatin 40 mg Tablet PO (20:40)
[2024-12-22] VITALS (107 sets, daily range): BP systolic 82–162; BP diastolic 49–105; PULSE 60–84; RESP 16; TEMP 36.4–37.3; O2SAT 91–100; BMI 55.7
[2024-12-22] MEDS: propofol 1,000 MG/100 ML INJ 18.37 MG IV ×2 (00:10→06:04)
[2024-12-22] MEDS: fentaNYL 1,000 MCG/100 ML BAG 7.5 MCG IV ×2 (01:52→22:07)
[2024-12-22] MEDS: norepinephrine 4 MG/250 ML BAG 7.5 MG IV (01:58)
[2024-12-22] MEDS: meropenem 500 mg SDV IVP ×2 (03:28→13:18)
[2024-12-22 04:18] LABS: Basophils # 0.1 10^3/uL (0.0-0.1); Basophils % 0.5 %; Eosinophils # 0.1 10^3/uL (0.0-0.8); Eosinophils % 0.4 %; Hematocrit 43.3 % (37-53); Lymphocytes # 1.5 10^3/uL (0.8-4.8); Lymphocytes % 11.2 %; Mean Corpuscular HGB Conc 29.8 g/dL (30-55); Mean Corpuscular Hemoglobin 24.8 pg (27-33); Mean Corpuscular Volume 83.3 fl (82-101); Mean Platelet Volume 12.3 fL (7.4-10.4); Monocytes # 1.5 10^3/uL (0.2-0.9); Monocytes % 11.2 %; Neutrophils # 10.16 10^3/uL (1.8-7.7); Neutrophils % 76.1 %; Nucleated Red Blood Cells % 0 %; Platelet Count 150 10^3/cmm (157-399); Red Cell Distribution Width 18.3 % (12.1-15.1); White Blood Count 13.34 10^3/uL (3.29-11.43)
[2024-12-22 04:31] LABS: INR 1.01 (0.8-1.2)
[2024-12-22 04:33] LABS: Alanine Aminotransferase 10 U/L (0-41); Albumin Level 2.9 g/dL (3.5-5.2); Alkaline Phosphatase 56 U/L (40-130); Anion Gap 17.5 (5-19); Aspartate Amino Transferase 15 U/L (0-40); C Reactive Protein 32.9 mg/L (0.0-4.9); Calcium 8.3 mg/dL (8.5-10.5); Carbon Dioxide 24 mmol/L (22-29); Chloride 99 mmol/L (98-107); Creatinine Clr Calc Pharmacy 47.9171; Globulin 3.7 g/dL (1.3-4.6); Glomerular Filtration Rate 27.2 mL/min (90-130); Glucose 174 mg/dL (65-115); Magnesium 2.6 mg/dL (1.7-2.3); Osmolality Calculated 312 mOsm/kg (285-295); Potassium 4.5 mmol/L (3.5-5.1); Sodium 136 mmol/L (136-145); Total Bilirubin 0.6 mg/dL (0.15-1.2); Total Protein 6.6 g/dL (6.6-8.7)
[2024-12-22] MEDS: ipratropium-albuterol 3 mL Neb INHALATION ×3 (04:41→20:16)
[2024-12-22 04:45] LABS: Blood Urea Nitrogen 84 mg/dL (8-23)
[2024-12-22 04:46] LABS: Lactate (Lactic Acid level) 1.5 mmol/L (0.5-2.2)
[2024-12-22 04:47] LABS: NT Pro B Type Natriuretic Pept 822 pg/mL (0-125); Procalcitonin 0.13 ng/mL (0-0.5)
[2024-12-22] MEDS: VANCOMYCIN ADD-Vantage 1,000 MG in 0.9% NaCl ADD-Vantage 250 ML 250 MG IV ×2 (05:24→17:40)
[2024-12-22 05:35] LABS: ABG PCO2 40.4 mmHg (35-45); ABG PH Result 7.38 (7.35-7.45); Arterial Blood Gas Hematocrit 39.8 % (42-52); Base Excess ABG -1.1 mmol/L (-2.0-2.0); Blood Gas Allen Test Pos; Blood Gas Operator Identificat JDB; Blood Gas Sample Site Radial, right; Blood Gas Sample Type Arterial; Blood Gas Tidal Volume 0.51; HCO3 ABG 23.9 mmol/L (22-26); Oxygen Device VENT; PO2 ABG 71.4 mmHg (80.0-100.0); PO2 FiO2 Ratio Arterial Blood 178
[2024-12-22 07:32] LABS: Glucose Point of Care 150 mg/dL (70-110)
[2024-12-22] MEDS: gabapentin 400 mg Capsule 800 MG PO ×3 (09:04→20:26)
[2024-12-22] MEDS: insulin lispro 100 unit/1 mL SUBCUT ×4 (09:04→20:26)
[2024-12-22] MEDS: aspirin 325 mg EC Tablet PO (09:05)
[2024-12-22] MEDS: dexmedeTOMIDine 0.9 % NaCL 400 MCG/100 ML PREMIX IV (09:05)
[2024-12-22 11:27] LABS: Glucose Point of Care 180 mg/dL (70-110)
[2024-12-22] MEDS: fentaNYL 1,000 MCG/100 ML BAG 10 MCG IV (12:11)
[2024-12-22] MEDS: pantoprazole 40 mg SDV IVP (14:17)
--- NOTE | 2024-12-22 15:13 | P.PN_ITS ---
Subjective 2 Subjective: Patient was examined this morning, on minimal sedation, fentanyl, he does awaken, left pupil equal round reactive to light right pupil deviated down and in, does have a gag reflex, Babinski's upward bilaterally, -Reexamined earlier in the morning, [facility] daughter at bedside patient is not following commands, discussed with daughter, who is patient's next of kin, patient's admission, my concerns for acute CVA, his respiratory failure -Plan is to keep him off sedation monito r his mentation, assess neurologic functioning -Patient was examined the afternoon no g ag reflex, does not localize pain, does respond to sternal rub, does wince, right pupil still deviated down and in, nonreactive to light, he does have movement bilateral extremities, tends to not move the right arm, question is this is purposeful movement are not -Plan is to keep him on minimal sedation for the next 24 hours, monitor his mentation repeat CT head in 24 hours Vitals/I&O/Wt Last Vital Signs Temp 99.1 F 12/22/24 09:15 Pulse 63 12/22/24 14:00 Resp 16 12/22/24 13:51 BP 99/61 12/22/24 13:00 Pulse Ox 94 12/22/24 13:51 O2 Del Method Mechanical Ventilation 12/22/24 13:51 O2 Flow Rate 15 12/20/24 12:18 FiO2 40 12/22/24 13:51 12/22/24 12/22/24 12/22/24 06:59 14:59 22:59 Intake Total 461.125 / 1356.250 114.964 / 114.964 Output Total 225 / 625 250 / 250 Balance 236.125 / 731.250 -135.036 / -135.036 Weight last 48 hrs Weight 176.3 kg Weight 170.232 kg Physical Exam 2 Const: COMMON NORMALS: no acute distress Eye: OTHER: Right pupil, right eye, deviated down and medially Resp: COMMON NORMALS: normal respiratory effort, No retractions, No use of accessory muscles and clear to auscultation bilaterally AUSCULTATION: clear to auscultation bilaterally Cardio: COMMON NORMALS: regular rate, regular rhythm, S1 normal heart sound present and S2 normal heart sound present RATE: regular rate RHYTHM: r egular rhythm HEART SOUNDS: S1 normal heart sound present and S2 normal heart sound present GI: COMMON NORMALS: Normal to inspection, nondistended, normoactive bowel sounds present and non-tender Extremity: COMMON NORMALS: no pedal edema Neuro: OTHER: No gag reflex, does not withdraw from pain, does wince when sternal rub, does move bilateral upper and lower extremities except right arm Urinary Catheter Management: Russo: Cath Placed During This Visit: yes Reason for Continuing Indwelling Catheter: Accurate Measurement of Urinary Output in Critically Ill Patients Urinary Catheter Date of Insertion: 12/20/24 Urinary Catheter Time of Insertion: 12:00 Data 12/22/24 03:51 12/22/24 03:51 Micro: Microbiology 12/20/24 12:45 Gram Stain - Final Sputum - Endotracheal Tube Aspirate Sputum Culture - Final Moraxella catarrhalis 12/20/24 12:56 Blood Culture - Preliminary Blood NEGATIVE TO DATE 12/20/24 12:51 Blood Culture - Preliminary Blood NEGATIVE TO DATE 12/20/24 12:11 Urine Culture - Preliminary Urine,Clean Catch Gram Negative Rods A&P Assessment and plan (1) S/P CABG (coronary artery bypass graft): (2) Coronary artery disease: (3) Diabetes: (4) Morbid obesity: (5) MARIA A (acute kidney injury): (6) CKD (chronic kidney disease): (7) Sepsis: (8) Acute metabolic encephalopathy: (9) Acute respiratory failure with hypoxia and hypercapnia: (10) Septic shock: (11) Acute CVA (cerebrovascular accident): (12) Pneumonia: (13) NSTEMI (non-ST elevated myocardial infarction): Plan Acute encephalopathy -Could be a brainstem stroke -Could be from hypoxia -Could be from pneumonia possible aspiration event, pneumonia sputum cultures are growing Moraxella -Check ammonia levels elevated 66, monitor -Respiratory viral panel within normal limits -You within normal limits -CT head no acute findings -CTA head and neck no acute findings -CT chest shows bilateral lower lobe consolidation, stable patchy atelectasis or infiltrate in the lingula Plan -Neurochecks -Aspiration precaution -NIH stroke scale -Aspirin -Statin -IV fluids currently on hold due to fluid overload -Will try to minimize sedation monitor mentation -Allow for permissive hypertension -Broad-spectrum antibiotic therapy vancomycin, meropenem -Ammonia levels -Currently intubated, sedated -Will consider EEG based on clinical progress -Neurology consulted Acute hypoxic respiratory failure -Persistent hypoxia, respiratory failure in the emergency room requiring intubation mechanical ventilation -Likely from pneumonia, concerns for aspiration pneumonia -With underlying COPD, CHF Plan -Currently intubated, sedated, mechanical ventilation -Propofol for sedation -Fentanyl for sedation -Add Precedex -Minimize tidal volume, minimize FiO2 -Broad-spectrum antibody therapy -Vancomycin -Meropenem -Blood cultures -Sputum cultures -DuoNeb Urinary tract infection, urine showing gram-negative rods -Continue meropenem Sepsis with septic shock, resolved -Sepsis features met given leukocytosis, respiratory failure, hypoxia, elevated troponins MARIA A -Patient will likely require pressors as maps are 60-65 despite fluid therapy -Levophed to maintain MAP greater than 65 MARIA A on CKD, creatinine 2.4, BUN 84 -Could be from sepsis -IV fluids on hold -Monitor urine output monitor creatinine -Renal ultrasound Type 2 diabetes mellitus -Low-dose sliding scale NSTEMI -Serial EKGs, short troponins, telemetry monitoring -Continue aspirin, statin -Echocardiogram during last hospitalization CONCLUSIONS Moderately increased left ventricular cavity size. Severely decreased left ventricular systolic function. Left ventricular ejection fraction is estimated at 15 %. No significant valve abnormalities. There is no pericardial effusion. Plan for today keep on minimal sedation neurochecks, monitor reflexes, QT IV antibiotics PDMP PDMP Reviewed: Not Reviewed Attestations 2 Medical Necessity Statement*: Patient requires hospitalization for concerns for acute CVA, acute respiratory failure, pneumonia, MARIA A, NSTEMI Coding Level of Care Code Critical Care >/= 30 minutes Critical care time (in minutes): 45 The high probability of a clinically significant, sudden or life threatening deterioration, as referenced in this documentation, required my full and direct attention, intervention and personal management. The critical care time shown is in addition to time spent performing any reported separately billable procedures and includes the following: [x] Data and vital sign review and interpretation [x ] Patient assessment, examination and intervention [x] Medication orders and management [x] Patient/Family updates as able [x] Care Coordination and Documentation. Diagnoses S/P CABG (coronary artery bypass graft) Z95.1 Coronary artery disease I25.10 Diabetes E11.9 Morbid obesity E66.01 MARIA A (acute kidney injury) N17.9 CKD (chronic kidney disease) N18.9 Sepsis A41.9 Acute metabolic encephalopathy G93.41 Acute respiratory failure with hypoxia and hypercapnia J96.01; J96.02 Septic shock A41.9; R65.21 Acute CVA (cerebrovascular accident) I63.9 Pneumonia J18.9 NSTEMI (non-ST elevated myocardial infarction) I21.4
[2024-12-22 17:01] LABS: Glucose Point of Care 187 mg/dL (70-110)
[2024-12-22 18:53] LABS: Vancomycin Trough 48.5 ug/mL (10-15)
[2024-12-22 20:19] LABS: Glucose Point of Care 153 mg/dL (70-110)
[2024-12-22] MEDS: atorvastatin 40 mg Tablet PO (20:26)
[2024-12-22] MEDS: meropenem 1,000 mg SDV 1000 MG IVP (20:26)
[2024-12-22] MEDS: enoxaparin 40 mg/0.4 mL Syringe SUBCUT (20:26)
[2024-12-23] VITALS (81 sets, daily range): BP systolic 94–133; BP diastolic 55–85; PULSE 59–81; RESP 16–21; TEMP 36.6–37.2; O2SAT 90–98; BMI 54.8
[2024-12-23 04:26] LABS: ABG PCO2 41.1 mmHg (35-45); ABG PH Result 7.36 (7.35-7.45); Arterial Blood Gas Hematocrit 41.8 % (42-52); Base Excess ABG -1.9 mmol/L (-2.0-2.0); Blood Gas Allen Test Pos; Blood Gas Operator Identificat JDB; Blood Gas Sample Site Radial, right; Blood Gas Sample Type Arterial; Blood Gas Tidal Volume 0.51; HCO3 ABG 23.4 mmol/L (22-26); Oxygen Device VENT; PO2 ABG 63.9 mmHg (80.0-100.0); PO2 FiO2 Ratio Arterial Blood 159
[2024-12-23 04:46] LABS: Basophils # 0.1 10^3/uL (0.0-0.1); Basophils % 0.6 %; Eosinophils # 0.1 10^3/uL (0.0-0.8); Eosinophils % 0.9 %; Hematocrit 42.9 % (37-53); Lymphocytes # 1.3 10^3/uL (0.8-4.8); Lymphocytes % 14.2 %; Mean Corpuscular HGB Conc 29.6 g/dL (30-55); Mean Corpuscular Hemoglobin 24.9 pg (27-33); Mean Corpuscular Volume 84.1 fl (82-101); Mean Platelet Volume 11.7 fL (7.4-10.4); Monocytes # 1.2 10^3/uL (0.2-0.9); Monocytes % 12.7 %; Neutrophils # 6.61 10^3/uL (1.8-7.7); Neutrophils % 70.9 %; Nucleated Red Blood Cells % 0 %; Platelet Count 140 10^3/cmm (157-399); White Blood Count 9.34 10^3/uL (3.29-11.43)
[2024-12-23 04:53] LABS: INR 0.98 (0.8-1.2)
[2024-12-23 05:01] LABS: Alanine Aminotransferase 9 U/L (0-41); Albumin Level 2.8 g/dL (3.5-5.2); Alkaline Phosphatase 53 U/L (40-130); Anion Gap 18.4 (5-19); Aspartate Amino Transferase 17 U/L (0-40); C Reactive Protein 46.8 mg/L (0.0-4.9); Calcium 8.4 mg/dL (8.5-10.5); Carbon Dioxide 22 mmol/L (22-29); Chloride 100 mmol/L (98-107); Creatinine Clr Calc Pharmacy 53.4071; Globulin 3.8 g/dL (1.3-4.6); Glomerular Filtration Rate 30.1 mL/min (90-130); Glucose 180 mg/dL (65-115); Magnesium 2.5 mg/dL (1.7-2.3); Osmolality Calculated 312 mOsm/kg (285-295); Phosphorus 4.2 mg/dL (2.5-4.5); Potassium 4.4 mmol/L (3.5-5.1); Sodium 136 mmol/L (136-145); Total Protein 6.6 g/dL (6.6-8.7)
[2024-12-23 05:03] LABS: Lactate (Lactic Acid level) 1.1 mmol/L (0.5-2.2)
[2024-12-23 05:14] LABS: NT Pro B Type Natriuretic Pept 664 pg/mL (0-125); Procalcitonin 0.11 ng/mL (0-0.5)
[2024-12-23 05:17] LABS: Blood Urea Nitrogen 85 mg/dL (8-23)
[2024-12-23 05:18] LABS: Vancomycin Random 40.1 ug/mL (20.0-40.0)
[2024-12-23] MEDS: dexmedeTOMIDine 0.9 % NaCL 400 MCG/100 ML PREMIX IV (05:48)
[2024-12-23 06:01] LABS: Ammonia 26 umol/L (16-60)
--- NOTE | 2024-12-23 07:00 | CT_ITS ---
WS: [id number] CT HEAD NONCONTRAST HISTORY: cva TECHNIQUE: Contiguous axial imaging performed through the brain. Bone and soft tissue windows. Sagittal and coronal reformats reviewed. All CT scans at [facility] use at least one of these dose optimization techniques: automated exposure control; mA and/or kV adjustment per patient size (includes targeted exams where dose is matched to clinical indication); or iterative reconstruction. DLP: 1016.68 mGy.cm COMPARISON: 12/20/2024 No acute intracranial hemorrhage, midline shift or mass effect. Moderate volume loss and atrophy. Mild small vessel changes. No new infarct or moderate volume loss and atrophy. Since 12/20/2024 interval development of a LEFT thalamic infarct measuring just over 1 cm. Ventricles: Normal size with no hydrocephalus. [place] arteries are tortuous and elongated. Paranasal sinuses: Mucoperiosteal thickening in the sinus cavities. Mild progression since the prior study. There are small amount of secretions now present in the nasopharynx. Mastoid air cells: Well pneumatized. Calvarium and scalp: Skull is intact with no soft tissue edema or swelling. CT/CT head wo con* [id number] IMPRESSION: 1. No acute intracranial hemorrhage or edema. 2. Interval development of a small LEFT thalamic infarct since 12/20/2024. 3. Moderate volume loss and small vessel disease.
[2024-12-23 07:31] LABS: Glucose Point of Care 162 mg/dL (70-110)
[2024-12-23] MEDS: ipratropium-albuterol 3 mL Neb INHALATION ×3 (08:07→19:26)
[2024-12-23] MEDS: meropenem 1,000 mg SDV 1000 MG IVP ×2 (08:50→21:06)
[2024-12-23] MEDS: gabapentin 400 mg Capsule 800 MG PO ×3 (08:50→21:06)
[2024-12-23] MEDS: aspirin 325 mg EC Tablet PO (08:50)
[2024-12-23] MEDS: insulin lispro 100 unit/1 mL SUBCUT ×4 (08:51→21:06)
--- NOTE | 2024-12-23 09:09 | XR_ITS ---
WS: [email or web address] Portable AP semiupright chest, 12/23/2024 Clinical Data: pulmonary edema Comparison: Portable chest, 12/21/2024 Findings: The endotracheal tube, nasogastric tube, right PICC line and pacemaker leads remain in the same position. The heart is enlarged. There are bilateral patchy pulmonary opacities. The upper lobe pulmonary vascularity is minimally prominent. The aortic arch shows mild tortuosity. No nodules or masses are seen. There is no pneumothorax. Midline sternotomy sutures are present. Monitor leads are on the chest wall. XR/XR chest 1V portable [id number] Impression: 1. No change in cardiomegaly and pulmonary vascular congestion. 2. Development of minimal patchy bilateral lower lobe opacities.
[2024-12-23 11:23] LABS: Glucose Point of Care 164 mg/dL (70-110)
[2024-12-23 11:23] LABS: Glucose Point of Care 161 mg/dL (70-110)
--- NOTE | 2024-12-23 11:36 | XR_ITS ---
WS: [email or web address] Portable AP upright chest, 12/23/2024, 1208 hours Clinical Data: ET tube placement Comparison: Portable chest, 12/23/2024, 0920 hours Findings:The nasogastric or orogastric tube appears to be within the esophagus and ends in the fundus of the stomach with folding of the tip. The remainder of the chest shows no change. XR/XR chest 1V portable [id number] Impression: Satisfactory placement of oral gastric or nasogastric tube.
--- NOTE | 2024-12-23 12:36 | XR_ITS ---
WS: [email or web address] Portable AP upright chest, 12/23/2024, 1503 hours Clinical Data: ET tube placement Comparison: Portable chest, 12/23/2024, 1208 hours Findings: The endotracheal tube has been adjusted. It ends above the soledad. The remainder of the chest shows no change. XR/XR chest 1V portable [id number] Impression: Adjustment of endotracheal tube.
--- NOTE | 2024-12-23 12:37 | PC.NURSE ---
Respiratory therapist adjusted ET tube. X ray was obtained for ET tube placement.
--- NOTE | 2024-12-23 13:23 | PC.NURSE ---
environment coordinator rounds 12/22 and 12/23 patient intubated and sedated
--- NOTE | 2024-12-23 13:44 | PC.SOCIAL ---
IMM Updated Updated pt's family on IMM. No questions voiced. Provided pt a copy. Initialed, dated, & timed a copy & placed in chart.
[2024-12-23] MEDS: pantoprazole 40 mg SDV IVP (15:18)
--- NOTE | 2024-12-23 16:07 | P.PN_ITS ---
Subjective 2 Subjective: Patient was examined this morning, he is on minimal sedation and 25 fentanyl, afebrile overnight normotensive, 40% FiO2 right pupil continues to be deviated down and in, more reactive to light, he does respond to pain, does respond to sternal rub, when stimulated he does open his eyes, he tends to favor movement on the left side left arm moves left leg moves some movement of right leg, but does not move much of the right arm, once wincing in pain, he does have a bit of a right facial droop, -Head CT ordered shows interval developm ent of a small left thalamic infarct, no acute intracranial hemorrhage or edema -Reexamined again he does respond to david e commands when asked to squeeze his fingers, he squeezes the left side but not the right side able to move his left leg but still quite encephalopathic and drowsy but does attempt to open his eyes when his name is called -Patient's family members are at bedside -Discussed overall goals of care -He has shown some purposeful responses he tends not to move the right side of his body is favoring the left, I am highly suspicious that he has had a acute left-sided CVA causing right-sided deficits certainly the CT shows small left thalamic infarct -Discussed his pneumonia, continues to h ave thick mucous secretions but is afebrile and oxygen requirements decreased to 40% -Discussed continuing monitoring mentati on on the ventilator continue to minimize sedation continue spontaneous breathing trials -Discussed options available continuing monitoring -Ultimately question is is that will he have the functioning that he will have before I think he likely will not, given the significant evidence of right-sided deficits -But he has received Versed and propofol which takes some time to make their way out of his system so we will continue to monitor him neurologically -But if he does have the significant rig ht-sided deficits the question is is that we will ultimately will be his recovery -Will he come off the ventilator will he need a PEG tube -Family is adamant he would not want a t isiah or a PEG -But the question is can he come off the ventilator, can he swallow, can he breathe on his own, and what is his cognitive level of functioning -Discussed risk and benefits of all opti ons, they voiced understanding, all questions answered -For now family wants to continue medica l management and giving him time before making that decision Vitals/I&O/Wt Last Vital Signs Temp 99 F 12/23/24 08:00 Pulse 64 12/23/24 16:00 Resp 19 H 12/23/24 15:30 BP 119/70 12/23/24 16:00 Pulse Ox 92 12/23/24 16:00 O2 Del Method Mechanical Ventilation 12/23/24 16:00 O2 Flow Rate 15 12/20/24 12:18 FiO2 40 12/23/24 16:00 12/23/24 12/23/24 12/23/24 06:59 14:59 22:59 Intake Total 156.00 / 396.172 Output Total 800 / 1050 350 / 350 Balance -644.00 / -653.828 -350 / -350 Weight last 48 hrs Weight 173.5 kg Weight 176.3 kg Physical Exam 2 Const: COMMON NORMALS: no acute distress Resp: COMMON NORMALS: normal respiratory effort, No retractions, No use of accessory muscles and clear to auscultation bilaterally AUSCULTATION: clear to auscultation bilaterally Cardio: COMMON NORMALS: regular rate, regular rhythm, S1 normal heart sound present and S2 normal heart sound present RATE: regular rate RHYTHM: r egular rhythm HEART SOUNDS: S1 normal heart sound present and S2 normal heart sound present GI: COMMON NORMALS: Normal to inspection, nondistended, normoactive bowel sounds present and non-tender Extremity: COMMON NORMALS: no pedal edema Urinary Catheter Management: Russo: Cath Placed During This Visit: yes Reason for Continuing Indwelling Catheter: Accurate Measurement of Urinary Output in Critically Ill Patients Urinary Catheter Date of Insertion: 12/20/24 Urinary Catheter Time of Insertion: 12:00 Data 12/23/24 04:17 12/23/24 04:17 A&P Assessment and plan (1) S/P CABG (coronary artery bypass graft): (2) Coronary artery disease: (3) Diabetes: (4) Morbid obesity: (5) MARIA A (acute kidney injury): (6) CKD (chronic kidney disease): (7) Sepsis: (8) Acute metabolic encephalopathy: (9) Acute respiratory failure with hypoxia and hypercapnia: (10) Septic shock: (11) Acute CVA (cerebrovascular accident): (12) Pneumonia: (13) NSTEMI (non-ST elevated myocardial infarction): Plan Acute CVA CT/CT head wo con* [id number] IMPRESSION: 1. No acute intracranial hemorrhage or edema. 2. Interval development of a small LEFT thalamic infarct since 12/20/2024. 3. Moderate volume loss and small vessel disease. -Evidence of right sided deficits, right-sided facial droop, right pupil deviated down and in Plan -Continue aspirin -Statin -Permissive hypertension -Continue to monitor mentation, neurologic checks off sedation Acute encephalopathy -Could be from hypoxia -Could be from pneumonia possible aspiration event, pneumonia sputum cultures are growing Moraxella -Significant component patient's acute CVA -Could be from uremia BUN 84 -Check ammonia levels elevated 66, monitor now 23 -Respiratory viral panel within normal limits -CT head no acute findings -CTA head and neck no acute findings -CT chest shows bilateral lower lobe consolidation, stable patchy atelectasis or infiltrate in the lingula Plan -Neurochecks -Aspiration precaution -NIH stroke scale -Aspirin -Statin -IV fluids currently on hold due to fluid overload, does have uremia monitor -Will try to minimize sedation monitor mentation -Allow for permissive hypertension -Broad-spectrum antibiotic therapy meropenem -Vancomycin stopped due to vancomycin levels 48.2 -Ammonia levels 26 -Currently intubated, sedated -Will consider EEG based on clinical progress -Neurology consulted Acute hypoxic respiratory failure -Persistent hypoxia, respiratory failure in the emergency room requiring intubation mechanical ventilation -Likely from pneumonia, concerns for aspiration pneumonia -With underlying COPD, CHF Plan -Currently intubated, sedated, mechanical ventilation -Propofol for sedation -Fentanyl for sedation -Add Precedex -Minimize tidal volume, minimize FiO2 -Broad-spectrum antibody therapy -Vancomycin -Meropenem -Blood cultures -Sputum cultures -DuoNeb Urinary tract infection, urine showing gram-negative rods -Continue meropenem Sepsis with septic shock, resolved -Sepsis features met given leukocytosis, respiratory failure, hypoxia, elevated troponins MARIA A -Patient will likely require pressors as maps are 60-65 despite fluid therapy -Levophed to maintain MAP greater than 65 MARIA A on CKD, creatinine 2.4, BUN 84 -Could be from sepsis -IV fluids on hold due to EF of 15% -Monitor urine output monitor creatinine -CT abdomen no obstructive uropathy Pacemaker in place Type 2 diabetes mellitus -Low-dose sliding scale NSTEMI -Serial EKGs, short troponins, telemetry monitoring -Continue aspirin, statin -Echocardiogram during last hospitalization CONCLUSIONS Moderately increased left ventricular cavity size. Severely decreased left ventricular systolic function. Left ventricular ejection fraction is estimated at 15 %. No significant valve abnormalities. There is no pericardial effusion. Plan for today keep on minimal sedation neurochecks, monitor reflexes, stop vancomycin and meropenem PDMP PDMP Reviewed: Not Reviewed Attestations 2 Medical Necessity Statement*: Patient requires hospitalization for acute CVA, acute encephalopathy, acute hypoxic respiratory failure, pneumonia, NSTEMI, uremia Coding Level of Care Code Critical Care >/= 30 minutes Critical care time (in minutes): 45 The high probability of a clinically significant, sudden or life threatening deterioration, as referenced in this documentation, required my full and direct attention, intervention and personal management. The critical care time shown is in addition to time spent performing any reported separately billable procedures and includes the following: [x] Data and vital sign review and interpretation [x ] Patient assessment, examination and intervention [x] Medication orders and management [x] Patient/Family updates as able [x] Care Coordination and Documentation. Diagnoses S/P CABG (coronary artery bypass graft) Z95.1 Coronary artery disease I25.10 Diabetes E11.9 Morbid obesity E66.01 MARIA A (acute kidney injury) N17.9 CKD (chronic kidney disease) N18.9 Sepsis A41.9 Acute metabolic encephalopathy G93.41 Acute respiratory failure with hypoxia and hypercapnia J96.01; J96.02 Septic shock A41.9; R65.21 Acute CVA (cerebrovascular accident) I63.9 Pneumonia J18.9 NSTEMI (non-ST elevated myocardial infarction) I21.4
[2024-12-23 17:39] LABS: Glucose Point of Care 173 mg/dL (70-110)
[2024-12-23 18:01] LABS: Anion Gap 16.4 (5-19); Blood Urea Nitrogen 76 mg/dL (8-23); Calcium 8.6 mg/dL (8.5-10.5); Carbon Dioxide 23 mmol/L (22-29); Chloride 101 mmol/L (98-107); Creatinine Clr Calc Pharmacy 61.2339; Glomerular Filtration Rate 35.6 mL/min (90-130); Glucose 175 mg/dL (65-115); Osmolality Calculated 309 mOsm/kg (285-295); Potassium 4.4 mmol/L (3.5-5.1); Sodium 136 mmol/L (136-145)
[2024-12-23 20:55] LABS: Glucose Point of Care 205 mg/dL (70-110)
[2024-12-23] MEDS: atorvastatin 40 mg Tablet PO (21:06)
[2024-12-23] MEDS: enoxaparin 40 mg/0.4 mL Syringe SUBCUT (21:06)
[2024-12-23] MEDS: fentaNYL 1,000 MCG/100 ML BAG 2.5 MCG IV (21:09)
[2024-12-24] VITALS (103 sets, daily range): BP systolic 101–162; BP diastolic 61–100; PULSE 60–77; RESP 16–21; TEMP 36.9–37.4; O2SAT 90–95; BMI 52.0
[2024-12-24] MEDS: dexmedeTOMIDine 0.9 % NaCL 400 MCG/100 ML PREMIX IV (01:51)
[2024-12-24] MEDS: chlorhexidine gluconate 4% Btl 118 mL 1 APPLIC TOPICAL (01:56)
[2024-12-24 04:58] LABS: ABG PCO2 41.9 mmHg (35-45); ABG PH Result 7.37 (7.35-7.45); Arterial Blood Gas Hematocrit 39.4 % (42-52); Base Excess ABG -1.3 mmol/L (-2.0-2.0); Blood Gas Allen Test Pos; Blood Gas Operator Identificat JDB; Blood Gas Sample Site Radial, right; Blood Gas Sample Type Arterial; Blood Gas Tidal Volume 0.51; HCO3 ABG 24.1 mmol/L (22-26); Oxygen Device VENT; PO2 FiO2 Ratio Arterial Blood 180
[2024-12-24 06:33] LABS: Basophils % 0.5 %; Eosinophils # 0.2 10^3/uL (0.0-0.8); Eosinophils % 2.1 %; Hematocrit 41.7 % (37-53); Lymphocytes # 1.2 10^3/uL (0.8-4.8); Lymphocytes % 15.6 %; Mean Corpuscular HGB Conc 29.5 g/dL (30-55); Mean Corpuscular Hemoglobin 24.7 pg (27-33); Mean Corpuscular Volume 83.7 fl (82-101); Mean Platelet Volume 12.8 fL (7.4-10.4); Monocytes # 1.1 10^3/uL (0.2-0.9); Neutrophils # 4.93 10^3/uL (1.8-7.7); Neutrophils % 65.3 %; Nucleated Red Blood Cells % 0 %; Platelet Count 156 10^3/cmm (157-399); Red Blood Count 4.98 10^6/uL (3.85-5.65); White Blood Count 7.55 10^3/uL (3.29-11.43)
[2024-12-24 06:53] LABS: Alanine Aminotransferase 8 U/L (0-41); Albumin Level 2.8 g/dL (3.5-5.2); Alkaline Phosphatase 57 U/L (40-130); Anion Gap 17.6 (5-19); Aspartate Amino Transferase 14 U/L (0-40); Blood Urea Nitrogen 69 mg/dL (8-23); C Reactive Protein 63.6 mg/L (0.0-4.9); Calcium 8.8 mg/dL (8.5-10.5); Carbon Dioxide 22 mmol/L (22-29); Chloride 104 mmol/L (98-107); Globulin 3.8 g/dL (1.3-4.6); Glomerular Filtration Rate 40.5 mL/min (90-130); Glucose 176 mg/dL (65-115); Magnesium 2.5 mg/dL (1.7-2.3); Osmolality Calculated 312 mOsm/kg (285-295); Potassium 4.6 mmol/L (3.5-5.1); Sodium 139 mmol/L (136-145); Total Bilirubin 0.9 mg/dL (0.15-1.2); Total Protein 6.6 g/dL (6.6-8.7)
--- NOTE | 2024-12-24 07:00 | XRR_ITS ---
PROCEDURE INFORMATION: Exam: XR Chest Exam date and time: 12/24/2024 5:43 AM Age: 64 years old Clinical indication: Prior surgery; Surgery date: 6+ months; Surgery type: Cabg. Pacer; F/u resp failure. Intubated. ; Additional info: SOB TECHNIQUE: Imaging protocol: Radiologic exam of the chest. Views: 1 view. COMPARISON: CR XR chest 1V portable [id number] 12/23/2024 3:01 PM FINDINGS: Tubes, catheters and devices: Median sternotomy suture wires. Lungs: Persistent CHF. Vascular engorgement, interstitial edema, mild alveolar edema, and small bilateral effusions are present. Pleural spaces: Unremarkable. No pleural effusion. No pneumothorax. Heart/Mediastinum: Moderate cardiomegaly. Bones/joints: Unremarkable. Other findings: Stable life support lines. XR/XR chest 1V portable [id number] IMPRESSION: CHF.
[2024-12-24 07:02] LABS: NT Pro B Type Natriuretic Pept 689 pg/mL (0-125)
[2024-12-24 07:03] LABS: Creatinine Clr Calc Pharmacy 66.2726
[2024-12-24 07:17] LABS: Glucose Point of Care 176 mg/dL (70-110)
[2024-12-24 07:21] LABS: Creatine Phosphokinase 253 U/L (39-308)
[2024-12-24] MEDS: aspirin 325 mg EC Tablet PO (08:05)
[2024-12-24] MEDS: insulin lispro 100 unit/1 mL SUBCUT ×4 (08:05→20:46)
[2024-12-24] MEDS: gabapentin 400 mg Capsule 800 MG PO ×3 (08:05→20:46)
[2024-12-24] MEDS: meropenem 1,000 mg SDV 1000 MG IVP ×2 (08:05→19:46)
[2024-12-24] MEDS: ipratropium-albuterol 3 mL Neb INHALATION ×3 (08:17→19:27)
--- NOTE | 2024-12-24 08:50 | PC.NURSE ---
Patient's jewelry is in pyxis.
[2024-12-24 11:18] LABS: Glucose Point of Care 177 mg/dL (70-110)
--- NOTE | 2024-12-24 14:08 | P.PN_ITS ---
Subjective 2 Subjective: History of present illness: Haroon Parish is a 64 year old male with a history of congestive heart failure with decreased ejection fraction of 15%. Patient also has a history of pacemaker and defibrillator placement, chronic obstructive pulmonary disease severe obesity and type 2 diabetes mellitus. The patient was recently discharged from [facility] when patient elected to have his cardiac workup performed on outpatient basis. Patient was discharged back to the retirement. On 12/20/2024 around 9:45 AM the patient was reported to have decreased level consciousness when he was being evaluated on morning rounds but was reported to be conscious earlier during the morning. The patient was reported to have respiratory difficulty with O2 saturations in the 70s on oxygen. There was question of whether the patient had right-sided weakness and downward deviation of the right eye. Code stroke was initiated at 11:20 AM on 12/20/2024. Noncontrast head CT was obtained which was reported to revealed no acute findings. CT angiogram of the head and neck 12/20/2024 revealed no obvious large vessel occlusion. NIH score = 10 (partial gaze paralysis secondary to downward deviation of the right eye= 1, weakness in the right upper extremity =2 with only movement or withdrawal of the right upper extremity to painful stimuli, decreased level consciousness=3, does not follow commands=2). O2 saturation in the 70s on oxygen mask patient being prepped for intubation Point of contact glucose Accu-Chek 198 Due to the patient hypoxia and decreased ejection fraction of 15% and chronic obstructive pulmonary disease and chronic kidney disease, neurologically the patient was deemed not to be a candidate for intravenous thrombolytics and no intravenous thrombolytics were administered. On 12/24/2024 patient's condition remains essentially unchanged. Patient remains intubated on Precedex. Patient withdrawals arms to tactile stimuli with some spontaneous movement of the left leg. Repeat noncontrast head CT 12/23/2024 IMPRESSION: 1. No acute intracranial hemorrhage or edema. 2. Interval development of a small LEFT thalamic infarct since 12/20/2024. 3. Moderate volume loss and small vesse l disease. Past medical history: Coronary atherosclerotic heart disease status post coronary artery bypass graft Chronic kidney disease Defibrillator placement/pacemaker Congestive heart failure with decreased ejection fraction of 15% Severe obesity Hypertension Acute respiratory failure with hypoxia requiring intubation Drug allergies: Penicillin which resulted in hives Home medications: See MAR Habits: Unknown Social history: The patient was residing in a retirement care facility Review of Systems General: Reports: ROS unobt ainable due to end otracheal tube and ROS unobtainable due to medical con dition Vitals/I&O/Wt Last Vital Signs Temp 98.5 F 12/24/24 09:45 Pulse 61 12/24/24 13:17 Resp 16 12/24/24 13:17 BP 118/71 12/24/24 12:00 Pulse Ox 94 12/24/24 13:17 O2 Del Method Mechanical Ventilation 12/24/24 13:15 O2 Flow Rate 15 12/20/24 12:18 FiO2 35 12/24/24 13:17 12/23/24 12/24/24 12/24/24 22:59 06:59 14:59 Intake Total 44 / 44 176.959 / 220.959 22.417 / 22.417 Output Total 1400 / 1750 550 / 550 Balance 44 / -306 -1223.041 / -1529.041 -527.583 / -527.583 Weight last 48 hrs Weight 362 lb 12.203 oz Weight 382 lb 8.032 oz Physical Exam 2 Narrative: Patient intubated. On IV Precedex. Patient displays decorticate posture but not responding to command and is nonverbal with decreased level consciousness. Patient does move and withdraw the upper extremities bilaterally to painful stimuli and moves left lower extremity spontaneously extremities t. Cranial nerves II through XII revealed no future downward deviation of the right eye. Pupils 4 mm reactive to light and accommodation. Doll's eyes were difficult to assess. There were positive corneal reflexes bilaterally. Motor testing revealed questionable right upper extremity weakness although patient withdraws the right upper extremity to painful stimuli and withdrew the left upper extremity and left lower extremity to painful stimuli. Deep tendon reflex revealed plantar responses bilaterally. Sensory examination was intact to painful stimuli applied to his fingernails and toenails. Throat clear. Lungs revealed no wheezes. Extremities were negative for cyanosis. Patient did have bruising on his abdomen suggestive of remote subcutaneous hematoma. Urinary Catheter Management: Russo: Cath Placed During This Visit: yes Reason for Continuing Indwelling Catheter: Accurate Measurement of Urinary Output in Critically Ill Patients Urinary Catheter Date of Insertion: 12/20/24 Urinary Catheter Time of Insertion: 12:00 Data 12/24/24 05:12 12/24/24 05:12 Micro: Microbiology 12/20/24 12:11 Urine Culture - Final Urine,Clean Catch Proteus mirabilis esbl A&P Assessment and plan (1) Acute CVA (cerebrovascular accident): Impression: 1. Small LEFT thalamic infarct since 12/20/2024 2. Acute metabolic encephalopathy 3. Respiratory failure requiring intubation in the emergency department room #11 4. Congestive heart failure with decreased ejection fraction of 15% 5. Coronary artery disease status post coronary artery bypass graft 6. Cardiac defibrillator/pacemaker placed 7. Morbid obesity 8. Type 2 diabetes mellitus Plan: 1. Since the patient's neurological condition has not improved since admission, agree with family's decision for comfort care 2. Agree with obtaining portable surface EEG recording to assist in helping to determine prognosis (will check with outpatient cable splicing technician to determine if this study can be performed on 12/26/2024 or 12/27/2024) (2) Acute exacerbation of CHF (congestive heart failure): (3) NSTEMI (non-ST elevated myocardial infarction): (4) Cardiac resynchronization therapy defibrillator (FAN MAIL EDITOR-D) in place: (5) Morbid obesity: (6) Diabetes: (7) Septic shock: (8) Acute respiratory failure with hypoxia and hypercapnia: PDMP PDMP Reviewed: Not Reviewed Attestations 2 Medical Necessity Statement*: The patient was evaluated by neurology for continued decreased level consciousness and stroke Coding Level of Care Code 08467 Diagnoses Acute CVA (cerebrovascular accident) I63.9 Acute exacerbation of CHF (congestive heart failure) I50.9 NSTEMI (non-ST elevated myocardial infarction) I21.4 Cardiac resynchronization therapy defibrillator (F[employer] MAIL EDITOR-D) in place Z95.810 Morbid obesity E66.01 Diabetes E11.9 Septic shock A41.9; R65.21 Acute respiratory failure with hypoxia and hypercapnia J96.01; J96.02
[2024-12-24] MEDS: pantoprazole 40 mg SDV IVP (14:45)
[2024-12-24 17:08] LABS: Glucose Point of Care 171 mg/dL (70-110)
[2024-12-24 17:08] LABS: Glucose Point of Care 193 mg/dL (70-110)
--- NOTE | 2024-12-24 17:19 | P.PN_ITS ---
Subjective 2 Subjective: - Patient was seen this morning, he is a lert to person, he can squeeze my finger to his name, he can move the left side of his arm his left leg tends not to move the right side has a little bit of right facial droop when he is winced in pain, he tries to open his eyes, but unsuccessful right eye condition be deviated down and he is following commands when asked him to squeeze my fingers or wiggle his toes he does not on the left side he does track on the left side at times -Daughter was seen this morning with the family meeting, she tells me that Yonatan is communicating with her -We discussed that 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, and does not move the right side, cannot do an MRI given that he is on the vent, he continues to have respiratory failure but is on 35% continues to have thick mucous secretions likely secondary pneumonia -Big issue is is that I think he is like ly dependent on the ventilator, I do not believe he can follow enough commands to be taken off the ventilator safely as I do not feel he can protect his airway -We can certainly try it however the mor bidity mortality associate with reintubation is high and I would recommend reintubating him if the plan is to keep him comfortable -Ultimately what I worry is is that this is going to be a Palomares baseline level of functioning, as he has been off all sedating medications except a low- dose of fentanyl and Precedex for the last 72 hours and this is his cognition and his functioning and I am worried that this is going to be his baseline level of functioning -If they accept that this is a reasonabl e level of function we could proceed moving forward and place him to a long-term care facility he will likely need a trach would likely need a PEG and long-term rehab -But if this is not what Haroon would w ant, then I would recommend keeping him comfortable and transitioning to hospice/comfort care would be terminally extubating him, and allowing him to be comfortable easing his pain easing suffering allowing him to be comfortable -Patient is daughter and son-in-law are at bedside they tell me that they want to think about this they want to talk to Haroon about this, -We can also offer an EEG depending on i f he can be done on Thursday that would help in their decision making and neurology will see the patient today which should also help in the decision making Vitals/I&O/Wt Last Vital Signs Temp 98.5 F 12/24/24 09:45 Pulse 62 12/24/24 14:00 Resp 16 12/24/24 15:49 BP 118/71 12/24/24 12:00 Pulse Ox 94 12/24/24 15:49 O2 Del Method Mechanical Ventilation 12/24/24 13:15 O2 Flow Rate 15 12/20/24 12:18 FiO2 35 12/24/24 15:49 12/24/24 12/24/24 12/24/24 06:59 14:59 22:59 Intake Total 176.959 / 220.959 22.417 / 22.417 Output Total 1400 / 1750 550 / 550 Balance -1223.041 / -1529.041 -527.583 / -527.583 Weight last 48 hrs Weight 164.546 kg Weight 173.5 kg Physical Exam 2 Const: COMMON NORMALS: no acute distress ORIENTATION/CONSCIOUSNESS: Yes awake and Yes oriented to person; not oriented to place and not oriented to time Resp: COMMON NORMALS: normal respiratory effort, No retractions, No use of accessory muscles and clear to auscultation bilaterally AUSCULTATION: clear to auscultation bilaterally Cardio: COMMON NORMALS: regular rate, regular rhythm, S1 normal heart sound present and S2 normal heart sound present RATE: regular rate RHYTHM: r egular rhythm HEART SOUNDS: S1 normal heart sound present and S2 normal heart sound present GI: COMMON NORMALS: Normal to inspection, nondistended, normoactive bowel sounds present and non-tender Extremity: COMMON NORMALS: no pedal edema Neuro: SENSORIUM/ORIENTATION: Yes oriented to person, No oriented to place and No oriented to time OTHER: Does localize pain on the left side, does withdraw from pain in the left side, right pupil DVT downtrending, left pupil equal round reactive to light, Urinary Catheter Management: Russo: Cath Placed During This Visit: yes Reason for Continuing Indwelling Catheter: Accurate Measurement of Urinary Output in Critically Ill Patients Urinary Catheter Date of Insertion: 12/20/24 Urinary Catheter Time of Insertion: 12:00 Data 12/24/24 05:12 12/24/24 05:12 Micro: Microbiology 12/20/24 12:11 Urine Culture - Final Urine,Clean Catch Proteus mirabilis esbl A&P Assessment and plan (1) S/P CABG (coronary artery bypass graft): (2) Coronary artery disease: (3) Diabetes: (4) Morbid obesity: (5) MARIA A (acute kidney injury): (6) CKD (chronic kidney disease): (7) Sepsis: (8) Acute metabolic encephalopathy: (9) Acute respiratory failure with hypoxia and hypercapnia: (10) Septic shock: (11) Acute CVA (cerebrovascular accident): (12) Pneumonia: (13) NSTEMI (non-ST elevated myocardial infarction): Plan Acute CVA CT/CT head wo con* [id number] IMPRESSION: 1. No acute intracranial hemorrhage or edema. 2. Interval development of a small LEFT thalamic infarct since 12/20/2024. 3. Moderate volume loss and small vessel disease. -Evidence of right sided deficits, right-sided facial droop, right pupil deviated down and in Plan -Continue aspirin -Statin -Permissive hypertension, completed -Continue to monitor mentation, neurologic checks off sedation Acute encephalopathy -Could be from hypoxia -Could be from pneumonia possible aspiration event, pneumonia sputum cultures are growing Moraxella -Significant component patient's acute CVA -Could be from uremia BUN 84 -Check ammonia levels elevated 66, monitor now 23 -Respiratory viral panel within normal limits -CT head no acute findings -CTA head and neck no acute findings -CT chest shows bilateral lower lobe consolidation, stable patchy atelectasis or infiltrate in the lingula Plan -Neurochecks -Aspiration precaution -NIH stroke scale -Aspirin -Statin -IV fluids currently on hold due to fluid overload, does have uremia monitor -Will try to minimize sedation monitor mentation -Allow for permissive hypertension completed -Broad-spectrum antibiotic therapy meropenem -Vancomycin stopped due to vancomycin levels 48.2 -Ammonia levels 26 -Minimal sedation 25 to fentanyl, Precedex drip -EEG possibly -Neurology consulted Acute hypoxic respiratory failure -Persistent hypoxia, respiratory failure in the emergency room requiring intubation mechanical ventilation -Likely from pneumonia, concerns for aspiration pneumonia -With underlying COPD, CHF Plan -Currently intubated mechanical ventilation -Propofol for sedation off -Fentanyl for sedation 25mcg - Precedex -Minimize tidal volume, minimize FiO2 -Broad-spectrum antibody therapy -Vancomycin -Meropenem -Blood cultures -Sputum cultures -DuoNeb Urinary tract infection, urine showing Proteus ESBL -Continue meropenem Sepsis with septic shock, resolved -Sepsis features met given leukocytosis, respiratory failure, hypoxia, elevated troponins MARIA A -Patient will likely require pressors as maps are 60-65 despite fluid therapy -Levophed to maintain MAP greater than 65 MARIA A on CKD, creatinine 1.7, bun 69 -Could be from sepsis -IV fluids on hold due to EF of 15% -Monitor urine output monitor creatinine -CT abdomen no obstructive uropathy Pacemaker in place Type 2 diabetes mellitus -Low-dose sliding scale NSTEMI -Serial EKGs, short troponins, telemetry monitoring -Continue aspirin, statin -Echocardiogram during last hospitalization CONCLUSIONS Moderately increased left ventricular cavity size. Severely decreased left ventricular systolic function. Left ventricular ejection fraction is estimated at 15 %. No significant valve abnormalities. There is no pericardial effusion. Plan for today keep on minimal sedation neurochecks, monitor reflexes, Neurology consultation, posssinly eeg, PDMP PDMP Reviewed: Not Reviewed Attestations 2 Medical Necessity Statement*: Patient requires hospitalization for acute CVA right-sided deficit acute respiratory failure, esbl proteus, maria a, nsetmi Coding Level of Care Code Critical Care >/= 30 minutes Critical care time (in minutes): 45 The high probability of a clinically significant, sudden or life threatening deterioration, as referenced in this documentation, required my full and direct attention, intervention and personal management. The critical care time shown is in addition to time spent performing any reported separately billable procedures and includes the following: [x] Data and vital sign review and interpretation [x ] Patient assessment, examination and intervention [x] Medication orders and management [x] Patient/Family updates as able [x] Care Coordination and Documentation. Diagnoses S/P CABG (coronary artery bypass graft) Z95.1 Coronary artery disease I25.10 Diabetes E11.9 Morbid obesity E66.01 MARIA A (acute kidney injury) N17.9 CKD (chronic kidney disease) N18.9 Sepsis A41.9 Acute metabolic encephalopathy G93.41 Acute respiratory failure with hypoxia and hypercapnia J96.01; J96.02 Septic shock A41.9; R65.21 Acute CVA (cerebrovascular accident) I63.9 Pneumonia J18.9 NSTEMI (non-ST elevated myocardial infarction) I21.4
--- NOTE | 2024-12-24 17:42 | PC.NURSE ---
Patient's blood sugar was 171. The 193 was documented on the wrong patient.
[2024-12-24] MEDS: dexmedeTOMIDine 0.9 % NaCL 400 MCG/100 ML PREMIX 8.82 MCG IV (20:22)
[2024-12-24 20:43] LABS: Glucose Point of Care 156 mg/dL (70-110)
[2024-12-24] MEDS: atorvastatin 40 mg Tablet PO (20:46)
[2024-12-24] MEDS: enoxaparin 40 mg/0.4 mL Syringe SUBCUT (20:46)
[2024-12-25] VITALS (65 sets, daily range): BP systolic 104–179; BP diastolic 65–109; PULSE 60–74; RESP 16–21; TEMP 36.6–37.7; O2SAT 91–95
[2024-12-25] MEDS: ipratropium-albuterol 3 mL Neb INHALATION ×2 (01:26→08:22)
[2024-12-25 04:17] LABS: Basophils # 0.1 10^3/uL (0.0-0.1); Basophils % 0.8 %; Eosinophils # 0.3 10^3/uL (0.0-0.8); Hematocrit 44.7 % (37-53); Lymphocytes # 1.3 10^3/uL (0.8-4.8); Lymphocytes % 16.1 %; Mean Corpuscular HGB Conc 29.1 g/dL (30-55); Mean Corpuscular Volume 85.8 fl (82-101); Mean Platelet Volume 11.6 fL (7.4-10.4); Monocytes % 12.1 %; Neutrophils # 5.23 10^3/uL (1.8-7.7); Neutrophils % 65.9 %; Nucleated Red Blood Cells % 0 %; Platelet Count 127 10^3/cmm (157-399); Red Blood Count 5.21 10^6/uL (3.85-5.65); Red Cell Distribution Width 17.7 % (12.1-15.1); White Blood Count 7.94 10^3/uL (3.29-11.43)
[2024-12-25 04:30] LABS: Lactate (Lactic Acid level) 1.1 mmol/L (0.5-2.2)
[2024-12-25 04:40] LABS: ABG PCO2 40.3 mmHg (35-45); ABG PH Result 7.38 (7.35-7.45); Arterial Blood Gas Hematocrit 43.9 % (42-52); Base Excess ABG -1.3 mmol/L (-2.0-2.0); Blood Gas Allen Test Pos; Blood Gas Sample Site Radial, right; Blood Gas Sample Type Arterial; Blood Gas Tidal Volume 0.51; HCO3 ABG 23.8 mmol/L (22-26); Oxygen Device VENT; PO2 ABG 66.6 mmHg (80.0-100.0); PO2 FiO2 Ratio Arterial Blood 190
[2024-12-25] MEDS: dexmedeTOMIDine 0.9 % NaCL 400 MCG/100 ML PREMIX 8.82 MCG IV ×2 (04:47→18:47)
[2024-12-25 06:33] LABS: NT Pro B Type Natriuretic Pept 1755 pg/mL (0-125); Procalcitonin 0.06 ng/mL (0-0.5)
[2024-12-25 06:44] LABS: Alanine Aminotransferase 9 U/L (0-41); Albumin Level 2.9 g/dL (3.5-5.2); Alkaline Phosphatase 56 U/L (40-130); Anion Gap 19.7 (5-19); Aspartate Amino Transferase 15 U/L (0-40); Blood Urea Nitrogen 45 mg/dL (8-23); C Reactive Protein 53.3 mg/L (0.0-4.9); Calcium 9.1 mg/dL (8.5-10.5); Carbon Dioxide 21 mmol/L (22-29); Chloride 105 mmol/L (98-107); Creatine Phosphokinase 178 U/L (39-308); Globulin 4.2 g/dL (1.3-4.6); Glomerular Filtration Rate 50.7 mL/min (90-130); Glucose 203 mg/dL (65-115); Magnesium 2.2 mg/dL (1.7-2.3); Osmolality Calculated 309 mOsm/kg (285-295); Phosphorus 3.1 mg/dL (2.5-4.5); Potassium 4.7 mmol/L (3.5-5.1); Sodium 141 mmol/L (136-145); Total Bilirubin 0.9 mg/dL (0.15-1.2); Total Protein 7.1 g/dL (6.6-8.7)
[2024-12-25 06:50] LABS: Creatinine Clr Calc Pharmacy 55.1315
--- NOTE | 2024-12-25 07:10 | XRR_ITS ---
PROCEDURE INFORMATION: Exam: XR Abdomen Exam date and time: 12/25/2024 9:49 AM Age: 64 years old Clinical indication: Other: High og output TECHNIQUE: Imaging protocol: Radiologic exam of the abdomen. Views: Frontal supine view of the abdomen. 1 View. COMPARISON: CT chest abdpel [id number] 12/20/2024 8:28 PM FINDINGS: Gastrointestinal tract: Normal. No bowel dilation. Bones/joints: Metallic sternotomy wires are present. NG tube extends into the stomach. XR/XR KUB portable [id number] IMPRESSION: No acute findings.
[2024-12-25 09:07] LABS: Glucose Point of Care 208 mg/dL (70-110)
[2024-12-25] MEDS: insulin lispro 100 unit/1 mL SUBCUT ×4 (10:02→20:54)
[2024-12-25] MEDS: gabapentin 400 mg Capsule 800 MG PO ×3 (10:03→20:54)
[2024-12-25] MEDS: meropenem 1,000 mg SDV 1000 MG IVP ×2 (10:04→19:54)
[2024-12-25] MEDS: aspirin 325 mg EC Tablet PO (10:04)
--- NOTE | 2024-12-25 10:52 | P.PN_ITS ---
Subjective 2 Subjective: - Patient was examined earlier this morn ing -Patient on command he can move his left arm, left leg, but does not move the right side, right pupil continues to be DVT downtrending, left equal equal reactive to light -At times he does not follow commands -Afebrile overnight, normotensive -Did have bilious output 100 cc from deloris gastric tube KUB ordered -Blood pressures are elevated start Norv asc 5 mg -Remains on Precedex, off fentanyl can p ut on low-dose fentanyl for agitation, for comfort if needed -Creatinine improved to 1.4, BUN 45 -Patient was seen early in the morning w ith family was at bedside nursing staff at bedside -Had detailed discussion with patient's family, patient has pneumonia Moraxella catarrhalis, on 35% FiO2, afebrile he is on antibiotics he also has ESBL UTI he is on IV antibiotics for this -Renal function improving uremia is impr oving remains afebrile, blood pressure medications -In terms of mentation family does notic e that yesterday afternoon and this morning he less responsive, confused -Yesterday afternoon according to family he was follow commands, able to squeeze fingers, -Yesterday afternoon they did talk to hi m a bit about his goals of care as they feel he can listen to them, but did not get an answer -This morning does not follow commands -Discussed my discussion with neurology -Plan on EEG CT head tomorrow -Discussed overall goals of care -Options discussed with treatment evalua tion is giving him time pursuing trach placement, PEG tube placement placement or long-term care facility to give him time -I did not start feeding late last night as he had bilious output from his orogastric tube has 100 cc of bilious output KUB ordered if it is reasonable we will start him on oral gastric tube feedings -However, discussed with family that I a m worried that this is likely to be his baseline level functionally he has right hemiplegia, at times is encephalopathic -I feel he will not maintain his airway and likely will need a tracheostomy -And likely need a PEG tube placement fo r feeding -The other option discussed was understa nding that he has had a severe neurologic event, stroke, to ease his pain easily suffering and pursue comfort care -Discussed the risk and benefits of opti ons patient's family voiced understanding, all questions answered, they want a wait for the head CT and EEG tomorrow -They are not ready to make decision the y want to see how he does by Thursday and Thursday -They are potentially thinking about giv ing him longer considering a trach and a PEG however they are not ready to make that decision as of yet they want to give him time -Of note patient does have a a fianc? wh o he is at the custodial with, they are apparently not -Will reach out to facility to see if he has had any healthcare power of commercial litigation attorney paperwork filled out but there is none in the chart, and patient's daughter is the next of kin so she will be decision-maker Vitals/I&O/Wt Last Vital Signs Temp 97.8 F 12/25/24 04:00 Pulse 64 12/25/24 08:23 Resp 17 12/25/24 10:01 BP 169/89 12/25/24 05:00 Pulse Ox 92 12/25/24 10:01 O2 Del Method Mechanical Ventilation 12/25/24 08:23 O2 Flow Rate 15 12/20/24 12:18 FiO2 35 12/25/24 10:01 12/24/24 12/25/24 12/25/24 22:59 06:59 14:59 Intake Total 146.065 / 168.482 85.594 / 254.076 Output Total 775 / 1325 1200 / 2525 Balance -628.935 / -1156.518 -1114.406 / -2270.924 Weight last 48 hrs Weight 78.245 kg Weight 164.546 kg Physical Exam 2 Const: COMMON NORMALS: no acute distress OTHER: Intubated, on mechanical ventilation, minimal sedation Eye: OTHER: Right pupil Narendra [place], left pupil equal round reactive to light Resp: COMMON NORMALS: normal respiratory effort, No retractions, No use of accessory muscles and clear to auscultation bilaterally AUSCULTATION: clear to auscultation bilaterally Cardio: COMMON NORMALS: regular rate, regular rhythm, S1 normal heart sound present and S2 normal heart sound present RATE: regular rate RHYTHM: r egular rhythm HEART SOUNDS: S1 normal heart sound present and S2 normal heart sound present GI: COMMON NORMALS: Normal to inspection, nondistended, normoactive bowel sounds present and non-tender Extremity: COMMON NORMALS: no calf tenderness Urinary Catheter Management: Russo: Cath Placed During This Visit: yes Reason for Continuing Indwelling Catheter: Accurate Measurement of Urinary Output in Critically Ill Patients Urinary Catheter Date of Insertion: 12/20/24 Urinary Catheter Time of Insertion: 12:00 Data 12/25/24 03:02 12/25/24 05:49 A&P Assessment and plan (1) S/P CABG (coronary artery bypass graft): (2) Coronary artery disease: (3) Diabetes: (4) Morbid obesity: (5) MARIA A (acute kidney injury): (6) CKD (chronic kidney disease): (7) Sepsis: (8) Acute metabolic encephalopathy: (9) Acute respiratory failure with hypoxia and hypercapnia: (10) Septic shock: (11) Acute CVA (cerebrovascular accident): (12) Pneumonia: (13) NSTEMI (non-ST elevated myocardial infarction): Plan Acute CVA CT/CT head wo con* [id number] IMPRESSION: 1. No acute intracranial hemorrhage or edema. 2. Interval development of a small LEFT thalamic infarct since 12/20/2024. 3. Moderate volume loss and small vessel disease. -Evidence of right sided deficits, right-sided facial droop, right pupil deviated down and in Plan -Continue aspirin -Statin -Permissive hypertension, completed -Start Norvasc 10 mg daily -Continue to monitor mentation, neurologic checks off sedation -Does have orogastric tube bilious output, will monitor KUB, if reasonable start on trickle tube feeds tonight Acute encephalopathy -Could be from hypoxia -Could be from pneumonia possible aspiration event, pneumonia sputum cultures are growing Moraxella -Significant component patient's acute CVA -Could be from uremia BUN 84 -Check ammonia levels elevated 66, monitor now 23 -Respiratory viral panel within normal limits -CT head no acute findings -CTA head and neck no acute findings -CT chest shows bilateral lower lobe consolidation, stable patchy atelectasis or infiltrate in the lingula Plan -Neurochecks -Aspiration precaution -NIH stroke scale -Aspirin -Statin -IV fluids currently on hold due to fluid overload, does have uremia monitor -Will try to minimize sedation monitor mentation -Allow for permissive hypertension completed -Broad-spectrum antibiotic therapy meropenem -Vancomycin stopped due to vancomycin levels 48.2 -Ammonia levels 26 -Minimal sedation 25 to fentanyl, Precedex drip -EEG tomorrow -CT head tomorrow -Neurology consulted Acute hypoxic respiratory failure -Persistent hypoxia, respiratory failure in the emergency room requiring intubation mechanical ventilation -Likely from pneumonia, concerns for aspiration pneumonia -With underlying COPD, CHF Plan -Currently intubated mechanical ventilation -Propofol for sedation off -Fentanyl for sedation 25mcg - Precedex -Minimize tidal volume, minimize FiO2 -Broad-spectrum antibody therapy -Vancomycin -Meropenem -Blood cultures -Sputum cultures -DuoNeb Urinary tract infection, urine showing Proteus ESBL -Continue meropenem Sepsis with septic shock, resolved -Sepsis features met given leukocytosis, respiratory failure, hypoxia, elevated troponins MARIA A -Patient will likely require pressors as maps are 60-65 despite fluid therapy -Levophed to maintain MAP greater than 65 MARIA A on CKD, creatinine 1.4 -Could be from sepsis -IV fluids on hold due to EF of 15% -Monitor urine output monitor creatinine -CT abdomen no obstructive uropathy Pacemaker in place Type 2 diabetes mellitus -Low-dose sliding scale NSTEMI -Serial EKGs, short troponins, telemetry monitoring -Continue aspirin, statin -Echocardiogram during last hospitalization CONCLUSIONS Moderately increased left ventricular cavity size. Severely decreased left ventricular systolic function. Left ventricular ejection fraction is estimated at 15 %. No significant valve abnormalities. There is no pericardial effusion. Plan for today keep on minimal sedation neurochecks, monitor reflexes, Neurology consultation, EEG tomorrow, CT head tomorrow, start Norvasc, continue IV antibiotics, monitor respiratory status, monitor mentation, possible trickle tube feeds, goals of care discussion PDMP PDMP Reviewed: Not Reviewed Attestations 2 Medical Necessity Statement*: Patient requires hospital or acute CVA, acute respiratory failure, pneumonia, UTI, acute encephalopathy Coding Level of Care Code Critical Care >/= 30 minutes Critical care time (in minutes): 45 The high probability of a clinically significant, sudden or life threatening deterioration, as referenced in this documentation, required my full and direct attention, intervention and personal management. The critical care time shown is in addition to time spent performing any reported separately billable procedures and includes the following: [x] Data and vital sign review and interpretation [x ] Patient assessment, examination and intervention [x] Medication orders and management [x] Patient/Family updates as able [x] Care Coordination and Documentation. Diagnoses S/P CABG (coronary artery bypass graft) Z95.1 Coronary artery disease I25.10 Diabetes E11.9 Morbid obesity E66.01 MARIA A (acute kidney injury) N17.9 CKD (chronic kidney disease) N18.9 Sepsis A41.9 Acute metabolic encephalopathy G93.41 Acute respiratory failure with hypoxia and hypercapnia J96.01; J96.02 Septic shock A41.9; R65.21 Acute CVA (cerebrovascular accident) I63.9 Pneumonia J18.9 NSTEMI (non-ST elevated myocardial infarction) I21.4
[2024-12-25 12:22] LABS: Glucose Point of Care 196 mg/dL (70-110)
[2024-12-25] MEDS: amlodipine 10 mg Tablet PO (13:52)
[2024-12-25] MEDS: pantoprazole 40 mg SDV IVP (13:54)
[2024-12-25 18:19] LABS: Glucose Point of Care 175 mg/dL (70-110)
[2024-12-25 20:25] LABS: Glucose Point of Care 173 mg/dL (70-110)
[2024-12-25] MEDS: atorvastatin 40 mg Tablet PO (20:54)
[2024-12-25] MEDS: enoxaparin 40 mg/0.4 mL Syringe SUBCUT (20:54)
[2024-12-26] VITALS (51 sets, daily range): BP systolic 117–171; BP diastolic 71–104; PULSE 61–83; RESP 16–21; TEMP 36.6–37.4; O2SAT 89–96
[2024-12-26] MEDS: dexmedeTOMIDine 0.9 % NaCL 400 MCG/100 ML PREMIX 8.82 MCG IV (04:00)
[2024-12-26 05:20] LABS: Alanine Aminotransferase 9 U/L (0-41); Albumin Level 3.4 g/dL (3.5-5.2); Alkaline Phosphatase 57 U/L (40-130); Anion Gap 18.1 (5-19); Aspartate Amino Transferase 11 U/L (0-40); Blood Urea Nitrogen 35 mg/dL (8-23); C Reactive Protein 51.6 mg/L (0.0-4.9); Calcium 9.5 mg/dL (8.5-10.5); Carbon Dioxide 23 mmol/L (22-29); Chloride 109 mmol/L (98-107); Creatinine Clr Calc Pharmacy 95.5833; Globulin 3.3 g/dL (1.3-4.6); Glomerular Filtration Rate 60.6 mL/min (90-130); Glucose 194 mg/dL (65-115); Osmolality Calculated 313 mOsm/kg (285-295); Phosphorus 2.9 mg/dL (2.5-4.5); Potassium 5.1 mmol/L (3.5-5.1); Sodium 145 mmol/L (136-145); Total Bilirubin 1.1 mg/dL (0.15-1.2); Total Protein 6.7 g/dL (6.6-8.7)
[2024-12-26 05:32] LABS: NT Pro B Type Natriuretic Pept 2426 pg/mL (0-125); Procalcitonin 0.05 ng/mL (0-0.5)
[2024-12-26 05:43] LABS: Creatine Phosphokinase 115 U/L (39-308)
--- NOTE | 2024-12-26 07:00 | CT_ITS ---
WS: [id number] CT HEAD TECHNIQUE: Noncontrast CT of the head obtained from the skullbase to the vertex. CLINICAL INFORMATION: ams COMPARISON: 12/23/2024 DLP: 2380.[address] scans at [facility] use at least one of these dose optimization techniques: automated exposure control; mA and/or kV adjustment per patient size (includes targeted exams where dose is matched to clinical indication); or iterative reconstruction. FINDINGS: No evidence of intracranial hemorrhage. Left thalamic subacute infarct has evolved with increased edema. Area of edema measures approximately 1.8 x 1.4 cm. Minimal mass effect on the third ventricle. No significant mass effect or midline shift. No other interval changes. Chronic infarct LEFT frontal lobe with encephalomalacia. Moderate small vessel changes. Moderate parenchymal volume loss. Vascular calcification. Fluid in the posterior nasopharynx, ethmoid air cells, and sphenoid sinuses. Mastoid air cells are well aerated. CT/CT head wo con* [id number] IMPRESSION: 1. No evidence of intracranial hemorrhage 2. Evolving subacute LEFT thalamic infarct with associated edema increased sin ce 12/23/2024 described above. No significant mass effect or midline shift. 3. No other significant changes.
[2024-12-26 07:49] LABS: Glucose Point of Care 186 mg/dL (70-110)
[2024-12-26] MEDS: ipratropium-albuterol 3 mL Neb INHALATION ×3 (08:25→19:52)
[2024-12-26] MEDS: meropenem 1,000 mg SDV 1000 MG IVP ×2 (09:12→19:50)
[2024-12-26] MEDS: insulin lispro 100 unit/1 mL SUBCUT ×4 (09:18→21:16)
[2024-12-26] MEDS: amlodipine 10 mg Tablet PO (09:19)
[2024-12-26] MEDS: aspirin 325 mg EC Tablet PO (09:19)
[2024-12-26] MEDS: gabapentin 400 mg Capsule 800 MG PO ×3 (09:20→21:02)
[2024-12-26] MEDS: FUROsemide 10 mg/mL SDV 4mL 40 MG IVP (11:18)
[2024-12-26 11:35] LABS: Glucose Point of Care 189 mg/dL (70-110)
[2024-12-26 11:56] LABS: Basophils # 0.1 10^3/uL (0.0-0.1); Basophils % 0.6 %; Eosinophils # 0.4 10^3/uL (0.0-0.8); Eosinophils % 4.9 %; Hematocrit 45.3 % (37-53); Lymphocytes % 10.8 %; Mean Corpuscular HGB Conc 29.8 g/dL (30-55); Mean Corpuscular Hemoglobin 24.9 pg (27-33); Mean Corpuscular Volume 83.6 fl (82-101); Mean Platelet Volume 11.9 fL (7.4-10.4); Monocytes % 11.6 %; Neutrophils # 6.41 10^3/uL (1.8-7.7); Neutrophils % 71.2 %; Nucleated Red Blood Cells % 0 %; Platelet Count 188 10^3/cmm (157-399); Red Blood Count 5.42 10^6/uL (3.85-5.65); Red Cell Distribution Width 17.5 % (12.1-15.1); White Blood Count 8.99 10^3/uL (3.29-11.43)
[2024-12-26 12:18] LABS: Lactate (Lactic Acid level) 2.4 mmol/L (0.5-2.2)
--- NOTE | 2024-12-26 13:45 | PC.SOCIAL ---
IMM Update pg 2 of IMM Updated and reviewed w/ patient's daugther. Copy provided and copy dated, initialed and placed in chart.
[2024-12-26] MEDS: pantoprazole 40 mg SDV IVP (14:45)
--- NOTE | 2024-12-26 16:44 | PC.NUTR ---
Consult for tube feedings received. Recommend beginning with Jevity 1.5 @ 15mls/hr and increasing 10mls Q4-8H as tolerated until goal rate of 65mls/hr is reached with FWF of 120mls Q4H or per MD discretion.
[2024-12-26 17:23] LABS: Glucose Point of Care 183 mg/dL (70-110)
--- NOTE | 2024-12-26 17:50 | PC.NURSE ---
Fentanyl gtt and Precedex gtt wasted. See MAR. Witnessed by LALA Cordova
--- NOTE | 2024-12-26 19:25 | PC.NURSE ---
summary: Pt remains intubated. He has been on Precedes 0.2mcg/kg/hr until 0800 . Pt started on Fentanyl at 25 mcg/hr yesterday , mid afternoon to aid in his comfort. He is now off all sedation . Frequent assessments of his mental status done throughout yesterday and today. He can open his right eye but it turns inward to his nose. He raises his left eyebrow in attempt to open his left eye, unable to raise eye lid. He does move his left hand and rarely grasps bed rail. NO changes in vent sittings yesterday or today. He has been afebrile both shifts. Paced rhythm noted on monitor. BNP has been increasing. Lasix 40 mg admin today. Urine output yesterday 1050, today 192. No Bm noted either day. His bowel sounds are hypoactive. He was started on tube feedings, Jevity 1.3 at 10ml/hr. No indications or head nods to pain either day. Family attentive , at bedside every morning.
--- NOTE | 2024-12-26 20:30 | P.PN_ITS ---
Subjective 2 Subjective: 64 yo with past medical history of diabe brent mellitus on insulin, obstructive sleep apnea, systolic and diastolic heart failure, sick sinus syndrome status post pacemaker placement, and coronary artery disease status post CABG in 12/2009 presents with difficulty breathing and altered mental status. The patient was admitted on 12/20/2024 and immediately intubated due to oxygen saturation in the 70s. Initial workup included CT head and CTA head and neck which were unremarkable. Repeat CT head on 12/23/2024 revealed interval development of a small left thalamic stroke without hemorrhage. CT chest/abdomen/pelvis on admission showed bilateral lower lobe consolidations, patchy lingular infiltrates, moderate stable cardiomegaly, colonic diverticulosis, and mild vascular calcifications. The patient has been maintained on mechanical ventilation. Ventilator settings have been weaned to FiO2 35%, PEEP 8, tidal volume 510, and peak inspiratory pressure 24. The patient is currently off sedation and is opening eyes, following commands, and nodding head appropriately to answer questions. Feeding has been initiated via orogastric tube at a low rate. Vitals/I&O/Wt Last Vital Signs Temp 99.3 F 12/26/24 16:00 Pulse 76 12/26/24 19:58 Resp 20 H 12/26/24 19:58 BP 122/71 12/26/24 16:00 Pulse Ox 92 12/26/24 19:58 O2 Del Method Mechanical Ventilation 12/26/24 19:58 O2 Flow Rate 15 12/20/24 12:18 FiO2 35 12/26/24 19:58 12/26/24 12/26/24 12/26/24 06:59 14:59 22:59 Intake Total 266.041 / 446.041 40 / 40 120 / 160 Output Total 650 / 1900 1475 / 1475 450 / 1925 Balance -383.959 / -1453.959 -1435 / -1435 -330 / -1765 Weight last 48 hrs Weight 169.5 kg Weight 172.5 kg Weight 78.245 kg Physical Exam 2 Const: COMMON NORMALS: no acute distress OTHER: Intubated, on mechanical ventilation, minimal sedation Eye: OTHER: Right pupil Narendra [place], left pupil equal round reactive to light Resp: COMMON NORMALS: normal respiratory effort, No retractions, No use of accessory muscles and clear to auscultation bilaterally AUSCULTATION: clear to auscultation bilaterally Cardio: COMMON NORMALS: regular rate, regular rhythm, S1 normal heart sound present and S2 normal heart sound present RATE: regular rate RHYTHM: r egular rhythm HEART SOUNDS: S1 normal heart sound present and S2 normal heart sound present GI: COMMON NORMALS: Normal to inspection, nondistended, normoactive bowel sounds present and non-tender Extremity: COMMON NORMALS: no calf tenderness Urinary Catheter Management: Russo: Cath Placed During This Visit: yes Reason for Continuing Indwelling Catheter: Accurate Measurement of Urinary Output in Critically Ill Patients Urinary Catheter Date of Insertion: 12/20/24 Urinary Catheter Time of Insertion: 12:00 Data 12/26/24 10:37 12/26/24 03:52 A&P Assessment and plan (1) S/P CABG (coronary artery bypass graft): (2) Coronary artery disease: (3) Diabetes: (4) Morbid obesity: (5) MARIA A (acute kidney injury): (6) CKD (chronic kidney disease): (7) Sepsis: (8) Acute metabolic encephalopathy: (9) Acute respiratory failure with hypoxia and hypercapnia: (10) Septic shock: (11) Acute CVA (cerebrovascular accident): (12) Pneumonia: (13) NSTEMI (non-ST elevated myocardial infarction): Plan Acute Hypoxemic Respiratory Failure - Likely multifactorial, with contributions from heart failure, pneumonia, and possible aspiration - Continue mechanical ventilation with daily spontaneous breathing trials - Chest physiotherapy, incentive spirometry when able - Diuresis with intravenous Lasix - Follow serial chest x-rays Acute Ischemic Stroke - Small left thalamic infarct on CT head 12/23/2024, no hemorrhagic conversion - Unclear etiology, consider cardioembolic vs. small vessel occlusion - Continue antihypertensive - On aspirin/statin - Unable to obtain MRI brain and - TTE noted Acute on Chronic Systolic and Diastolic Heart Failure - Elevated BNP >2500, persistent pulmonary edema on imaging - Initiate intravenous diuretics 40 mg IV x1 given today - Goal 2-3L negative balance daily - Optimize medical management - Strict intake and output, daily weights - Cardiology consultation Pneumonia - Bilateral lower lobe consolidations and lingular infiltrates - Continue broad-spectrum antibiotics - currently on meropenem - Pulmonary toilet, frequent suctioning - Elevate head of bed, chlorhexidine mouthwash Acute Kidney Injury - Baseline creatinine 1.5-1.7, peaked at 2.7 on admission, now improved to 1.2 - Likely pre-renal, exacerbated by heart failure - Gentle volume expansion, avoid nephrotoxins - Renal ultrasound if no improvement Encephalopathy - Likely multifactorial - critical illness, polypharmacy, uremia, hypoxia - Discontinue all sedatives and antipsychotics - Maintain normal sleep-wake cycle, minimize stimulation - Frequent reorientation, early mobilization when able Prophylaxis - GI prophylaxis - continue proton pump inhibitor - VTE prophylaxis - sequential compression devices, Lovenox - Lines/Tubes - orogastric tube, Russo catheter, central line - remove when able Code Status/Goals of Care - Full code currently - Daughter at bedside, will discuss patient's wishes when more alert - Focus on ventilator liberation, will address tracheostomy/PEG if unable to extubate Disposition - Likely will require long-term acute care or longterm facility - Case management, social work to assist with placement - Palliative care consultation to clarify goals PDMP PDMP Reviewed: Not Reviewed Attestations 2 Medical Necessity Statement*: Patient requires hospital or acute CVA, acute respiratory failure, pneumonia, UTI, acute encephalopathy Coding Level of Care Code Acute Code for Chg Fwd Diagnoses S/P CABG (coronary artery bypass graft) Z95.1 Coronary artery disease I25.10 Diabetes E11.9 Morbid obesity E66.01 MARIA A (acute kidney injury) N17.9 CKD (chronic kidney disease) N18.9 Sepsis A41.9 Acute metabolic encephalopathy G93.41 Acute respiratory failure with hypoxia and hypercapnia J96.01; J96.02 Septic shock A41.9; R65.21 Acute CVA (cerebrovascular accident) I63.9 Pneumonia J18.9 NSTEMI (non-ST elevated myocardial infarction) I21.4
[2024-12-26] MEDS: enoxaparin 40 mg/0.4 mL Syringe SUBCUT (21:02)
[2024-12-26] MEDS: atorvastatin 40 mg Tablet PO (21:02)
[2024-12-26 21:13] LABS: Glucose Point of Care 200 mg/dL (70-110)
[2024-12-27] VITALS (46 sets, daily range): BP systolic 116–166; BP diastolic 68–104; PULSE 70–94; RESP 15–24; TEMP 36.4–37.6; O2SAT 89–99
[2024-12-27] MEDS: ipratropium-albuterol 3 mL Neb INHALATION ×4 (02:49→19:28)
[2024-12-27 04:15] LABS: ABG PCO2 41.6 mmHg (35-45); Arterial Blood Gas Hematocrit 44.1 % (42-52); Blood Gas Allen Test Pos; Blood Gas Sample Type Arterial; PO2 ABG 67.5 mmHg (80.0-100.0)
[2024-12-27 04:17] LABS: Blood Gas Operator Identificat ED; Blood Gas Sample Site Radial, left; Blood Gas Tidal Volume 0.51; Oxygen Device VENT; PO2 FiO2 Ratio Arterial Blood 192
[2024-12-27 05:28] LABS: Basophils # 0.1 10^3/uL (0.0-0.1); Basophils % 0.9 %; Eosinophils # 0.4 10^3/uL (0.0-0.8); Eosinophils % 4.4 %; Hematocrit 45.9 % (37-53); Lymphocytes # 1.2 10^3/uL (0.8-4.8); Mean Corpuscular HGB Conc 29.4 g/dL (30-55); Mean Corpuscular Hemoglobin 25.1 pg (27-33); Mean Corpuscular Volume 85.3 fl (82-101); Mean Platelet Volume 11.4 fL (7.4-10.4); Monocytes # 1.3 10^3/uL (0.2-0.9); Monocytes % 13.5 %; Neutrophils # 6.77 10^3/uL (1.8-7.7); Neutrophils % 68.3 %; Nucleated Red Blood Cells % 0 %; Platelet Count 187 10^3/cmm (157-399); Red Blood Count 5.38 10^6/uL (3.85-5.65); Red Cell Distribution Width 17.9 % (12.1-15.1); White Blood Count 9.92 10^3/uL (3.29-11.43)
[2024-12-27 05:50] LABS: Alanine Aminotransferase 8 U/L (0-41); Albumin Level 3.1 g/dL (3.5-5.2); Alkaline Phosphatase 51 U/L (40-130); Anion Gap 19.3 (5-19); Aspartate Amino Transferase 11 U/L (0-40); Blood Urea Nitrogen 31 mg/dL (8-23); Calcium 9.6 mg/dL (8.5-10.5); Carbon Dioxide 25 mmol/L (22-29); Chloride 103 mmol/L (98-107); Creatinine Clr Calc Pharmacy 86.3333; Globulin 4.4 g/dL (1.3-4.6); Glomerular Filtration Rate 55.2 mL/min (90-130); Glucose 210 mg/dL (65-115); Osmolality Calculated 309 mOsm/kg (285-295); Potassium 4.3 mmol/L (3.5-5.1); Sodium 143 mmol/L (136-145); Total Bilirubin 1.3 mg/dL (0.15-1.2); Total Protein 7.5 g/dL (6.6-8.7)
--- NOTE | 2024-12-27 07:00 | XRR_ITS ---
PROCEDURE INFORMATION: Exam: XR Chest Exam date and time: 12/27/2024 5:05 AM Age: 64 years old Clinical indication: Shortness of breath; Prior surgery; Surgery date: 6+ months; Surgery type: Pacer; Additional info: Respiratory failure TECHNIQUE: Imaging protocol: Radiologic exam of the chest. Views: 1 view. COMPARISON: CR (CHEST, ) 12/24/2024 5:43 AM FINDINGS: Tubes, catheters and devices: Left chest wall pacer device with unremarkable leads. Enteric tube traverses midline, catheter tip not within field of view. Right upper extremity peripherally inserted central venous access catheter is stable. Endotracheal tube projects 5.4 cm from the soledad. Lungs: Interval improvement in aeration of the bilateral lung gorman, perhaps mild residual left basilar infiltrate. Pleural spaces: Unremarkable. No pleural effusion. No pneumothorax. Heart/Mediastinum: Postprocedural changes of the heart. Bones/joints: Sternotomy. Degenerative changes of the visualized osseous structures. XR/XR chest 1V portable [id number] IMPRESSION: 1. Medical devices as above. 2. Improving aeration of the bilateral lung gorman with perhaps small residual infiltrate/opacity in the left lower lobe.
[2024-12-27 07:43] LABS: Glucose Point of Care 193 mg/dL (70-110)
--- NOTE | 2024-12-27 09:05 | PM.ACPR ---
Documented by User: Deidra Barber 12/27/24 09:10 EEG Routine Details of Procedure Details/Comments: - Patient was examined earlier this morning -Patient on command he can move his left arm, left leg, but does not move the right side, right pupil continues to be DVT downtrending, left equal equal reactive to light -At times he does not follow commands -Afebrile overnight, normotensive -Did have bilious output 100 cc from orogastric tube KUB ordered -Blood pressures are elevated start Norvasc 5 mg -Remains on Precedex, off fentanyl can put on low-dose fentanyl for agitation, for comfort if needed -Creatinine improved to 1.4, BUN 45 -Patient was seen early in the morning with family was at bedside nursing staff at bedside -Had detailed discussion with patient's family, patient has pneumonia Moraxella catarrhalis, on 35% FiO2, afebrile he is on antibiotics he also has ESBL UTI he is on IV antibiotics for this -Renal function improving uremia is improving remains afebrile, blood pressure medications -In terms of mentation family does notice that yesterday afternoon and this morning he less responsive, confused -Yesterday afternoon according to family he was follow commands, able to squeeze fingers, Per Dr Kendall Gleason 12/26/2024 -Yesterday afternoon they did talk to him a bit about his goals of care as they feel he can listen to them, but did not get an answer -This morning does not follow commands -Discussed my discussion with neurology -Plan on EEG CT head tomorrow -Discussed overall goals of care -Options discussed with treatment evaluation is giving him time pursuing trach placement, PEG tube placement placement or long-term care facility to give him time -I did not start feeding late last night as he had bilious output from his orogastric tube has 100 cc of bilious output KUB ordered if it is reasonable we will start him on oral gastric tube feedings -However, discussed with family that I am worried that this is likely to be his baseline level functionally he has right hemiplegia, at times is encephalopathic -I feel he will not maintain his airway and likely will need a tracheostomy -And likely need a PEG tube placement for feeding -The other option discussed was understanding that he has had a severe neurologic event, stroke, to ease his pain easily suffering and pursue comfort care -Discussed the risk and benefits of options patient's family voiced understanding, all questions answered, they want a wait for the head CT and EEG tomorrow -They are not ready to make decision they want to see how he does by Thursday and Thursday -They are potentially thinking about giving him longer considering a trach and a PEG however they are not ready to make that decision as of yet they want to give him time -Of note patient does have a a fianc? who he is at the skilled nursing with, they are apparently not -Will reach out to facility to see if he has had any healthcare power of claim attorney paperwork filled out but there is none in the chart, and patient's daughter is the next of kin so she will be decision-maker EEG [id number] coma or sleep only: [id number] (Per Dr Ortega. assess for prognosis. encephalopathy. stroke) Documented by User: Enzo Ortega MD 12/27/24 12:21 EEG Routine Details of Procedure Details/Comments: - Patient was examined earlier this morning -Patient on command he can move his left arm, left leg, but does not move the right side, right pupil continues to be DVT downtrending, left equal equal reactive to light -At times he does not follow commands -Afebrile overnight, normotensive -Did have bilious output 100 cc from orogastric tube KUB ordered -Blood pressures are elevated start Norvasc 5 mg -Remains on Precedex, off fentanyl can put on low-dose fentanyl for agitation, for comfort if needed -Creatinine improved to 1.4, BUN 45 -Patient was seen early in the morning with family was at bedside nursing staff at bedside -Had detailed discussion with patient's family, patient has pneumonia Moraxella catarrhalis, on 35% FiO2, afebrile he is on antibiotics he also has ESBL UTI he is on IV antibiotics for this -Renal function improving uremia is improving remains afebrile, blood pressure medications -In terms of mentation family does notice that yesterday afternoon and this morning he less responsive, confused -Yesterday afternoon according to family he was follow commands, able to squeeze fingers, Per Dr Kendall Gleason 12/26/2024 -Yesterday afternoon they did talk to him a bit about his goals of care as they feel he can listen to them, but did not get an answer -This morning does not follow commands -Discussed my discussion with neurology -Plan on EEG CT head tomorrow -Discussed overall goals of care -Options discussed with treatment evaluation is giving him time pursuing trach placement, PEG tube placement placement or long-term care facility to give him time -I did not start feeding late last night as he had bilious output from his orogastric tube has 100 cc of bilious output KUB ordered if it is reasonable we will start him on oral gastric tube feedings -However, discussed with family that I am worried that this is likely to be his baseline level functionally he has right hemiplegia, at times is encephalopathic -I feel he will not maintain his airway and likely will need a tracheostomy -And likely need a PEG tube placement for feeding -The other option discussed was understanding that he has had a severe neurologic event, stroke, to ease his pain easily suffering and pursue comfort care -Discussed the risk and benefits of options patient's family voiced understanding, all questions answered, they want a wait for the head CT and EEG tomorrow -They are not ready to make decision they want to see how he does by Thursday and Thursday -They are potentially thinking about giving him longer considering a trach and a PEG however they are not ready to make that decision as of yet they want to give him time -Of note patient does have a a fianc? who he is at the skilled nursing with, they are apparently not -Will reach out to facility to see if he has had any healthcare power of claim attorney paperwork filled out but there is none in the chart, and patient's daughter is the next of kin so she will be decision-maker EEG TEMPLATE: This is a 19 channel routine video surface EEG recording utilizing the [employer] software with surface and EKG electrodes. The procedure was performed utilizing the international 10-20 system. Patient name: Haroon Parish Date of : 1960 Patient age [age] years old Identification number: [id number] Referring Physician: Kendall Gleason MD Interpreting physician: Enzo Ortega MD EEG#: EEG Start time: 09:29:48 EEG End time: 10:56:50 Duration of study: 87 minutes Date of study: 12/27/2024 Reason for study: Encephalopathy assess for seizures as well as to assess clinical prognosis for family decision making Skull defects: None Condition of recording: The patient was reported to be sleepy but arousable to verbal stimuli with opening of his eyes but not following commands when asked to squeeze mapping technician's hands. Cooperation: Fair Activation procedures: Verbal stimuli and tactile stimuli Medications: Gabapentin, insulin, Mounjaro Patient now off all sedation for EEG recording Background activity: Background activity during wakefulness consisted of 6-7 hertz low voltage theta activity posteriorly penetrated by intermittent low voltage beta activity centrally and anteriorly. Intermittently during the recording the record was partially obscured by muscle and motion artifact. The data activity was later intermixed with generalized moderate voltage delta activity. Interictal activity: None Ictal activity: None Impression: This is a mildly abnormal awake and drowsy 87-minute portable surface EEG recording secondary to generalized 6 to 7 Hz theta slowing seen during wakefulness. Clinical correlation: The mild generalized slowing of the background rhythm is suggestive of a mild diffuse encephalopathic process, nonspecific with regards to etiology. Note: No seizure activity was seen. Physician name/Signature: Enzo Ortega MD high voltage electrician/Signature: Deidra Josue
--- NOTE | 2024-12-27 09:09 | PC.NUTR ---
Revised recommendations for tube feeding. Recommend beginning with Glucerna 1.5 @ 10mls/hr and increasing 10mls Q4-8H as tolerated until goal rate of 50mls/hr with FWF of 150mls Q4H or per MD discretion.
[2024-12-27] MEDS: insulin lispro 100 unit/1 mL SUBCUT ×4 (09:22→21:14)
[2024-12-27] MEDS: meropenem 1,000 mg SDV 1000 MG IVP ×2 (09:23→19:37)
[2024-12-27] MEDS: amlodipine 10 mg Tablet PO (09:23)
[2024-12-27] MEDS: gabapentin 400 mg Capsule 800 MG PO ×3 (09:23→21:14)
[2024-12-27] MEDS: aspirin 325 mg EC Tablet PO (09:24)
[2024-12-27 12:00] LABS: Glucose Point of Care 209 mg/dL (70-110)
--- NOTE | 2024-12-27 13:00 | PC.NURSE ---
Carley: Pt's [place], took home. signed paper of possession in paper chart.
[2024-12-27] MEDS: pantoprazole 40 mg SDV IVP (14:21)
--- NOTE | 2024-12-27 15:40 | P.PN_ITS ---
Subjective 2 Subjective: 64 yo with past medical history of diabe brent mellitus on insulin, obstructive sleep apnea, systolic and diastolic heart failure, sick sinus syndrome status post pacemaker placement, and coronary artery disease status post CABG in 12/2009 presents with difficulty breathing and altered mental status. The patient was admitted on 12/20/2024 and immediately intubated due to oxygen saturation in the 70s. Initial workup included CT head and CTA head and neck which were unremarkable. Repeat CT head on 12/23/2024 revealed interval development of a small left thalamic stroke without hemorrhage. CT chest/abdomen/pelvis on admission showed bilateral lower lobe consolidations, patchy lingular infiltrates, moderate stable cardiomegaly, colonic diverticulosis, and mild vascular calcifications. The patient has been maintained on mechanical ventilation. Ventilator settings have been weaned to FiO2 35%, PEEP 8, tidal volume 510, and peak inspiratory pressure 24. The patient is currently off sedation and is opening eyes, following commands, and nodding head appropriately to answer questions. Feeding has been initiated via orogastric tube at a low rate. No new clinical events overnight. Remaind stable on Vent. Was appearing more alert today. Not squeezing RUE. Attempting to wean vent today. Vitals/I&O/Wt Last Vital Signs Temp 98.3 F 12/27/24 08:00 Pulse 83 12/27/24 14:00 Resp 16 12/27/24 15:23 BP 136/82 12/27/24 13:00 Pulse Ox 95 12/27/24 15:23 O2 Del Method Mechanical Ventilation 12/27/24 13:38 O2 Flow Rate 15 12/20/24 12:18 FiO2 35 12/27/24 15:23 12/27/24 12/27/24 12/27/24 06:59 14:59 22:59 Intake Total 137 / 297 35 / 35 Output Total 350 / 2275 Balance -213 / -1977 35 35 Weight last 48 hrs Weight 163.5 kg Weight 169.5 kg Physical Exam 2 Const: COMMON NORMALS: no acute distress OTHER: Intubated, on mechanical ventilation, minimal sedation Eye: OTHER: Right pupil Narendra [place], left pupil equal round reactive to light Resp: COMMON NORMALS: normal respiratory effort, No retractions, No use of accessory muscles and clear to auscultation bilaterally AUSCULTATION: clear to auscultation bilaterally Cardio: COMMON NORMALS: regular rate, regular rhythm, S1 normal heart sound present and S2 normal heart sound present RATE: regular rate RHYTHM: r egular rhythm HEART SOUNDS: S1 normal heart sound present and S2 normal heart sound present GI: COMMON NORMALS: Normal to inspection, nondistended, normoactive bowel sounds present and non-tender Extremity: COMMON NORMALS: no calf tenderness Urinary Catheter Management: Russo: Cath Placed During This Visit: yes Reason for Continuing Indwelling Catheter: Accurate Measurement of Urinary Output in Critically Ill Patients Urinary Catheter Date of Insertion: 12/20/24 Urinary Catheter Time of Insertion: 12:00 Data 12/27/24 05:16 12/27/24 05:16 A&P Assessment and plan (1) S/P CABG (coronary artery bypass graft): (2) Coronary artery disease: (3) Diabetes: (4) Morbid obesity: (5) MARIA A (acute kidney injury): (6) CKD (chronic kidney disease): (7) Sepsis: (8) Acute metabolic encephalopathy: (9) Acute respiratory failure with hypoxia and hypercapnia: (10) Septic shock: (11) Acute CVA (cerebrovascular accident): (12) Pneumonia: (13) NSTEMI (non-ST elevated myocardial infarction): Plan Acute Hypoxemic Respiratory Failure on MV - Likely multifactorial, with contributions from heart failure, pneumonia, and possible aspiration - Continue mechanical ventilation with daily spontaneous breathing trials - Chest physiotherapy, incentive spirometry when able - Diuresis with intravenous Lasix - Follow serial chest x-rays - ABG today noted - stable - Weaning trials today - Will likely need to bridge with PPV - Repeat xray and abg in am Acute Ischemic Stroke - Small left thalamic infarct on CT head 12/23/2024, no hemorrhagic conversion - Repeat CT noted evolving subacute thlamaic infarct with mild surrounding edema - no mass or midline shift - Unclear etiology, consider cardioembolic vs. small vessel occlusion - Continue antihypertensive - On aspirin/statin - Unable to obtain MRI brain - TTE noted - Neurology on board. - Limited exam while on Vent however does not appear to be moving RUE Acute on Chronic Systolic (EF-15%) Heart Failure - Elevated BNP >2500, persistent pulmonary edema on imaging - Echo on 12/13 noted severe LV dysfunction with EF of 15% - Initiate intravenous diuretics 40 mg IV x1 given today - Goal 2-3L negative balance daily - Optimize medical management - Strict intake and output, daily weights - Cardiology consultation Moraxella Catarallis Pneumonia - Bilateral lower lobe consolidations and lingular infiltrates - Continue broad-spectrum antibiotics - currently on meropenem - Pulmonary toilet, frequent suctioning - Elevate head of bed, chlorhexidine mouthwash ESBL UTI - Continue IV abx as noted above Acute Kidney Injury - Baseline creatinine 1.5-1.7, peaked at 2.7 on admission, now improved to 1.2 - Likely pre-renal, exacerbated by heart failure - Gentle volume expansion, avoid nephrotoxins - Renal ultrasound if no improvement Encephalopathy - Likely multifactorial - critical illness, polypharmacy, uremia, hypoxia - Discontinue all sedatives and antipsychotics - Monitor off sedation for now - Will full assess once off vent. Prophylaxis - GI prophylaxis - continue proton pump inhibitor - VTE prophylaxis - sequential compression devices, Lovenox - Lines/Tubes - orogastric tube, Russo catheter, central line - remove when able Code Status/Goals of Care - Full code currently - Daughter at bedside, will discuss patient's wishes when more alert - Focus on ventilator liberation, will address tracheostomy/PEG if unable to extubate Disposition - Likely will require long-term acute care or [place] [facility] facility - Case management, social work to assist with placement Prognosis: Guarded PDMP PDMP Reviewed: Not Reviewed Attestations 2 Medical Necessity Statement*: Patient requires hospital or acute CVA, acute respiratory failure, pneumonia, UTI, acute encephalopathy Coding Level of Care Code Acute Code for Chg Fwd Diagnoses S/P CABG (coronary artery bypass graft) Z95.1 Coronary artery disease I25.10 Diabetes E11.9 Morbid obesity E66.01 MARIA A (acute kidney injury) N17.9 CKD (chronic kidney disease) N18.9 Sepsis A41.9 Acute metabolic encephalopathy G93.41 Acute respiratory failure with hypoxia and hypercapnia J96.01; J96.02 Septic shock A41.9; R65.21 Acute CVA (cerebrovascular accident) I63.9 Pneumonia J18.9 NSTEMI (non-ST elevated myocardial infarction) I21.4
--- NOTE | 2024-12-27 16:29 | PC.NURSE ---
Family notified via telephone pt had weaning trial he started getting tired, pulling lower volumes , back to previous vent setting. We will try again in am.
[2024-12-27 17:04] LABS: Glucose Point of Care 189 mg/dL (70-110)
[2024-12-27] MEDS: FUROsemide 10 mg/mL SDV 4mL 40 MG IVP (18:41)
--- NOTE | 2024-12-27 19:23 | PC.NURSE ---
Shift summary: Pt remains resting in bed. He remains intubated. Weaning trial done this afternoon, he did get tired and went back to VC-AC mode. He remains completely off sedation. He does not struggle or fight ETT/ ventilation. His respiratory rate on vent is set for 16, for the most part he stays at 16, it will increase up to 20 with some stimulation. Oral secretions have slowly down since yesterday when it was copious. Sinus rhythm noted on monitor. He was afebrile. Jevity 1.5 tube feedings stopped this am due to weaning trial , it was then restarted back at same rate of 10 ml/hr. He is moving his left hand much better, he could raise it up near his chin once today. His right hand, he tries to squeeze on command, a barely discernible twitch in thumb noted. No changes with his eyes. He has been wiggling his left foot most of evening. He can move the right foot , but it is very slight. No Bm noted. Bowel sounds still hypoactive. Urine output only 475 ml this shift. lasix IV admin this evening.
[2024-12-27 21:08] LABS: Glucose Point of Care 201 mg/dL (70-110)
[2024-12-27] MEDS: atorvastatin 40 mg Tablet PO (21:13)
[2024-12-27] MEDS: enoxaparin 40 mg/0.4 mL Syringe SUBCUT (21:14)
[2024-12-28] VITALS (37 sets, daily range): BP systolic 117–163; BP diastolic 76–111; PULSE 64–85; RESP 10–27; TEMP 37.3–37.9; O2SAT 88–99
[2024-12-28] MEDS: ipratropium-albuterol 3 mL Neb INHALATION ×3 (07:34→20:11)
[2024-12-28 07:40] LABS: Basophils # 0.1 10^3/uL (0.0-0.1); Basophils % 0.7 %; Eosinophils # 0.5 10^3/uL (0.0-0.8); Eosinophils % 5.6 %; Hematocrit 45.6 % (37-53); Lymphocytes # 1.1 10^3/uL (0.8-4.8); Lymphocytes % 12.7 %; Mean Corpuscular HGB Conc 29.4 g/dL (30-55); Mean Corpuscular Hemoglobin 25.3 pg (27-33); Mean Platelet Volume 11.2 fL (7.4-10.4); Monocytes % 12.2 %; Neutrophils # 5.62 10^3/uL (1.8-7.7); Neutrophils % 67.8 %; Nucleated Red Blood Cells % 0 %; Platelet Count 188 10^3/cmm (157-399); Red Cell Distribution Width 17.7 % (12.1-15.1); White Blood Count 8.28 10^3/uL (3.29-11.43)
[2024-12-28 07:54] LABS: Glucose Point of Care 134 mg/dL (70-110)
[2024-12-28 08:05] LABS: Alanine Aminotransferase 7 U/L (0-41); Albumin Level 3.3 g/dL (3.5-5.2); Alkaline Phosphatase 51 U/L (40-130); Aspartate Amino Transferase 11 U/L (0-40); Blood Urea Nitrogen 34 mg/dL (8-23); Calcium 9.4 mg/dL (8.5-10.5); Carbon Dioxide 27 mmol/L (22-29); Chloride 104 mmol/L (98-107); Creatinine Clr Calc Pharmacy 79.7262; Glomerular Filtration Rate 50.7 mL/min (90-130); Glucose 245 mg/dL (65-115); NT Pro B Type Natriuretic Pept 1301 pg/mL (0-125); Osmolality Calculated 310 mOsm/kg (285-295); Sodium 142 mmol/L (136-145); Total Bilirubin 1.4 mg/dL (0.15-1.2); Total Protein 7.3 g/dL (6.6-8.7)
[2024-12-28 08:06] LABS: Anion Gap 15.5 (5-19); Potassium 4.5 mmol/L (3.5-5.1)
[2024-12-28] MEDS: meropenem 1,000 mg SDV 1000 MG IVP ×2 (08:52→19:25)
[2024-12-28] MEDS: gabapentin 400 mg Capsule 800 MG PO ×2 (08:53→13:05)
[2024-12-28] MEDS: amlodipine 10 mg Tablet PO (08:53)
[2024-12-28] MEDS: aspirin 325 mg EC Tablet PO (08:53)
[2024-12-28 11:38] LABS: Glucose Point of Care 214 mg/dL (70-110)
--- NOTE | 2024-12-28 12:30 | PC.SOCIAL ---
IMM Update pg 2 of IMM Updated and reviewed w/ patient. Copy provided and copy dated, initialed and placed in chart.
--- NOTE | 2024-12-28 12:33 | PC.SOCIAL ---
IMM Update pg 2 of IMM Updated and reviewed w/ patients daughter as patient is still intubated. Copy provided and copy dated, initialed and placed in chart.
[2024-12-28] MEDS: insulin lispro 100 unit/1 mL SUBCUT ×3 (12:47→21:37)
[2024-12-28] MEDS: FUROsemide 10 mg/mL SDV 4mL 40 MG IVP (12:48)
--- NOTE | 2024-12-28 13:35 | PC.NURSE ---
Pt extubated to BiPap, 35%. OG removed. Pt tolerating well.
--- NOTE | 2024-12-28 13:55 | PC.NURSE ---
Addendum entered by Khushboo Estes RN 12/28/24 16:27: Prem Berry [facility] : [phone] Original Note: Kristi from [facility] in [place] called for update and brief overview of pt. This provided. She stated they can probably take him tomorrow.
[2024-12-28] MEDS: morphine 4 mg/mL SDV 1 mL 2 MG IVP (15:48)
[2024-12-28] MEDS: pantoprazole 40 mg SDV IVP (15:49)
--- NOTE | 2024-12-28 16:12 | P.PN_ITS ---
Subjective 2 Subjective: 64 yo with past medical history of diabe brent mellitus on insulin, obstructive sleep apnea, systolic and diastolic heart failure, sick sinus syndrome status post pacemaker placement, and coronary artery disease status post CABG in 12/2009 presents with difficulty breathing and altered mental status. The patient was admitted on 12/20/2024 and immediately intubated due to oxygen saturation in the 70s. Initial workup included CT head and CTA head and neck which were unremarkable. Repeat CT head on 12/23/2024 revealed interval development of a small left thalamic stroke without hemorrhage. CT chest/abdomen/pelvis on admission showed bilateral lower lobe consolidations, patchy lingular infiltrates, moderate stable cardiomegaly, colonic diverticulosis, and mild vascular calcifications. The patient has been maintained on mechanical ventilation. Ventilator settings have been weaned to FiO2 35%, PEEP 8, tidal volume 510, and peak inspiratory pressure 24. The patient is currently off sedation and is opening eyes, following commands, and nodding head appropriately to answer questions. Feeding has been initiated via orogastric tube at a low rate. 12/27 No new clinical events overnight. Remaind stable on Vent. Was appearing more alert today. Not squeezing RUE. Attempting to wean vent today. 12/28 Patient was noted to have temp of 100.2 overnight, tolerated weaning vent, extubated today to BiPAP. Discussed care plan with family at bedside. Vitals/I&O/Wt Last Vital Signs Temp 100.2 F H 12/28/24 13:00 Pulse 84 12/28/24 14:15 Resp 24 H 12/28/24 15:48 BP 163/100 12/28/24 14:00 Pulse Ox 94 12/28/24 15:48 O2 Del Method Mechanical Ventilation 12/28/24 14:00 O2 Flow Rate 15 12/20/24 12:18 FiO2 35 12/28/24 14:15 12/28/24 12/28/24 12/28/24 06:59 14:59 22:59 Intake Total 112 / 342 60 / 60 Output Total 1350 / 1825 965 / 965 Balance -1238 / -1483 -905 / -905 Weight last 48 hrs Weight 162 kg Weight 163.5 kg Physical Exam 2 Const: COMMON NORMALS: no acute distress OTHER: Extubated on Bipap Eye: OTHER: Right pupil Narendra [place], left pupil equal round reactive to light Resp: COMMON NORMALS: normal respiratory effort, No retractions, No use of accessory muscles and clear to auscultation bilaterally AUSCULTATION: clear to auscultation bilaterally Cardio: COMMON NORMALS: regular rate, regular rhythm, S1 normal heart sound present and S2 normal heart sound present RATE: regular rate RHYTHM: r egular rhythm HEART SOUNDS: S1 normal heart sound present and S2 normal heart sound present GI: COMMON NORMALS: Normal to inspection, nondistended, normoactive bowel sounds present and non-tender Extremity: COMMON NORMALS: no calf tenderness Urinary Catheter Management: Russo: Cath Placed During This Visit: yes Reason for Continuing Indwelling Catheter: Accurate Measurement of Urinary Output in Critically Ill Patients Urinary Catheter Date of Insertion: 12/20/24 Urinary Catheter Time of Insertion: 12:00 Data 12/28/24 07:24 12/28/24 07:24 A&P Assessment and plan (1) S/P CABG (coronary artery bypass graft): (2) Coronary artery disease: (3) Diabetes: (4) Morbid obesity: (5) MARIA A (acute kidney injury): (6) CKD (chronic kidney disease): (7) Sepsis: (8) Acute metabolic encephalopathy: (9) Acute respiratory failure with hypoxia and hypercapnia: (10) Septic shock: (11) Acute CVA (cerebrovascular accident): (12) Pneumonia: (13) NSTEMI (non-ST elevated myocardial infarction): Plan Acute Hypoxemic Respiratory Failure s/p Extubation - Likely multifactorial, with contributions from heart failure, pneumonia, and possible aspiration - Extubated to Bipap - Repeat ABG / chest xray - D/C NG - Speech therapy prior to initiating oral intake. - Additional Lasix given today - Add duonbeb q6hr Acute Ischemic Stroke - Small left thalamic infarct on CT head 12/23/2024, no hemorrhagic conversion - Repeat CT noted evolving subacute thlamaic infarct with mild surrounding edema - no mass or midline shift - Unclear etiology, consider cardioembolic vs. small vessel occlusion - Continue antihypertensive - On aspirin/statin - Unable to obtain MRI brain - TTE noted - Neurology on board. - NO change to above management - Will need PT/OT consult Acute on Chronic Systolic (EF-15%) Heart Failure - Elevated BNP >2500, persistent pulmonary edema on imaging - Echo on 12/13 noted severe LV dysfunction with EF of 15% - diuretics 40 mg IV x1 given agan today - Over 5L output - Goal 2-3L negative balance daily - Optimize medical management - Strict intake and output, daily weights - Cardiology consultation in next few days Moraxella Catarallis Pneumonia - Bilateral lower lobe consolidations and lingular infiltrates - Continue broad-spectrum antibiotics - currently on meropenem - Pulmonary toilet, frequent suctioning - Elevate head of bed, chlorhexidine mouthwash - Noted to have a temp overnight - Monitor for recurrance ESBL UTI - Continue IV abx as noted above - De-escalate abx in next few days if remains afebrile Acute Kidney Injury - Baseline creatinine 1.5-1.7, peaked at 2.7 on admission, now improved to 1.4 ( Slight increase in past few days) - Creatinine like was low due to significant volume overload - Renal ultrasound if no improvement - Repeat labs in am Encephalopathy - Likely multifactorial - critical illness, polypharmacy, uremia, hypoxia - Discontinue all sedatives and antipsychotics - Assess for improvement now extubated Prophylaxis - GI prophylaxis - continue proton pump inhibitor - VTE prophylaxis - sequential compression devices, Lovenox - Lines/Tubes - orogastric tube, Russo catheter, central line - remove when able Disposition - Possible discharge to [facility] facility in am PDMP PDMP Reviewed: Not Reviewed Attestations 2 Medical Necessity Statement*: Patient requires hospital or acute CVA, acute respiratory failure, pneumonia, UTI, acute encephalopathy Coding Level of Care Code Acute Code for Chg Fwd Diagnoses S/P CABG (coronary artery bypass graft) Z95.1 Coronary artery disease I25.10 Diabetes E11.9 Morbid obesity E66.01 MARIA A (acute kidney injury) N17.9 CKD (chronic kidney disease) N18.9 Sepsis A41.9 Acute metabolic encephalopathy G93.41 Acute respiratory failure with hypoxia and hypercapnia J96.01; J96.02 Septic shock A41.9; R65.21 Acute CVA (cerebrovascular accident) I63.9 Pneumonia J18.9 NSTEMI (non-ST elevated myocardial infarction) I21.4
[2024-12-28 17:09] LABS: Glucose Point of Care 227 mg/dL (70-110)
--- NOTE | 2024-12-28 17:15 | PC.NURSE ---
Personal belongings: [place] staff and girlfriend brought in pt;s eye glasses and wallet. His wallet has a single one dollar bill, debit card, medical cards and other cards. Wallet locked up in ICU Pyxis. Eye glasses on bedside table.
--- NOTE | 2024-12-28 19:41 | PC.NURSE ---
Shift summary: No changes noted in neuro deficits in extremities. He was extubated this afternoon straight to BiPap. FIO 2 remains at 35%. He has been reaching his left hand up and pulling at mask. OG also removed. It is unclear if he has speech deficits or swallowing deficits at this time. , no attempts for swallowing eval made due to wearing BIPap. When he is asked questions he gestures with his left hand, no attempt at speech made. Paced rhythm remains on monitor, he has had multiple PVCs. Pt has nodded his head no to pain. However this afternoon his BP increased, he was pulling at BiPap mask frequently, Morphine admin once for comfort. He settled down afterwards. 1425ml of urine output. No Bm noted. Bowel sounds continue to be hypoactive. Lasix 40mg admin today. Daughter and her , then his girl friend visited him today. Staff from [facility] brought his glsses and wallet for his probable impending transfer to longterm acute facility.
[2024-12-28 21:37] LABS: Glucose Point of Care 189 mg/dL (70-110)
[2024-12-28] MEDS: enoxaparin 40 mg/0.4 mL Syringe SUBCUT (21:37)
[2024-12-29] VITALS (17 sets, daily range): BP systolic 135–170; BP diastolic 79–118; PULSE 62–83; RESP 12–27; TEMP 36.4–37.2; O2SAT 90–100
[2024-12-29 05:37] LABS: Basophils # 0.1 10^3/uL (0.0-0.1); Basophils % 0.9 %; Eosinophils # 0.5 10^3/uL (0.0-0.8); Eosinophils % 5.3 %; Hematocrit 47.4 % (37-53); Lymphocytes % 10.6 %; Mean Corpuscular HGB Conc 28.7 g/dL (30-55); Mean Corpuscular Volume 87.3 fl (82-101); Mean Platelet Volume 11.6 fL (7.4-10.4); Monocytes % 10.4 %; Neutrophils % 72.2 %; Nucleated Red Blood Cells % 0 %; Platelet Count 187 10^3/cmm (157-399); Red Blood Count 5.43 10^6/uL (3.85-5.65); Red Cell Distribution Width 17.7 % (12.1-15.1); White Blood Count 9.83 10^3/uL (3.29-11.43)
[2024-12-29 05:55] LABS: Alanine Aminotransferase 7 U/L (0-41); Albumin Level 3.3 g/dL (3.5-5.2); Alkaline Phosphatase 53 U/L (40-130); Anion Gap 16.9 (5-19); Aspartate Amino Transferase 9 U/L (0-40); Blood Urea Nitrogen 34 mg/dL (8-23); Calcium 9.6 mg/dL (8.5-10.5); Carbon Dioxide 28 mmol/L (22-29); Chloride 104 mmol/L (98-107); Creatinine Clr Calc Pharmacy 93.0139; Globulin 4.4 g/dL (1.3-4.6); Glomerular Filtration Rate 60.6 mL/min (90-130); Glucose 196 mg/dL (65-115); Osmolality Calculated 313 mOsm/kg (285-295); Potassium 3.9 mmol/L (3.5-5.1); Sodium 145 mmol/L (136-145); Total Bilirubin 1.4 mg/dL (0.15-1.2); Total Protein 7.7 g/dL (6.6-8.7)
[2024-12-29] MEDS: ipratropium-albuterol 3 mL Neb INHALATION (08:24)
[2024-12-29] MEDS: meropenem 1,000 mg SDV 1000 MG IVP (08:28)
[2024-12-29] MEDS: insulin lispro 100 unit/1 mL SUBCUT ×2 (08:29→12:27)
[2024-12-29 09:10] LABS: Glucose Point of Care 191 mg/dL (70-110)
--- NOTE | 2024-12-29 10:32 | PC.NURSE ---
This nurse called Dr. Fraga regarding patients elevated blood pressure and inability to take PO meds ordered for treatment of BP. Verbal order received for hydralazine 10mg IVP and ABG. See MAR and documented vitals.
[2024-12-29] MEDS: hyDRALAzine 20 mg/mL INJ 1 mL 10 MG IVP (10:51)
[2024-12-29 10:52] LABS: ABG PCO2 48.7 mmHg (35-45); Alveolar-Arterial Oxygen Gradi 16.8 mmHg (5-10); Arterial Blood Gas Hematocrit 44.9 % (42-52); Blood Gas Allen Test Pos; Blood Gas Operator Identificat CAK; Blood Gas Sample Site Brachial, left; Blood Gas Sample Type Arterial; Carboxyhemoglobin 1.3 %THgb (0.4-20.1); HGB O2 Sat 90.7 % (95-100); Ionized Calcium Level - ABG 1.3 mmol/L (1.1-1.4); Methemoglobin 0.9 % (0.4-1.5); Oxygen Device BIPAP; Oxygen Saturation ABG 92.8; PO2 ABG 64.3 mmHg (80.0-100.0); PO2 FiO2 Ratio Arterial Blood 183; Potassium Level - ABG 4.1 mmol/L (3.5-5.0); Total Hemoglobin 14.7 g/dL (14-18)
[2024-12-29 11:58] LABS: Glucose Point of Care 224 mg/dL (70-110)
--- NOTE | 2024-12-29 12:34 | P.PN_ITS ---
Subjective 2 Subjective: 64 yo with past medical history of diabe brent mellitus on insulin, obstructive sleep apnea, systolic heart failure s/p AICD, sick sinus syndrome status post pacemaker placement, and coronary artery disease status post CABG in 12/2009 presents with difficulty breathing and altered mental status. He was initially admitted with acute systolic heart failure from 12/12 to 12/17 during which time he was found to have an EF of 15% which was a drop from his previous 45%. Cardiology was consulted and patient was offered ischemic work up however he declined. Respiratory status had improved during this hospitalization however he did require PPV with AVAPs support. Also was noted to have altered mental status which had also improved. Following discharge back to [facility] he was doing well until 12/20 during which time patient was found to be unresponsive briefly after which he noted to have slurring of his speech and right sided weakness. NIH of 10 was noted when he arrived to ER. During this initial eval he was noted to have medial deviation of his right eye. Also whie in ER on 12/20 he was noted to be hypoxic in respiratory distress for which he was intubated and placed on mechanical ventilation. He was also started on broad spectrum antibiotic due to sepsis with shock on admit. Initially on vancomycin and meropenum which were de-escalated to meropenum alone. He was noted to have Morexella cataralis and he was also ESBL proteus UTI. Blood cultures had not shown any growth. He was initially required pressor support which was weaned off. Was also placed on IVF. Additional imaging included chest/abdomen/pelvis on admission showed bilateral lower lobe consolidations, patchy lingular infiltrates, moderate stable cardiomegaly, colonic diverticulosis, and mild vascular calcifications. Initial workup included CT head and CTA head and neck which were unremarkable. Repeat CT head on 12/23/2024 revealed interval development of a small left thalamic stroke without hemorrhage. CTH on 12/26 showed evolving left thalamic stroke with mild surrounding edema w/o midline shift or mass effect. EEG was also done which showed background slowing with out any epileptiform discharges. He was continued on aspirin 325 mg daily and statin while he was intubated however following extubation he was not able to tolerate PO intake due to risk of aspiration and dysphagia. Aspirin was changed to 300 mg SD. Patient was noted to have significant volume overload, on the . Hemodynamically was stable after which he was started on diuresis. Lasix 40 mg IV daily was given on , and . Repeat chest xray noted improvement in aeration. Vent setting were favorable. Patient was extubated to BIPAP successfully on 12/28. 12/27 No new clinical events overnight. Remaind stable on Vent. Was appearing more alert today. Not squeezing RUE. Attempting to wean vent today. 12/28 Patient was noted to have temp of 100.2 overnight, tolerated weaning vent, extubated today to BiPAP. Discussed care plan with family at bedside. 12/29 Discharged to LTAC Vitals/I&O/Wt Last Vital Signs Temp 97.9 F 12/29/24 12:00 Pulse 77 12/29/24 12:00 Resp 20 H 12/29/24 12:00 BP 157/95 12/29/24 12:00 Pulse Ox 94 12/29/24 12:00 O2 Del Method Nasal Cannula 12/29/24 12:00 O2 Flow Rate 5 12/29/24 12:00 FiO2 35 12/29/24 08:23 12/28/24 12/29/24 12/29/24 22:59 06:59 14:59 Output Total 475 / 1440 600 / 2040 Balance -475 / -1260 -600 / -1860 Weight last 48 hrs Weight 163.293 kg Weight 162 kg Physical Exam 2 Const: COMMON NORMALS: no acute distress OTHER: Extubated on Bipap Eye: OTHER: Right pupil Narendra Ramona, left pupil equal round reactive to light Resp: COMMON NORMALS: normal respiratory effort, No retractions, No use of accessory muscles and clear to auscultation bilaterally AUSCULTATION: clear to auscultation bilaterally Cardio: COMMON NORMALS: regular rate, regular rhythm, S1 normal heart sound present and S2 normal heart sound present RATE: regular rate RHYTHM: r egular rhythm HEART SOUNDS: S1 normal heart sound present and S2 normal heart sound present GI: COMMON NORMALS: Normal to inspection, nondistended, normoactive bowel sounds present and non-tender Extremity: COMMON NORMALS: no calf tenderness Urinary Catheter Management: Russo: Cath Placed During This Visit: yes Reason for Continuing Indwelling Catheter: Accurate Measurement of Urinary Output in Critically Ill Patients Urinary Catheter Date of Insertion: 12/20/24 Urinary Catheter Time of Insertion: 12:00 Data 12/29/24 04:35 12/29/24 04:35 A&P Assessment and plan (1) S/P CABG (coronary artery bypass graft): (2) Coronary artery disease: (3) Diabetes: (4) Morbid obesity: (5) MARIA A (acute kidney injury): (6) CKD (chronic kidney disease): (7) Sepsis: (8) Acute metabolic encephalopathy: (9) Acute respiratory failure with hypoxia and hypercapnia: (10) Septic shock: (11) Acute CVA (cerebrovascular accident): (12) Pneumonia: (13) NSTEMI (non-ST elevated myocardial infarction): Plan Acute Hypoxemic Respiratory Failure s/p Extubation - Likely multifactorial, with contributions from heart failure, pneumonia, and possible aspiration - Extubated to Bipap - Repeat ABG / chest xray - D/C NG - Speech therapy prior to initiating oral intake. - Additional Lasix given today - Continue duonbeb q6hr Acute Ischemic Stroke - Small left thalamic infarct on CT head 12/23/2024, no hemorrhagic conversion - Repeat CT noted evolving subacute thlamaic infarct with mild surrounding edema - no mass or midline shift - Unclear etiology, consider cardioembolic vs. small vessel occlusion - Continue antihypertensive - On aspirin/statin - Unable to obtain MRI brain - TTE noted - Neurology on board. - NO change to above management - Will need PT/OT consult Acute on Chronic Systolic (EF-15%) Heart Failure - Elevated BNP >2500, persistent pulmonary edema on imaging - Echo on 12/13 noted severe LV dysfunction with EF of 15% - diuretics 40 mg IV x1 given agan today - Over 5L output - Goal 2-3L negative balance daily - Optimize medical management - Strict intake and output, daily weights - Cardiology consultation in next few days Moraxella Catarallis Pneumonia - Bilateral lower lobe consolidations and lingular infiltrates - Continue broad-spectrum antibiotics - currently on meropenem - Pulmonary toilet, frequent suctioning - Elevate head of bed, chlorhexidine mouthwash - Noted to have a temp overnight - Monitor for recurrance ESBL UTI - Continue IV abx as noted above - De-escalate abx in next few days if remains afebrile Acute Kidney Injury - Baseline creatinine 1.5-1.7, peaked at 2.7 on admission, now improved to 1.4 ( Slight increase in past few days) - Creatinine like was low due to significant volume overload - Renal ultrasound if no improvement - Repeat labs in am Encephalopathy - Likely multifactorial - critical illness, polypharmacy, uremia, hypoxia - Discontinue all sedatives and antipsychotics - Assess for improvement now extubated Prophylaxis - GI prophylaxis - continue proton pump inhibitor - VTE prophylaxis - sequential compression devices, Lovenox - Lines/Tubes - orogastric tube, Russo catheter, central line - remove when able Disposition - Discharge to [place] [facility] facility PDMP PDMP Reviewed: Not Reviewed Attestations 2 Medical Necessity Statement*: Discharge to [place] today Coding Level of Care Code Acute Code for Chg Fwd Diagnoses S/P CABG (coronary artery bypass graft) Z95.1 Coronary artery disease I25.10 Diabetes E11.9 Morbid obesity E66.01 MARIA A (acute kidney injury) N17.9 CKD (chronic kidney disease) N18.9 Sepsis A41.9 Acute metabolic encephalopathy G93.41 Acute respiratory failure with hypoxia and hypercapnia J96.01; J96.02 Septic shock A41.9; R65.21 Acute CVA (cerebrovascular accident) I63.9 Pneumonia J18.9 NSTEMI (non-ST elevated myocardial infarction) I21.4
[2024-12-29] MEDS: aspirin 300 mg Supp PR (12:45)
[2024-12-29] MEDS: FUROsemide 10 mg/mL SDV 4mL 40 MG IVP (12:48)
[2024-12-29] MEDS: pantoprazole 40 mg SDV IVP (14:17)
--- NOTE | 2024-12-29 15:13 | PC.NURSE ---
This nurse called [facility] for transport. Report called to Jessy at [facility]. Patient to go to room 101.
--- NOTE | 2024-12-29 16:03 | PC.NURSE ---
Patient educated on transfer to [place] in [place], Patients daughter at bedside for discharge education. Patient transported by [facility]. Patients wallet and glasses with daughter. All paperwork reviewed with EMS.
--- NOTE | 2025-01-05 10:13 | PM.DCS ---
Discharge Providers Date of Admission: 12/20/24 13:59 Date of Discharge: December 29, 2024 Attending Provider at Admission: Kendall Gleason MD Attending Provider at Discharge: Faheem Fraga Consults: Neurology Primary Care Provider: Manav Vergara DO Diagnoses at Discharge Discharge Diagnosis (1) S/P CABG (coronary artery bypass graft): Status: Inactive (2) Coronary artery disease: Status: Acute (3) Diabetes: Status: Acute (4) Morbid obesity: Status: Acute (5) MARIA A (acute kidney injury): Status: Resolved (6) CKD (chronic kidney disease): Status: Inactive (7) Sepsis: Status: Resolved (8) Acute metabolic encephalopathy: Status: Acute (9) Acute respiratory failure with hypoxia and hypercapnia: Status: Acute (10) Septic shock: Status: Resolved (11) Acute CVA (cerebrovascular accident): Status: Acute (12) Pneumonia: Status: Acute (13) NSTEMI (non-ST elevated myocardial infarction): Status: Acute Reason for Visit Reason for Visit: unrespon. Hospital Course Hospital Course 64 yo with past medical history of diabetes mellitus on insulin, obstructive sleep apnea, systolic heart failure s/p AICD, sick sinus syndrome status post pacemaker placement, and coronary artery disease status post CABG in 12/2009 presents with difficulty breathing and altered mental status. He was initially admitted with acute systolic heart failure from 12/12 to 12/17 during which time he was found to have an EF of 15% which was a drop from his previous 45%. Cardiology was consulted and patient was offered ischemic work up however he declined. Respiratory status had improved during this hospitalization however he did require PPV with AVAPs support. Also was noted to have altered mental status which had also improved. Following discharge back to [facility] he was doing well until 12/20 during which time patient was found to be unresponsive briefly after which he noted to have slurring of his speech and right sided weakness. NIH of 10 was noted when he arrived to ER. During this initial eval he was noted to have medial deviation of his right eye. Also whie in ER on 12/20 he was noted to be hypoxic in respiratory distress for which he was intubated and placed on mechanical ventilation. He was also started on broad spectrum antibiotic due to sepsis with shock on admit. Initially on vancomycin and meropenum which were de-escalated to meropenum alone. He was noted to have Morexella cataralis and he was also ESBL proteus UTI. Blood cultures had not shown any growth. He was initially required pressor support which was weaned off. Was also placed on IVF. Additional imaging included chest/abdomen/pelvis on admission showed bilateral lower lobe consolidations, patchy lingular infiltrates, moderate stable cardiomegaly, colonic diverticulosis, and mild vascular calcifications. Initial workup included CT head and CTA head and neck which were unremarkable. Repeat CT head on 12/23/2024 revealed interval development of a small left thalamic stroke without hemorrhage. CTH on 12/26 showed evolving left thalamic stroke with mild surrounding edema w/o midline shift or mass effect. EEG was also done which showed background slowing with out any epileptiform discharges. He was continued on aspirin 325 mg daily and statin while he was intubated however following extubation he was not able to tolerate PO intake due to risk of aspiration and dysphagia. Aspirin was changed to 300 mg [place]. Patient was noted to have significant volume overload, on the . Hemodynamically was stable after which he was started on diuresis. Lasix 40 mg IV daily was given on , and . Repeat chest xray noted improvement in aeration. Vent setting were favorable. Patient was extubated to BIPAP successfully on 12/28. Discharge to [facility]. Physician to physican handoff was provided. Updated med-list was also verbally discussed with provider. Follow up needed with neurology and cardiology. Physical Exam Const: COMMON NORMALS: no acute distress OTHER: Extubated on Bipap Eye: OTHER: Right pupil Narendra [place], left pupil equal round reactive to light Resp: COMMON NORMALS: normal respiratory effort, No retractions, No use of accessory muscles and clear to auscultation bilaterally AUSCULTATION: clear to auscultation bilaterally Cardio: COMMON NORMALS: regular rate, regular rhythm, S1 normal heart sound present and S2 normal heart sound present RATE: regular rate RHYTHM: regular rhythm HEART SOUNDS: S1 normal heart sound present and S2 normal heart sound present GI: COMMON NORMALS: Normal to inspection, nondistended, normoactive bowel sounds present and non-tender Extremity: COMMON NORMALS: no calf tenderness Urinary Catheter Management: Russo: Cath Placed During This Visit: yes Reason for Continuing Indwelling Catheter: Accurate Measurement of Urinary Output in Critically Ill Patients Urinary Catheter Date of Insertion: 12/20/24 Urinary Catheter Time of Insertion: 12:00 Discharge Data Studies Completed and Pending Completed Studies During Hospitalization Category Date Time Status CT angio headneck* [id number] Stat Cat Scan 12/20/24 11:[address] [place] [id number] Routine Cat Scan 12/20/24 14:[address] head thrombolytic 42824 Stat Cat Scan 12/20/24 11:[address] head wo con* [id number] Routine Cat Scan 12/23/24 07:[address] head wo con* [id number] Routine Cat Scan 12/26/24 07:00 Completed CXRP [XR chest 1V portable [id number]] Routine Exams 12/20/24 16:48 Completed XR KUB portable [id number] Routine Exams 12/25/24 07:10 Completed XR chest 1V portable [id number] Routine Exams 12/21/24 07:00 Completed XR chest 1V portable [id number] Routine Exams 12/23/24 09:09 Completed XR chest 1V portable [id number] Routine Exams 12/23/24 11:36 Completed XR chest 1V portable [id number] Routine Exams 12/23/24 12:36 Completed XR chest 1V portable [id number] Routine Exams 12/24/24 07:00 Completed XR chest 1V portable [id number] Routine Exams 12/27/24 07:00 Completed XR chest 1V portable [id number] Stat Exams 12/20/24 11:25 Completed XR chest 1V portable [id number] Stat Exams 12/20/24 13:22 Completed Pending at discharge Category Date Time Status EEG electroencephalogram Routine Exams 12/25/24 10:55 Ordered Radiology Impressions Head/Neck CTA 12/20/24 11:38 IMPRESSION: 1. Study is compromised by body habitus, arm position and motion. 2. No high-grade cervical carotid artery stenosis. There is mild plaque but no stenosis. 3. No thrombus or occlusion within the [place]. 4. Patent vertebral arteries. Chest/Abdomen/Pelvis CT 12/20/24 14:47 IMPRESSION: 1. Interval placement of endotracheal and nasogastric tubes in good position. 2. Bilateral lower lobe consolidation, new since December 07, 2024. 3. Stable patchy atelectasis or infiltrate in the lingula. 4. Moderate stable cardiomegaly with evidence for prior CABG. IMPRESSION: 1. Colonic diverticulosis without compelling CT evidence for acute diverticulitis. 2. Small 15 mm hypodense lesion in the mid right kidney with Hounsfield units greater than a simple cyst on this contrast-enhanced exam. There are no prior studies available for comparison. Ultrasound may be helpful for further evaluation. 3. Rpzz-gf-[id number] vascular calcification. COMMENTS: Consistent with the [place] [employer]'s Incidental Findings Committee white paper (J Am Arash Radiol 2018): Any incidental renal lesion less than 1 cm or classified as too small to characterize, or any incidental cystic renal lesion characterized as simple-appearing, is likely benign. No follow-up imaging is recommended for these lesions per consensus recommendations based on imaging criteria. KUB X-Ray 12/25/24 07:10 IMPRESSION: No acute findings. Head CT 12/26/24 07:00 IMPRESSION: 1. No evidence of intracranial hemorrhage 2. Evolving subacute LEFT thalamic infarct with associated edema increased since 12/23/2024 described above. No significant mass effect or midline shift. 3. No other significant changes. Chest X-Ray 12/27/24 07:00 IMPRESSION: 1. Medical devices as above. 2. Improving aeration of the bilateral lung [place] with perhaps small residual infiltrate/opacity in the left lower lobe. Laboratory Results WBC 9.83 10^3/uL (3.29-11.43) 12/29/24 04:35 Corrected WBC Cancelled 12/26/24 03:52 RBC 5.43 10^6/uL (3.85-5.65) 12/29/24 04:35 Hgb 13.60 g/dL (11.27-16.99) 12/29/24 04:35 Hct 47.4 % (37-53) 12/29/24 04:35 MCV 87.3 fl (82-101) 12/29/24 04:35 MCH 25.0 pg (27-33) L 12/29/24 04:35 MCHC 28.7 g/dL (30-55) L 12/29/24 04:35 RDW 17.7 % (12.1-15.1) H 12/29/24 04:35 Plt Count 187 10^3/cmm (157-399) 12/29/24 04:35 MPV 11.6 fL (7.4-10.4) H 12/29/24 04:35 Gran % Cancelled 12/26/24 03:52 Neut % (Auto) 72.2 % 12/29/24 04:35 Lymph % (Auto) 10.6 % 12/29/24 04:35 [place] % (Auto) 10.4 % 12/29/24 04:35 Eos % (Auto) 5.3 % 12/29/24 04:35 Baso % (Auto) 0.9 % 12/29/24 04:35 Neut # (Auto) 7.10 10^3/uL (1.8-7.7) 12/29/24 04:35 Lymph # (Auto) 1.0 10^3/uL (0.8-4.8) 12/29/24 04:35 [place] # (Auto) 1.0 10^3/uL (0.2-0.9) H 12/29/24 04:35 Eos # (Auto) 0.5 10^3/uL (0.0-0.8) 12/29/24 04:35 Baso # (Auto) 0.1 10^3/uL (0.0-0.1) 12/29/24 04:35 Absolute Gran (auto) Cancelled 12/26/24 03:52 Nucleated RBC % (auto) 0 % 12/29/24 04:35 Nucleated RBCs # 0.0 /100WBC 12/29/24 04:35 PT 13.70 SECONDS (12.1-14.9) 12/23/24 04:17 INR 0.98 (0.8-1.2) 12/23/24 04:17 APTT 28.4 SECONDS (23.9-36.7) 12/20/24 14:22 Specimen Type Arterial 12/29/24 10:41 Sample Site Brachial, left 12/29/24 10:41 ABG pH 7.40 (7.35-7.45) 12/29/24 10:41 ABG pCO2 48.7 mmHg (35-45) H 12/29/24 10:41 ABG pO2 64.3 mmHg (80.0-100.0) L 12/29/24 10:41 ABG PO2/FiO2 Ratio 183 12/29/24 10:41 ABG HCO3 30.0 mmol/L (22-26) H 12/29/24 10:41 ABG O2 Saturation 92.8 12/29/24 10:41 ABG Base Excess 4.0 mmol/L (-2.0-2.0) H 12/29/24 10:41 Inderjit Test Pos 12/29/24 10:41 A-a O2 Gradient 16.8 mmHg (5-10) H 12/29/24 10:41 Hematocrit 44.9 % (42-52) 12/29/24 10:41 Hgb O2 Saturation 90.7 % (95-100) L 12/29/24 10:41 Carboxyhemoglobin 1.3 %THgb (0.4-20.1) 12/29/24 10:41 Methemoglobin 0.9 % (0.4-1.5) 12/29/24 10:41 Total Hemoglobin 14.7 g/dL (14-18) 12/29/24 10:41 Sodium 150.0 mmol/L (131-143) H 12/29/24 10:41 Potassium 4.1 mmol/L (3.5-5.0) 12/29/24 10:41 Glucose 215.0 mg/dL (70-115) H 12/29/24 10:41 Ionized Calcium 1.3 mmol/L (1.1-1.4) 12/29/24 10:41 O2 Delivery Device Bipap 12/29/24 10:41 FiO2 35.0 % 12/29/24 10:41 Tidal Volume 0.51 12/27/24 04:06 PEEP 8.0 cmH20 12/27/24 04:06 Retail Receiving Clerk ID Cak 12/29/24 10:41 Sodium 145 mmol/L (136-145) 12/29/24 04:35 Potassium 3.9 mmol/L (3.5-5.1) 12/29/24 04:35 Chloride 104 mmol/L (98-107) 12/29/24 04:35 Carbon Dioxide 28 mmol/L (22-29) 12/29/24 04:35 Anion Gap 16.9 (5-19) 12/29/24 04:35 BUN 34 mg/dL (8-23) H 12/29/24 04:35 Creatinine 1.2 mg/dL (0.7-1.2) 12/29/24 04:35 GFR Calculation 60.6 mL/min (90-130) L 12/29/24 04:35 Glucose 196 mg/dL (65-115) H 12/29/24 04:35 POC Glucose 224 mg/dL (70-110) H 12/29/24 11:53 Estimat Average Glucose 209 12/20/24 10:50 Hemoglobin A1c 8.9 % (4.0-6.0) H 12/20/24 10:50 Calculated Osmolality 313 mOsm/kg (285-295) H 12/29/24 04:35 Lactic Acid 1.1 mmol/L (0.5-2.2) 12/20/24 10:50 Lactate 2.4 mmol/L (0.5-2.2) H 12/26/24 10:37 Calcium 9.6 mg/dL (8.5-10.5) 12/29/24 04:35 Phosphorus 2.9 mg/dL (2.5-4.5) 12/26/24 03:52 Magnesium 2.0 mg/dL (1.7-2.3) 12/26/24 03:52 Total Bilirubin 1.4 mg/dL (0.15-1.2) H 12/29/24 04:35 AST 9 U/L (0-40) 12/29/24 04:35 ALT 7 U/L (0-41) 12/29/24 04:35 Alkaline Phosphatase 53 U/L (40-130) 12/29/24 04:35 Ammonia 26 umol/L (16-60) 12/23/24 04:17 Creatine Kinase 115 U/L (39-308) 12/26/24 03:52 Troponin T Baseline 56 ng/L (0-15) H 12/20/24 10:50 Troponin T 120 Minute 53.02 ng/L (0-15) H 12/20/24 12:56 Delta Troponin T -2.98 ABS# (0-10) L 12/20/24 12:56 Troponin T Hi Sens 6Hr 53.89 ng/L (0-15) H 12/20/24 16:42 Troponin T Hi Sens 6Hr Delta -2.11 ng/L (0-12) L 12/20/24 16:42 C-Reactive Protein 51.6 mg/L (0.0-4.9) H 12/26/24 03:52 NT-Pro-B Natriuret Pep 1301 pg/mL (0-125) H 12/28/24 07:24 Total Protein 7.7 g/dL (6.6-8.7) 12/29/24 04:35 Albumin 3.3 g/dL (3.5-5.2) L 12/29/24 04:35 Globulin 4.4 g/dL (1.3-4.6) 12/29/24 04:35 Triglycerides 125 mg/dL (0-150) 12/20/24 10:50 Cholesterol 131 mg/dL (0-200) 12/20/24 10:50 LDL Cholesterol, Calc 79 mg/dL (50-129) 12/20/24 10:50 HDL Cholesterol 27 mg/dL (60-100) L 12/20/24 10:50 LDL/HDL Ratio 2.93 RATIO (0.00-3.22) 12/20/24 10:50 Cholesterol/HDL Ratio 4.85 mg/dL (1.0-5.00) 12/20/24 10:50 Procalcitonin 0.05 ng/mL (0-0.5) 12/26/24 03:52 TSH 0.96 uIU/mL (0.27-4.20) 12/20/24 10:50 Urine Color Yellow (Yellow) 12/20/24 12:11 Urine Appearance Clear (CLEAR) 12/20/24 12:11 Urine pH 5.0 (5-7) 12/20/24 12:11 Ur Specific [place] 1.020 (1.005-1.030) 12/20/24 12:11 Urine Protein Trace (Negative) A 12/20/24 12:11 Urine Glucose (UA) Negative (Normal) 12/20/24 12:11 Urine Ketones Negative (Negative) 12/20/24 12:11 Urine Blood Negative (Negative) 12/20/24 12:11 Urine Nitrate Negative (Negative) 12/20/24 12:11 Urine Bilirubin Negative (Negative) 12/20/24 12:11 Urine Urobilinogen 1.0 mg/dL (Negative) 12/20/24 12:11 Ur Leukocyte Esterase 1+ (Negative) A 12/20/24 12:11 Urine RBC 0-2 /hpf (0-2) 12/20/24 12:11 Urine WBC 11-20 /hpf (0-5) H 12/20/24 12:11 Ur Squamous Epith Cells 0-5 /hpf (0-5) 12/20/24 12:11 Urine Bacteria None seen /hpf (NONE) 12/20/24 12:11 Hyaline Casts 43.44 /lpf 12/20/24 12:11 Vancomycin Trough 48.5 ug/mL (10-15) H* 12/22/24 17:54 Random Vancomycin 40.1 ug/mL (20.0-40.0) H 12/23/24 04:17 Coronavirus (PCR) Negative (Negative) 12/20/24 12:13 Influenza A (PCR) Negative (Negative) 12/20/24 12:13 Influenza Type B (PCR) Negative (Negative) 12/20/24 12:13 RSV (PCR) Negative (Negative) 12/20/24 12:13 Vitals Last Vital Signs Temp 99.0 F 12/29/24 15:58 Pulse 67 12/29/24 15:58 Resp 18 12/29/24 15:58 BP 153/79 12/29/24 15:58 Pulse Ox 92 12/29/24 15:58 O2 Del Method Nasal Cannula 12/29/24 12:00 O2 Flow Rate 5 12/29/24 12:00 FiO2 35 12/29/24 08:23 Discharge Plan Discharge Patient Disposition: Xfer LTC Condition: Fair Prescriptions: Continued albuterol sulfate 2.5 mg /3 mL (0.083 %) solution for nebulization 2.5 mg inhalation Q4H nitroglycerin [Nitrostat] 0.4 mg Tablet, Sublingual 0.4 mg SUBLINGUAL Q5M PRN (Reason: Chest Pain) cetirizine 10 mg Tablet 10 mg PO DAILY gabapentin 800 mg tablet 800 mg PO TID guaifenesin 600 mg Tablet Extended Release 12hr 600 mg PO Q12H PRN (Reason: Cold Symptoms) guaifenesin 100 mg/5 mL Liquid 200 mg PO Q4H PRN (Reason: Cold Symptoms) sacubitril-valsartan [Entresto] 24-26 mg tablet 1 tab PO BID Qty: 60 0RF bumetanide 2 mg tablet 2 mg PO BIDAC Qty: 60 0RF aspirin 81 mg Tablet,Delayed Release (Dr/Ec) 81 mg PO DAILY metoprolol succinate 25 mg tablet extended release 24 hr 25 mg PO DAILY acetaminophen 325 mg Tablet 650 mg PO QID PRN (Reason: Pain) atorvastatin 10 mg Tablet 10 mg PO BEDTIME bisacodyl 10 mg Suppository 10 mg [place] DAILY PRN (Reason: Constipation) Discontinued Lantus U-100 Insulin 100 unit/mL solution 52 unit SUBCUT BID insulin lispro [Humalog KwikPen Insulin] 100 unit/mL Insulin Pen 18 unit SUBCUT TID Rx Instructions: before meals Fiasp FlexTouch U-100 Insulin 100 unit/mL (3 mL) insulin pen 15 unit SUBCUT TID Mounjaro 2.5 mg/0.5 mL pen injector 2.5 mg SUBCUT Q7D hydralazine 50 mg Tablet 50 mg PO TID 30 Days Qty: 90 0RF nystatin 100,000 unit/gram Powder 1 applic TOPICAL BID Rx Instructions: apply to chris area topically every shift for candidiasis DC order when area resolves metformin 1,000 mg Tablet Extended Release 24 Hr 1,000 mg PO DAILY loperamide 2 mg Capsule See Rx Instructions .ROUTE .COMPLEX PRN (Reason: Diarrhea) Rx Instructions: take 1 capsule by mouth every 1-2 hours as needed for diarrhea after each loose stool, not to exceed 8mg in 24 hours magnesium hydroxide [Milk of Magnesia] 400 mg/5 mL Suspension 30 ml PO DAILY PRN (Reason: Constipation) Discharge Orders: Discharge Order (Routine); Ordered 12/29/24 Ordered By: Faheem Fraga Referrals: Manav Vergara DO [Primary Care Provider] - Discharge Activity: Increase activity as tolerated Patient Instructions: Altered Mental Status (ED), Opioid Safety Discharge Attestations Time Spent in Discharge Care*: greater than 30 min Status at Discharge: Cognitive status at discharge: cognitively intact, Behavioral status at discharge: cooperative, Quality Metrics Clinical Quality Measures [ No reported AMI, CVA or VTE this stay] Coding Level of Care Code Acute Code for Chg Fwd Diagnoses S/P CABG (coronary artery bypass graft) Z95.1 Coronary artery disease I25.10 Diabetes E11.9 Morbid obesity E66.01 MARIA A (acute kidney injury) N17.9 CKD (chronic kidney disease) N18.9 Sepsis A41.9 Acute metabolic encephalopathy G93.41 Acute respiratory failure with hypoxia and hypercapnia J96.01; J96.02 Septic shock A41.9; R65.21 Acute CVA (cerebrovascular accident) I63.9 Pneumonia J18.9 NSTEMI (non-ST elevated myocardial infarction) I21.4
== END 2024-12-29 16:07 | DRG 870 ==
LOC: ER 13:22 → ICU 14:00
PROVIDERS: Internal Medicine; Admitting Provider Family Medicine; Emergency Provider Emergency Medicine; PCP Internal Medicine; Visit Provider Hospitalist
DX: A41.9 Sepsis, unspecified organism (principal); R65.21 Severe sepsis with septic shock; G93.41 Metabolic encephalopathy; I50.23 Acute on chronic systolic (congestive) heart failure; J96.02 Acute respiratory failure with hypercapnia; J96.01 Acute respiratory failure with hypoxia; I63.9 Cerebral infarction, unspecified; I21.4 Non-ST elevation (NSTEMI) myocardial infarction; J15.8 Pneumonia due to other specified bacteria; Z68.43 Body mass index [BMI] 50.0-59.9, adult; N17.9 Acute kidney failure, unspecified; I13.0 Hypertensive heart and chronic kidney disease with heart failure and stage 1 through stage 4 chronic kidney disease, or unspecified chronic kidney disease; G81.91 Hemiplegia, unspecified affecting right dominant side; J44.0 Chronic obstructive pulmonary disease with (acute) lower respiratory infection; N39.0 Urinary tract infection, site not specified; Z16.12 Extended spectrum beta lactamase (ESBL) resistance; I25.10 Atherosclerotic heart disease of native coronary artery without angina pectoris; Z95.1 Presence of aortocoronary bypass graft; E66.01 Morbid (severe) obesity due to excess calories; E11.22 Type 2 diabetes mellitus with diabetic chronic kidney disease; N18.9 Chronic kidney disease, unspecified; R47.81 Slurred speech; R13.10 Dysphagia, unspecified; R29.810 Facial weakness; H51.8 Other specified disorders of binocular movement; Z79.4 Long term (current) use of insulin; G47.33 Obstructive sleep apnea (adult) (pediatric); Z95.810 Presence of automatic (implantable) cardiac defibrillator; Z88.0 Allergy status to penicillin; E86.0 Dehydration; Z87.891 Personal history of nicotine dependence; N40.0 Benign prostatic hyperplasia without lower urinary tract symptoms; G25.81 Restless legs syndrome; Z79.84 Long term (current) use of oral hypoglycemic drugs; Z79.85 Long-term (current) use of injectable non-insulin antidiabetic drugs; K57.90 Diverticulosis of intestine, part unspecified, without perforation or abscess without bleeding; B96.4 Proteus (mirabilis) (morganii) as the cause of diseases classified elsewhere; I49.5 Sick sinus syndrome
CPT/HCPCS: 36415; 36416; 36573; 36592; 36600; 51702; 70450; 70496; 70498; 71045; 71250; 74018; 74176; 80048; 80051; 80053; 80061; 80202; 81001; 82140; 82330; 82550; 82803; 82805; 82962; 83036; 83605; 83735; 83880; 84100; 84145; 84443; 84484; 85025; 85610; 85730; 86140; 87040; 87070; 87077; 87086; 87186; 87205; 87637; 93005; 94002; 94003; 94640; 94660; 94799; 95822; 96365; 96366; 96367; 96372; 96374; 96375; 96376; 99291; 99292; C1751; J0330; J0360; J1650; J1815; J1940; J2020; J2185; J2250; J2270; J2470; J2704; J2919; J3010; J3370; J3490; J7030; J7040; J7050; J7613